=== PATIENT | female | born 1950 | race Caucasian/White ===

== ENCOUNTER 2020-06-15 15:34 | Emergency (ER) | payer MEDICARE, SELFPAY ==
[2020-06-15 16:22] VITALS: BP 166/75; PULSE 66; RESP 16; TEMP 36.6; O2SAT 100; BMI 33.6
--- NOTE | 2020-06-15 16:52 | PC.NURSE ---
IV INSERTED, UNABLE TO OBTAIN LABS OF IV SITE, URINE OBTAINED, WILL SEND TECH TO OBTAIN LABS, VSS, WILL CONTINUE TO MONITOR.
[2020-06-15 17:00] LABS: Glucose Urine UA NEG (NEG); Leukocyte Esterase Urine NEG (NEG); Nitrite Urine NEG (NEG); PH 6.5 (5.0-8.0); Urine Blood NEG (NEG); Urine Ketones NEG (NEG); Urine Protein NEG (NEG-TRACE)
[2020-06-15 17:02] LABS: Appearance Urine CLEAR; Color Urine YELLOW
[2020-06-15 17:07] LABS: MANUAL DIFF FLAG NO
[2020-06-15 17:11] LABS: Basophils Percent Auto 0.4 % (0-2); Eosinophils Absolute Auto 0.1 X10*3/uL (0.0-0.4); Eosinophils Percent Auto 1.2 % (0-4); Hematocrit 37.8 % (37-47); Hemoglobin 12.1 g/dl (12.0-16.0); Imm Gran Abs Auto 0.02 X10*3/uL (0.00-0.03); Imm Gran Pct Auto 0.2 % (0.0-0.4); Lymphocytes Absolute Auto 2.9 X10*3/uL (1.2-4.9); Lymphocytes Percent Auto 31.6 % (20-40); Mean Corpuscular Hemoglobin 29.1 pg (27.0-33.0); Mean Corpuscular Volume 90.9 fL (80-98); Mean Platelet Volume 10.4 fL (9.4-12.3); Monocytes Absolute Auto 0.8 X10*3/uL (0.1-1.2); Monocytes Percent Auto 8.7 % (2-11); Neutrophils Absolute Auto 5.3 X10*3/uL (2.0-8.3); Neutrophils Percent Auto 57.9 % (45-73); Platelet Count 346 X10*3/uL (160-400); Red Blood Count 4.16 X10*6/uL (4.20-5.50); Red Cell Distribution Width 14.6 % (11.0-16.0); White Blood Count 9.1 X10*3/uL (4.8-10.8)
--- NOTE | 2020-06-15 17:18 | ED_ITS ---
HPI - General Adult General Chief complaint: General Medical Stated complaint: flank pain Time Seen by Provider: 06/15/20 16:48 Source: patient Mode of arrival: ambulatory Limitations: no limitations History of Present Illness HPI narrative: patient comes to emergency room complaining of right-sided flank pain. Patient states approximately 5 days ago , She was seen by her primary care physician, she was prescribed a pill and a cream. Patient states since then she has been having burning with urination and right-sided flank pain. Patient complaining also of chills, no fever. Onset (ago): day(s) Related Data Previous Rx's Medication Instructions Recorded phenazopyridine 100 mg PO TID PRN #20 tab 06/15/20 Allergies Allergy/AdvReac Type Severity Reaction Status Date / Time morphine [MORPHINE] Allergy Severe HYPOTENSION Unverified 05/14/20 16:25 levofloxacin [LEVOFLOXACIN] Allergy Intermediate DIZZY Unverified 05/14/20 16:25 Penicillins Allergy Mild RASH Unverified 05/14/20 16:25 penicillin V Allergy Unknown Unverified 04/27/20 00:00 Review of Systems Review of Systems: Constitutional : No Weight loss, No Fever, No Chills, No Night Sweats, No Fatigue, No Malaise ENT/Mouth : No Hearing loss, No Ear Pain, No Nasal Congestion, No Sinus Pain, No Hoarseness, No sore throat, No Rhinorrhea, No Swallowing Difficulty Eyes: No Eye Pain, No Swelling, No Redness, No Foreign Body, No Discharge, No Vision Changes Cardiovascular : No Chest Pain, No SOB, No Dyspnea on Exertion, No Orthopnea, No Edema, No Palpitations Respiratory : No Cough, No Sputum, No Wheezing, No Smoke Exposure, No Dyspnea Gastrointestinal : No Nausea, No Vomiting, No Diarrhea, No Constipation, No abdominal Pain, No Hematochezia, No Melena Genitourinary : no irregular bleeding, Moderate Dysuria and Urinary F requency, No Hematuria, No Urinary Incontinence, No Urgency, No Flank Pain, No Urinary Flow Changes, No Hesitancy Musculoskeletal : No joint pain, No Myalgias, No Joint Swelling, CVA tenderness Skin : No Skin Lesions, No rash Neuro : No Weakness, No Numbness, No Paresthesias, No Loss of Consciousness, No Dizziness, No Headache Psych : No Anxiety/Panic, No Depression, No SI/HI/AH/VH, No Social Issues, Heme/Lymph: No Bruising, No Bleeding,No Lymphadenopathy Endocrine : No Polyuria, No Polydipsia, No Temperature Intolerance [facility] Past Medical History Medical History Asthma Hypertension Social History Social History Smoked in Last 30 Days: No Use of substances other than those prescribed or required for medical reasons: No Advance Directives: No Advance Directives Information Provided: No Physical Exam Vital Signs: Vital Signs: Vital Signs Temp Pulse Resp BP Pulse Ox 06/15/20 17:51 98.1 F 57 18 148/76 H 06/15/20 16:22 97.9 F 66 16 166/75 H 100 Body Mass Index 33.6 Appearance: Alert. Oriented X3. No acute distress. Eyes: Pupils equal, round and reactive to light. ENT: Pharynx normal. Neck: Normal inspection. Neck supple. No lymph nodes noted. No crepitus CVS: Normal heart rate and rhythm. Pulses normal. Normal S1 and S2 Respiratory: No respiratory distress. Breath sounds normal. No Wheezing. No rales Abdomen: Soft and nontender. No rigidity. No distention. good BS x4 Back: CVA tenderness in the right side Skin: Skin warm and dry. Normal skin color. Normal skin turgor. Extremities: No lower extremity edema. No lower extremity edema. No Lacerations. No Rash Neuro: Oriented X 3. No motor deficit. No sensory deficit. Moving all extermities. No slurred speech. Medical Decision Making MDM Narrative Medical decision making narrative: I discussed the labs with the patient, patient does not have a UTI, patient continues having pain with urination, patient likely having cystitis without UTI. Patient struck to follow-up with her primary care physician. Lab Data Result diagrams: 06/15/20 16:56 06/15/20 16:56 Labs: Lab Results 06/15/20 06/15/20 06/15/20 Range/Units 16:50 16:56 16:56 WBC 9.1 (4.8-10.8) X10*3/uL RBC 4.16 L (4.20-5.50) X10*6/uL Hgb 12.1 (12.0-16.0) g/dl Hct 37.8 (37-47) % MCV 90.9 (80-98) fL MCH 29.1 (27.0-33.0) pg MCHC 32.0 (31.0-35.0) g/dl RDW 14.6 (11.0-16.0) % Plt Count 346 (160-400) X10*3/uL MPV 10.4 (9.4-12.3) fL Immature Gran % (Auto) 0.2 (0.0-0.4) % Neut % (Auto) 57.9 (45-73) % Lymph % (Auto) 31.6 (20-40) % [place] % (Auto) 8.7 (2-11) % Eos % (Auto) 1.2 (0-4) % Baso % (Auto) 0.4 (0-2) % Lymph # (Auto) 2.9 (1.2-4.9) X10*3/uL [place] # (Auto) 0.8 (0.1-1.2) X10*3/uL Eos # (Auto) 0.1 (0.0-0.4) X10*3/uL Baso # (Auto) 0.0 (0.0-0.2) X10*3/uL Abs Immat Gran (auto) 0.02 (0.00-0.03) X10*3/uL Absolute Neuts (auto) 5.3 (2.0-8.3) X10*3/uL Absolute Nucleated RBC 0.000 (0.0-0.012) X10*3/uL Nucleated RBC % (auto) 0.0 (0.0-0.2) /100WBC Hold Blue Top SEE NOTE Sodium (135-145) mmol/L Potassium (3.3-5.1) mmol/l Chloride (96-108) mmol/L Carbon Dioxide (22-29) mmol/L Anion Gap (12-20) BUN (9-16) mg/dL Creatinine (0.5-1.4) mg/dL Estim Creat Clear Calc Estimated GFR Random Glucose (60-115) mg/dL Calcium (8.4-10.2) mg/dL Total Bilirubin (0.0-1.0) mg/dL AST (5-31) U/L ALT (0-31) U/L Alkaline Phosphatase (39-117) U/L Total Protein (6.5-8.0) g/dL Albumin (3.5-5.0) g/dL Urine Color YELLOW Urine Appearance CLEAR Urine pH 6.5 (5.0-8.0) Ur Specific [place] 1.010 (1.005-1.025) Urine Protein NEG (NEG-TRACE) MG/DL Urine Glucose (UA) NEG (NEG) MG/DL Urine Ketones NEG (NEG) MG/DL Urine Blood NEG (NEG) Urine Nitrite NEG (NEG) Ur Leukocyte Esterase NEG (NEG) 06/15/20 Range/Units 16:56 WBC (4.8-10.8) X10*3/uL RBC (4.20-5.50) X10*6/uL Hgb (12.0-16.0) g/dl Hct (37-47) % MCV (80-98) fL MCH (27.0-33.0) pg MCHC (31.0-35.0) g/dl RDW (11.0-16.0) % Plt Count (160-400) X10*3/uL MPV (9.4-12.3) fL Immature Gran % (Auto) (0.0-0.4) % Neut % (Auto) (45-73) % Lymph % (Auto) (20-40) % [place] % (Auto) (2-11) % Eos % (Auto) (0-4) % Baso % (Auto) (0-2) % Lymph # (Auto) (1.2-4.9) X10*3/uL [place] # (Auto) (0.1-1.2) X10*3/uL Eos # (Auto) (0.0-0.4) X10*3/uL Baso # (Auto) (0.0-0.2) X10*3/uL Abs Immat Gran (auto) (0.00-0.03) X10*3/uL Absolute Neuts (auto) (2.0-8.3) X10*3/uL Absolute Nucleated RBC (0.0-0.012) X10*3/uL Nucleated RBC % (auto) (0.0-0.2) /100WBC Hold Blue Top Sodium 139 (135-145) mmol/L Potassium 4.5 (3.3-5.1) mmol/l Chloride 104 (96-108) mmol/L Carbon Dioxide 26 (22-29) mmol/L Anion Gap 14 (12-20) BUN 17 H (9-16) mg/dL Creatinine 1.05 (0.5-1.4) mg/dL Estim Creat Clear Calc 39.6 Estimated GFR 52 Random Glucose 95 (60-115) mg/dL Calcium 9.6 (8.4-10.2) mg/dL Total Bilirubin 0.3 (0.0-1.0) mg/dL AST 15 (5-31) U/L ALT 11 (0-31) U/L Alkaline Phosphatase 68 (39-117) U/L Total Protein 7.2 (6.5-8.0) g/dL Albumin 4.1 (3.5-5.0) g/dL Urine Color Urine Appearance Urine pH (5.0-8.0) Ur Specific [place] (1.005-1.025) Urine Protein (NEG-TRACE) MG/DL Urine Glucose (UA) (NEG) MG/DL Urine Ketones (NEG) MG/DL Urine Blood (NEG) Urine Nitrite (NEG) Ur Leukocyte Esterase (NEG) Discharge Plan Discharge Clinical Impression: Cystitis Patient Disposition: Home, Self-Care Instructions: Interstitial Cystitis (ED) Additional Instructions: Please follow-up with your primary care physician tomorrow. If you have any worsening or new symptoms, please return to the emergency room or call 911 Prescriptions: New phenazopyridine 100 mg tablet 100 mg PO TID PRN (Reason: pain) Qty: 20 RF: 0
[2020-06-15 17:41] LABS: Alanine Aminotransferase 11 U/L (0-31); Albumin Level 4.1 g/dL (3.5-5.0); Alkaline Phosphatase 68 U/L (39-117); Anion Gap 14 (12-20); Aspartate Amino Transferase 15 U/L (5-31); Bilirubin Total 0.3 mg/dL (0.0-1.0); Blood Urea Nitrogen 17 mg/dL (9-16); Calcium 9.6 mg/dL (8.4-10.2); Carbon Dioxide 26 mmol/L (22-29); Chloride 104 mmol/L (96-108); Creatinine Clr Calc Pharmacy 39.6; Estimated Glomerular Filt Rate 52; Glucose Random 95 mg/dL (60-115); Potassium 4.5 mmol/l (3.3-5.1); Sodium 139 mmol/L (135-145); Total Protein 7.2 g/dL (6.5-8.0)
[2020-06-15 17:51] VITALS: BP 148/76; PULSE 57; RESP 18; TEMP 36.7
--- NOTE | 2020-06-15 17:54 | PC.NURSE ---
patient a&ox3, pt has c/o 6/10 pain to abd and back, pt calm/compliant, vss, will continue to monitor.
--- NOTE | 2020-06-15 18:53 | PC.NURSE ---
in the waiting room asking for an update on pt condition.
== END 2020-06-15 21:04 | disposition home or self-care (01) ==
PROVIDERS: Emergency Provider Emergency Medicine
DX: N30.10 Interstitial cystitis (chronic) without hematuria (principal); R10.9 Unspecified abdominal pain; Z79.899 Other long term (current) drug therapy
CPT/HCPCS: 36415; 80053; 81003; 85025; 99283; 99284

== ENCOUNTER 2020-07-23 16:53 | Emergency (ER) | payer MEDICARE, SELFPAY ==
[2020-07-23 17:08] VITALS: BP 142/82; PULSE 99; RESP 18; TEMP 37.6; O2SAT 99; BMI 23.8
--- NOTE | 2020-07-23 17:14 | XR_ITS ---
EXAMINATION: XR chest 1V CLINICAL INFORMATION: Cough channel COMPARISON: April 2020 TECHNIQUE: XR chest 1V Tubes and lines: None Lungs and Lydia: Mild infiltrate/atelectasis at left lung base medially. Pleura: Normal. Costophrenic angles are sharp. No pneumothorax. Heart and mediastinum: Evaluation of the mediastinum is limited, due to oblique positioning.. Bones: Skeletal structures included are normal for patient's age. XR/XR chest 1V IMPRESSION: Suboptimal rotated position. Mild infiltrate/atelectasis at left lung base medially.
--- NOTE | 2020-07-23 17:17 | ED_ITS ---
HPI - General Adult General Chief complaint: General Medical Stated complaint: back pain Time Seen by Provider: 07/23/20 17:06 Source: patient Mode of arrival: ambulatory Limitations: no limitations History of Present Illness HPI narrative: Patient states she presents to the ED for chills, body aches, backache, headache, and cough for the past 2 days. Patient states her son having similar symptoms and came to the ER today to get tested. Patient states she had a brief episode of shortness of breath yesterday which resolved and improved after taking her albuterol nebulizer at home. Patient states main complaint presently is body aches. Related Data Previous Rx's Medication Instructions Recorded phenazopyridine 100 mg PO TID PRN #20 tab 06/15/20 dicyclomine 20 mg tablet 20 mg PO QID 30 Days #120 tab 06/17/20 metoclopramide HCl 10 mg tablet 10 mg PO BID 30 Days #60 tab 06/17/20 azithromycin See Rx Instructions .ROUTE 07/23/20 .COMPLEX #6 tab doxycycline monohydrate 100 mg PO BID #14 cap 07/23/20 Allergies Allergy/AdvReac Type Severity Reaction Status Date / Time morphine [MORPHINE] Allergy Severe HYPOTENSION Unverified 05/14/20 16:25 levofloxacin [LEVOFLOXACIN] Allergy Intermediate DIZZY Unverified 05/14/20 16:25 Penicillins Allergy Mild RASH Unverified 05/14/20 16:25 penicillin V Allergy Unknown Unverified 04/27/20 00:00 Review of Systems Review of Systems: Yes all other systems are reviewed and are negative Constitutional: Constitutional: Reports as per HPI, Reports no additional constitutional complaints, Reports body ache(s), Reports chills and Reports headache(s) Eyes: Eyes: Reports as per HPI and Reports no additional eye complaints ENT: Reports system reviewed and no additional complaints, except as documented, Reports as per HPI and Reports headache(s) Cardiovascular: Cardiovascular: Reports as per HPI, Reports no additional cardiovascular complaints and Reports dyspnea (gone) Respiratory: Respiratory: Reports as per HPI, Reports no additional respirat ory complaints, Reports cough, Denies pain with cough and Reports dyspnea (gone) Gastrointestinal: Gastrointestinal: Reports as per HPI and Reports no additional gastrointestinal complaints Genitourinary: Genitourinary: Reports no additional female genitourinary complaints and Reports as per HPI Musculoskeletal: Musculoskeletal: Reports no additional musculoskeletal complaints and Reports as per HPI Neurologic: Reports system reviewed and no additional complaints, except as documented, Reports as per HPI and Reports headache(s) Psychiatric: Psychiatric: Reports no additional psychiatric complaints and Reports as per HPI [facility] Past Medical History Medical History Asthma Hypertension Social History Social History Alcohol intake: never Smoking Status: Never smoker Use of substances other than those prescribed or required for medical reasons: No Advance Directives: No Advance Directives Information Provided: No Physical Exam Vital Signs: Vital Signs: Last Vital Signs Temp 99.9 F 07/23/20 19:06 Pulse 81 07/23/20 19:06 Resp 18 07/23/20 19:06 BP 131/69 07/23/20 19:06 Pulse Ox 95 07/23/20 19:06 Body Mass Index 23.8 Const: General: cooperative, healthy appearing, comfortable, no acute distress, well developed, alert, awake and Physically active Or ientation/consciousness: patient oriented x3 HENMT: Head: Yes normal to inspection and Yes No palpable skull fracture present Eyes: General: appearance normal, both eyes and all related structures Neck: Neck: Yes normal visual inspection, Yes full ROM, Yes no lymphadenopathy, Yes no meningeal signs, Yes trachea midline, Yes supple and No tender Chest: Chest palpation & inspection: normal inspection of the chest, normal palpation of entire chest wall and no localized rib tenderness Resp: Effort & Inspection: normal respiratory effort, able to speak in complete sentences, no audible wheezes and no cough Auscultation: clear to auscultation bilaterally, no crackles, no rales, no rhonchi and no wheezes Cardio: Jugular venous distension: no JVD Heart sounds: S1 normal heart sound present and S2 normal heart sound present GI: Inspection: Yes normal to inspection and No abdominal wall ecchymosis Palpation (GI): Soft to palpation, not firm, nontender, no guarding and not rigid : General: No CVA tenderness and Yes no CVA tenderness Back/Spine/Pelvis: Back: no CVA tenderness, No CVA tenderness and No back tenderness Skin: General skin exam: no rashes or lesions noted Neuro: General: patient oriented x3, gait normal, no meningeal signs and CN's II-XI intact bilaterally Cranial nerves: Yes CN's II-XII intact bilaterally Extrem: General: Yes normal to inspection and Yes full ROM Psych: Appearance: grossly normal and well kempt Course Course Course Narrative: History from and physical exam indicate viral syndrome. Patient will be swabbed for COVID-19, given Toradol, and have chest x-ray done. Presently patient denies any shortness of breath. No need for any labs. Vital signs are stable. Reevaluation(s) Reevaluation #1: Chest xray shows questionable pneumonia. patient will be discharged with antibiotics. patient states bodyaches improved after receving toradol. Patient educated on self isolation Time: 18:47 Medical Decision Making MDM Narrative Medical decision making narrative: pneumonia Discharge Plan Discharge Clinical Impression: Pneumonia Patient Disposition: Home, Self-Care Instructions: Pneumonia (ED) Additional Instructions: return to the ED for any chest pain, shortness of breath, coughing up blood, weakness, fever, chills, or any other concerning symptoms. Please follow up with your PCP. Recommend 14 day self-isolation if covid test is positive Prescriptions: New azithromycin 250 mg tablet See Rx Instructions .ROUTE .COMPLEX Qty: 6 RF: 0 doxycycline monohydrate 100 mg capsule 100 mg PO BID Qty: 14 RF: 0 No Action dicyclomine 20 mg tablet 20 mg PO QID 30 Days Qty: 120 RF: 1 metoclopramide HCl [Reglan] 10 mg tablet 10 mg PO BID 30 Days Qty: 60 RF: 1 phenazopyridine 100 mg tablet 100 mg PO TID PRN (Reason: pain) Qty: 20 RF: 0 Interventions: ED Discharge Assessment Last Done: 07/23/20 19:14 Discharge Date/Time: 07/23/20 19:17 Print Language: Mongolian
[2020-07-23] MEDS: Ketorolac Tromethamine 30 MG/ML VIAL IM (17:27)
[2020-07-23 17:40] VITALS: RESP 18
[2020-07-23 19:06] VITALS: BP 131/69; PULSE 81; RESP 18; TEMP 37.7; O2SAT 95
== END 2020-07-23 19:17 | disposition home or self-care (01) ==
PROVIDERS: Physician Assistant; Emergency Provider Emergency Medicine
DX: J18.9 Pneumonia, unspecified organism (principal); M79.10 Myalgia, unspecified site; R05 Cough; R51.9 Headache, unspecified; Z20.828 Contact with and (suspected) exposure to other viral communicable diseases
CPT/HCPCS: 71045; 96372; 99284; J1885; U0003

== ENCOUNTER 2020-09-24 14:16 | Outpatient (REF) | payer MEDICARE, SELFPAY ==
--- NOTE | 2020-09-24 14:23 | XR_ITS ---
EXAMINATION: XR HAND, LEFT CLINICAL INFORMATION: Pain in the left fingers COMPARISON: None TECHNIQUE: PA, lateral, and oblique views of the left hand. FINDINGS: There is no fracture or dislocation. Alignment is anatomic. Joint spaces are maintained. Small osteophytes at the metacarpophalangeal joints. No osseous erosion. The soft tissues are unremarkable. XR/XR hand LT min 3V IMPRESSION: Mild degenerative changes at the metacarpophalangeal joints. Otherwise unremarkable appearance of the hand.
== END 2020-09-24 14:17 | disposition home or self-care (01) ==
LOC: HO.XRAY 14:16
PROVIDERS: PCP Family Medicine; Visit Provider Family Medicine
DX: M79.645 Pain in left finger(s) (principal)
CPT/HCPCS: 73130

== ENCOUNTER 2020-10-20 13:58 | Outpatient (REF) | payer MEDICARE, SELFPAY ==
--- NOTE | 2020-10-20 16:00 | MHC.AU.P13 ---
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 Patient wears a hearing aid in the left ear only. She notes that even with the hearing aid she feels that she isn't hearing well from either ear. She notes that her family often complains that she doesn't hear them. Patient has previously seen ENT Dr. Jena Castellanos. Previous Hearing Test Results: [facility] [place], 04/03/2017- Normal hearing sloping to a mild sensorineural hearing loss in the right ear. Moderate to severe mixed hearing loss in the left ear. 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: [employer] Model: Store Eyes B50-312 Serial Number: [id number] Battery Size: 312 Warranty: 07/06/2019 Loss and Damage Warranty: 07/06/2019 Dispensed By: [facility] Date of Fittin06/19/2017 Otoscopy: Right Ear: Unremarkable Left Ear: Canal is clear, perforation visualized Tympanometry: Tympanometry performed due to: History of middle ear dysfunction Right Ear: Normal Middle Ear System (Type A) Left Ear: Could Not Obtain Seal Hearing Evaluation: Transducer(s) Used: Insert Earphones, Bone Conduction Method: Conventional Audiometry Stimuli Used: Pure Tones Right Ear: Description of Hearing: Mild to moderately severe sensorineural hearing loss from 250-8000 Hz. Left Ear: Description of Hearing: Severe to profound mixed hearing loss from 250-8000 Hz. Speech Recognition Threshold (SRT): Method Used: Recorded Lists Stimuli Used: Spondee Words Right Ear: 50 dBHL Left Ear: 75 dBHL Word Discrimination: Method: Recorded Lists Word Lists Used: Lista Bisil?bica (Micronesian) Right Ear: 92% at 80 dBHL Left Ear: 84% at 90 dBHL Comparison: Compared to the most recent evaluation: Thresholds have decreased bilaterally. Compared to most recent evaluation: Thresholds in the right ear have decreased by 10-20 dBHL from 250-8000 Hz. Air-conduction thresholds in the left ear have decreased by 20-35 dBHL from 250-4000 Hz, while left bone conduction scores have remained stable. Recommendations: Audiological re-evaluation in one year. Trial with amplification is recommended. Medical clearance from a physician is required before fitting. Hearing Aid Fitting will be scheduled when all materials arrive. Referral to Ear, Nose, and Throat is recommended. Hearing aid maintenance performed today. Hearing aid(s) reprogrammed with updated test results. See Hearing Aid Evaluation report for more information. Hearing aid(s) will be ordered after approval is received. It is recommended that Ms. Krish Silva follow-up with her ENT Dr. Castellanos due to significant decrease in air-conduction thresholds in the left ear in the presence of a perforation. Given a decrease in hearing in the right ear compared to 2017, she is a good candidate for hearing aid use in the right ear as well as the left. Her current left hearing aid is unable to meet her current hearing needs, as it is not powerful enough to provide adequate amplification for the left ear at it's current hearing ability. Therefore, a new hearing aid with a higher power output is recommended for the left ear. Pending medical clearance for hearing aid use, a prior authorization for a first time hearing aid for the right ear and a replacement hearing aid for the left ear will be requested from the patient's insurance. Diagnosis: Primary Diagnosis: H90.A32 Mixed HL, Unilateral, Left Ear, W/Restricted Contralateral Secondary Diagnosis: H90.A21 SNHL, Unilateral Right Ear, W/Restricted Contralateral Hearing Services Performed: Comprehensive Audiological Evaluation (CPT 00572) Tympanometry (CPT 85951) Signature: Provider: Jimmy Maria, [facility]
--- NOTE | 2020-10-21 09:51 | MHC.AU.P13 ---
Hearing Aid Evaluation- Binaural Date of Visit: 10/20/20 Referral Rn Used: Macedonian- In Person Description of Hearing: Mild to moderately severe SNHL in the right ear. Severe to profound SNHL in the left ear. Current Hearing Instrument Information: Phonak Virto B50-312 (left only) Additional Information: Given a decrease in hearing in the right ear compared to 2017, she is a good candidate for hearing aid use in the right ear as well as the left. Her current left hearing aid is unable to meet her current hearing needs, as it is not powerful enough to provide adequate amplification for the left ear at it's current hearing ability. Therefore, a new hearing aid with a higher power output is recommended for the left ear. Hearing Instrument Selection: Right Ear: Neurological Surgery Teacher: Phonak Model: Virto M70-312 Battery Size: 312 Color: [employer] Lead: Moderate Left Ear: Neurological Surgery Teacher: Phonak Model: Virto M70-312 Battery Size: 312 Color: [employer] Lead: Ultra Power Plan: Action Taken/Action Needed: Earmold Impressions Taken. Prior authorization to be requested. Medical Clearance to be requested from PCP/ENT. Hearing Fitting to be scheduled when materials arrive. Comments: Pending medical clearance for hearing aid use, a prior authorization for a first time hearing aid for the right ear and a replacement hearing aid for the left ear will be requested from the patient's insurance. If approved, aids will be ordered. Ear molds impressions are in the hold drawer. Diagnosis Code(s): Primary Diagnosis: H90.A32 Mixed HL, Unilateral, Left Ear, W/Restricted Contralateral Secondary Diagnosis: H90.A21 SNHL, Unilateral Right Ear, W/Restricted Contralateral Hearing Signature: Student/Clinical Fellow: No I have reviewed/agreed with student/fellow documentation: N/A Provider: Cara Kelly, Jimmy, [facility]
--- NOTE | 2020-10-21 10:41 | MHC.AU.MED ---
Medical Clearance for Hearing Instrumentation Date: 10/21/20 Patient Name: Mary Kate Silva Date of : 1950 Referring Provider: Senait Frias MD We have seen your patient on 10/21/20 and have determined that they are a candidate for amplification (See accompanying report). Specifically, they would benefit from: Hearing aid use in both ears There is a statute that addresses Medical Evaluation Requirements prior to fitting a patient with a hearing aid. According to [place] statute 265 CMR:6.03(1), (a) General. Except as provided in 265 CMR 6.03(1)(b), a appraiser art shall not sell a hearing aid unless the prospective user has presented to the appraiser art a written statement signed by a licensed physician that states that the patient's hearing loss has been medically evaluated and the patient may be considered a candidate for a hearing aid. The medical evaluation must have taken place within the preceding six months. Please note: Due to the [place] Statute referenced above, we cannot accept a signature other than that of a licensed physician. MECHANICAL SYSTEM TECHNICIAN and PA signatures cannot be accepted. I am in agreement with the above recommendation. There is no medical contraindication for hearing instrumentation. Physician Signature Date Physician Name (Printed)
== END 2020-10-20 13:59 | disposition home or self-care (01) ==
LOC: HO.SH 13:58
PROVIDERS: Visit Provider Family Medicine
DX: Z46.1 Encounter for fitting and adjustment of hearing aid (principal); H90.A32 Mixed conductive and sensorineural hearing loss, unilateral, left ear with restricted hearing on the contralateral side; H90.A21 Sensorineural hearing loss, unilateral, right ear, with restricted hearing on the contralateral side
CPT/HCPCS: 92557; 92567; 92591; 92592; 99499; V5275

== ENCOUNTER 2020-11-19 15:03 | Outpatient (REF) | payer MEDICARE, SELFPAY | END 2020-11-19 15:04 | disposition home or self-care (01) | LOC: HO.HAP 15:03 | PROVIDERS: Visit Provider Family Medicine | DX: Z46.1 Encounter for fitting and adjustment of hearing aid (principal); H90.3 Sensorineural hearing loss, bilateral | CPT/HCPCS: V5011; V5020; V5160; V5260; V5266 ==

== ENCOUNTER 2020-12-07 12:29 | Outpatient (REF) | payer MEDICARE, SELFPAY | END 2020-12-07 12:30 | disposition home or self-care (01) | LOC: HO.HAP 12:29 | PROVIDERS: Visit Provider Family Medicine | DX: Z13.89 Encounter for screening for other disorder (principal) ==

== ENCOUNTER → 2020-12-17 09:00 | Outpatient (BNVA) | payer MEDICARE, SELFPAY | PROVIDERS: Visit Provider Physician Assistant | CPT/HCPCS: Q3014 ==

== ENCOUNTER 2020-12-21 21:54 | Emergency (ER) | payer MEDICARE, SELFPAY ==
--- NOTE | ~2020-12-21 | XR_ITS ---
EXAMINATION: XR CHEST CLINICAL INFORMATION: Nausea COMPARISON: Prior chest June 2020 TECHNIQUE: Frontal view of the chest was obtained. FINDINGS: No significant abnormality is noted involving the heart, lungs, mediastinum, bony thorax or soft tissues. XR/XR chest 1V IMPRESSION: Unremarkable examination.
--- NOTE | ~2020-12-21 | XR_ITS ---
EXAMINATION: XR WRIST, LEFT CLINICAL INFORMATION: Twisted left wrist COMPARISON: 09/24/2020 TECHNIQUE: Four views of the left wrist. FINDINGS: Osteopenia. There is no fracture or dislocation. There is mild widening of the scapholunate interval, similar to prior radiographs. The carpal rows are otherwise well aligned. Soft tissue swelling seen at the dorsal aspect of the wrist. XR/XR wrist LT min 3V IMPRESSION: Soft tissue swelling with no acute osseous abnormality.
[2020-12-21 21:57] VITALS: BP 138/74; PULSE 84; RESP 16; TEMP 36.7; O2SAT 99; BMI 37.1
--- NOTE | 2020-12-21 22:18 | ECG_ITS ---
Test Reason : Left arm pain, nausea Blood Pressure : / mmHG Vent. Rate : 079 BPM Atrial Rate : 079 BPM P-R Int : 174 ms QRS Dur : 072 ms QT Int : 404 ms P-R-T Axes : 052 -06 033 degrees QTc Int : 463 ms Normal sinus rhythm Normal ECG When compared to the previous EKG of No significant changes seen Referred By: Paige Ruiz Electronically Signed By:LOUIS WOOD MD
[2020-12-21 22:51] LABS: MANUAL DIFF FLAG NO
[2020-12-21 22:53] LABS: Basophils Percent Auto 0.4 % (0-2); Eosinophils Absolute Auto 0.2 X10*3/uL (0.0-0.4); Eosinophils Percent Auto 1.8 % (0-4); Hematocrit 38.5 % (37-47); Hemoglobin 12.2 g/dl (12.0-16.0); Imm Gran Abs Auto 0.02 X10*3/uL (0.00-0.03); Imm Gran Pct Auto 0.2 % (0.0-0.4); Lymphocytes Absolute Auto 2.8 X10*3/uL (1.2-4.9); Lymphocytes Percent Auto 30.2 % (20-40); Mean Corpuscular HGB Conc 31.7 g/dl (31.0-35.0); Mean Corpuscular Hemoglobin 29.1 pg (27.0-33.0); Mean Corpuscular Volume 91.9 fL (80-98); Mean Platelet Volume 10.3 fL (9.4-12.3); Monocytes Absolute Auto 0.8 X10*3/uL (0.1-1.2); Monocytes Percent Auto 8.7 % (2-11); Neutrophils Absolute Auto 5.5 X10*3/uL (2.0-8.3); Neutrophils Percent Auto 58.7 % (45-73); Platelet Count 334 X10*3/uL (160-400); Red Blood Count 4.19 X10*6/uL (4.20-5.50); Red Cell Distribution Width 13.7 % (11.0-16.0); White Blood Count 9.3 X10*3/uL (4.8-10.8)
[2020-12-21 22:58] LABS: Prothrombin Time 12.3 SEC (10.8-13.0)
[2020-12-21 23:08] LABS: Glucose Urine UA NEG (NEG); Leukocyte Esterase Urine NEG (NEG); Nitrite Urine NEG (NEG); PH 5.5 (5.0-8.0); Urine Blood NEG (NEG); Urine Ketones NEG (NEG); Urine Protein NEG (NEG-TRACE)
[2020-12-21 23:10] LABS: Appearance Urine CLEAR; Color Urine STRAW; UACC Culture Trigger NO
--- NOTE | 2020-12-21 23:17 | ED.EXTPRO ---
HPI - Extremity Problem General Chief complaint: Extremity Injury, Upper Stated complaint: Wrist pain Time Seen by Provider: 12/21/20 22:18 Source: patient and family Mode of arrival: ambulatory Limitations: language barrier History of Present Illness HPI Narrative: 70-year-old female with past medical history of asthma and hypertension presents with left wrist pain. States that she twisted her wrist earlier today and is having a hard time moving it. Patient also states to have pain radiating down the left arm and nausea, which is something that she had prior to the injury to the left wrist. She does not describe any dizziness, lightheadedness, chest pain or pressure, palpitations, abdominal pain, abdominal distention, dysuria, hematuria, melena, hematochezia, diarrhea, constipation, fevers, chills, or edema. Related Data Previous Rx's Medication Instructions Recorded phenazopyridine 100 mg PO TID PRN #20 tab 06/15/20 dicyclomine 20 mg tablet 20 mg PO QID 30 Days #120 tab 06/17/20 metoclopramide HCl 10 mg tablet 10 mg PO BID 30 Days #60 tab 06/17/20 doxycycline monohydrate 100 mg PO BID #14 cap 07/23/20 Allergies Allergy/AdvReac Type Severity Reaction Status Date / Time morphine [MORPHINE] Allergy Severe HYPOTENSION Verified 12/21/20 21:57 levofloxacin [LEVOFLOXACIN] Allergy Intermediate DIZZY Verified 12/21/20 21:57 Penicillins Allergy Mild RASH Verified 12/21/20 21:57 penicillin V Allergy Unknown Rash Verified 12/21/20 21:57 Review of Systems Review of Systems: Constitutional: No Fever, No Chills ENT/Mouth: No Ear Pain, No Hoarseness, No sore throat Eyes: No Eye Pain, No Swelling, No Redness, No Foreign Body Cardiovascular: No Chest Pain, No SOB Respiratory: No Cough, No Dyspnea Gastrointestinal: Positive Nausea, No Vomiting, No Diarrhea, No abdominal Pain Genitourinary: No Dysuria, No Hematuria Musculoskeletal: positive left wrist pain, positive left arm pain, No Myalgias, No Joint Swelling Skin: No Skin lacerations, No rash Neuro: No Weakness, No Numbness, No Paresthesias, No Loss of Consciousness, No Dizziness, No Headache Psych: No Anxiety/Panic, No Depression Heme/Lymph: no easy bruising, no Lymphadenopathy Endocrine: No Polyuria, No Polydipsia Yes all other systems are reviewed and are negative [facility] Past Medical History Attestation statement: The following information was validated with the patient. Source: old records reviewed Medical History Asthma Hypertension Social History Social History Household Members: Spouse and Children Alcohol intake: never Smoking Status: Never smoker Advance Directives: No Advance Directives Information Provided: Yes Current occupational status: disabled Physical Exam Vital Signs: Vital Signs: Last Vital Signs Temp 98.0 F 12/21/20 21:57 Pulse 84 12/21/20 21:57 Resp 16 12/21/20 21:57 BP 138/74 12/21/20 21:57 Pulse Ox 99 12/21/20 21:57 Body Mass Index 37.1 Appearance: Alert. Oriented X3. No acute distress. Eyes: Pupils equal, round and reactive to light. ENT: Pharynx normal. Neck: Normal inspection. Neck supple. CVS: Normal heart rate and rhythm. Pulses normal. Respiratory: No respiratory distress. Lung sounds clear to auscultation all lobes. Abdomen: Soft and nontender. Skin: Skin warm and dry. Normal skin color. Normal skin turgor. Extremities: Decreased range of motion with supination and pronation to the left wrist, brisk capillary refill, pulses equal to all extremities. Neuro: No motor deficit. No sensory deficit. Cranial nerves 2 12 intact. Course Course Course Narrative: 70-year-old female presents with left wrist pain after twisting it. During my assessment she did state that she had some nausea and pain radiating down left arm prior to the pain in the wrist. Will order EKG, troponin, and labs to rule out ACS. For x-ray EKG is normal sinus, labs are unremarkable, troponins are negative. Highly unlikely that this is ACS. X-rays negative for fractures or findings requiring acute intervention. She does have swelling and having difficulty pronating and supinating, will order wrist splint for comfort. factory engineer utilized for all correspondence, Google translate utilized for discharge instructions. Patient verbalized understanding of and agrees to plan care discharge to home. MDM - Extremity (Nontraumatic) MDM Narrative Medical decision making narrative: ACS, wrist drain, wrist sprain, wrist fracture Medical Records Attestation: I reviewed the patient's medical records. Lab Data Attestation: I reviewed the patient's lab results. Result diagrams: 12/21/20 22:45 12/21/20 22:45 Labs: Lab Results 12/21/20 12/21/20 12/21/20 Range/Units 22:44 22:44 22:45 WBC 9.3 (4.8-10.8) X10*3/uL RBC 4.19 L (4.20-5.50) X10*6/uL Hgb 12.2 (12.0-16.0) g/dl Hct 38.5 (37-47) % MCV 91.9 (80-98) fL MCH 29.1 (27.0-33.0) pg MCHC 31.7 (31.0-35.0) g/dl RDW 13.7 (11.0-16.0) % Plt Count 334 (160-400) X10*3/uL MPV 10.3 (9.4-12.3) fL Immature Gran % (Auto) 0.2 (0.0-0.4) % Neut % (Auto) 58.7 (45-73) % Lymph % (Auto) 30.2 (20-40) % [place] % (Auto) 8.7 (2-11) % Eos % (Auto) 1.8 (0-4) % Baso % (Auto) 0.4 (0-2) % Lymph # (Auto) 2.8 (1.2-4.9) X10*3/uL [place] # (Auto) 0.8 (0.1-1.2) X10*3/uL Eos # (Auto) 0.2 (0.0-0.4) X10*3/uL Baso # (Auto) 0.0 (0.0-0.2) X10*3/uL Abs Immat Gran (auto) 0.02 (0.00-0.03) X10*3/uL Absolute Neuts (auto) 5.5 (2.0-8.3) X10*3/uL Absolute Nucleated RBC 0.000 (0.0-0.012) X10*3/uL Nucleated RBC % (auto) 0.0 (0.0-0.2) /100WBC PT 12.3 (10.8-13.0) SEC INR 1.0 (0.9-1.1) APTT 33.0 (24.1-38.0) SEC Sodium (135-145) mmol/L Potassium (3.3-5.1) mmol/L Chloride (96-108) mmol/L Carbon Dioxide (22-29) mmol/L Anion Gap (12-20) BUN (9-16) mg/dL Creatinine (0.5-1.4) mg/dL Estim Creat Clear Calc Estimated GFR Random Glucose (60-115) mg/dL Calcium (8.4-10.2) mg/dL Total Bilirubin (0.0-1.0) mg/dL Direct Bilirubin (0.0-0.5) mg/dL AST (5-31) U/L ALT (0-31) U/L Alkaline Phosphatase (39-117) U/L Troponin I High Sens < 3.5 (<3.5-17.0) ng/L Total Protein (6.5-8.0) g/dL Albumin (3.5-5.0) g/dL Lipase (8-78) U/L Urine Color Urine Appearance Urine pH (5.0-8.0) Ur Specific [place] (1.005-1.025) Urine Protein (NEG-TRACE) MG/DL Urine Glucose (UA) (NEG) MG/DL Urine Ketones (NEG) MG/DL Urine Blood (NEG) Urine Nitrite (NEG) Ur Leukocyte Esterase (NEG) 12/21/20 12/21/20 Range/Units 22:45 23:00 WBC (4.8-10.8) X10*3/uL RBC (4.20-5.50) X10*6/uL Hgb (12.0-16.0) g/dl Hct (37-47) % MCV (80-98) fL MCH (27.0-33.0) pg MCHC (31.0-35.0) g/dl RDW (11.0-16.0) % Plt Count (160-400) X10*3/uL MPV (9.4-12.3) fL Immature Gran % (Auto) (0.0-0.4) % Neut % (Auto) (45-73) % Lymph % (Auto) (20-40) % [place] % (Auto) (2-11) % Eos % (Auto) (0-4) % Baso % (Auto) (0-2) % Lymph # (Auto) (1.2-4.9) X10*3/uL [place] # (Auto) (0.1-1.2) X10*3/uL Eos # (Auto) (0.0-0.4) X10*3/uL Baso # (Auto) (0.0-0.2) X10*3/uL Abs Immat Gran (auto) (0.00-0.03) X10*3/uL Absolute Neuts (auto) (2.0-8.3) X10*3/uL Absolute Nucleated RBC (0.0-0.012) X10*3/uL Nucleated RBC % (auto) (0.0-0.2) /100WBC PT (10.8-13.0) SEC INR (0.9-1.1) APTT (24.1-38.0) SEC Sodium 137 (135-145) mmol/L Potassium 4.4 (3.3-5.1) mmol/L Chloride 104 (96-108) mmol/L Carbon Dioxide 24 (22-29) mmol/L Anion Gap 13 (12-20) BUN 18 H (9-16) mg/dL Creatinine 1.10 (0.5-1.4) mg/dL Estim Creat Clear Calc 38.2 Estimated GFR 49 Random Glucose 150 H D (60-115) mg/dL Calcium 9.6 (8.4-10.2) mg/dL Total Bilirubin 0.3 (0.0-1.0) mg/dL Direct Bilirubin < 0.2 (0.0-0.5) mg/dL AST 19 (5-31) U/L ALT < 6 (0-31) U/L Alkaline Phosphatase 69 (39-117) U/L Troponin I High Sens (<3.5-17.0) ng/L Total Protein 7.7 (6.5-8.0) g/dL Albumin 4.1 (3.5-5.0) g/dL Lipase 33 (8-78) U/L Urine Color STRAW Urine Appearance CLEAR Urine pH 5.5 (5.0-8.0) Ur Specific [place] 1.010 (1.005-1.025) Urine Protein NEG (NEG-TRACE) MG/DL Urine Glucose (UA) NEG (NEG) MG/DL Urine Ketones NEG (NEG) MG/DL Urine Blood NEG (NEG) Urine Nitrite NEG (NEG) Ur Leukocyte Esterase NEG (NEG) Imaging Data Chest x-ray: Attestation: I personally reviewed and interpreted this imaging study as follows: Radiologist's impression: EXAMINATION: XR CHEST CLINICAL INFORMATION: Nausea COMPARISON: Prior chest June 2020 TECHNIQUE: Frontal view of the chest was obtained. FINDINGS: No significant abnormality is noted involving the heart, lungs, mediastinum, bony thorax or soft tissues. XR/XR chest 1V IMPRESSION: Unremarkable examination. Wrist x-ray: Attestation: I personally reviewed and interpreted this imaging study as follows: Radiologist's impression: EXAMINATION: XR WRIST, LEFT CLINICAL INFORMATION: Twisted left wrist COMPARISON: 09/24/2020 TECHNIQUE: Four views of the left wrist. FINDINGS: Osteopenia. There is no fracture or dislocation. There is mild widening of the scapholunate interval, similar to prior radiographs. The carpal rows are otherwise well aligned. Soft tissue swelling seen at the dorsal aspect of the wrist. XR/XR wrist LT min 3V IMPRESSION: Soft tissue swelling with no acute osseous abnormality. Discharge Plan Discharge Clinical Impression: Left wrist sprain, Nausea Patient Disposition: Home, Self-Care Instructions: Wrist Sprain (ED) Additional Instructions: Te evaluaron por dolor en la mu?eca izquierda. Las radiograf?as son negativas para los hallazgos agudos, hay cierta hinchaz?n del tejido blando que sugiere un esguince de mu?eca. Por favor, utilice f?karine cock-up seg?n sea necesario para la comodidad. Marquez moy visita al departamento de emergencias se quej? de dolor en el brazo hilary y n?useas. Trabajamos hasta descartar un evento card?aco. Moy electrocardiograma era el ritmo sinusal normal, las troponinas, que son enzimas card?acas son negativas. Los valores de moy laboratorio fueron negativos para los hallazgos agudos que requirieron yaakov intervenci?n emergente. Tu an?lisis de orina fue negativo. Es muy poco probable que usted tenga un evento card?aco en eduardo momento. Por favor, evelyn un seguimiento con el m?dico de atenci?n primaria para un mayor trabajo. Janice por elegir eduardo departamento de emergencias para moy evaluaci?n. Por favor, evelyn un seguimiento con el m?dico de atenci?n primaria seg?n sea necesario. Regrese al servicio de emergencias para cualquier s?ntoma nuevo, preocupante o que empeore. You were evaluated for left wrist pain. Your x-rays are negative for acute findings, there is some soft tissue swelling suggestive of a wrist sprain. Please use cock-up splint as needed for comfort. During her emergency department visit you did complain of left arm pain and nausea. We worked you up to rule out cardiac event. Your EKG was normal sinus rhythm, your troponins, which are cardiac enzymes are negative. Your lab values were negative for acute findings requiring emergent intervention. Your urinalysis was negative. It is highly unlikely that you having a cardiac event at this time. Please follow-up with primary care physician for further workup. Thank you for choosing this emergency department for evaluation. Please follow-up with primary care physician as needed. Return to the emergency department for any new, concerning, or worsening symptoms. Prescriptions: No Action dicyclomine 20 mg tablet 20 mg PO QID 30 Days Qty: 120 RF: 1 metoclopramide HCl [Reglan] 10 mg tablet 10 mg PO BID 30 Days Qty: 60 RF: 1 doxycycline monohydrate 100 mg capsule 100 mg PO BID Qty: 14 RF: 0 phenazopyridine 100 mg tablet 100 mg PO TID PRN (Reason: pain) Qty: 20 RF: 0 Interventions: ED Discharge Assessment Last Done: 12/21/20 23:38 Discharge Date/Time: 12/21/20 23:45
[2020-12-21 23:25] LABS: Troponin-I High Sensitivity < 3.5 ng/L (<3.5-17.0)
[2020-12-21 23:25] LABS: Alanine Aminotransferase < 6 U/L (0-31); Albumin Level 4.1 g/dL (3.5-5.0); Alkaline Phosphatase 69 U/L (39-117); Anion Gap 13 (12-20); Aspartate Amino Transferase 19 U/L (5-31); Bilirubin Direct < 0.2 mg/dL (0.0-0.5); Bilirubin Total 0.3 mg/dL (0.0-1.0); Blood Urea Nitrogen 18 mg/dL (9-16); Calcium 9.6 mg/dL (8.4-10.2); Carbon Dioxide 24 mmol/L (22-29); Chloride 104 mmol/L (96-108); Creatinine Clr Calc Pharmacy 38.2; Estimated Glomerular Filt Rate 49; Glucose Random 150 mg/dL (60-115); Lipase 33 U/L (8-78); Potassium 4.4 mmol/L (3.3-5.1); Sodium 137 mmol/L (135-145); Total Protein 7.7 g/dL (6.5-8.0)
--- NOTE | 2020-12-21 23:29 | PC.NURSE ---
MONITOR REMAINED NSR THROUGHOUT [facility] STAY.
== END 2020-12-21 23:45 | disposition home or self-care (01) ==
PROVIDERS: Nurse Practitioner Family; Emergency Provider Internal Medicine; PCP Family Medicine
DX: S63.502A Unspecified sprain of left wrist, initial encounter (principal); M25.532 Pain in left wrist; R11.0 Nausea; X50.0XXA Overexertion from strenuous movement or load, initial encounter; X50.3XXA Overexertion from repetitive movements, initial encounter; X50.9XXA Other and unspecified overexertion or strenuous movements or postures, initial encounter; Y93.9 Activity, unspecified; Y92.009 Unspecified place in unspecified non-institutional (private) residence as the place of occurrence of the external cause; Y99.9 Unspecified external cause status; Z79.899 Other long term (current) drug therapy
CPT/HCPCS: 29125; 36415; 71045; 73110; 80048; 80076; 81003; 83690; 84484; 85025; 85610; 85730; 93005; 99285

== ENCOUNTER 2021-01-14 19:58 | Emergency (ER) | payer MEDICARE, SELFPAY ==
--- NOTE | ~2021-01-14 | XR_ITS ---
EXAMINATION: XR ANKLE, RIGHT CLINICAL INFORMATION: Pain after dropping object on the foot COMPARISON: None TECHNIQUE: AP, lateral, and mortise views of the right ankle. FINDINGS: There is bimalleolar soft tissue swelling. No visible acute fracture, dislocation or subluxation seen. A small calcaneal heel and retrocalcaneal enthesophyte. The soft tissues are normal. XR/XR ankle RT min 3V IMPRESSION: Bimalleolar soft tissue swelling. No visible acute fracture or dislocation seen. There are small calcaneal heel and retrocalcaneal enthesophytes.
[2021-01-14 20:03] VITALS: BP 134/83; PULSE 100; RESP 16; TEMP 36.9; O2SAT 99; BMI 43.0
--- NOTE | 2021-01-14 21:52 | ED.LOWEXIN ---
HPI - Extremity Injury (Lower) General Chief Complaint: Extremity Injury, Lower Stated Complaint: Foot pain Time Seen by Provider: 01/14/21 21:52 Source: patient and family Mode of arrival: ambulatory History of Present Illness HPI Narrative: 71-year-old female with history of hypertension presents after having ?twisted her ankle? yesterday and is now having a pain on weight-bearing home as well as noted swelling to the right ankle. Otherwise, she denies any numbness/tingling into the foot or toes of that right ankle. Related Data Previous Rx's Medication Instructions Recorded phenazopyridine 100 mg PO TID PRN #20 tab 06/15/20 dicyclomine 20 mg tablet 20 mg PO QID 30 Days #120 tab 06/17/20 metoclopramide HCl 10 mg tablet 10 mg PO BID 30 Days #60 tab 06/17/20 doxycycline monohydrate 100 mg PO BID #14 cap 07/23/20 Allergies Allergy/AdvReac Type Severity Reaction Status Date / Time morphine [MORPHINE] Allergy Severe HYPOTENSION Verified 12/21/20 21:57 levofloxacin [LEVOFLOXACIN] Allergy Intermediate DIZZY Verified 12/21/20 21:57 Penicillins Allergy Mild RASH Verified 12/21/20 21:57 penicillin V Allergy Unknown Rash Verified 12/21/20 21:57 Review of Systems Review of Systems: Pertinent positives and negatives as stated in HPI 10 point review of systems is otherwise negative. PMFSH Past Medical History Source: nursing notes reviewed Medical History Asthma Hypertension Social History Social History Household Members: Spouse and Children Alcohol intake: never Smoking Status: Never smoker Advance Directives: No Advance Directives Information Provided: Yes Current occupational status: disabled Physical Exam Vital Signs: Vital Signs: Last Vital Signs Temp 98.4 F 01/14/21 20:03 Pulse 100 01/14/21 20:03 Resp 16 01/14/21 20:03 BP 134/83 01/14/21 20:03 Pulse Ox 99 01/14/21 20:03 Body Mass Index 43.0 VITAL SIGNS: Reviewed. GENERAL: Well developed, well nourished, in no acute distress. HEAD: Normocephalic/atraumatic EYES: PERRLA, EOMI EARS: Ext canals without abnormality OROPHARYNX: no oral lesions noted, posterior pharynx clear NECK: Supple, no adenopathy LUNGS: Normal breath sounds. No adventitious sounds or accessory muscle use. SpO2<99> CARDIOVASCULAR: Regular rate and rhythm without noted murmurs ABDOMEN: Soft, non-tender, non-distended with bowel sounds. RIGHT ANKLE: Mild swelling noted to the medial malleolus with tenderness on palpation and palpable DP/PT with capillary refill less than 3 seconds and good range of motion of the toes but limited range of motion at the ankle secondary to pain. NEUROLOGIC: Alert and oriented x 4. Strength and sensation to light touch were grossly intact x 4. Course Course Course Narrative: 71-year-old female with history and clinical presentation suggestive of right ankle fracture versus sprain. Combination analgesics was provided. On review of all investigations and re-evaluation there are no acute fractures/dislocations and patient has had good resolution of her pain with the combination analgesics. She was informed of all results at bedside and discharged home in stable condition. Discharge Plan Discharge Clinical Impression: Ankle sprain Patient Disposition: Home, Self-Care Instructions: Ankle Sprain (ED), R.I.C.E. Treatment (ED) Additional Instructions: 1. Tylenol 1000 mg, por v?a oral, cada 6 horas seg?n sea necesario para controlar el dolor. No exceda los 4000 mg en 24 horas. 2. Ibuprofeno 400 mg, por v?a oral con leche o alimentos, cada 6 horas seg?n sea necesario para controlar el dolor. 3. Mantenga el tobillo elevado cuando sea posible y aplique hielo ruslan 10 a 15 minutos sobre la piel no expuesta de 3 a 4 veces al d?a. 4. Kia un seguimiento con el proveedor de atenci?n primaria en los pr?ximos 2-3 d?as para yaakov reevaluaci?n. Regrese a la nuria de emergencias si presenta un empeoramiento preston de raj s?ntomas. Prescriptions: No Action dicyclomine 20 mg tablet 20 mg PO QID 30 Days Qty: 120 RF: 1 metoclopramide HCl [Reglan] 10 mg tablet 10 mg PO BID 30 Days Qty: 60 RF: 1 doxycycline monohydrate 100 mg capsule 100 mg PO BID Qty: 14 RF: 0 phenazopyridine 100 mg tablet 100 mg PO TID PRN (Reason: pain) Qty: 20 RF: 0 Referrals: Senait Frias MD [Primary Care Provider] - 2 days (Right ankle sprain, please re-evaluate) Print Language: Finnish
[2021-01-14] MEDS: Acetaminophen 325 MG TABLET 975 MG PO (22:13)
[2021-01-14] MEDS: Ketorolac Tromethamine 15 MG/ML VIAL IM (22:14)
== END 2021-01-14 22:39 | disposition home or self-care (01) ==
PROVIDERS: Emergency Provider Student in an Organized Health Care Education/Training Program; PCP Family Medicine
DX: S93.401A Sprain of unspecified ligament of right ankle, initial encounter (principal); X50.1XXA Overexertion from prolonged static or awkward postures, initial encounter; I10 Essential (primary) hypertension; Y93.9 Activity, unspecified; Y92.9 Unspecified place or not applicable; Y99.9 Unspecified external cause status
CPT/HCPCS: 73610; 96372; 99283; 99284; J1885

== ENCOUNTER 2021-05-24 09:33 | Outpatient (REF) | payer MEDICARE, SELFPAY ==
[2021-05-24 12:12] LABS: MANUAL DIFF FLAG NO
[2021-05-24 12:25] LABS: Basophils Percent Auto 0.5 % (0-2); Eosinophils Absolute Auto 0.1 X10*3/uL (0.0-0.4); Eosinophils Percent Auto 1.6 % (0-4); Hemoglobin 12.5 g/dl (12.0-16.0); Imm Gran Abs Auto 0.03 X10*3/uL (0.00-0.03); Imm Gran Pct Auto 0.4 % (0.0-0.4); Lymphocytes Absolute Auto 2.1 X10*3/uL (1.2-4.9); Lymphocytes Percent Auto 26.4 % (20-40); Mean Corpuscular HGB Conc 32.1 g/dl (31.0-35.0); Mean Corpuscular Volume 90.5 fL (80-98); Mean Platelet Volume 10.9 fL (9.4-12.3); Monocytes Absolute Auto 0.8 X10*3/uL (0.1-1.2); Monocytes Percent Auto 10.3 % (2-11); Neutrophils Absolute Auto 4.9 X10*3/uL (2.0-8.3); Neutrophils Percent Auto 60.8 % (45-73); Platelet Count 357 X10*3/uL (160-400); Red Blood Count 4.31 X10*6/uL (4.20-5.50); Red Cell Distribution Width 14.2 % (11.0-16.0); White Blood Count 8.1 X10*3/uL (4.8-10.8)
[2021-05-24 13:02] LABS: Appearance Urine CLEAR; Color Urine YELLOW; Glucose Urine UA NEG (NEG); Leukocyte Esterase Urine NEG (NEG); Nitrite Urine NEG (NEG); Urine Blood TRACE (NEG); Urine Ketones NEG (NEG); Urine Protein NEG (NEG-TRACE)
[2021-05-24 13:12] LABS: Squamous Epithelial Cell Urine 2+ /LPF; WBC Urine 0-2 /HPF (0-4)
== END 2021-05-24 09:34 | disposition home or self-care (01) ==
LOC: HO.LAB 09:33
PROVIDERS: PCP Registered Nurse Community Health; Referring Provider Registered Nurse Community Health; Visit Provider Physician Assistant
DX: K21.9 Gastro-esophageal reflux disease without esophagitis (principal); R30.0 Dysuria; K52.9 Noninfective gastroenteritis and colitis, unspecified; Z78.9 Other specified health status
CPT/HCPCS: 36415; 81001; 81003; 85025; 99212

== ENCOUNTER 2021-06-28 12:28 | Emergency (ER) | payer MEDICARE, SELFPAY ==
[2021-06-28 13:12] VITALS: BP 151/90; PULSE 90; RESP 20; TEMP 36.1; O2SAT 99; BMI 42.2
[2021-06-28 15:52] VITALS: BP 152/85; PULSE 88; RESP 20; TEMP 36.6; O2SAT 98
--- NOTE | 2021-06-28 15:58 | ED.SOB ---
HPI - SOB/Dyspnea General Chief Complaint: Dyspnea Stated Complaint: diff breathing, cough, headache Time Seen by Provider: 06/28/21 15:58 Source: patient and sales assistant displays Mode of arrival: ambulatory Limitations: no limitations History of Present Illness HPI Narrative: 71-year-old female with known history of asthma came in with an asthma exacerbation despite using her inhaler and nebulizer at home, patient declined any fever, chills, with dry coughing no sick contacts, no recent travel, no chest pain, patient been using her asthma medication with no improvement is specially nighttime having coughing. Related Data Home Medications Medication Instructions Recorded Confirmed albuterol sulfate 2 mg/5 mL oral 2 mg PO TID 05/24/21 syrup amlodipine 2.5 mg tablet 2.5 mg PO DAILY 05/24/21 calcium carbonate 300 mg (750 mg) 0 tab PO 05/24/21 chewable tablet (Calcium Antacid) cetirizine 10 mg tablet 10 mg PO QAM 05/24/21 cholecalciferol (vitamin D3) 50 50 mcg PO QAM 05/24/21 mcg (2,000 unit) tablet cholestyramine-aspartame 4 gram 1 ea PO BID 05/24/21 oral powder for susp in a packet (Cholestyramine Light) cyanocobalamin (vitamin B-12) 5,000 mcg PO DAILY 05/24/21 5,000 mcg disintegrating tablet fluticasone 500 mcg-salmeterol 50 1 ea INHALATION BID 05/24/21 mcg/dose blistr powdr for inhalation levothyroxine 125 mcg tablet 125 mcg PO QAM 05/24/21 losartan 100 mg tablet 100 mg PO DAILY 05/24/21 montelukast 10 mg tablet 10 mg PO DAILY 05/24/21 multivitamin-ferrous 0 tab PO 05/24/21 fumarate-folic acid 18 mg-400 mcg tablet (Certavite-Antioxidant) sertraline 100 mg tablet 100 mg PO BID 05/24/21 tolterodine 4 mg capsule,extended 4 mg PO DAILY 05/24/21 release 24 hr zolpidem 5 mg tablet 5 mg PO BEDTIME PRN 05/24/21 Previous Rx's Medication Instructions Recorded phenazopyridine 100 mg tablet 100 mg PO TID PRN #20 tab 06/15/20 dicyclomine 20 mg tablet 20 mg PO QID 30 Days #120 tab 06/17/20 doxycycline monohydrate 100 mg 100 mg PO BID #14 cap 07/23/20 capsule loperamide 2 mg capsule (Imodium 2 mg PO Q6H PRN #30 cap 05/24/21 A-D) omeprazole 20 mg capsule,delayed 20 mg PO DAILY #30 cap 05/24/21 release prednisone 20 mg tablet 20 mg PO BID #10 tab 06/28/21 Allergies Allergy/AdvReac Type Severity Reaction Status Date / Time morphine [MORPHINE] Allergy Severe HYPOTENSION Verified 05/24/21 09:39 levofloxacin [LEVOFLOXACIN] Allergy Intermediate DIZZY Verified 05/24/21 09:39 Penicillins Allergy Mild RASH Verified 05/24/21 09:39 penicillin V Allergy Unknown Rash Verified 05/24/21 09:39 Review of Systems Review of Systems: All other systems are reviewed and are negative Constitutional: Reports as per HPI and Reports no additional constitutional complaints Eyes: Reports as per HPI and Reports no additional eye complaints Reports system reviewed and no additional complaints, except as documented Cardiovascular: Reports as per HPI and Reports no additional cardiovascular complaints Respiratory: Reports as per HPI and Reports no additional respiratory complaints Gastrointestinal: Reports as per HPI and Reports no additional gastrointestinal complaints Genitourinary: Reports no additional female genitourinary complaints Musculoskeletal: Reports no additional musculoskeletal complaints Skin/Breast: Reports system reviewed and no additional complaints, except as docu Psychiatric: Reports no additional psychiatric complaints Endocrine: Reports no additional endocrine complaints Hematologic/Lymphatic: Reports no additional hematologic/lymphatic complaints Allergic/Immunologic: Reports no additional allergic/immunologic complaints Reports system reviewed and no additional complaints, except as documented and Reports Abnormal speech present [facility] Past Medical History Medical History Asthma Hypertension Surgical History History of esophagogastroduodenoscopy (EGD) Hx of colonoscopy Social History Social History Household Members: Spouse and Children Alcohol intake: never Advance Directives: No Current occupational status: disabled Physical Exam Vital Signs: Vital Signs: Last Vital Signs Temp 98 F 06/28/21 15:52 Pulse 88 06/28/21 15:52 Resp 20 06/28/21 15:52 BP 152/85 H 06/28/21 15:52 Pulse Ox 98 06/28/21 15:52 Body Mass Index 42.2 Appearance: Alert. Oriented X3. No acute distress. Head: Normal external exam. Normocephalic. Atraumatic. No Espinosa signs noted. No raccoon eyes noted Eyes: PERRLA. EOMI. Conjunctiva and sclera normal. Eyelids normal. ENT: TM's Normal. Pharynx normal. Uvula midline. Moist mucous membranes. No trismus noted. No drooling noted. No muffled voice noted. Neck: Normal inspection. Neck supple. FROM. No adenopathy. Thyroid Normal. No meningeal signs. No neck mass noted. CVS: Normal heart rate and rhythm. Heart sound normal. No murmurs noted. Pulses normal throughout. Respiratory: No respiratory distress. Painless inspiration. Breath sounds normal. if you do not have expiratory wheezing with prolonged expiration. No accessory muscle usage noted or decreased air movement noted. Abdomen: Soft and nontender. Bowel sounds normal in all 4 quadrants. No distention noted. No organomegaly noted. No visible injury noted. Back: No CVA tenderness. Full range of motion noted. Skin: Skin warm and dry. Normal skin color. Normal skin turgor. No rashes/lesions/lacerations noted. Extremities: No lower extremity edema. Extremities exhibit normal range of motion. Extremities nontender. Neuro: Oriented X 3. Cranial nerve exam: II-XII are grossly intact No motor deficit. No sensory deficit. Reflexes normal. Vital signs have been reviewed as appeared to be correct. Blood pressure normal. Heart rate normal. Respiration rate normal. Temperature normal. Oxygen saturation normal. Course Course Course Narrative: assessment and plan. 71-year-old female with history of asthma been using bronchodilator, will add prednisone to her bronchodilator and follow-up with PCP. Discharge Plan Discharge Clinical Impression: Asthma with exacerbation Patient Disposition: Home, Self-Care Instructions: Wheezing (ED) Prescriptions: New prednisone 20 mg tablet 20 mg PO BID Qty: 10 RF: 0 No Action dicyclomine 20 mg tablet 20 mg PO QID 30 Days Qty: 120 RF: 1 doxycycline monohydrate 100 mg capsule 100 mg PO BID Qty: 14 RF: 0 phenazopyridine 100 mg tablet 100 mg PO TID PRN (Reason: pain) Qty: 20 RF: 0 albuterol sulfate 2 mg/5 mL syrup 2 mg PO TID RF: 0 cyanocobalamin (vitamin B-12) 5,000 mcg tablet,disintegrating 5,000 mcg PO DAILY RF: 0 Certavite-Antioxidant 18-400 mg-mcg tablet 0 tab PO RF: 0 cholestyramine-aspartame [Cholestyramine Light] 4 gram powder in packet 1 ea PO BID RF: 0 losartan 100 mg tablet 100 mg PO DAILY RF: 0 fluticasone propion-salmeterol 500-50 mcg/dose blister with device 1 ea inhalation BID RF: 0 sertraline 100 mg tablet 100 mg PO BID RF: 0 tolterodine 4 mg capsule,extended release 24hr 4 mg PO DAILY RF: 0 zolpidem 5 mg tablet 5 mg PO BEDTIME PRNRF: 0 amlodipine 2.5 mg tablet 2.5 mg PO DAILY RF: 0 montelukast 10 mg tablet 10 mg PO DAILY RF: 0 levothyroxine 125 mcg tablet 125 mcg PO QAM RF: 0 calcium carbonate [Calcium Antacid] 300 mg (750 mg) tablet,chewable 0 tab PO RF: 0 cholecalciferol (vitamin D3) 50 mcg (2,000 unit) tablet 50 mcg PO QAM RF: 0 cetirizine 10 mg tablet 10 mg PO QAM RF: 0 omeprazole 20 mg capsule,delayed release(DR/EC) 20 mg PO DAILY Qty: 30 RF: 5 loperamide [Imodium A-D] 2 mg capsule 2 mg PO Q6H PRN (Reason: loose stool) Qty: 30 RF: 0 Referrals: Physician,Unknown J [Primary Care Provider] - 2 days
== END 2021-06-28 16:13 | disposition home or self-care (01) ==
PROVIDERS: Emergency Provider Emergency Medicine
DX: J45.901 Unspecified asthma with (acute) exacerbation (principal); I10 Essential (primary) hypertension; Z79.899 Other long term (current) drug therapy
CPT/HCPCS: 99283; 99284

== ENCOUNTER 2021-08-26 12:27 | Outpatient (REF) | payer MEDICARE, SELFPAY ==
--- NOTE | ~2021-08-26 | XR_ITS ---
EXAMINATION: CR WRIST, LEFT CLINICAL INFORMATION: Acute pain in left wrist. COMPARISON: Left breast films dated 12/21/2020. TECHNIQUE: PA, lateral, navicular and oblique views of the left wrist performed on 5 images. FINDINGS: Diffuse osteopenia. No acute displaced fracture or dislocation. Mild dorsal soft tissue swelling about the wrist. Slight widening of the scapholunate joint again noted, consistent with chronic scapholunate ligament tear. There may be also some widening of the lunate or triquetral interspace, suggesting a ligamentous tear. XR/XR wrist LT min 3V IMPRESSION: 1. Dorsal soft tissue swelling. No definite acute displaced fracture noted. Close clinical correlation requested and if symptoms persist, repeat radiograph may be warranted to exclude healing changes at a nondisplaced fracture site in this patient with diffuse osteopenia. 2. Widening of the scapholunate distance and the lunatotriquetral distance, suggesting ligamentous tears.
== END 2021-08-26 12:28 | disposition home or self-care (01) ==
LOC: HO.XRAY 12:27
PROVIDERS: PCP Registered Nurse Community Health; Visit Provider Nurse Practitioner
DX: M25.532 Pain in left wrist (principal)
CPT/HCPCS: 73110

== ENCOUNTER 2021-10-01 10:08 | Emergency (ER) | payer MEDICARE, SELFPAY ==
--- NOTE | ~2021-10-01 | XR_ITS ---
EXAMINATION: 1. RADIOGRAPHS RIGHT HAND/WRIST CLINICAL INFORMATION: Pain. Limited range of motion. COMPARISON: Radiographs of the right hand/wrist 02/13/2009 TECHNIQUE: 4 views of the right hand/wrist were obtained. FINDINGS: Visualized portion of the distal radius and ulna demonstrate no fracture. Similar carpal bone alignment with maintenance of the carpal rows. There is no carpal bone fracture. No metacarpal or phalangeal fracture. Mild degenerative changes of the first and third MCP joint and scattered IP joints. There is no focal soft tissue swelling of the right hand or wrist. No radiopaque foreign body. XR/XR hand wrist RT IMPRESSION: Mild diffuse degenerative changes of the right hand/wrist. No fracture.
[2021-10-01 10:14] VITALS: BP 134/59; PULSE 87; RESP 18; TEMP 35.8; O2SAT 94; BMI 42.2
--- NOTE | 2021-10-01 11:00 | ED_ITS ---
HPI - Extremity Problem General Chief complaint: Extremity Problem Stated complaint: ARM PAIN Time Seen by Provider: 10/01/21 10:59 History of Present Illness HPI Narrative: Patient complains of right wrist pain for about a month which is similar to pain she has been having in the left wrist which was diagnosed with carpal tunnel and is pending treatment from a orthopedist at [facility] She denies injury denies fever denies any weakness or numbness Related Data Home Medications Medication Instructions Recorded Confirmed albuterol sulfate 2 mg/5 mL oral 2 mg PO TID 05/24/21 syrup amlodipine 2.5 mg tablet 2.5 mg PO DAILY 05/24/21 calcium carbonate 300 mg (750 mg) 0 tab PO 05/24/21 chewable tablet (Calcium Antacid) cetirizine 10 mg tablet 10 mg PO QAM 05/24/21 cholecalciferol (vitamin D3) 50 50 mcg PO QAM 05/24/21 mcg (2,000 unit) tablet cholestyramine-aspartame 4 gram 1 ea PO BID 05/24/21 oral powder for susp in a packet (Cholestyramine Light) cyanocobalamin (vitamin B-12) 5,000 mcg PO DAILY 05/24/21 5,000 mcg disintegrating tablet fluticasone 500 mcg-salmeterol 50 1 ea INHALATION BID 05/24/21 mcg/dose blistr powdr for inhalation levothyroxine 125 mcg tablet 125 mcg PO QAM 05/24/21 losartan 100 mg tablet 100 mg PO DAILY 05/24/21 montelukast 10 mg tablet 10 mg PO DAILY 05/24/21 multivitamin-ferrous 0 tab PO 05/24/21 fumarate-folic acid 18 mg-400 mcg tablet (Certavite-Antioxidant) sertraline 100 mg tablet 100 mg PO BID 05/24/21 tolterodine 4 mg capsule,extended 4 mg PO DAILY 05/24/21 release 24 hr zolpidem 5 mg tablet 5 mg PO BEDTIME PRN 05/24/21 Previous Rx's Medication Instructions Recorded phenazopyridine 100 mg tablet 100 mg PO TID PRN #20 tab 06/15/20 dicyclomine 20 mg tablet 20 mg PO QID 30 Days #120 tab 06/17/20 doxycycline monohydrate 100 mg 100 mg PO BID #14 cap 07/23/20 capsule loperamide 2 mg capsule (Imodium 2 mg PO Q6H PRN #30 cap 05/24/21 A-D) omeprazole 20 mg capsule,delayed 20 mg PO DAILY #30 cap 05/24/21 release prednisone 20 mg tablet 20 mg PO BID #10 tab 06/28/21 Allergies Allergy/AdvReac Type Severity Reaction Status Date / Time morphine Allergy Severe HYPOTENSION Verified 05/24/21 09:39 [MORPHINE] levofloxacin Allergy Intermediate DIZZY Verified 05/24/21 09:39 [LEVOFLOXACIN] Penicillins Allergy Mild RASH Verified 05/24/21 09:39 penicillin V Allergy Unknown Rash Verified 05/24/21 09:39 Review of Systems Verdana 4l Review of Systems: Verdana 4d Verdana 4d Positive for right wrist pain Negatives no fever no chills no neck pain no radiating pain no chest pain no back pain no numbness weakness or tingling, denies any wound no redness Verdana 4d Yes all other systems are reviewed and are negativenegative PMFSH Past Medical History Source: nursing notes reviewed Medical History Asthma Hypertension Surgical History History of esophagogastroduodenoscopy (EGD) Hx of colonoscopy Social History Social History Household Members: Spouse and Children Alcohol intake: never Advance Directives: No Advance Directives Information Provided: No Current occupational status: disabled Physical Exam Verdana 4l Vital Signs: Verdana 4d Verdana 4d Vital Signs: Verdana 4d Verdana 4Bd Last Vital Signs Verdana 4d Hospitalist Program Director New 4d Hospitalist Program Director New 4d Temp 96.4 F L 10/01/21 10:14 Hospitalist Program Director New 4d Pulse 87 10/01/21 10:14 Hospitalist Program Director New 4d Resp 18 10/01/21 10:14 BP 134/59 L 10/01/21 10:14 Pulse Ox 94 10/01/21 10:14 BMI result Body Mass Index 42.2 General appearance is no acute distress Head is normocephalic atraumatic Neck is supple Respiratory no distress Extremities full range of motion x4, but with some discomfort in the wrists Wrist exam the left wrist has a Velcro splint, 1 splint is removed there is no redness no significant swelling and neurovascular intact Right wrist there is minor swelling, there is tenderness on the volar aspect of the wrist there is no redness no swelling no wound no warmth, neurovascular intact, skin is intact no wounds Neuro no focal motor or sensory deficits Course Course Course Narrative: X-ray of right wrist showed some arthritic changes, exam included the possibility of carpal tunnel and patient is referred either to her orthopedist hand doctor at [facility] or is also given the number of our hand doctor at [place] There is no evidence of septic joint or cellulitis Discharge Plan Discharge Clinical Impression: Arthritis of right wrist, Carpal tunnel syndrome of right wrist Patient Disposition: Home, Self-Care Additional Instructions: Follow with your orthopedist at [facility] or you can follow with our hand doctor here Symptoms may be from arthritis or carpal tunnel in your right wrist so you will need to see a specialist for further evaluation Return to the ER any time any worse condition or any concerns Use Tylenol as needed, or the pain medicine prescribed by your doctor Both Percocet and Tylenol contain Tylenol so use 1 or the other but do not take too much Tylenol Prescriptions: No Action dicyclomine 20 mg tablet 20 mg PO QID 30 Days Qty: 120 1RF doxycycline monohydrate 100 mg capsule 100 mg PO BID Qty: 14 0RF phenazopyridine 100 mg tablet 100 mg PO TID PRN (Reason: pain) Qty: 20 0RF prednisone 20 mg tablet 20 mg PO BID Qty: 10 0RF albuterol sulfate 2 mg/5 mL syrup 2 mg PO TID 0RF cyanocobalamin (vitamin B-12) 5,000 mcg tablet,disintegrating 5,000 mcg PO DAILY 0RF Certavite-Antioxidant 18-400 mg-mcg tablet 0 tab PO 0RF cholestyramine-aspartame [Cholestyramine Light] 4 gram powder in packet 1 ea PO BID 0RF losartan 100 mg tablet 100 mg PO DAILY 0RF fluticasone propion-salmeterol 500-50 mcg/dose blister with device 1 ea inhalation BID 0RF sertraline 100 mg tablet 100 mg PO BID 0RF tolterodine 4 mg capsule,extended release 24hr 4 mg PO DAILY 0RF zolpidem 5 mg tablet 5 mg PO BEDTIME PRN0RF amlodipine 2.5 mg tablet 2.5 mg PO DAILY 0RF montelukast 10 mg tablet 10 mg PO DAILY 0RF levothyroxine 125 mcg tablet 125 mcg PO QAM 0RF calcium carbonate [Calcium Antacid] 300 mg (750 mg) tablet,chewable 0 tab PO 0RF cholecalciferol (vitamin D3) 50 mcg (2,000 unit) tablet 50 mcg PO QAM 0RF cetirizine 10 mg tablet 10 mg PO QAM 0RF omeprazole 20 mg capsule,delayed release(DR/EC) 20 mg PO DAILY Qty: 30 5RF loperamide [Imodium A-D] 2 mg capsule 2 mg PO Q6H PRN (Reason: loose stool) Qty: 30 0RF Rx Instructions: Take 2 cap after 1st loose stool- One caplet after each subsequent loose stools No more than 4 caps in a 24 hour.
== END 2021-10-01 11:39 | disposition home or self-care (01) ==
PROVIDERS: Emergency Provider Emergency Medicine; PCP Internal Medicine Rheumatology
DX: M19.031 Primary osteoarthritis, right wrist (principal); G56.01 Carpal tunnel syndrome, right upper limb; M25.531 Pain in right wrist
CPT/HCPCS: 73110; 73130; 99283

== ENCOUNTER → 2022-02-04 12:45 | Outpatient (BNVA) | payer MEDICARE, SELFPAY | PROVIDERS: PCP Registered Nurse Community Health; Visit Provider Hospitalist | DX: J45.909 Unspecified asthma, uncomplicated (principal); K21.9 Gastro-esophageal reflux disease without esophagitis; G47.00 Insomnia, unspecified | CPT/HCPCS: 99202 ==

== ENCOUNTER → 2022-02-09 12:30 | Outpatient (BNVA) | payer MEDICARE, SELFPAY | PROVIDERS: PCP Registered Nurse Community Health; Visit Provider Physician Assistant | DX: K21.9 Gastro-esophageal reflux disease without esophagitis (principal); K52.9 Noninfective gastroenteritis and colitis, unspecified; Z79.899 Other long term (current) drug therapy | CPT/HCPCS: 99212 ==

== ENCOUNTER 2022-02-22 09:38 | Outpatient (REF) | payer MEDICARE, SELFPAY ==
--- NOTE | ~2022-02-22 | US_ITS ---
EXAMINATION: US THYROID CLINICAL INFORMATION: Dysphagia. COMPARISON: None TECHNIQUE: Linear transducer grayscale and color Doppler examination with attention to the region of the thyroid. FINDINGS: SIZE: Measurements of the thyroid lobes and nodules are given in sagittal, anteroposterior and transverse dimensions respectively. Right Thyroid Lobe: 2.6 x 1.1 x 0.8 cm, volume 1.20 mL. Parenchyma: The gland echotexture is heterogeneous. Thyroid vascularity is normal. Left Thyroid Lobe: 2.9 x 1.0 x 1.1 cm, volume 1.67 mL. Parenchyma: The gland echotexture is slightly heterogeneous. Thyroid vascularity is normal. Isthmus: 0.3 cm in maximum AP dimension. No focal thyroid nodule is seen. NODES: No lymphadenopathy is seen in the tissue surrounding the thyroid gland. US/US thyroid IMPRESSION: Small heterogeneous thyroid gland. This may represent old thyroiditis.
== END 2022-02-22 09:39 | disposition home or self-care (01) ==
LOC: HO.US 09:38
PROVIDERS: Visit Provider Emergency Medicine
DX: R13.10 Dysphagia, unspecified (principal); R79.89 Other specified abnormal findings of blood chemistry
CPT/HCPCS: 76536

== ENCOUNTER 2022-02-27 22:45 | Emergency (ER) | payer MEDICARE, SELFPAY ==
--- NOTE | ~2022-02-27 | XR_ITS ---
EXAMINATION: XR CHEST CLINICAL INFORMATION: Chest pain COMPARISON: 12/21/2020 TECHNIQUE: 2 views of the chest were obtained. FINDINGS: No significant abnormality is noted involving the heart, lungs, mediastinum, bony thorax or soft tissues. Surgical clips are present in the gallbladder fossa. XR/XR chest 2V IMPRESSION: No acute intrathoracic disease.
[2022-02-27 22:51] VITALS: BP 138/76; PULSE 82; RESP 19; TEMP 37.1; O2SAT 97; BMI 36.9
--- NOTE | 2022-02-28 01:20 | ED.URI ---
HPI - URI/Sore Throat General Chief Complaint: Upper Respiratory Symptoms Stated Complaint: chest pain Time Seen by Provider: 02/27/22 23:01 Source: patient Mode of arrival: ambulatory Limitations: language barrier History of Present Illness HPI Narrative: 72-year-old female presents with 1 day of upper respiratory symptoms, sore throat, cough, body aches and headache. States to have had multiple sick contacts. Patient does not report fevers, chills, chest pain or pressure, palpitations, shortness of breath, weakness or dizziness. MD elicited complaint: cough, sore throat and nasal congestion Pertinent past history: seasonal allergies Onset (ago): day(s) (1) Consistency: constant Severity: mild Description of mucous: clear and watery Able to tolerate fluids by mouth: Yes Exacerbating factors: nothing Relieving factors: nothing Context: sick contacts Associated symptoms: headache, rhinorrhea, nasal congestion, sore throat and cough Treatments prior to arrival: none Related Data Home Medications Medication Instructions Recorded Confirmed amlodipine 2.5 mg tablet 2.5 mg PO DAILY 05/24/21 cholecalciferol (vitamin D3) 50 50 mcg PO QAM 05/24/21 mcg (2,000 unit) tablet cholestyramine-aspartame 4 gram 1 ea PO BID 05/24/21 oral powder for susp in a packet (Cholestyramine Light) cyanocobalamin (vitamin B-12) 5,000 mcg PO DAILY 05/24/21 5,000 mcg disintegrating tablet fluticasone 500 mcg-salmeterol 50 1 ea inhalation BID 05/24/21 mcg/dose blistr powdr for inhalation levothyroxine 125 mcg tablet 125 mcg PO QAM 05/24/21 losartan 100 mg tablet 100 mg PO DAILY 05/24/21 montelukast 10 mg tablet 10 mg PO DAILY 05/24/21 sertraline 100 mg tablet 100 mg PO BID 05/24/21 tolterodine 4 mg capsule,extended 4 mg PO DAILY 05/24/21 release 24 hr albuterol sulfate mg inhalation 02/04/22 albuterol sulfate 90 mcg/actuation 0 mcg inhalation 02/04/22 aerosol inhaler (Ventolin HFA) dexlansoprazole 30 mg 30 mg PO DAILY 02/04/22 capsule,biphase delayed release (Dexilant) fluticasone 500 mcg-salmeterol 50 1 inh inhalation BID 02/04/22 mcg/dose blistr powdr for inhalation (Advair Diskus) lipase 3,000-protease PO 02/04/22 9,500-amylase 15,000 unit capsule, delayed rel (Creon) metoclopramide HCl 5 mg tablet 5 mg PO QIDACHS 02/04/22 minoxidil 5 % topical solution 1 ml topical BID 02/04/22 multivitamin-ferrous 1 tab PO DAILY 02/04/22 fumarate-folic acid 18 mg-400 mcg tablet (Centrum Complete) naloxone 4 mg/actuation nasal 4 mg intranasal Q3M PRN 02/04/22 spray (Narcan) ondansetron HCl 4 mg tablet 4 mg PO Q8H 02/04/22 oxycodone-acetaminophen 5 mg-325 1 tab PO BID PRN 02/04/22 mg tablet potassium bicarbonate-citric acid 25 meq PO BID 02/04/22 25 mEq effervescent tablet (Klor-Con/EF) simethicone 125 mg capsule (Gas 125 mg PO BID-QID PRN 02/04/22 Relief (simethicone)) sucralfate 1 gram tablet 1 g PO QIDACHS 02/04/22 acetaminophen 500 mg tablet 0 mg PO 02/09/22 fluticasone propionate 50 spray intranasal 02/09/22 mcg/actuation nasal spray,suspension Previous Rx's Medication Instructions Recorded omeprazole 20 mg capsule,delayed 20 mg PO DAILY #30 caps 01/20/22 release albuterol sulfate 2.5 mg (3 mL) inhalation Q6H PRN 02/04/22 shortness of breath or wheezing 30 days #180 mL cetirizine 10 mg tablet 10 mg PO QAM allergies 30 days #30 02/04/22 tabs fluticasone fur. 200 mcg-umeclid 1 inh inhalation DAILY 30 days #60 02/04/22 62.5 mcg-vilant 25 mcg ea inhalat.powder (Trelegy Ellipta) gabapentin 300 mg capsule 300 mg PO BEDTIME 30 days #30 caps 02/04/22 montelukast 10 mg tablet 10 mg PO BEDTIME 30 days #30 tabs 02/04/22 (Singulair) omeprazole 20 mg capsule,delayed 20 mg PO BID 30 days #60 caps 02/09/22 release Allergies Allergy/AdvReac Type Severity Reaction Status Date / Time morphine [MORPHINE] Allergy Severe HYPOTENSION Verified 02/09/22 12:39 levofloxacin [LEVOFLOXACIN] Allergy Intermediate DIZZY Verified 02/09/22 12:39 Penicillins Allergy Mild RASH Verified 02/09/22 12:39 penicillin V Allergy Unknown Rash Verified 02/09/22 12:39 Review of Systems Review of Systems: Constitutional: positive Fever, positive Chills, now fatigue, no Malaise ENT/Mouth: positive sore throat, positive runny nose Eyes: No Discharge Cardiovascular: No Chest Pain, No SOB Respiratory: Positive Cough, No Sputum, No Wheezing, No Smoke Exposure, No Dyspnea Gastrointestinal: No Nausea, No Vomiting, No Diarrhea Genitourinary: no irregular bleeding, No Dysuria, No Urinary Frequency, No Hematuria, No Urinary Incontinence, No Urgency, No Flank Pain, Musculoskeletal: positive Myalgia Skin: No rash Neuro: Positive Headache Yes all other systems are reviewed and are negative PMFSH Past Medical History Attestation statement: The following information was validated with the patient. Source: old records reviewed Medical History Asthma Chronic allergic rhinitis Hypertension Insomnia Surgical History History of esophagogastroduodenoscopy (EGD) Hx of colonoscopy Hx of hand surgery Social History Social History Household Members: Spouse and Children Alcohol intake: never Patient Tobacco Use Status: Never used Tobacco Use of substances other than those prescribed or required for medical reasons: No Advance Directives: No Advance Directives Information Provided: Yes Current occupational status: disabled Physical Exam Vital Signs: Vital Signs: Last Vital Signs Temp 98.8 F 02/27/22 22:51 Pulse 82 02/27/22 22:51 Resp 16 02/28/22 03:21 BP 138/76 02/27/22 22:51 Pulse Ox 97 02/27/22 22:51 O2 Del Method 02/27/22 22:51 BMI result Body Mass Index 36.9 Appearance: Alert. Oriented X3. No acute distress. Eyes: Pupils equal, round and reactive to light. EOMI. Sclera nonicteric. ENT: Pharynx normal. Tympanic membranes bilaterally intact. Neck: Normal inspection. Neck supple. CVS: Normal heart rate and rhythm. Pulses normal. Respiratory: No respiratory distress. Lung sounds clear to auscultation all lobes. Abdomen: Soft and nontender. Skin: Skin warm and dry. Normal skin color. Normal skin turgor. Extremities: No lower extremity edema. Gait well-balanced well coordinated. Neuro: No motor deficit. No sensory deficit. Cranial nerves 2-12 intact. Course Course Course Narrative: 72-year-old female presents with upper respiratory symptoms for approximately 1 day. Chest x-ray completed while patient was in the emergency department waiting room, chest x-ray is negative. At this time will order COVID influenza and strep testing. 02:[address] Junior. COVID influenza pending. Strep is negative. MDM - URI/Sore Throat Differential Diagnosis Differential diagnosis: Likely upper respiratory infection, otitis media, sinusitis, viral infection, bronchitis, influenza and pharyngitis Medical Records Attestation: I reviewed the patient's medical records. Lab Data Attestation: I reviewed the patient's lab results. Labs: Lab Results 02/28/22 02/28/22 02/28/22 Range/Units 02:27 02:27 03:07 COVID-19 ([facility]) Negative (Negative) COVID-19 Clin Com See Note Influenza Type A (RAJESH) Negative (Negative) Influenza Type B ([facility]JESH) Negative (Negative) Influenza A & B Note See Note S. pyogenes GrpA [facility]JESH Negative (Negative) Imaging Data Chest x-ray: Attestation: I personally reviewed and interpreted this imaging study as follows: Radiologist's impression: EXAMINATION: XR CHEST CLINICAL INFORMATION: Chest pain COMPARISON: 12/21/2020 TECHNIQUE: 2 views of the chest were obtained. FINDINGS: No significant abnormality is noted involving the heart, lungs, mediastinum, bony thorax or soft tissues. Surgical clips are present in the gallbladder fossa. XR/XR chest 2V IMPRESSION: No acute intrathoracic disease. Discharge Plan Discharge Clinical Impression: Upper respiratory infection Patient Disposition: Still a Patient Instructions: Upper Respiratory Infection (ED) Additional Instructions: Usted fue evaluado por s?ntomas de las v?as respiratorias superiores. La prueba es negativa. La radiograf?a de t?rax es normal. Por favor, seguimiento con el m?dico de atenci?n primaria. Janice por elegir eduardo departamento de emergencias para moy evaluaci?n. Por favor, evelyn un seguimiento con el m?dico de atenci?n primaria seg?n sea necesario. Regrese al departamento de emergencias por cualquier s?ntoma nuevo, preocupante o que empeore. You were evaluated for upper respiratory symptoms. Testing is negative. Chest x-ray is normal. Please follow-up with primary care physician. Thank you for choosing this emergency department for evaluation. Please follow-up with primary care physician as needed. Return to the emergency department for any new, concerning, or worsening symptoms. Prescriptions: No Action omeprazole 20 mg capsule,delayed release(DR/EC) 20 mg PO DAILY Qty: 30 1RF ondansetron HCl 4 mg tablet 4 mg PO Q8H metoclopramide HCl 5 mg tablet 5 mg PO QIDACHS dexlansoprazole [Dexilant] 30 mg capsule,biphase delayed releas 30 mg PO DAILY Creon 3,000-9,500- 15,000 unit capsule,delayed release(DR/EC) PO sucralfate 1 gram tablet 1 g PO QIDACHS simethicone [Gas Relief (simethicone)] 125 mg capsule 125 mg PO BID-QID PRN Klor-Con/EF 25 mEq tablet, effervescent 25 meq PO BID albuterol sulfate 2.5 mg /3 mL (0.083 %) solution for nebulization inhalation fluticasone propion-salmeterol [Advair Diskus] 500-50 mcg/dose blister with device 1 inh inhalation BID minoxidil 5 % solution 1 ml topical BID Centrum Complete 18-400 mg-mcg tablet 1 tab PO DAILY naloxone [Narcan] 4 mg/actuation spray,non-aerosol 4 mg intranasal Q3M PRN Rx Instructions: spray 1 dose into ONE nostril; alternate nostrils w each dose until help arrives albuterol sulfate [Ventolin HFA] 90 mcg/actuation HFA aerosol inhaler 0 mcg inhalation oxycodone-acetaminophen 5-325 mg tablet 1 tab PO BID PRN gabapentin 300 mg capsule 300 mg PO BEDTIME 30 Days Qty: 30 6RF Trelegy Ellipta 200-62.5-25 mcg blister with device 1 inh inhalation DAILY 30 Days Qty: 60 12RF cetirizine 10 mg tablet 10 mg PO QAM 30 Days Qty: 30 11RF albuterol sulfate 2.5 mg /3 mL (0.083 %) solution for nebulization 2.5 mg inhalation Q6H PRN (Reason: shortness of breath or wheezing) 30 Days Qty: 180 11RF montelukast [Singulair] 10 mg tablet 10 mg PO BEDTIME 30 Days Qty: 30 11RF cyanocobalamin (vitamin B-12) 5,000 mcg tablet,disintegrating 5,000 mcg PO DAILY cholestyramine-aspartame [Cholestyramine Light] 4 gram powder in packet 1 ea PO BID losartan 100 mg tablet 100 mg PO DAILY fluticasone propion-salmeterol 500-50 mcg/dose blister with device 1 ea inhalation BID sertraline 100 mg tablet 100 mg PO BID tolterodine 4 mg capsule,extended release 24hr 4 mg PO DAILY amlodipine 2.5 mg tablet 2.5 mg PO DAILY montelukast 10 mg tablet 10 mg PO DAILY levothyroxine 125 mcg tablet 125 mcg PO QAM cholecalciferol (vitamin D3) 50 mcg (2,000 unit) tablet 50 mcg PO QAM fluticasone propionate 50 mcg/actuation spray,suspension intranasal acetaminophen 500 mg tablet 0 mg PO omeprazole 20 mg capsule,delayed release(DR/EC) 20 mg PO BID 30 Days Qty: 60 4RF Discharge Date/Time: 02/28/22 03:26
[2022-02-28 02:44] LABS: Strep A Nucleic Acid Negative (Negative)
[2022-02-28 02:49] LABS: COVID-19 Test Negative (Negative)
[2022-02-28 03:21] VITALS: RESP 16
--- NOTE | 2022-02-28 03:23 | PC.NURSE ---
pt a&o, no sob or chest pain. Reviewed discharge instructions and verbalized understanding.
[2022-02-28 03:30] LABS: Influenza A Negative (Negative); Influenza B2 Negative (Negative)
== END 2022-02-28 03:26 | disposition still patient (30) ==
PROVIDERS: Nurse Practitioner Family; Emergency Provider Emergency Medicine
DX: J06.9 Acute upper respiratory infection, unspecified (principal); Z20.822 Contact with and (suspected) exposure to COVID-19; J02.9 Acute pharyngitis, unspecified
CPT/HCPCS: 36415; 71046; 87502; 87635; 87651; 99283; 99284

== ENCOUNTER → 2022-03-08 13:49 | Outpatient (BNVA) | payer MEDICARE, SELFPAY | PROVIDERS: PCP Emergency Medicine; Visit Provider Internal Medicine Cardiovascular Disease | DX: R07.2 Precordial pain (principal); R06.02 Shortness of breath | CPT/HCPCS: 99212 ==

== ENCOUNTER 2022-03-14 13:48 | Outpatient (REF) | payer MEDICARE, SELFPAY ==
--- NOTE | 2022-03-14 15:00 | PFT_ITS ---
INDICATION: Dyspnea. SPIROMETRY: FEV1 to FVC of 84% with an FEV1 of 1.66 L, which is 115% predicted. An FVC of 1.97 L, which is 100% predicted. No significant response to bronchodilators noted. Maximum voluntary ventilation 107% predicted. LUNG VOLUMES: Total lung capacity 87% predicted. DIFFUSION CAPACITY: DLCO of 96% predicted. Flow volume loop appears to be completely normal. COMPARISONS: None. INTERPRETATION: No obstructive nor restrictive ventilatory defects identified. No significant response to bronchodilators noted. Normal lung volumes except for decrease in the expiratory reserve volume secondary to an elevated BMI. In addition to that, normal diffusion capacity. If asthma is in the differential, methacholine challenge may be helpful in assessing for hyper-reactive airways, otherwise clinical correlation warranted. Noe Haskins MD MR/MODL / [id number]
== END 2022-03-14 13:49 | disposition home or self-care (01) ==
LOC: HO.RESP 13:48
PROVIDERS: PCP Emergency Medicine; Visit Provider Hospitalist
DX: J45.909 Unspecified asthma, uncomplicated (principal); R06.00 Dyspnea, unspecified
CPT/HCPCS: 94060; 94727; 94729

== ENCOUNTER → 2022-03-21 13:25 | Outpatient (BNVA) | payer MEDICARE, SELFPAY | PROVIDERS: PCP Emergency Medicine; Visit Provider Physician Assistant | DX: R19.7 Diarrhea, unspecified (principal); K21.9 Gastro-esophageal reflux disease without esophagitis; K52.9 Noninfective gastroenteritis and colitis, unspecified; R13.10 Dysphagia, unspecified | CPT/HCPCS: 99212 ==

== ENCOUNTER → 2022-04-21 07:29 | Outpatient (REF) | payer OTHER, SELFPAY ==
--- NOTE | ~2022-04-21 | NM_ITS ---
Myocardial perfusion study Indication: Precordial chest pain Technique: The patient was brought in for a Lexiscan perfusion study on 04/20/2022. Patient performed low-level exercise and was injected 0.4 mg of Lexiscan intravenously. Within a minute of injection, 25 mCi of sestamibi was given intravenously. Images were obtained using the SPECT gamma camera interlaced with the gating device. Images were obtained in supine position. Resting perfusion study was couldn't be performed as patient did not return for resting study despite multiple attempts. Images obtained with and without CT attenuation. Total DLP 46 mGy-cm. Images were processed with the software and compared side to side in short axis, horizontal long axis and vertical long axis views. Findings: The stress perfusion study images are slightly suboptimal due to intense subdiaphragmatic uptake interfering with inferior wall uptake more prominent in the attenuation corrected images. Overall there is no significant defect especially on non attenuated images suggestive of infarction. The gated study shows normal LV systolic function with calculated LVEF of 53%. LV cavity is normal in size. The gated study shows normal systolic wall thickening and contraction of segments. Resting study was not performed due to patient's performed The findings are consistent with no clear defects noted on stress perfusion study. Likely normal myocardial perfusion. NM/NM cardiolite stress test Impression: 1. Myocardial perfusion imaging study shows likely normal myocardial perfusion 2. Gated LVEF is 53% 3. Transient ischemic dilatation not present. EKG nondiagnostic for ischemia
--- NOTE | 2022-04-21 07:33 | CA_ITS ---
Transthoracic Echocardiogram Patient (Last, First, Middle): Mary Kate Maya S Gender: Female Date of : 1950 Age: 72 Procedure Date: 04/21/2022 Procedure Type: Transthoracic Echocardiogram Location: OP Height: 139.7 cm Weight: 72.58 kg BSA: 1.59 m2 Heart Rate: 68 bpm BP: 137 / 73 mmHg Pharmaceutical Laboratory Technician: SHIVANI Referring MD: Austin Harden MD Symptoms: R06.02 - Shortness of breath Study Quality: Adequate ECG Rhythm: Sinus Conclusions: - The left ventricular systolic function is normal. The calculated ejection fraction is 68% by biplane method. - No obvious valvular pathology seen on this study. Findings Left Ventricle Normal left ventricular cavity size. There is normal left ventricular wall thickness. The left ventricular systolic function is normal. The calculated ejection fraction is 68% by biplane method. There is no evidence of regional wall motion abnormalities. Diastolic function is normal for age. There is mild septal and mild basal asymmetric hypertrophy. Peak LV GLS -19.6%. Right Ventricle Normal right ventricular cavity size and systolic function. Atria Both atria are normal in size. Aortic Valve There is a normal trileaflet aortic valve. There is no aortic valve stenosis. There is no aortic valve regurgitation. Mitral Valve The mitral valve appears normal. There is no mitral valve regurgitation. There is no mitral valve stenosis. Pulmonic Valve The pulmonic valve is likely normal. Tricuspid Valve There is mild tricuspid valve regurgitation. The pulmonary artery systolic pressure is normal. Great Vessels The aortic annulus, sinuses of valsalva, and asc aorta are normal in size. Venous The inferior vena cava is normal in size and collapses greater than 50% with inspiration. Pericardium/Pleural There is a trivial pericardial effusion. Prior Study Comparison No significant change compared to prior study dated: 03/17/2018. Recommendations, Care & Conclusions No obvious valvular pathology seen on this study. Measurements 2D Linear Measurements IVSd: 0.85 0.6-0.9/0.6-1.0 cm LVIDd: 4.03 3.9-5.3/4.2-5.9 cm LVIDd Index: 2.53 2.4-3.2/2.2-3.1 cm/m2 LVIDs: 2.40 2.0-3.6 cm LVPWd: 0.69 0.7-1.1 cm LA Diam: 3.20 2.7-3.8/3.0-4.0 cm LAIDs Index: 2.01 1.5-2.3 cm/m2 LV Mass: 111.36 67-162/88-224 g LV Mass Index: 70.04 43-95/49-115 g/m2 LVOT Diam: 1.80 3.0+(-)1.3 cm 2D Systolic Function EF 4C: 61.20 >55% EF 2C: 72.90 >55% EF BiP: 67.90 >55% Mitral Valve MV Pk E: 0.69 MV PK A: 0.73 MV Decel Time: 266.00 E/A: 0.90 E'Lateral: 10.20 E'Medial: 6.09 E/E' Med: 11.30 E/E' Lat: 6.70 PHT: 78.00 MVA PHT: 2.82 Decel [place]: 2.58 Aortic Valve AoV Pk Neel: 1.36 AoV Mn Neel: 0.98 AoV VTI: 0.34 AoV Pk Grad: 7.00 Aov Mn Grad: 4.00 CAMMIE Cont.VTI: 1.63 LVOT LVOT Pk Neel: 0.97 LVOT Mn Neel: 0.66 LVOT VTI: 0.22 LVOT Pk Grad: 4.00 LVOT Mn Grad: 2.00 LVOT Diam: 1.80 LVOT Area: 2.54 Diastolic Function MV Pk E: 0.69 MV Pk A: 0.73 E/A: 0.90 E'Medial: 6.09 E/E' Med: 11.30 E' Laterial: 10.20 E/E' Lat: 6.70 Right Ventricle TAPSE (mm): 25.70 TVS' Neel: 11.10 Tricuspid Valve TR Pk Neel: 2.28 TR Pk Grad: 21.00 RA Press: 3.00 RVSP: 24.00 Great Vessels Aorta Sinus of Valsalva: 2.90 2.0-3.5 cm Ao Asc: 3.50 2.1-3.4 cm Pulmonary Valve PV Pk Neel: 0.87 Peak PV Grad: 3.00 Updated in Other Vendor System with Status of Final Mega Walter MD electronically signed on 04/22/2022 9:25:56 AM with status of Final
--- NOTE | 2022-04-21 07:33 | CA_ITS ---
Acquisition Time: 2022-04-21 09:23:08 Total Exercise Time: 00:02:00 Test Indications: PRECORDIAL CHEST PAIN Medications: LOSARTAN LEVOTHYROXINE Protocol: LEXISCAN Max HR: 122 BPM 81% of Pred: 150 BPM Max BP: 140/078 mmHG Max Work Load: 1.0 METS Pharmacological stress test with Lexiscan injection, while sitting and kicking her legs, without anginal symptoms, without arrythmia, with normotensive response to injection, with nondiagnostic EKG for ischemia. Nuclear images pending. Test reviewed with Dr Walter Referred By: Austin Harden Overread By: SHARRON HOOK
[2022-04-21 14:46] LABS: MANUAL DIFF FLAG NO
[2022-04-21 15:50] LABS: Basophils Absolute Auto 0.1 X10*3/uL (0.0-0.2); Basophils Percent Auto 0.6 % (0-2); Eosinophils Absolute Auto 0.1 X10*3/uL (0.0-0.4); Eosinophils Percent Auto 0.6 % (0-4); Hematocrit 39.3 % (37.0-47.0); Hemoglobin 12.8 g/dl (12.0-16.0); Imm Gran Abs Auto 0.04 X10*3/uL (0.00-0.03); Imm Gran Pct Auto 0.4 % (0.0-0.4); Lymphocytes Absolute Auto 2.9 X10*3/uL (1.2-4.9); Lymphocytes Percent Auto 30.4 % (20-40); Mean Corpuscular HGB Conc 32.6 g/dl (31.0-35.0); Mean Corpuscular Hemoglobin 28.9 pg (27.0-33.0); Mean Corpuscular Volume 88.7 fL (80.0-98.0); Mean Platelet Volume 10.7 fL (9.4-12.3); Monocytes Absolute Auto 0.8 X10*3/uL (0.1-1.2); Monocytes Percent Auto 8.5 % (2-11); Neutrophils Absolute Auto 5.6 x10*3/uL (2.0-8.3); Neutrophils Percent Auto 59.5 % (45-73); Platelet Count 436 X10*3/uL (160-400); Red Blood Count 4.43 X10*6/uL (4.20-5.50); Red Cell Distribution Width 14.5 % (11.0-16.0); White Blood Count 9.5 X10*3/uL (4.8-10.8)
[2022-04-21 15:52] LABS: Basophils Percent Auto 0.4 % (0-2); Eosinophils Absolute Auto 0.1 X10*3/uL (0.0-0.4); Eosinophils Percent Auto 0.6 % (0-4); Hematocrit 39.7 % (37.0-47.0); Hemoglobin 12.7 g/dl (12.0-16.0); Imm Gran Abs Auto 0.03 X10*3/uL (0.00-0.03); Imm Gran Pct Auto 0.3 % (0.0-0.4); Lymphocytes Absolute Auto 2.9 X10*3/uL (1.2-4.9); Lymphocytes Percent Auto 30.5 % (20-40); Mean Corpuscular Hemoglobin 28.4 pg (27.0-33.0); Mean Corpuscular Volume 88.8 fL (80.0-98.0); Mean Platelet Volume 10.8 fL (9.4-12.3); Monocytes Absolute Auto 0.8 X10*3/uL (0.1-1.2); Monocytes Percent Auto 8.3 % (2-11); Neutrophils Absolute Auto 5.6 x10*3/uL (2.0-8.3); Neutrophils Percent Auto 59.9 % (45-73); Platelet Count 444 X10*3/uL (160-400); Red Blood Count 4.47 X10*6/uL (4.20-5.50); Red Cell Distribution Width 14.5 % (11.0-16.0); White Blood Count 9.4 X10*3/uL (4.8-10.8)
[2022-04-21 16:16] LABS: Alanine Aminotransferase 14 U/L (0-31); Alkaline Phosphatase 71 U/L (39-117); Anion Gap 14 (12-20); Aspartate Amino Transferase 15 U/L (5-31); Bilirubin Total 0.5 mg/dL (0.0-1.0); Blood Urea Nitrogen 20 mg/dL (9-16); Calcium 9.2 mg/dL (8.4-10.2); Carbon Dioxide 26 mmol/L (22-29); Chloride 105 mmol/L (96-108); Estimated Glomerular Filt Rate 52; Glucose Random 99 mg/dL (60-115); Potassium 3.8 mmol/L (3.3-5.1); Sodium 141 mmol/L (135-145); Total Protein 7.2 g/dL (6.5-8.0)
[2022-04-21 16:24] LABS: Erythrocyte Sedimentation Rate 28 MM/HR (0-20)
[2022-04-21 16:43] LABS: Thyroid Stimulating Hormone 3.17 uIU/mL (0.32-4.0)
[2022-04-23 14:17] LABS: IgA 358 mg/dL (70-320); IgG 1435 mg/dL (600-1540); IgM 41 mg/dL (50-300)
[2022-04-25 17:37] LABS: Transglutaminase IgA <1.0 U/mL
[2022-04-28 15:56] LABS: Endomysial IgA Antibody Negative (Negative)
== END ==
LOC: HO.CARD 07:29
PROVIDERS: Absent Provider Hospitalist; PCP Registered Nurse Community Health; Referring Provider Physician Assistant; Visit Provider Internal Medicine Cardiovascular Disease
DX: R07.2 Precordial pain (principal); R06.02 Shortness of breath; J45.909 Unspecified asthma, uncomplicated; R13.10 Dysphagia, unspecified; K52.9 Noninfective gastroenteritis and colitis, unspecified; K21.9 Gastro-esophageal reflux disease without esophagitis
CPT/HCPCS: 36415; 78452; 80053; 82784; 82785; 84443; 85025; 85652; 86003; 86231; 86364; 93017; 93306; 93356; 99212; A9500; J0280; J2785

== ENCOUNTER → 2022-05-09 13:22 | Outpatient (BNVA) | payer MEDICARE, SELFPAY | PROVIDERS: PCP Emergency Medicine; Visit Provider Physician Assistant | DX: R77.2 Abnormality of alphafetoprotein (principal); R76.8 Other specified abnormal immunological findings in serum; R13.10 Dysphagia, unspecified; K52.9 Noninfective gastroenteritis and colitis, unspecified | CPT/HCPCS: 99212 ==

== ENCOUNTER → 2022-12-29 13:57 | Outpatient (BNVA) | payer MEDICARE, SELFPAY | PROVIDERS: PCP Registered Nurse; Referring Provider Registered Nurse; Visit Provider Physician Assistant | DX: K21.9 Gastro-esophageal reflux disease without esophagitis (principal); Z79.899 Other long term (current) drug therapy | CPT/HCPCS: 99212 ==

== ENCOUNTER 2022-12-30 14:46 | Outpatient (REF) | payer MEDICARE, SELFPAY ==
--- NOTE | ~2022-12-30 | MM_ITS ---
EXAMINATION: MM SCREENING DIGITAL BREAST TOMOSYNTHESIS, BILATERAL CLINICAL INFORMATION: Screening. Asymptomatic. The lifetime risk of breast cancer based on the Tyrer-Cuzick Model is 3%. COMPARISON: Mammography: 04/02/2019, 03/16/2018, 02/01/2017, 01/18/2016, 01/08/2016; left breast ultrasound 01/18/2016 TECHNIQUE: Digital breast tomosynthesis is performed in both the craniocaudal and mediolateral oblique views along with computer-aided detection (CAD). Synthesized 2D images are generated from the tomosynthesis. FINDINGS: There are scattered areas of fibroglandular density (ACR BI-RADS breast composition Category b). There is fine fibronodular parenchymal pattern similar to prior studies. Right breast shows no developing density or significant mass. Neither breast shows architectural abnormality or abnormal calcifications. The axilla and skin contours are unremarkable. Left breast has oval dominant nodule central mid 9:00 position under 1 cm with incompletely defined margins. Patient will be recalled for additional imaging. MM/MM tomosynthesis screening BI IMPRESSION: Left: -Dominant nodule mid central 9:00 position under 1 cm with incompletely defined margins. Right: -No significant changes from prior exams. ASSESSMENT: BI-RADS 0: Incomplete - Need Additional Imaging Evaluation RECOMMENDATION: 1. Additional views left breast spot CC, spot LM. 2. Targeted ultrasound if warranted after review of the additional views. 3. Radiology department staff will contact the patient for additional imaging. This patient's information was entered into a reminder system with a target due date for their next mammogram.
== END 2022-12-30 14:47 | disposition home or self-care (01) ==
LOC: HO.MAMMO 14:46
PROVIDERS: PCP Registered Nurse; Visit Provider Registered Nurse
DX: Z12.31 Encounter for screening mammogram for malignant neoplasm of breast (principal)
CPT/HCPCS: 77063; 77067

== ENCOUNTER 2023-01-24 22:13 | Emergency (ER) | payer MEDICARE, SELFPAY ==
--- NOTE | ~2023-01-24 | XR_ITS ---
EXAMINATION: XR LUMBOSACRAL SPINE CLINICAL INFORMATION: Low back pain COMPARISON: 03/30/2020 TECHNIQUE: Three views of the lumbosacral spine. FINDINGS: There is anatomic alignment of the vertebral bodies and posterior elements. Vertebral body heights are maintained. No acute fracture is seen. Mild multilevel endplate osteophytes are present. Mild intervertebral disc space narrowing is noted. Sacroiliac joints appear intact. XR/XR lumbar spine 2-3V IMPRESSION: No acute findings identified. Mild degenerative changes.
[2023-01-24 22:17] VITALS: BP 155/72; PULSE 69; RESP 18; TEMP 36.3; O2SAT 100; BMI 32.9
[2023-01-24 22:47] LABS: MANUAL DIFF FLAG NO
[2023-01-24 22:48] LABS: Basophils Percent Auto 0.3 % (0-2); Eosinophils Percent Auto 0.3 % (0-4); Hematocrit 38.8 % (37.0-47.0); Hemoglobin 12.4 g/dl (12.0-16.0); Imm Gran Abs Auto 0.05 X10*3/uL (0.00-0.03); Imm Gran Pct Auto 0.4 % (0.0-0.4); Lymphocytes Absolute Auto 2.1 X10*3/uL (1.2-4.9); Lymphocytes Percent Auto 17.7 % (20-40); Mean Corpuscular Hemoglobin 28.2 pg (27.0-33.0); Mean Corpuscular Volume 88.2 fL (80.0-98.0); Mean Platelet Volume 9.9 fL (9.4-12.3); Monocytes Absolute Auto 0.9 X10*3/uL (0.1-1.2); Monocytes Percent Auto 7.5 % (2-11); Neutrophils Absolute Auto 8.6 x10*3/uL (2.0-8.3); Neutrophils Percent Auto 73.8 % (45-73); Platelet Count 454 X10*3/uL (160-400); Red Cell Distribution Width 15.2 % (11.0-16.0); White Blood Count 11.7 X10*3/uL (4.8-10.8)
[2023-01-24 23:03] LABS: Alanine Aminotransferase 12 U/L (0-31); Alkaline Phosphatase 68 U/L (39-117); Anion Gap 12 (12-20); Aspartate Amino Transferase 12 U/L (5-31); Bilirubin Direct 0.1 mg/dL (0.0-0.5); Bilirubin Total 0.4 mg/dL (0.0-1.0); Blood Urea Nitrogen 14 mg/dL (9-16); Calcium 9.5 mg/dL (8.4-10.2); Carbon Dioxide 25 mmol/L (22-29); Chloride 104 mmol/L (96-108); Creatinine Clr Calc Pharmacy 44.4; Estimated Glomerular Filt Rate 47; Glucose Random 121 mg/dL (60-115); Lipase 26 U/L (8-78); Potassium 3.8 mmol/L (3.3-5.1); Sodium 137 mmol/L (135-145); Total Protein 7.3 g/dL (6.5-8.0)
[2023-01-25 02:46] VITALS: BP 136/65; PULSE 59; RESP 16; TEMP 36.8; O2SAT 100
--- NOTE | 2023-01-25 02:47 | PC.NURSE ---
Pt ca&ox3, no signs of distress. Pt is cook islander speaking only. Pt denies chest pain and sob. Pts at bedside. Pt reports 10/10 hip pain that radiates down into left leg. Hob lowered for comfort. pt request and given warm blanket, will continue to monitor.
--- NOTE | 2023-01-25 03:02 | PC.NURSE ---
Provider in to assess pt. Pt ca&ox3, no signs of distress. Will continue to monitor.
--- NOTE | 2023-01-25 03:03 | ED.EXTPRO ---
HPI - Extremity Problem General Chief complaint: Abdominal Pain Stated complaint: pain left side Time Seen by Provider: 01/25/23 02:33 Source: patient Mode of arrival: ambulatory Limitations: no limitations History of Present Illness HPI Narrative: Patient with history of sciatica complaining of pain in left sciatic area no recent fall or injury no vomiting no significant pain no urinary symptoms no significant abdominal pain no history of kidney stone Related Data Home Medications Medication Instructions Recorded Confirmed amlodipine 2.5 mg tablet 2.5 mg PO DAILY 05/24/21 12/29/22 cholecalciferol (vitamin D3) 50 50 mcg PO QAM 05/24/21 12/29/22 mcg (2,000 unit) tablet cyanocobalamin (vitamin B-12) 5,000 mcg PO DAILY 05/24/21 12/29/22 5,000 mcg disintegrating tablet levothyroxine 125 mcg tablet 125 mcg PO QAM 05/24/21 12/29/22 losartan 100 mg tablet 100 mg PO DAILY 05/24/21 12/29/22 sertraline 100 mg tablet 100 mg PO BID 05/24/21 12/29/22 tolterodine 4 mg capsule,extended 4 mg PO DAILY 05/24/21 12/29/22 release 24 hr albuterol sulfate 2.5 mg/3 mL mg inhalation 02/04/22 12/29/22 (0.083 %) solution for nebulization albuterol sulfate 90 mcg/actuation 0 mcg inhalation 02/04/22 12/29/22 aerosol inhaler (Ventolin HFA) fluticasone 500 mcg-salmeterol 50 1 inh inhalation BID 02/04/22 12/29/22 mcg/dose blistr powdr for inhalation (Advair Diskus) lipase 3,000-protease PO 02/04/22 12/29/22 9,500-amylase 15,000 unit capsule, delayed rel (Creon) metoclopramide HCl 5 mg tablet 5 mg PO QIDACHS 02/04/22 12/29/22 minoxidil 5 % topical solution 1 ml topical BID 02/04/22 12/29/22 multivitamin-ferrous 1 tab PO DAILY 02/04/22 12/29/22 fumarate-folic acid 18 mg-400 mcg tablet (Centrum Complete) naloxone 4 mg/actuation nasal 4 mg intranasal Q3M PRN 02/04/22 12/29/22 spray (Narcan) oxycodone-acetaminophen 5 mg-325 1 tab PO BID PRN 02/04/22 12/29/22 mg tablet potassium bicarbonate-citric acid 25 meq PO BID 02/04/22 12/29/22 25 mEq effervescent tablet (Klor-Con/EF) simethicone 125 mg capsule (Gas 125 mg PO BID-QID PRN 02/04/22 12/29/22 Relief (simethicone)) sucralfate 1 gram tablet 1 g PO QIDACHS 02/04/22 12/29/22 acetaminophen 500 mg tablet 0 mg PO 02/09/22 12/29/22 fluticasone propionate 50 spray intranasal 02/09/22 12/29/22 mcg/actuation nasal spray,suspension calcium carbonate 300 mg (750 mg) 1 tab PO 03/21/22 12/29/22 chewable tablet (Antacid Extra Strength (calcium carb)) meclizine 12.5 mg tablet 12.5 mg PO TID PRN dizziness 03/21/22 12/29/22 ipratropium bromide 21 mcg (0.03 intranasal 04/21/22 12/29/22 %) nasal spray zolpidem 5 mg tablet 5 mg PO BEDTIME PRN 04/21/22 12/29/22 Previous Rx's Medication Instructions Recorded cetirizine 10 mg tablet 10 mg PO QAM allergies 30 days #30 02/04/22 tabs fluticasone fur. 200 mcg-umeclid 1 inh inhalation DAILY 30 days #60 02/04/22 62.5 mcg-vilant 25 mcg ea inhalat.powder (Trelegy Ellipta) montelukast 10 mg tablet 10 mg PO BEDTIME 30 days #30 tabs 02/04/22 (Singulair) omeprazole 20 mg capsule,delayed 20 mg PO BID 30 days #60 caps 02/09/22 release pantoprazole 40 mg tablet,delayed 40 mg PO DAILY 30 days #30 tabs 03/21/22 release azelastine 137 mcg (0.1 %) nasal 2 spray intranasal BID 30 days #30 04/21/22 spray aerosol mL gabapentin 300 mg capsule 300 mg PO BEDTIME #30 caps 10/05/22 loperamide 2 mg capsule (Imodium 2 mg PO Q6H PRN loose stool #30 04/27/23 A-D) caps ondansetron HCl 4 mg tablet 4 mg PO DAILY PRN nausea and 12/29/22 vomiting #30 tabs cyclobenzaprine 10 mg tablet 10 mg PO Q8H #20 tabs 01/25/23 Allergies Allergy/AdvReac Type Severity Reaction Status Date / Time morphine [MORPHINE] Allergy Severe HYPOTENSION Verified 12/29/22 13:58 levofloxacin [LEVOFLOXACIN] Allergy Intermediate DIZZY Verified 12/29/22 13:58 Penicillins Allergy Mild RASH Verified 12/29/22 13:58 penicillin V Allergy Unknown Rash Verified 12/29/22 13:58 Review of Systems Review of Systems: Yes all other systems are reviewed and are negative [facility] Past Medical History Medical History Asthma Chronic allergic rhinitis Hypertension Insomnia Surgical History History of esophagogastroduodenoscopy (EGD) Hx of colonoscopy Hx of hand surgery Social History Social History Household Members: Spouse and Children Alcohol intake: never Patient Tobacco Use Status: Never used Tobacco Smoked in Last 30 Days: No Use of substances other than those prescribed or required for medical reasons: No Advance Directives: No Advance Directives Information Provided: No Current occupational status: disabled Physical Exam Vital Signs: Vital Signs: Last Vital Signs Temp 98.2 F 01/25/23 02:46 Pulse 57 01/25/23 04:11 Resp 14 01/25/23 04:11 BP 128/62 01/25/23 04:11 Pulse Ox 99 01/25/23 04:11 O2 Del Method Room Air 01/25/23 04:11 BMI result Body Mass Index 32.9 Appearance: Alert. Oriented X3. No acute distress. Neck: Normal inspection. Neck supple. CVS: Normal heart rate and rhythm. Pulses normal. Respiratory: No respiratory distress. Equal air entry bilateral, no wheezing/rales/rhonchi Abdomen: Soft and nontender. Bowel sounds are present, no mass palpable, no CVA tenderness Skin: Skin warm and dry. Normal skin color. Normal skin turgor. back: Tenderness left sciatic notch SLR positive at 60 degrees on the left side no focal bony tenderness in lumbar spine Extremities: No lower extremity edema. No calf tenderness Neuro: Oriented X 3. No motor deficit. No sensory deficit.No cerebellar signs , cranial nerves II-XII intact Medications Administered Discontinued Medications Generic Name Dose Route Start Last Admin Trade Name Koreyq PRN Reason Stop Dose Admin Cyclobenzaprine HCl 5 mg 01/25/23 03:03 01/25/23 03:34 Cyclobenzaprine Hcl 5 Mg Tablet PO 01/25/23 03:04 5 mg ONCE ONE Administration Dexamethasone 10 mg 01/25/23 03:03 01/25/23 03:35 Dexamethasone 2 Mg Tablet PO 01/25/23 03:04 10 mg ONCE ONE Administration Ketorolac Tromethamine 30 mg 01/25/23 03:03 01/25/23 03:33 Ketorolac Tromethamine 30 Mg/Ml Vial IM 01/25/23 03:04 30 mg ONCE ONE Administration Oxycodone HCl 5 mg 01/25/23 03:03 01/25/23 03:34 Oxycodone Hcl Immed Release 5 Mg Tablet PO 01/25/23 03:04 5 mg ONCE ONE Administration Medical Decision Making Medical Decision Making [facility] Narrative: Patient with left sciatica lumbar x-ray negative pain improved after Toradol and oxycodone discharge patient home on Flexeri patient does have oxycodone at home advised to follow with PCP Lab Data 01/24/23 22:36 01/24/23 22:36 Labs: Lab Results 01/24/23 01/24/23 01/25/23 Range/Units 22:36 22:36 03:45 WBC 11.7 H (4.8-10.8) X10*3/uL RBC 4.40 (4.20-5.50) X10*6/uL Hgb 12.4 (12.0-16.0) g/dl Hct 38.8 (37.0-47.0) % MCV 88.2 (80.0-98.0) fL MCH 28.2 (27.0-33.0) pg MCHC 32.0 (31.0-35.0) g/dl RDW 15.2 (11.0-16.0) % Plt Count 454 H (160-400) X10*3/uL MPV 9.9 (9.4-12.3) fL Immature Gran % (Auto) 0.4 (0.0-0.4) % Neut % (Auto) 73.8 H (45-73) % Lymph % (Auto) 17.7 L (20-40) % [place] % (Auto) 7.5 (2-11) % Eos % (Auto) 0.3 (0-4) % Baso % (Auto) 0.3 (0-2) % Lymph # (Auto) 2.1 (1.2-4.9) X10*3/uL [place] # (Auto) 0.9 (0.1-1.2) X10*3/uL Eos # (Auto) 0.0 (0.0-0.4) X10*3/uL Baso # (Auto) 0.0 (0.0-0.2) X10*3/uL Abs Immat Gran (auto) 0.05 H (0.00-0.03) X10*3/uL Absolute Neuts (auto) 8.6 H (2.0-8.3) x10*3/uL Absolute Nucleated RBC 0.000 (0.0-0.012) X10*3/uL Nucleated RBC % (auto) 0.0 (0.0-0.2) /100WBC Sodium 137 (135-145) mmol/L Potassium 3.8 (3.3-5.1) mmol/L Chloride 104 (96-108) mmol/L Carbon Dioxide 25 (22-29) mmol/L Anion Gap 12 (12-20) BUN 14 (9-16) mg/dL Creatinine 1.15 (0.5-1.4) mg/dL Estim Creat Clear Calc 44.4 Estimated GFR 47 Random Glucose 121 H (60-115) mg/dL Calcium 9.5 (8.4-10.2) mg/dL Total Bilirubin 0.4 (0.0-1.0) mg/dL Direct Bilirubin 0.1 (0.0-0.5) mg/dL AST 12 (5-31) U/L ALT 12 (0-31) U/L Alkaline Phosphatase 68 (39-117) U/L Total Protein 7.3 (6.5-8.0) g/dL Albumin 4.0 (3.5-5.0) g/dL Lipase 26 (8-78) U/L Urine Color Yellow Urine Appearance Clear Urine pH 6.5 (5.0-9.0) Ur Specific [place] 1.010 (1.005-1.025) Urine Protein Negative (Neg-Trace) mg/dL Urine Glucose (UA) Negative (Negative) mg/dL Urine Ketones Negative (Negative) mg/dL Urine Blood Negative (Negative) Urine Nitrite Negative (Negative) Ur Leukocyte Esterase Trace H (Negative) Urine RBC 0-2 (0-2) /HPF Urine WBC 0-5 (0-5) /HPF Ur Squamous Epith Cells 0-2 (0-2) /HPF Urine Bacteria None Seen (None Seen) Hyaline Casts 0-2 (0-2) /LPF Discharge Plan Discharge Clinical Impression: Left sided sciatica Patient Disposition: Home, Self-Care Instructions: Sciatica (ED) Additional Instructions: Continue pain medication Muscle relaxants as advised Prescriptions: New cyclobenzaprine 10 mg tablet 10 mg PO Q8H Qty: 20 0RF No Action gabapentin 300 mg capsule 300 mg PO BEDTIME Qty: 30 6RF loperamide [Imodium A-D] 2 mg capsule 2 mg PO Q6H PRN (Reason: loose stool) Qty: 30 0RF Rx Instructions: Take 2 cap after 1st loose stool- One caplet after each subsequent loose stools No more than 4 caps in a 24 hour. metoclopramide HCl 5 mg tablet 5 mg PO QIDACHS Creon 3,000-9,500- 15,000 unit capsule,delayed release(DR/EC) PO sucralfate 1 gram tablet 1 g PO QIDACHS simethicone [Gas Relief (simethicone)] 125 mg capsule 125 mg PO BID-QID PRN Klor-Con/EF 25 mEq tablet, effervescent 25 meq PO BID albuterol sulfate 2.5 mg /3 mL (0.083 %) solution for nebulization inhalation fluticasone propion-salmeterol [Advair Diskus] 500-50 mcg/dose blister with device 1 inh inhalation BID minoxidil 5 % solution 1 ml topical BID Centrum Complete 18-400 mg-mcg tablet 1 tab PO DAILY naloxone [Narcan] 4 mg/actuation spray,non-aerosol 4 mg intranasal Q3M PRN Rx Instructions: spray 1 dose into ONE nostril; alternate nostrils w each dose until help arrives albuterol sulfate [Ventolin HFA] 90 mcg/actuation HFA aerosol inhaler 0 mcg inhalation oxycodone-acetaminophen 5-325 mg tablet 1 tab PO BID PRN Trelegy Ellipta 200-62.5-25 mcg blister with device 1 inh inhalation DAILY 30 Days Qty: 60 12RF cetirizine 10 mg tablet 10 mg PO QAM 30 Days Qty: 30 11RF montelukast [Singulair] 10 mg tablet 10 mg PO BEDTIME 30 Days Qty: 30 11RF zolpidem 5 mg tablet 5 mg PO BEDTIME PRN ipratropium bromide 21 mcg (0.03 %) spray,non-aerosol intranasal azelastine 137 mcg (0.1 %) aerosol,spray 2 spray intranasal BID 30 Days Qty: 30 6RF Rx Instructions: administer into each nostril cyanocobalamin (vitamin B-12) 5,000 mcg tablet,disintegrating 5,000 mcg PO DAILY losartan 100 mg tablet 100 mg PO DAILY sertraline 100 mg tablet 100 mg PO BID tolterodine 4 mg capsule,extended release 24hr 4 mg PO DAILY amlodipine 2.5 mg tablet 2.5 mg PO DAILY levothyroxine 125 mcg tablet 125 mcg PO QAM cholecalciferol (vitamin D3) 50 mcg (2,000 unit) tablet 50 mcg PO QAM fluticasone propionate 50 mcg/actuation spray,suspension intranasal acetaminophen 500 mg tablet 0 mg PO omeprazole 20 mg capsule,delayed release(DR/EC) 20 mg PO BID 30 Days Qty: 60 4RF meclizine 12.5 mg tablet 12.5 mg PO TID PRN (Reason: dizziness) calcium carbonate [Antacid Ext Str (calcium carb)] 300 mg (750 mg) tablet,chewable 1 tab PO pantoprazole 40 mg tablet,delayed release (DR/EC) 40 mg PO DAILY 30 Days Qty: 30 11RF ondansetron HCl 4 mg tablet 4 mg PO DAILY PRN (Reason: nausea and vomiting) Qty: 30 0RF Interventions: ED Discharge Assessment Last Done: 01/25/23 04:33 Discharge Date/Time: 01/25/23 04:36
--- NOTE | 2023-01-25 03:15 | PC.NURSE ---
Pt taken for CT scan.
[2023-01-25] MEDS: Ketorolac Tromethamine 30 MG/ML VIAL IM (03:33)
[2023-01-25] MEDS: oxyCODONE HCl Immed Release 5 MG TABLET PO (03:34)
[2023-01-25] MEDS: Cyclobenzaprine HCl 5 MG TABLET PO (03:34)
[2023-01-25] MEDS: dexAMETHasone 2 MG TABLET 10 MG PO (03:35)
--- NOTE | 2023-01-25 03:39 | PC.NURSE ---
Pt ca&ox3, no signs of distress. Pt's remains at bedside.Pt medicated per mar. Urine collected. Will continue to monitor.
[2023-01-25 03:56] LABS: Appearance Urine Clear; Color Urine Yellow; Glucose Urine UA Negative (Negative); Leukocyte Esterase Urine Trace (Negative); Nitrite Urine Negative (Negative); PH 6.5 (5.0-9.0); UMIC TRIGGER UACC YES; Urine Blood Negative (Negative); Urine Ketones Negative (Negative); Urine Protein Negative (Neg-Trace)
[2023-01-25 04:01] LABS: Bacteria Urine None Seen (None Seen); Hyaline Casts Urine 0-2 /LPF (0-2); RBC Urine 0-2 /HPF (0-2); Squamous Epithelial Cell Urine 0-2 /HPF (0-2); WBC Urine 0-5 /HPF (0-5)
[2023-01-25 04:10] VITALS: BP 128/62; PULSE 57; RESP 14
[2023-01-25 04:11] VITALS: BP 128/62; PULSE 57; RESP 14; O2SAT 99
--- NOTE | 2023-01-25 04:12 | PC.NURSE ---
Pt ca&ox3, no signs of distress. Vitals stable. will continue to monitor.
== END 2023-01-25 04:36 | disposition home or self-care (01) ==
PROVIDERS: Emergency Provider Internal Medicine
DX: M54.32 Sciatica, left side (principal); I10 Essential (primary) hypertension; Z79.899 Other long term (current) drug therapy
CPT/HCPCS: 36415; 72100; 80048; 80076; 81001; 83690; 85025; 96372; 99284; J1885; J8540

== ENCOUNTER 2023-01-27 13:50 | Outpatient (REF) | payer MEDICARE, SELFPAY ==
--- NOTE | ~2023-01-27 | MM_ITS ---
EXAMINATION: MM DIAGNOSTIC DIGITAL BREAST TOMOSYNTHESIS, LEFT US DIAGNOSTIC ULTRASOUND BREAST, LEFT CLINICAL INFORMATION: Recall from screening for oval nodule central mid 9:00 left breast. COMPARISON: Prior mammography exams including most recent 12/30/2022. TECHNIQUE: Digital breast tomosynthesis is performed. 2D images are generated from the tomosynthesis. The following views are obtained: Spot CC, spot ML. Ultrasound left breast is targeted to the inner breast using grayscale imaging and color Doppler without and with harmonics. FINDINGS: There are scattered areas of fibroglandular density (ACR BI-RADS breast composition Category b). The additional views confirm a smooth circumscribed nodule mid 9:00 position measuring approximately 8 mm in greatest dimension. There is punctate dependent benign rim calcification. No architectural abnormality. Ultrasound demonstrates acorn cyst 8:30 position, 5 cm from nipple, and measuring approximately 0.8 x 0.4 cm. There is some peripheral mural geographic avascular echogenicity, likely apocrine metaplasia. There is increased through-transmission of sound. There is punctate mural specular echo corresponding to the rim calcification on mammography. No associated peripheral or internal color flow. Results are discussed with the patient at time of visit. MM/MM tomosynthesis added views L IMPRESSION: Circumscribed oval complicated acorn cyst mid medial left breast likely apocrine metaplasia, 0.8 cm. ASSESSMENT: BI-RADS 3: Probably Benign RECOMMENDATION: Diagnostic left mammography and left breast ultrasound in 6 months. This patient's information was entered into a reminder system with a target due date for their next mammogram.
== END 2023-01-27 13:51 | disposition home or self-care (01) ==
LOC: HO.MAMMO 13:50
PROVIDERS: PCP Registered Nurse; Visit Provider Registered Nurse
DX: N63.25 Unspecified lump in the left breast, overlapping quadrants (principal)
CPT/HCPCS: 76642; 77061; 77065

== ENCOUNTER 2023-05-03 13:52 | Outpatient (AMB) | payer MEDICARE, SELFPAY ==
--- NOTE | 2023-05-03 13:57 | MHC.OFFVIS ---
Intake Vital Signs 05/03/23 13:59 Height 5 ft 2 in Weight 145 lb BMI 26.5 BP 135/73 Blood Pressure Location Lt brachial Position Sitting Pulse 81 Intake Visit Reasons: 6 week follow PT cancelled last appt Intake Note: Patient follow up for acid reflex. Patient cc: acid reflex, gassy, abdominal pain/bloating, diarrhea after eating. Denies any other GI issues. Survey Technician Required: Yes Survey Technician Name: Olya [id number] Accompanied by: Self / Same As Patient Allergies morphine [MORPHINE] Allergy (Severe, Verified 05/03/23 13:56) HYPOTENSION levofloxacin [LEVOFLOXACIN] Allergy (Intermediate, Verified 05/03/23 13:56) DIZZY Penicillins Allergy (Mild, Verified 05/03/23 13:56) RASH penicillin V Allergy (Unknown, Verified 05/03/23 13:56) Rash Medication List - Last Reconciled 05/03/23 by Peace Hyman PA-C acetaminophen 0 mg PO albuterol sulfate 90 mcg/actuation (Ventolin HFA) 0 mcg inhalation albuterol sulfate 2.5 mg (3 mL) inhalation Q6H PRN amlodipine 2.5 mg PO DAILY azelastine 2 sprays intranasal BID 30 days calcium carbonate (Antacid Extra Strength (calcium carb)) 1 tab PO cetirizine 10 mg PO QAM cholecalciferol (vitamin D3) 50 mcg PO QAM cyanocobalamin (vitamin B-12) 5,000 mcg PO DAILY cyclobenzaprine 10 mg PO Q8H fluticasone propion-salmeterol 500-50 mcg/dose (Advair Diskus) 1 inh inhalation BID fluticasone propionate 50 mcg/actuation sprays intranasal owlwuvftrry-muzwejele-eayfdfct 200-62.5-25 mcg (Trelegy Ellipta) 1 ea inhalation DAILY gabapentin 300 mg PO BEDTIME ipratropium bromide intranasal levothyroxine 125 mcg PO QAM [id number] 3,000-9,500- 15,000 unit (Creon) PO loperamide (Imodium A-D) 2 mg PO Q6H PRN loperamide (Imodium A-D) 2 mg PO Q6H PRN losartan 100 mg PO DAILY meclizine 12.5 mg PO TID PRN metoclopramide HCl 5 mg PO QIDACHS minoxidil 5% 1 mL topical BID montelukast 10 mg PO QPM ujncntdkzwii-alic-wcyty acid 18-400 mg-mcg (Centrum Complete) 1 tab PO DAILY naloxone 4 mg/actuation (Narcan) 4 mg intranasal Q3M PRN omeprazole 20 mg PO BID 30 days ondansetron HCl 4 mg PO DAILY PRN oxycodone-acetaminophen 5-325 mg 1 tab PO BID PRN pantoprazole 40 mg PO QAM potassium bicarb-citric acid 25 mEq (Klor-Con/EF) 25 mEq PO BID sertraline 100 mg PO BID simethicone (Gas Relief (simethicone)) 125 mg PO BID-QID PRN sucralfate 1 g PO QIDACHS tolterodine ER 4 mg PO DAILY zolpidem 5 mg PO BEDTIME PRN HPI HPI Comments History of Present Illness Details A 73-year-old female with chronic diarrhea acid reflux and gas follows up. She says symptoms continue she has not identified anything specific that makes it better or worse-but seems to be more stable at this time After eating -diarrhea( describes soft stool)-imodium is helpful- I just take 1 pill and last for several days - normal BM the other days- No blood or abdominal pain-she prefers to manage at this time- hold off for now- wants knee surgery appetite is good- She is having LTK- awaiting scheduling-using cane- She had had a an EGD 2016 and 2017 as well as a normal colonoscopy in 2016. She has never had polyps. No nausea, vomiting, hematemesis, hematochezia fever or chills [facility] Medical History (Updated 01/26/23 @ 00:01 by Dc Garcia) Chronic allergic rhinitis Insomnia Hypertension Asthma Surgical History Hx of hand surgery History of esophagogastroduodenoscopy (EGD) Hx of colonoscopy Social History Household Members: Spouse and Children Alcohol intake: never Patient Tobacco Use Status: Never used Tobacco Current occupational status: disabled Review of Systems Card Denies chest pain and Denies dyspnea Resp Denies dyspnea GI Denies abdominal pain, Denies hematochezia, Denies GI cramping, Denies heartburn, Reports loose stools, Denies nausea and Denies vomiting Musc Reports abnormal gait and Reports arthralgias (L-knee) Neuro Reports abnormal gait Physical Exam Vital Signs: Last Vital Signs Pulse 81 05/03/23 13:59 BP 135/73 05/03/23 13:59 BMI result Body Mass Index 26.5 Const General: cooperative, healthy appearing and comfortable Orientation/consciousness: patient oriented x3 Limitations: language barrier Eyes Sclerae: sclerae normal Resp Effort & Inspection: normal respiratory effort and able to speak in complete sentences Auscultation: clear to auscultation bilaterally, no rales, no rhonchi and no wheezes Cardio Rate: regular rate Rhythm: regular rhythm Heart sounds: S1 normal heart sound present and S2 normal heart sound present GI Palpation (GI): Soft to palpation and nontender Percussion: Yes normal to percussion Auscultation: normal bowel sounds Skin General skin exam: no rashes or lesions noted Neuro General: patient oriented x3 Psych Appearance: well kempt Mental Status: mental status grossly normal Speech and movement: Clear speech present Affect: normal affect Attitude: cooperative Thought process: Normal thought process present Thought content: Normal thought content present Assessment & Plan Assessment & Plan (1) Chronic diarrhea: Comment: improved imodium QD x 1 only- good response Code(s): K52.9 - Noninfective gastroenteritis and colitis, unspecified Plan: Continue Imodium Plan Persistent loose stool, may have functional component however must rule out infectious or chronic disease Discussed colonoscopy she prefers to hold off at this time Medications: New loperamide (Imodium A-D) Take 2 cap after 1st loose stool- One caplet after each subsequent loose stools No more than 4 caps in a 24 hour. 2 mg PO Q6H PRN 30 caps 1RF loose stool Refilled loperamide (Imodium A-D) Take 2 cap after 1st loose stool- One caplet after each subsequent loose stools No more than 4 caps in a 24 hour. 2 mg PO Q6H PRN 30 caps 0RF loose stool Patient Instructions: Discussed colonoscopy however she is awaiting knee surgery- Continue Imodium-keep informed- Call with any questions or concerns Coding Level of Care Code Est Pt Level 3 (71105) Diagnoses Chronic diarrhea K52.9 Time Spent (min) 30 Comment [id number]
[2023-05-03 13:59] VITALS: BP 135/73; PULSE 81; BMI 26.5
== END 2023-05-03 14:31 | disposition home or self-care (01) ==
PROVIDERS: PCP Registered Nurse; Visit Provider Physician Assistant
DX: K52.9 Noninfective gastroenteritis and colitis, unspecified (principal)
CPT/HCPCS: 99213

== ENCOUNTER → 2023-05-03 13:52 | Outpatient (BNVA) | payer MEDICARE, SELFPAY | PROVIDERS: PCP Registered Nurse; Visit Provider Physician Assistant | DX: K52.9 Noninfective gastroenteritis and colitis, unspecified (principal) | CPT/HCPCS: 99212 ==

== ENCOUNTER 2023-06-14 11:42 | Outpatient (REF) | payer MEDICARE, SELFPAY ==
--- NOTE | ~2023-06-14 | XR_ITS ---
EXAMINATION: XR SHOULDER, RIGHT CLINICAL INFORMATION: Right shoulder pain, chronic COMPARISON: None available. TECHNIQUE: 6 views of the right shoulder. FINDINGS: Mild hypertrophic change at the acromioclavicular joint. Glenohumeral alignment preserved. No abnormal soft tissue calcification identified adjacent to the humeral head Mild hypertrophic change along the inferior aspect of the glenoid. XR/XR shoulder RT min 2V IMPRESSION: Mild degenerative changes right shoulder.
[2023-06-14 13:33] LABS: MANUAL DIFF FLAG NO
[2023-06-14 13:56] LABS: Basophils Absolute Auto 0.1 X10*3/uL (0.0-0.2); Basophils Percent Auto 0.6 % (0-2); Eosinophils Absolute Auto 0.1 X10*3/uL (0.0-0.4); Eosinophils Percent Auto 1.5 % (0-4); Hematocrit 37.6 % (37.0-47.0); Hemoglobin 12.2 g/dl (12.0-16.0); Imm Gran Abs Auto 0.04 X10*3/uL (0.00-0.03); Imm Gran Pct Auto 0.4 % (0.0-0.4); Lymphocytes Absolute Auto 1.8 X10*3/uL (1.2-4.9); Lymphocytes Percent Auto 20.3 % (20-40); Mean Corpuscular HGB Conc 32.4 g/dl (31.0-35.0); Mean Corpuscular Hemoglobin 28.6 pg (27.0-33.0); Mean Corpuscular Volume 88.1 fL (80.0-98.0); Mean Platelet Volume 10.5 fL (9.4-12.3); Monocytes Absolute Auto 0.7 X10*3/uL (0.1-1.2); Monocytes Percent Auto 8.2 % (2-11); Neutrophils Absolute Auto 6.3 x10*3/uL (2.0-8.3); Platelet Count 502 X10*3/uL (160-400); Red Blood Count 4.27 X10*6/uL (4.20-5.50); Red Cell Distribution Width 15.4 % (11.0-16.0); White Blood Count 9.1 X10*3/uL (4.8-10.8)
[2023-06-14 14:49] LABS: Thyroid Stimulating Hormone 0.48 uIU/mL (0.32-4.0)
[2023-06-14 14:52] LABS: Anion Gap 14 (12-20)
[2023-06-14 14:57] LABS: Alanine Aminotransferase 9 U/L (0-31); Albumin Level 3.9 g/dL (3.5-5.0); Alkaline Phosphatase 68 U/L (39-117); Aspartate Amino Transferase 14 U/L (5-31); Bilirubin Total 0.4 mg/dL (0.0-1.0); Blood Urea Nitrogen 15 mg/dL (9-16); Calcium 10.1 mg/dL (8.4-10.2); Carbon Dioxide 25 mmol/L (22-29); Chloride 104 mmol/L (96-108); Estimated Glomerular Filt Rate > 60; Glucose Random 90 mg/dL (60-115); Potassium 3.9 mmol/L (3.3-5.1); Sodium 139 mmol/L (135-145)
== END 2023-06-14 11:43 | disposition home or self-care (01) ==
LOC: HO.HHCL 11:42
PROVIDERS: Visit Provider Registered Nurse
DX: I10 Essential (primary) hypertension (principal); E03.9 Hypothyroidism, unspecified; L65.9 Nonscarring hair loss, unspecified; Z13.89 Encounter for screening for other disorder
CPT/HCPCS: 36415; 73030; 80053; 84443; 85025

== ENCOUNTER 2023-08-03 12:53 | Outpatient (REF) | payer MEDICARE, SELFPAY ==
--- NOTE | ~2023-08-03 | MM_ITS ---
EXAMINATION: MM DIAGNOSTIC DIGITAL BREAST TOMOSYNTHESIS, LEFT US BREAST LIMITED, LEFT MAMMOGRAPHY: CLINICAL INFORMATION: Follow-up left breast complicated cyst 8:30 o'clock axis, 3 cm from the nipple. COMPARISON: Mammography: Prior mammography including most recent 12/30/2022, and 01/27/2023. TECHNIQUE: Digital left breast tomosynthesis is performed in both the craniocaudal and mediolateral oblique views along with computer-aided detection (CAD). Synthesized 2D images are generated from the tomosynthesis. FINDINGS: There are scattered areas of fibroglandular density (ACR BI-RADS breast composition Category b). Stable rounded isodense mass in the approximate 8:00 axis of the left breast, middle one third. Otherwise, There are no suspicious masses, suspicious grouped calcifications, or areas of architectural distortion in either breast. The parenchymal pattern is stable from prior exams. ULTRASOUND: CLINICAL INFORMATION: Follow-up left breast complicated cyst 8:30 o'clock axis. COMPARISON: 01/27/2023 TECHNIQUE: Targeted sonographic evaluation was performed using a high frequency linear transducer. Selected archived documentation. FINDINGS: LEFT BREAST: There is redemonstration of an acorn cyst measuring 8 x 5 x 4 mm within the 8:30 o'clock axis of the left breast, 3 cm from the nipple. This is stable in appearance without significant changes. It remains probably benign. Six-month interval follow-up recommended. MM/MM tomosynthesis diagnostic LT IMPRESSION: Stable complicated cyst left breast 8:30 o'clock axis. Six-month interval targeted left breast ultrasound recommended to ensure stability. OVERALL ASSESSMENT: Mammography: BI-RADS 3 - Probably benign finding(s) - 6 month follow-up suggested Ultrasound: BI-RADS 3 - Probably benign finding(s) - 6 month follow-up suggested RECOMMENDATION: 6 Month F/U Results were provided to the patient at time of visit by the technologist. This patient's information was entered into a reminder system with a target due date for their next mammogram.
== END 2023-08-03 12:54 | disposition home or self-care (01) ==
LOC: HO.MAMMO 12:53
PROVIDERS: PCP Registered Nurse; Visit Provider Registered Nurse
DX: N60.02 Solitary cyst of left breast (principal)
CPT/HCPCS: 76642; 77061; 77065

== ENCOUNTER → 2023-08-03 14:00 | Outpatient (BNV) | payer MEDICARE, SELFPAY | PROVIDERS: PCP Registered Nurse; Visit Provider Radiology Diagnostic Radiology | DX: N63.24 Unspecified lump in the left breast, lower inner quadrant (principal) | CPT/HCPCS: 76642; 77061; 77065 ==

== ENCOUNTER 2023-09-20 18:53 | Outpatient (REF) | payer MEDICARE, SELFPAY | END 2023-09-20 18:54 | disposition home or self-care (01) | LOC: HO.HHCLNP 18:53 | PROVIDERS: Visit Provider Family Medicine | DX: L02.91 Cutaneous abscess, unspecified (principal) | CPT/HCPCS: 87070; 87205 ==

== ENCOUNTER 2023-10-17 11:22 | Outpatient (REF) | payer MEDICARE, SELFPAY ==
[2023-10-17 14:05] LABS: Alanine Aminotransferase 11 U/L (0-31); Albumin Level 3.7 g/dL (3.5-5.0); Alkaline Phosphatase 76 U/L (39-117); Anion Gap 13 (12-20); Aspartate Amino Transferase 16 U/L (5-31); Bilirubin Total 0.6 mg/dL (0.0-1.0); Blood Urea Nitrogen 12 mg/dL (9-16); Calcium 9.3 mg/dL (8.4-10.2); Carbon Dioxide 26 mmol/L (22-29); Chloride 104 mmol/L (96-108); Cholesterol 182 mg/dL (<200); Estimated Glomerular Filt Rate 59; Glucose Random 97 mg/dL (60-115); HDL Cholesterol 47 mg/dL (>40); LDL Cholesterol Calculated 122 mg/dL (<100); Potassium 3.7 mmol/L (3.3-5.1); Sodium 139 mmol/L (135-145); Total Protein 7.7 g/dL (6.5-8.0); Triglycerides 69 mg/dL (<150)
[2023-10-17 14:09] LABS: TSH reflex Free T4 2.53 uIU/mL (0.32-4.0)
== END 2023-10-17 11:23 | disposition home or self-care (01) ==
LOC: HO.HHCL 11:22
PROVIDERS: Visit Provider Registered Nurse
DX: I10 Essential (primary) hypertension (principal); E03.9 Hypothyroidism, unspecified
CPT/HCPCS: 36415; 80053; 80061; 84443

== ENCOUNTER → 2024-01-09 14:02 | Outpatient (REF) | payer MEDICARE, SELFPAY | LOC: HO.SL 14:02 | PROVIDERS: PCP Registered Nurse; Visit Provider Registered Nurse | DX: G47.33 Obstructive sleep apnea (adult) (pediatric) (principal) | CPT/HCPCS: 95806 ==

== ENCOUNTER → 2024-01-09 19:00 | Outpatient (BNV) | payer MEDICARE, SELFPAY | PROVIDERS: PCP Registered Nurse; Visit Provider Internal Medicine | DX: G47.33 Obstructive sleep apnea (adult) (pediatric) (principal) | CPT/HCPCS: 95806 ==

== ENCOUNTER 2024-01-12 18:49 | Emergency (ER) | payer MEDICARE, SELFPAY ==
[2024-01-12 18:55] VITALS: BP 154/81; PULSE 73; RESP 20; TEMP 36.6; O2SAT 99; BMI 32.5
--- NOTE | 2024-01-12 18:57 | ED.GENADULT ---
HPI - General Adult General Chief complaint: Urogenital-Female Stated complaint: painful urination Time Seen by Provider: 01/12/24 21:23 Source: patient and family Mode of arrival: ambulatory Limitations: no limitations History of Present Illness HPI narrative: Patient comes to the emergency room complaining of dysuria for 2 days. Patient states that whenever she urinates, she has an intense burning sensation. Patient denies flank pain, no back pain. Denies fever or chills. Denies hematuria Related Data Home Medications ?Medication ?Instructions ?Recorded ?Confirmed amlodipine 2.5 mg tablet 2.5 mg PO DAILY 05/24/21 05/03/23 cholecalciferol (vitamin D3) 50 50 mcg PO QAM 05/24/21 05/03/23 mcg (2,000 unit) tablet cyanocobalamin (vitamin B-12) 5,000 mcg PO DAILY 05/24/21 05/03/23 5,000 mcg disintegrating tablet levothyroxine 125 mcg tablet 125 mcg PO QAM 05/24/21 05/03/23 losartan 100 mg tablet 100 mg PO DAILY 05/24/21 05/03/23 sertraline 100 mg tablet 100 mg PO BID 05/24/21 05/03/23 tolterodine 4 mg capsule,extended 4 mg PO DAILY 05/24/21 05/03/23 release 24 hr albuterol sulfate 90 mcg/actuation 0 mcg inhalation 02/04/22 05/03/23 aerosol inhaler (Ventolin HFA) fluticasone 500 mcg-salmeterol 50 1 inh inhalation BID 02/04/22 05/03/23 mcg/dose blistr powdr for inhalation (Advair Diskus) [id number]-cfghycg PO 02/04/22 05/03/23 3,000-9,500-15,000 unit capsule, delayed rel (Creon) metoclopramide HCl 5 mg tablet 5 mg PO QIDACHS 02/04/22 05/03/23 minoxidil 5 % topical solution 1 ml topical BID 02/04/22 05/03/23 multivitamin-ferrous 1 tab PO DAILY 02/04/22 05/03/23 fumarate-folic acid 18 mg-400 mcg tablet (Centrum Complete) naloxone 4 mg/actuation nasal 4 mg intranasal Q3M PRN 02/04/22 05/03/23 spray (Narcan) oxycodone-acetaminophen 5 mg-325 1 tab PO BID PRN 02/04/22 05/03/23 mg tablet potassium bicarbonate-citric acid 25 meq PO BID 02/04/22 05/03/23 25 mEq effervescent tablet (Klor-Con/EF) simethicone 125 mg capsule (Gas 125 mg PO BID-QID PRN 02/04/22 05/03/23 Relief (simethicone)) sucralfate 1 gram tablet 1 g PO QIDACHS 02/04/22 05/03/23 acetaminophen 500 mg tablet 0 mg PO 02/09/22 05/03/23 fluticasone propionate 50 spray intranasal 02/09/22 05/03/23 mcg/actuation nasal spray,suspension calcium carbonate (Antacid Ext Str 1 tab PO 03/21/22 05/03/23 (calcium carb)) meclizine 12.5 mg tablet 12.5 mg PO TID PRN dizziness 03/21/22 05/03/23 ipratropium bromide 21 mcg (0.03 intranasal 04/21/22 05/03/23 %) nasal spray zolpidem 5 mg tablet 5 mg PO BEDTIME PRN 04/21/22 05/03/23 Previous Rx's ?Medication ?Instructions ?Recorded omeprazole 20 mg capsule,delayed 20 mg PO BID 30 days #60 caps 02/09/22 release azelastine 137 mcg (0.1 %) nasal 2 spray intranasal BID 30 days #30 04/21/22 spray aerosol mL gabapentin 300 mg capsule 300 mg PO BEDTIME #30 caps 10/05/22 ondansetron HCl 4 mg tablet 4 mg PO DAILY PRN nausea and 12/29/22 vomiting #30 tabs cyclobenzaprine 10 mg tablet 10 mg PO Q8H #20 tabs 01/25/23 cetirizine 10 mg tablet 10 mg PO QAM for allergies #30 tabs 02/01/23 albuterol sulfate 2.5 mg/3 mL 2.5 mg (3 mL) inhalation Q6H PRN 02/08/23 (0.083 %) solution for nebulization for wheezing #180 mL fluticasone fur. 200 mcg-umeclid 1 ea inhalation DAILY #60 ea 02/08/23 62.5 mcg-vilant 25 mcg inhalat.powder (Trelegy Ellipta) montelukast 10 mg tablet 10 mg PO QPM #30 tabs 02/08/23 pantoprazole 40 mg tablet,delayed 40 mg PO QAM #30 tabs 03/03/23 release loperamide 2 mg capsule (Imodium 2 mg PO Q6H PRN loose stool #30 05/03/23 A-D) caps loperamide 2 mg capsule (Imodium 2 mg PO Q6H PRN loose stool #30 06/01/23 A-D) caps cefuroxime axetil 250 mg tablet 250 mg PO BID #14 tabs 01/12/24 phenazopyridine 100 mg tablet 100 mg PO TID PRN pain 6 doses #6 01/12/24 tabs Allergies Allergy/AdvReac Type Severity Reaction Status Date / Time morphine [MORPHINE] Allergy Severe HYPOTENSION Verified 01/12/24 18:58 levofloxacin [LEVOFLOXACIN] Allergy Intermediate DIZZY Verified 01/12/24 18:58 Penicillins Allergy Mild RASH Verified 01/12/24 18:58 penicillin V Allergy Unknown Rash Verified 01/12/24 18:58 Review of Systems Review of Systems: Constitutional : No Weight loss, No Fever, No Chills, No Night Sweats, No Fatigue, No Malaise ENT/Mouth : No Hearing loss, No Ear Pain, No Nasal Congestion, No Sinus Pain, No Hoarseness, No sore throat, No Rhinorrhea, No Swallowing Difficulty Eyes: No Eye Pain, No Swelling, No Redness, No Foreign Body, No Discharge, No Vision Changes Cardiovascular : No Chest Pain, No SOB, No Dyspnea on Exertion, No Orthopnea, No Edema, No Palpitations Respiratory : No Cough, No Sputum, No Wheezing, No Smoke Exposure, No Dyspnea Gastrointestinal : No Nausea, No Vomiting, No Diarrhea, No Constipation, No abdominal Pain, No Hematochezia, No Melena Genitourinary : no irregular bleeding, No Dysuria, No Urinary Frequency, No Hematuria, No Urinary Incontinence, complaining of urinary urgency and dysuria,, No Flank Pain, No Urinary Flow Changes, No Hesitancy Musculoskeletal : No joint pain, No Myalgias, No Joint Swelling Skin : No Skin Lesions, No rash Neuro : No Weakness, No Numbness, No Paresthesias, No Loss of Consciousness, No Dizziness, No Headache Psych : No Anxiety/Panic, No Depression, No SI/HI/AH/VH, No Social Issues, Heme/Lymph: No Bruising, No Bleeding,No Lymphadenopathy Endocrine : No Polyuria, No Polydipsia, No Temperature Intolerance [facility] Past Medical History Medical History Chronic allergic rhinitis Insomnia Hypertension Asthma Surgical History History of esophagogastroduodenoscopy (EGD) Hx of colonoscopy Hx of hand surgery Social History Social History Household Members: Spouse and Children Alcohol intake: never Patient Tobacco Use Status: Never used Tobacco Advance Directives: No Advance Directives Information Provided: No Do you have a plan to hurt others: No Plan Current occupational status: disabled Physical Exam ED Vital Signs: Vital Signs - 24 hr 01/12/24 18:55 Temperature 97.8 F Pulse Rate 73 Respiratory Rate 20 Blood Pressure 154/81 H Pulse Oximetry 99 Oxygen Delivery Method Room Air BMI result Body Mass Index 32.5 Const Other: Appearance: Alert. Oriented X3. No acute distress. Well-appearing Eyes: Pupils equal, round and reactive to light. ENT: Pharynx normal. Neck: Normal inspection. Neck supple. No lymph nodes noted. No crepitus CVS: Normal heart rate and rhythm. Pulses normal. Normal S1 and S2 Respiratory: No respiratory distress. Breath sounds normal. No Wheezing. No rales Abdomen: Soft and nontender. No rigidity. No distention. Back: No flank pain Skin: Skin warm and dry. Normal skin color. Normal skin turgor. Extremities: No lower extremity edema. No Lacerations. No Rash Neuro: Oriented X 3. No motor deficit. No sensory deficit. Moving all extremities. No slurred speech. CN 2 through 12 grossly intact Psych: calm, cooperative, normal affect Course Course Course Narrative: This is an RME done by [facility] Car: Additional HPI, ROS, PE not included below will be deferred to primary provider. 74 year old female presents w/ lower back pain, burning with urination and chills X 2 days. Recent knee replacement to left knee. Appearance: Alert.? Oriented X3.? No acute cardiopulmonary distress distress.? Head: Normocephalic, atraumatic, no step-offs or deformities Neck: Normal inspection.? Neck supple.? CVS: Pulses normal.? Respiratory: No respiratory distress.? Skin: ? Normal skin color. Extremities: 5/5 strength to bilateral upper and lower extremities Back: No midline tenderness, no C-spine tenderness, full range of motion, Neuro: Oriented X 3.? No motor deficit.? No sensory deficit. Medical Decision Making Medical Decision Making [facility] Narrative: My interpretation of labs: Normal hematology and chemistry, urinalysis positive for UTI. No previous microbiology results for sensitivity. -patient was given a dose of cefuroxime and phenazopyridine in the ED. -patient has normal blood pressure, no hypotension, no tachycardia or fever. Sepsis or pyelonephritis not suspected Differential Diagnosis Differential Diagnoses: The differential diagnosis associated with the presentation includes (As above) Lab Data 01/12/24 19:45 01/12/24 19:45 Labs: Lab Results 01/12/24 Range/Units 19:45 WBC 8.2 (4.8-10.8) X10*3/uL RBC 4.04 L (4.20-5.50) X10*6/uL Hgb 11.3 L (12.0-16.0) g/dl Hct 34.8 L (37.0-47.0) % MCV 86.1 (80.0-98.0) fL MCH 28.0 (27.0-33.0) pg MCHC 32.5 (31.0-35.0) g/dl RDW 14.6 (11.0-16.0) % Plt Count 587 H (160-400) X10*3/uL MPV 9.2 L (9.4-12.3) fL Immature Gran % (Auto) 0.4 (0.0-0.4) % Neut % (Auto) 55.4 (45-73) % Lymph % (Auto) 30.1 (20-40) % Cottle % (Auto) 8.1 (2-11) % Eos % (Auto) 5.0 H (0-4) % Baso % (Auto) 1.0 (0-2) % Lymph # (Auto) 2.5 (1.2-4.9) X10*3/uL Cottle # (Auto) 0.7 (0.1-1.2) X10*3/uL Eos # (Auto) 0.4 (0.0-0.4) X10*3/uL Baso # (Auto) 0.1 (0.0-0.2) X10*3/uL Abs Immat Gran (auto) 0.03 (0.00-0.03) X10*3/uL Absolute Neuts (auto) 4.5 (2.0-8.3) x10*3/uL Absolute Nucleated RBC 0.000 (0.0-0.012) X10*3/uL Nucleated RBC % (auto) 0.0 (0.0-0.2) /100WBC Sodium 139 (135-145) mmol/L Potassium 3.3 (3.3-5.1) mmol/L Chloride 104 (96-108) mmol/L Carbon Dioxide 24 (22-29) mmol/L Anion Gap 14 (12-20) BUN 10 (9-16) mg/dL Creatinine 0.84 (0.5-1.4) mg/dL Estim Creat Clear Calc 43.7 Estimated GFR > 60 Random Glucose 95 (60-115) mg/dL Calcium 9.9 D (8.4-10.2) mg/dL Total Bilirubin 0.4 (0.0-1.0) mg/dL AST 14 (5-31) U/L ALT 7 (0-31) U/L Alkaline Phosphatase 72 (39-117) U/L Total Protein 8.1 H (6.5-8.0) g/dL Albumin 3.8 (3.5-5.0) g/dL Urine Color Yellow Urine Appearance Clear Urine pH 7.5 (5.0-9.0) Ur Specific [place] <= 1.005 (1.005-1.025) Urine Protein Negative (Neg-Trace) mg/dL Urine Glucose (UA) Negative (Negative) mg/dL Urine Ketones Negative (Negative) mg/dL Urine Blood Trace H (Negative) Urine Nitrite Negative (Negative) Ur Leukocyte Esterase Large (3+) H (Negative) Urine RBC 0-2 (0-2) /HPF Urine WBC >50 H (0-5) /HPF Ur Squamous Epith Cells 3-5 (0-2) /HPF Urine Bacteria None Seen (None Seen) Hyaline Casts 0-2 (0-2) /LPF Discharge Plan Discharge Clinical Impression: UTI (urinary tract infection) Patient Disposition: Home, Self-Care Instructions: Urinary Tract Infection in Older Adults (ED) Additional Instructions: Please follow-up with your primary care physician tomorrow. If you have any worsening or new symptoms, please return to the emergency room or call 911 Prescriptions: New cefuroxime axetil 250 mg tablet 250 mg PO BID Qty: 14 0RF phenazopyridine 100 mg tablet 100 mg PO TID PRN (Reason: pain) Qty: 6 0RF No Action gabapentin 300 mg capsule 300 mg PO BEDTIME Qty: 30 6RF cetirizine 10 mg tablet 10 mg PO QAM Qty: 30 11RF albuterol sulfate 2.5 mg /3 mL (0.083 %) solution for nebulization 2.5 mg inhalation Q6H PRN (Reason: for wheezing) Qty: 180 12RF Trelegy Ellipta 200-62.5-25 mcg blister with device 1 ea inhalation DAILY Qty: 60 12RF montelukast 10 mg tablet 10 mg PO QPM Qty: 30 11RF pantoprazole 40 mg tablet,delayed release (DR/EC) 40 mg PO QAM Qty: 30 11RF loperamide [Imodium A-D] 2 mg capsule 2 mg PO Q6H PRN (Reason: loose stool) Qty: 30 1RF Rx Instructions: Take 2 cap after 1st loose stool- One caplet after each subsequent loose stools No more than 4 caps in a 24 hour. cyclobenzaprine 10 mg tablet 10 mg PO Q8H Qty: 20 0RF metoclopramide HCl 5 mg tablet 5 mg PO QIDACHS Creon 3,000-9,500- 15,000 unit capsule,delayed release(DR/EC) PO sucralfate 1 gram tablet 1 g PO QIDACHS simethicone [Gas Relief (simethicone)] 125 mg capsule 125 mg PO BID-QID PRN Klor-Con/EF 25 mEq tablet, effervescent 25 meq PO BID fluticasone propion-salmeterol [Advair Diskus] 500-50 mcg/dose blister with device 1 inh inhalation BID minoxidil 5 % solution 1 ml topical BID Centrum Complete 18-400 mg-mcg tablet 1 tab PO DAILY naloxone [Narcan] 4 mg/actuation spray,non-aerosol 4 mg intranasal Q3M PRN Rx Instructions: spray 1 dose into ONE nostril; alternate nostrils w each dose until help arrives albuterol sulfate [Ventolin HFA] 90 mcg/actuation HFA aerosol inhaler 0 mcg inhalation oxycodone-acetaminophen 5-325 mg tablet 1 tab PO BID PRN zolpidem 5 mg tablet 5 mg PO BEDTIME PRN ipratropium bromide 21 mcg (0.03 %) spray,non-aerosol intranasal azelastine 137 mcg (0.1 %) aerosol,spray 2 spray intranasal BID 30 Days Qty: 30 6RF Rx Instructions: administer into each nostril cyanocobalamin (vitamin B-12) 5,000 mcg tablet,disintegrating 5,000 mcg PO DAILY losartan 100 mg tablet 100 mg PO DAILY sertraline 100 mg tablet 100 mg PO BID tolterodine 4 mg capsule,extended release 24hr 4 mg PO DAILY amlodipine 2.5 mg tablet 2.5 mg PO DAILY levothyroxine 125 mcg tablet 125 mcg PO QAM cholecalciferol (vitamin D3) 50 mcg (2,000 unit) tablet 50 mcg PO QAM fluticasone propionate 50 mcg/actuation spray,suspension intranasal acetaminophen 500 mg tablet 0 mg PO omeprazole 20 mg capsule,delayed release(DR/EC) 20 mg PO BID 30 Days Qty: 60 4RF meclizine 12.5 mg tablet 12.5 mg PO TID PRN (Reason: dizziness) calcium carbonate [Antacid Ext Str (calcium carb)] 300 mg (750 mg) tablet,chewable 1 tab PO ondansetron HCl 4 mg tablet 4 mg PO DAILY PRN (Reason: nausea and vomiting) Qty: 30 0RF loperamide [Imodium A-D] 2 mg capsule 2 mg PO Q6H PRN (Reason: loose stool) Qty: 30 0RF Rx Instructions: Take 2 cap after 1st loose stool- One caplet after each subsequent loose stools No more than 4 caps in a 24 hour. Print Language: Maori
[2024-01-12 19:53] LABS: Basophils Absolute Auto 0.1 X10*3/uL (0.0-0.2); Eosinophils Absolute Auto 0.4 X10*3/uL (0.0-0.4); Hematocrit 34.8 % (37.0-47.0); Hemoglobin 11.3 g/dl (12.0-16.0); Imm Gran Abs Auto 0.03 X10*3/uL (0.00-0.03); Imm Gran Pct Auto 0.4 % (0.0-0.4); Lymphocytes Absolute Auto 2.5 X10*3/uL (1.2-4.9); Lymphocytes Percent Auto 30.1 % (20-40); MANUAL DIFF FLAG NO; Mean Corpuscular HGB Conc 32.5 g/dl (31.0-35.0); Mean Corpuscular Volume 86.1 fL (80.0-98.0); Mean Platelet Volume 9.2 fL (9.4-12.3); Monocytes Absolute Auto 0.7 X10*3/uL (0.1-1.2); Monocytes Percent Auto 8.1 % (2-11); Neutrophils Absolute Auto 4.5 x10*3/uL (2.0-8.3); Neutrophils Percent Auto 55.4 % (45-73); Platelet Count 587 X10*3/uL (160-400); Red Blood Count 4.04 X10*6/uL (4.20-5.50); Red Cell Distribution Width 14.6 % (11.0-16.0); White Blood Count 8.2 X10*3/uL (4.8-10.8)
[2024-01-12 19:57] LABS: Appearance Urine Clear; Color Urine Yellow; Glucose Urine UA Negative (Negative); Leukocyte Esterase Urine Large (3+) (Negative); Nitrite Urine Negative (Negative); PH 7.5 (5.0-9.0); Specific Gravity - Urine <= 1.005 (1.005-1.025); UMIC TRIGGER UACC YES; Urine Blood Trace (Negative); Urine Ketones Negative (Negative); Urine Protein Negative (Neg-Trace)
[2024-01-12 20:01] LABS: Bacteria Urine None Seen (None Seen); Hyaline Casts Urine 0-2 /LPF (0-2); RBC Urine 0-2 /HPF (0-2); UACC Culture Trigger YES; WBC Urine >50 /HPF (0-5)
[2024-01-12 20:08] LABS: Alanine Aminotransferase 7 U/L (0-31); Albumin Level 3.8 g/dL (3.5-5.0); Alkaline Phosphatase 72 U/L (39-117); Anion Gap 14 (12-20); Aspartate Amino Transferase 14 U/L (5-31); Bilirubin Total 0.4 mg/dL (0.0-1.0); Blood Urea Nitrogen 10 mg/dL (9-16); Calcium 9.9 mg/dL (8.4-10.2); Carbon Dioxide 24 mmol/L (22-29); Chloride 104 mmol/L (96-108); Creatinine Clr Calc Pharmacy 43.7; Estimated Glomerular Filt Rate > 60; Glucose Random 95 mg/dL (60-115); Potassium 3.3 mmol/L (3.3-5.1); Sodium 139 mmol/L (135-145); Total Protein 8.1 g/dL (6.5-8.0)
--- OUTSIDE RECORDS SUMMARY | 2024-01-12 21:11 | XMS_ITS | Continuity of Care Document ---
Author Organization [facility] Address [address] [place] [address]- Care Team Providers Care Single Pointed Operator Name Role Phone Piercy TRANSITIONAL CARE LIAISON, Eugenia Primary Care Physician Encounter [facility] Date(s): 10/25/23 - 12/02/23 [facility] [address] [place] [id number]- Encounter Diagnosis Osteoporosis(Discharge Diagnosis) - 11/01/23 Attending Physician: Kinza Mercedes MD Admitting Physician: Kinza Mercedes MD Allergies, Adverse Reactions, Alerts Substance Reaction Severity Status penicillin Active morphine 1 Active Homatropine Methylbromide-Hydrocodone throat closed Active 1 lowers bllood pressure Medications Advair Diskus 500 mcg-50 mcg inhalation powder 1, puffs, Inhalation, 2 times a day, # 180 each, Refills 0, Maintenance, 11/10/21 10:12:00 EDT, Powder Start Date: 11/10/21 Status: Ordered albuterol 0.083% inhalation solution 3 mL = 2.5 mg, Inhalation, Every 6 hours, # 120 each, 0 Refills, Maintenance, 11/10/21 10:12:00 EDT, Solution, Partial fill upon patient request if the prescription is for a schedule II opioid drug. Start Date: 11/10/21 Status: Ordered Ambien 5 mg oral tablet 1 tablet = 5 mg, By Mouth, Daily at bedtime, PRN for sleep, 0 Refills, Maintenance, 11/10/21 10:18:00 EDT, Tablet, Partial fill upon patient request if the prescription is for a schedule II opioid drug. Start Date: 11/10/21 Status: Ordered amLODIPine 2.5 mg oral tablet 2.5 mg, 1, tablet, By Mouth, Daily, # 30 tablet, Refills 0, Maintenance, 11/10/21 10:15:00 EDT, Partial fill upon patient request if the prescription is for a schedule II opioid drug. Start Date: 11/10/21 Status: Ordered Centrum Adults By Mouth, Daily, 0 Refills, Maintenance, 11/10/21 10:13:00 EDT, Partial fill upon patient request if the prescription is for a schedule II opioid drug. Start Date: 11/10/21 Status: Ordered cholestyramine 4 g/5.5 g oral powder for reconstitution = 4 Gm, By Mouth, 2 times a day, # 60 each, 0 Refills, Maintenance, 11/10/21 10:14:00 EDT, REC Powder, Partial fill upon patient request if the prescription is for a schedule II opioid drug. Start Date: 11/10/21 Status: Ordered Creon 3000 units oral delayed release capsule 1 capsule, By Mouth, 4 times a day, # 120 capsule, 0 Refills, Maintenance, 11/10/21 10:08:00 EDT, CR Capsule, Partial fill upon patient request if the prescription is for a schedule II opioid drug. Start Date: 11/10/21 Status: Ordered D3 1000 0 Refills, Maintenance, 11/10/21 10:11:00 EDT, Partial fill upon patient request if the prescription is for a schedule II opioid drug. Start Date: 11/10/21 Status: Ordered Dexilant 30 mg oral delayed release capsule 1 capsule = 30 mg, By Mouth, Daily, 0 Refills, Maintenance, 11/10/21 10:07:00 EDT, Partial fill upon patient request if the prescription is for a schedule II opioid drug. Start Date: 11/10/21 Status: Ordered Eligen B12 By Mouth, Daily, 0 Refills, Maintenance, 11/10/21 10:15:00 EDT, Partial fill upon patient request if the prescription is for a schedule II opioid drug. Start Date: 11/10/21 Status: Ordered EpiPen 2-Jose = 0.3 mg, Intramuscular, Once, 0 Refills, Maintenance, 11/10/21 10:08:00 EDT, Partial fill upon patient request if the prescription is for a schedule II opioid drug. Start Date: 11/10/21 Status: Ordered ergocalciferol 77120 iu oral capsule 1, capsule, By Mouth, Every week, ON JULIETA MORNING., # 13 capsule, Refills 0, Maintenance, 07/17/23 9:30:00 EST, Route to Pharmacy Electronically, [facility], 143.8, cm, 01/11/2311:19:00 EDT, Height, 69.3, kg, 12/01/21 8:00:00 ED... Start Date: 07/17/23 Status: Ordered fluticasone propionate Inhalation, 0 Refills, Maintenance, 11/10/21 10:11:00 EDT, Partial fill upon patient request if theprescription is for a schedule II opioid drug. Start Date: 11/10/21 Status: Ordered Klor-Con By Mouth, 2 times a day, 0 Refills, Maintenance, 11/10/21 10:10:00 EDT, Partial fill upon patient request if the prescription is for a schedule II opioid drug. Start Date: 11/10/21 Status: Ordered levothyroxine 125 mcg (0.125 mg) oral capsule 1 capsule = 125 mcg, By Mouth, Daily, # 30 capsule, 0 Refills, Maintenance, 11/10/21 10:17:00 EDT, Capsule, Partial fill upon patient request if the prescription is for a schedule II opioid drug. Start Date: 11/10/21 Status: Ordered loperamide 2 mg oral capsule 2 mg, 1, capsule, By Mouth, Every 4 hours, Refills 0, Maintenance, 11/10/21 10:08:00 EDT, Partial fill upon patient request if the prescription is for a schedule II opioid drug. Start Date: 11/10/21 Status: Ordered losartan 100 mg oral tablet 1 tablet = 100 mg, By Mouth, Daily, # 90 tablet, 0 Refills, Maintenance, 11/10/21 10:18:00 EDT, Tablet, Partial fill upon patient request if the prescription is for a schedule II opioid drug. Start Date: 11/10/21 Status: Ordered meclizine 12.5 mg oral tablet 1 tablet = 12.5 mg, By Mouth, 3 times a day, 0 Refills, Maintenance, 11/10/21 10:11:00 EDT, Partialfill upon patient request if the prescription is for a schedule II opioid drug. Start Date: 11/10/21 Status: Ordered metoclopramide 5 mg oral tablet 1 tablet = 5 mg, By Mouth, 3 times a day before meals and bedtime, 0 Refills, Maintenance, 11/10/2209:06:00 EDT, Partial fill upon patient request if the prescription is for a schedule II opioid drug. Start Date: 11/10/21 Status: Ordered Narcan 4 mg/0.1 mL nasal spray = 4 mg, Once, 0 Refills, Maintenance, 11/10/21 10:14:00 EDT, Partial fill upon patient request if the prescription is for a schedule II opioid drug. Start Date: 11/10/21 Status: Ordered ondansetron 4 mg oral tablet 1 tablet = 4 mg, By Mouth, Every 8 hours, 0 Refills, Maintenance, 11/10/21 10:07:00 EDT, Partial fill upon patient request if the prescription is for a schedule II opioid drug. Start Date: 11/10/21 Status: Ordered Percocet 2.5 mg-325 mg oral tablet 1 tablet, By Mouth, Every 4 hours, PRN as needed for pain, 0 Refills, Maintenance, 11/10/21 10:18:00 EDT, Tablet, Partial fill upon patient request if the prescription is for a schedule II opioid drug. Start Date: 11/10/21 Status: Ordered Probiotic Formula By Mouth, Daily, 0 Refills, Maintenance, 11/10/21 10:10:00 EDT, Partial fill upon patient request if the prescription is for a schedule II opioid drug. Start Date: 11/10/21 Status: Ordered simethicone 125 mg oral capsule 1 capsule = 125 mg, By Mouth, 3 times a day after meals and bedtime, 0 Refills, Maintenance, 11/10/21 10:07:00 EDT, Partial fill upon patient request if the prescription is for a schedule II opioid drug. Start Date: 11/10/21 Status: Ordered Singulair 10 mg oral tablet 10 mg, 1, tablet, By Mouth, Daily, Refills 0, Maintenance, 11/10/21 10:14:00 EDT, Partial fill uponpatient request if the prescription is for a schedule II opioid drug. Start Date: 11/10/21 Status: Ordered sucralfate 1 gm oral tablet 1 Gm, 1, tablet, By Mouth, 3 times a day before meals and bedtime, Refills 0, Maintenance, 11/10/2209:08:00 EDT, Partial fill upon patient request if the prescription is for a schedule II opioid drug. Start Date: 11/10/21 Status: Ordered tolterodine 4 mg oral capsule, extended release 1 capsule = 4 mg, By Mouth, Daily, # 30 capsule, 0 Refills, Maintenance, 11/10/21 10:16:00 EDT, CR Capsule, Partial fill upon patient request if the prescription is for a schedule II opioid drug. Start Date: 11/10/21 Status: Ordered Tums E-X = 750 mg, Daily, 0 Refills, Maintenance, 11/10/21 10:18:00 EDT, Partial fill upon patient request if the prescription is for a schedule II opioid drug. Start Date: 11/10/21 Status: Ordered Ventolin 90 mcg Inhaler 1, puffs, Inhalation, Every 4 hours, Refills 0, Maintenance, 11/10/21 10:10:00 EDT, Inhaler Start Date: 11/10/21 Status: Ordered Vitamin B12 By Mouth, 5000 mcg qod, 0 Refills, Maintenance, 11/10/21 10:10:00 EDT, Partial fill upon patient request if the prescription is for a schedule II opioid drug. Start Date: 11/10/21 Status: Ordered Zoloft 100 mg oral tablet 1 tablet = 100 mg, By Mouth, Daily, 0 Refills, Maintenance, 11/10/21 10:17:00 EDT, Partial fill upon patient request if the prescription is for a schedule II opioid drug. Start Date: 11/10/21 Status: Ordered ZyrTEC 10 mg oral tablet 1 tablet = 10 mg, By Mouth, Daily, PRN for allergy symptoms, # 10 tablet, 0 Refills, Maintenance, 11/10/21 10:13:00 EDT, Tablet, Partial fill upon patient request if the prescription is for a schedule II opioid drug. Start Date: 11/10/21 Status: Ordered Problem List Condition Confirmation Course Effective Dates Status Health St atus Informant Obese class I Confirmed Active Osteoporosis Confirmed Active Diagnosis Diagnosis Type Effective Dates Health Status Cl inical Service Informant Osteoporosis Discharge Diagnosis 11/01/23 Social History Social History Type Response Smoking Status Never smoker; Tobacc o user in household: No entered on: 11/14/13 Sex Patient Care team information Care Team Personnel Name: Piercy TRANSITIONAL CARE LIAISON, Eugenia Position: Reference Physician Member Role: PCP Address: Address: [address] [place] [address]- Care Team Related Persons Name: UMER MITCHELL Address: home [address] [place] [address]
--- OUTSIDE RECORDS SUMMARY | 2024-01-12 21:11 | XMS_ITS | Continuity of Care Document ---
Author Organization [facility] Address [address] [place] [address]- Care Team Providers Care Runway Model Name Role Phone Not on Staff, PCP Primary Care Physician Unavail able [place] [facility] [place](s[place] 12/22/21 - 01/21/22 [facility] [address] [place] [address]- Allergies, Adverse Reactions, Alerts Substance Reaction Severity [...] drug. Start Date: 11/10/21 Status: Ordered D3 By Mouth, Daily, 0 Refills, Maintenance, 11/10/21 [...] opioid drug. Start Date: 11/10/21 Status: Ordered fluticasone propionate Inhalation, 0 Refills, [...] opioid drug. Start Date: 11/10/21 Status: Ordered Vitamin D2 By Mouth, 0 Refills, Maintenance, 11/10/21 10:13:00 EDT, Partial [...] Date: 11/10/21 Status: Ordered Problem List Condition Effective Dates Status Health Status Inform ant Osteoporosis(Confirmed) Active Social History Social History Type Response Smoking Status Never smoker; Tobacc o user in household: No entered on: 11/14/13 Sex
--- OUTSIDE RECORDS SUMMARY | 2024-01-12 21:11 | XMS_ITS | Continuity of Care Document ---
Author Organization [facility] Address [address] [place] [address]- Care Team Providers Care Occupational Health And Safety Manager Name Role Phone [place] BROILER MANAGER, Eugenia Primary Care Physician [phone] Encounter 12/26/23 - 01/04/24 [facility] [address] [place] [address]- Discharge Disposition: GOALS MET Allergies, Adverse Reactions, Alerts Substance Reaction Severity Status penicillin Rash and itching Active morphine 1 Active Homatropine Methylbromide-Hydrocodone throat closed Active 1 lowers bllood pressure Medications acetaminophen 325 mg oral tablet 650 mg, By Mouth, Every 6 hours, May take OTC not to exceed 3000 mg/day, Refills 0, Maintenance, 12/23/23 9:09:00 EDT, Partial fill upon patient request if the prescription is for a schedule II opioid drug. Start Date: 12/23/23 Status: Ordered albuterol 0.083% inhalation solution 3 [...] opioid drug. Start Date: 11/10/21 Status: Ordered amitriptyline 10 mg oral tablet 10 mg, By Mouth, Daily at bedtime, Refills 0, Maintenance, 12/23/23 9:09:00 EDT, Partial fill upon patient request if the prescription is for a schedule II opioid drug. Start Date: 12/23/23 Status: Ordered amLODIPine 5 mg oral tablet 5 mg, By Mouth, Daily, Refills 0, Maintenance, 12/23/23 9:09:00 EDT, Partial fill upon patient request if the prescription is for a schedule II opioid drug. Start Date: 12/23/23 Status: Ordered cholestyramine 4 g/5.5 g oral [...] opioid drug. Start Date: 11/10/21 Status: Ordered Ecotrin 325 mg oral delayed release tablet 1 tablet = 325 mg, By Mouth, 2 times a day, # 60 tablet, 0 Refills, Maintenance, 12/23/23 9:08:00 EDT, EC Tablet, [facility] 3, Partial fill upon patient request if the prescription is for a schedule II opioid drug., 139.7, cm, 12/23/23 7:... Start Date: 12/23/23 Stop Date: 01/22/24 Status: Ordered EpiPen 2-Jose = 0.3 mg, Intramuscular, Once, 0 Refills, Maintenance, 11/10/21 10:08:00 EDT, Partial fill upon patient request if the prescription is for a schedule II opioid drug. Start Date: 11/10/21 Status: Ordered fluticasone propionate Inhalation, 0 Refills, Maintenance, 11/10/21 10:11:00 EDT, Partial fill upon patient request if theprescription is for a schedule II opioid drug. Start Date: 11/10/21 Status: Ordered gabapentin 300 mg oral capsule 300 mg, 1, capsule, By Mouth, 3 times a day, # 90 capsule, Refills 5, Maintenance, 12/11/23 11:37:00 EDT, Partial fill upon patient request if the prescription is for a schedule II opioid drug. Start Date: 12/11/23 Status: Ordered levothyroxine 125 mcg (0.125 mg) [...] 1 tablet = 5 mg, By Mouth, 2 times a day, 0 Refills, Maintenance, 11/10/21 10:06:00 EDT, Partial fill upon patient request if [...] opioid drug. Start Date: 11/10/21 Status: Ordered pantoprazole 40 mg oral delayed release tablet 1 tablet = 40 mg, By Mouth, Daily, # 30 tablet, 0 Refills, Maintenance, 12/18/23 12:08:00 EDT, EC Tablet Start Date: 12/18/23 Status: Ordered Probiotic Formula By Mouth, Daily, [...] opioid drug. Start Date: 11/10/21 Status: Ordered Trelegy Ellipta 200 mcg-62.5 mcg-25 mcg/inh inhalation powder 1 puffs, INHALE 1 PUFF EVERY DAY AT THE SAME TIME Start Date: 12/11/23 Status: Ordered Ventolin 90 mcg Inhaler 1, [...] class I Confirmed Active Osteoporosis Confirmed Active Social History Social History Type Response Smoking Status Never (less than 100 in lifetime) entered on: 12/11/23 Sex Patient Care team information Care Team Personnel Name: Sofia Harris RN Position: [facility] RN Member Role: Primary Care Nurse Name: Cm Gunter RN Position: S RN Member Role: Primary Care Nurse Name: Missy Aquino RN Position: S RN Member Role: Primary Care Nurse Name: Eugenia Sandoval NP Position: Reference Physician Member Role: PCP Address: Address: [address] [place] [address]- Care Team Related Persons Name: UMER MITCHELL Address: home [address] [place] [address]
--- OUTSIDE RECORDS SUMMARY | 2024-01-12 21:11 | XMS_ITS | Continuity of Care Document ---
Author Organization [facility] Address [address] [place] [address]- Care Team Providers Care Candy Cutter Machine Name Role Phone Shawnee Donaldson NP Primary Care Physician [phone] Encounter [facility] ACCT R [id number] Date(s): 09/23/21 - 10/30/21 [facility] [address] [place] [address]- Attending Physician: Carlos Menendez MD Admitting Physician: Carlos Menendez MD Referring Physician: Shawnee Donaldson NP Allergies, Adverse Reactions, Alerts Substance Reaction Severity Status penicillin Active Homatropine Methylbromide-Hydrocodone throat closed Active Medications Advair Diskus 500 mcg-50 mcg inhalation powder 1 puffs, Inhalation, 2 times a day, 0 Refills, Maintenance Start Date: 05/11/12 Status: Ordered albuterol 0.083% inhalation solution 3 mL = 0.002 Gm, Inhalation, Every 6 hours, 0 Refills, Maintenance Start Date: 12/01/09 Status: Ordered Ambien 10 mg oral tablet 1 tablet = 10 mg, By Mouth, Daily at bedtime, 0 Refills, Maintenance Start Date: 05/11/12 Status: Ordered Antivert Tablet By Mouth, 3 times a day, 0 Refills, Maintenance, 11/14/13 10:13:52 Start Date: 11/14/13 Status: Ordered calcium (as carbonate)-vitamin D 500 mg-600 intl units oral tablet 1 tablet, By Mouth, 2 times a day, # 60 tablet, 11 Refills, Maintenance, 09/10/15 12:53:33, Tablet,1 tablet By Mouth 2 times a day Start Date: 09/10/15 Status: Ordered Centrum By Mouth, Daily, 0 Refills, Maintenance Start Date: 05/11/12 Status: Ordered Cholestyramine = 378 Gm, By Mouth, 2 times a day, 0 Refills, Maintenance Start Date: 12/01/09 Status: Ordered Diovan HCT 25 mg-160 mg oral tablet 1 tablet, By Mouth, Daily, 0 Refills, Maintenance Start Date: 12/01/09 Status: Ordered Fluticasone 50 mcg, Inhalation, 2 times a day, Maintenance, 12/01/09 8:15:55 Start Date: 12/01/09 Status: Ordered ibuprofen 400 mg oral tablet 1 tablet = 400 mg, By Mouth, Every 4 hours, 0 Refills, Maintenance, 11/14/13 10:13:23 Start Date: 11/14/13 Status: Ordered Klonopin 0.5 mg oral tablet 1 tablet = 0.5 mg, By Mouth, 3 times a day, 0 Refills, Maintenance, 11/14/13 10:13:18 Start Date: 11/14/13 Status: Ordered Levothyroxine = 137 mcg, Daily, 0 Refills, Maintenance, 12/01/09 8:11:32 Start Date: 12/01/09 Status: Ordered loperamide 2 mg oral tablet 1 tablet = 2 mg, By Mouth, Every 4 hours, 0 Refills, Maintenance, 11/14/13 10:14:05 Start Date: 11/14/13 Status: Ordered loratadine 10 mg oral tablet 1 tablet = 10 mg, By Mouth, Daily, 0 Refills, Maintenance Start Date: 12/01/09 Status: Ordered ondansetron 4 mg oral tablet 1 tablet = 4 mg, By Mouth, Every 8 hours, PRN Nausea & Vomiting, # 10 tablet, 0 Refills, Maintenance, 10/21/18 22:11:36 EST, Tablet Start Date: 10/21/18 Status: Ordered pantoprazole 40 mg oral enteric coated tablet 1 tablet = 40 mg, By Mouth, Daily, 0 Refills, Maintenance Start Date: 12/01/09 Status: Ordered Percocet-5/325 325 mg-5 mg oral tablet 1 tablet, By Mouth, 2 times a day, 0 Refills, Maintenance Start Date: 05/11/12 Status: Ordered potassium chloride 25 mEq oral powder for reconstitution 1 each = 25 mEq, By Mouth, 2 times a day, 0 Refills, Maintenance, 11/14/13 10:13:45 Start Date: 11/14/13 Status: Ordered ProAir HFA 90 mcg/inh inhalation aerosol with adapter 2 puffs, Inhalation, 4 times a day, 0 Refills, Maintenance Start Date: 12/01/09 Status: Ordered Saline Nasal Mist 0 Refills, Maintenance Start Date: 05/11/12 Status: Ordered sertraline 100 mg oral tablet 2 tablet = 200 mg, By Mouth, Daily, 0 Refills, Maintenance, 11/14/13 10:13:07 Start Date: 11/14/13 Status: Ordered Simethicone By Mouth, 0 Refills, Maintenance, 11/14/13 10:13:58 Start Date: 11/14/13 Status: Ordered Singulair 10 mg oral tablet 1 tablet = 10 mg, By Mouth, Daily, 0 Refills, Maintenance Start Date: 05/11/12 Status: Ordered sucralfate 1 gm/10 ml oral suspension 10 mL = 1 Gm, By Mouth, 3 times a day before meals and bedtime, 0 Refills, Maintenance, 02/26/15 15:57:09 Start Date: 02/26/15 Status: Ordered Vistaril pamoate 50 mg oral capsule 1 capsule = 50 mg, By Mouth, Daily at bedtime, PRN Sleep, 0 Refills, Maintenance Start Date: 05/11/12 Status: Ordered Vitamin B12 1000 mcg/mL injectable solution Intramuscular, Every 28 days, 0 Refills, Maintenance, 11/14/13 10:13:32 Start Date: 11/14/13 Status: Ordered Vitamin D 59155 iu oral capsule 50,000 International_Units, 1, capsule, By Mouth, Every week, # 13 capsule, Refills 1, Tot. Refills1, Maintenance, 09/07/19 5:27:00 EST, Route to Pharmacy Electronically, [facility] - , 145.8, cm, 09/02/19 14:34:00 EST, Height,... Start Date: 09/07/19 Stop Date: 03/05/20 Status: Ordered Vitamin D3 5000 intl units oral capsule 1 capsule = 5,000 International_Units, By Mouth, Daily, # 30 capsule, 6 Refills, Maintenance, 11/05/18 12:49:11 EDT Start Date: 11/05/18 Status: Ordered Problem List Condition Effective Dates Status Health Status Inform ant Osteoporosis(Confirmed) Active Social History Social History Type Response Smoking Status Never smoker; Tobacc o user in household: No entered on: 11/14/13 Sex
--- OUTSIDE RECORDS SUMMARY | 2024-01-12 21:11 | XMS_ITS | Continuity of Care Document ---
Author Organization [facility] Address [address] [place] [address]- Care Team Providers Care Power Line Installer And Repairer Name Role Phone Rufino Garcia NP Primary Care Physician Encounter [facility] ACCT R [id number] Date(s): 09/02/19 - 09/12/19 [facility] [address] [place] [address]- [facility] Attending Physician: Yomaira Barnes Admitting Physician: AdmtrYomaira Referring Physician: Admtr, Ar8 Allergies, Adverse Reactions, Alerts Substance Reaction Severity [...] Start Date: 11/14/13 Status: Ordered Vitamin D 06378 iu oral capsule 50,000 International_Units, 1, capsule, By Mouth, Every week, # 13 capsule, Refills 1, Tot. Refills1, Maintenance, 09/07/19 5:27:00 EST, Route to Pharmacy Electronically, [facility] - , 145.8, cm, 09/02/19 [...]
--- OUTSIDE RECORDS SUMMARY | 2024-01-12 21:11 | XMS_ITS | Continuity of Care Document ---
Author Organization [facility] Address [address] [place] [address]- Care Team Providers Care Instructional Systems Specialist Name Role Phone [place] INTENSIVE CARE SPECIALIST, Eugenia Primary Care Physician [phone] [place] [facility] Date(s): 11/02/23 - 12/02/23 [facility] [address] [place] [address]- Attending Physician: Yomaira Barnes Admitting Physician: AdmtrYomaira Referring Physician: AdmtrYomaira Allergies, Adverse Reactions, Alerts Substance Reaction Severity [...] drug. Start Date: 11/10/21 Status: Ordered ergocalciferol 40481 iu oral capsule 1, capsule, By Mouth, Every week, ON Monday., # 13 capsule, Refills 0, Maintenance, 11/20/23 9:30:00 EST, Route to Pharmacy Electronically, [facility], 143.8, cm, 01/11/2311:19:00 EDT, Height, [...] in household: No entered on: 11/14/13 Sex Laboratory * Event Display: Non BH Lab Results Authored Date: * Event Display: Non BH Lab Results Authored Date: Radiology * Event Display: Bone Density, Non-BH Authored Date: * Event Display: Bone Density Authored Date: Patient Care team information Care Team Personnel Name: [place] Eugenia REYES Position: Reference Physician Member Role: PCP Address: Address: [address] [place] [address]- Care Team Related Persons Name: UMER MITCHELL Address: home [address] [place] [address]
--- OUTSIDE RECORDS SUMMARY | 2024-01-12 21:11 | XMS_ITS | Continuity of Care Document ---
Author Organization [facility] Address [address] [place] [address]- Care Team Providers Care Surveyor Mine Name Role Phone [place] NET UI DEVELOPER, Eugenia Primary Care Physician Encounter [place] Date(s): 12/15/22 - 01/14/23 [facility] [address] [place] [address]- Allergies, Adverse Reactions, Alerts Substance Reaction Severity [...] drug. Start Date: 11/10/21 Status: Ordered ergocalciferol 45310 iu oral capsule 50,000 International_Units, 1, capsule, By Mouth, Every week, # 13 capsule, Refills 0, Tot. Refills0, Maintenance, 01/11/23 11:44:00 EDT, Route to Pharmacy Electronically, [facility], Partial fill upon patient request if the presc... Start Date: 01/11/23 Status: Ordered fluticasone propionate Inhalation, 0 Refills, [...] Care team information Care Team Personnel Name: Chucky Hobson Position: S TA Member Role: Lifetime Consulting Physician Name: [place] NET UI DEVELOPER, Eugenia Position: Reference Physician Member Role: PCP Address: Address: [address] [place] [address]- Care Team Related Persons Name: UMER MITCHELL Address: home [address] [place] [address]
--- OUTSIDE RECORDS SUMMARY | 2024-01-12 21:11 | XMS_ITS | Continuity of Care Document ---
Author Organization [facility] Address [address] [place] [address]- Care Team Providers Care Stud Driver Name Role Phone [place] FURS SALESPERSON, Eugenia Primary Care Physician Encounter [facility] Date(s): 01/19/23 - 05/19/23 [facility] [address] [place] [address]- Attending Physician: Kinza Bazan MD Admitting Physician: Kinza Bazan MD Referring Physician: Eugenia Sandoval NP Allergies, Adverse Reactions, Alerts Substance Reaction [...] drug. Start Date: 11/10/21 Status: Ordered ergocalciferol 19278 iu oral capsule 1, capsule, By Mouth, Every week, # 13 capsule, Refills 0, Maintenance, 04/05/23 10:00:00 EDT, Route to Pharmacy Electronically, [facility], 143.8, cm, 01/11/23 11:19:00 EDT, Height, 69.3, kg, 12/01/21 8:00:00 EDT, Dry Weight Start Date: 04/05/23 Status: Ordered fluticasone propionate Inhalation, 0 Refills, [...] TA Member Role: Lifetime Consulting Physician Name: [place] Eugenia REYES Position: Reference Physician Member Role: PCP Address: Address: [address] [place] [address]- Care Team Related Persons Name: STEPHEN UMER Address: home [address] [place] [address]
--- OUTSIDE RECORDS SUMMARY | 2024-01-12 21:11 | XMS_ITS | Continuity of Care Document ---
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 Start Date: 11/10/21 Status: Ordered oxyCODONE 5 mg oral tablet See Instructions, PRN, Take 1-2 tablets By Mouth Every 4 hours, # 84 tablet, Refills 0, Tot. Refills 0, Acute 01/01/24 12:04:00 EDT, Pain , Severe, 12/25/23 12:03:00 EDT, Instructions Replace Required Details, Print Requisition, Partial fill upon irwin... Start Date: 12/25/23 Stop Date: 01/01/24 Status: Ordered OxyCODONE IR Tablet 5 mg, Tablet, By Mouth, Every 4 hours, PRN for Pain , Moderate, Routine, 12/22/23 15:17:00 EDT Start Date: 12/22/23 Stop Date: 12/29/23 Status: Ordered pantoprazole 40 mg oral delayed [...] opioid drug. Start Date: 11/10/21 Status: Ordered traMADol 50 mg oral tablet See Instructions, PRN Pain , Mild, Take 1-2 tablets By Mouth Every 6 hours not to exceed 400 mg/day, # 56 tablet, 0 Refills, Acute 01/01/24 12:05:00 EDT, 12/25/23 12:04:00 EDT, Tablet, Partial fill upon patient request if the prescription is for a sc... Start Date: 12/25/23 Stop Date: 01/01/24 Status: Ordered Trelegy Ellipta 200 mcg-62.5 mcg-25 [...] class I Confirmed Active Osteoporosis Confirmed Active Results Radiology Reports * Exam Date Time Procedure Performing Provider Status 12/22/23 3:35 PM Knee 1 or 2 Views Left Ganesh Crawley; Agnieszka (Verified) Notes: (Knee 1 or 2 Views Left) Reason For Exam: Postop RESULT: Knee 1 or 2 Views Left Knee 1 or 2 Views Left, 2 views Reason: Postop; Clinical Question(s): Other:; Implant Position; Special Instructions: To be done inPACU, No flexed knee in the lateral position. Keep leg straight; 2 Views COMPARISON: None. FINDINGS: Patient has a total left knee arthroplasty in place. The components are well seated and parallel one another. There is no fracture present. IMPRESSION: The well-seated total left knee arthroplasty. WSN: [id number] Ordering Physician: Shawnee Foster Dictated By: Lucas Crawford MD Dictated Date/Time: 12/22/23 4:25 pm Reviewed By: Lucas Crawford MD Signed By: Lucas Crawford MD Signed Date/Time: 12/22/23 4:25 pm Transcribed By: TOYA Transcribed Date/Time: 12/22/23 4:24 pm Vital Signs Most recent to oldest [Reference Range]: 1 2 3 Height 139.7 cm (12/25/23 11:27 AM) 139.7 cm (12/25/23 6:23 AM) 139.7 cm (12/25/23 3:08 AM) Weight 63.6 kg (12/22/23 8:29 AM) Oxygen Saturation [94-100 %] 98 % (12/25/23 11:27 AM) 97 % (12/25/23 6:23 AM) 96 % (12/25/23 3:08 AM) Pulse Rate [55-90 bpm] 80 bpm (12/25/23 11:27 AM) 74 bpm (12/25/23 6:23 AM) 71 bpm (12/25/23 3:08 AM) Body Mass Index [18.5-24.99 kg/m2] 32.59 kg/m2 *>HHI* (12/22/23 8:29 AM) Blood Pressure [90-138/55-84 mm Hg] 110/64mm Hg (12/25/23 11:27 AM) 128/70mm Hg (12/25/23 6:23 AM) 119/56mm Hg (12/25/23 3:08 AM) Respiratory Rate [16-30 br/min] 18 br/min (12/25/23 12:47 PM) 18 br/min (12/25/23 11:27 AM) 18 br/min (12/25/23 8:17 AM) Temperature [96.8-100.4 DegF] 98.4 DegF (12/25/23 11:27 AM) 98 DegF (12/25/23 6:23 AM) 98.3 DegF (12/25/23 3:08 AM) Liters per Minute 2 L/min (12/22/23 5:30 PM) 2 L/min (12/22/23 5:00 PM) 2 L/min (12/22/23 4:45 PM) Mode of Delivery (Oxygen) Room air (12/25/23 11:27 AM) Room air (12/25/23 6:23 AM) Room air (12/25/23 3:08 AM) Blood pressure sites Arm, right (12/25/23 11:27 AM) Arm, right (12/25/23 6:23 AM) Arm, right (12/25/23 3:08 AM) Temperature Route Oral (12/25/23 11:27 AM) Oral (12/25/23 6:23 AM) Axillary (12/25/23 3:08 AM) Dry Weight 63.6 kg (12/22/23 8:29 AM) Weight Obtained Via Standing scale (12/22/23 8:29 AM) Dry Weight Obtained Via Standing scale (12/22/23 8:29 AM) Social History Social History Type Response Smoking Status Never (less than 100 in lifetime) entered on: 12/11/23 Sex History and physical note * Event Display: History and Physical Hospital Authored Date: [id number] * Event Display: History and Physical Hospital Authored Date: [id number] SURGICAL HISTORY AND PHYSICAL DATE: 12/22/2023 PRIMARY DIAGNOSIS: Osteoarthritis of bilateral knees, left greater than right. REASON FOR ADMISSION: The patient is being admitted for left total knee arthroplasty by Dr. Lozoya on 12/22/2023. HISTORY OF PRESENT ILLNESS: Ms. Rutherford is a very pleasant 73-year-old Russian speaking only female with complaints of bilateral knee pain, left greater than right. She reports the pain is severe and worsen with activity has gotten to the point it is affecting her ability to perform activities of daily living as well as daily social tasks. She has tried and failed Tylenol, home exercise and anti-inflammatory and she is now ready to pursue a left total knee arthroplasty for definite relief of painfrom her osteoarthritis and is scheduled for 12/22/2023. PAST MEDICAL HISTORY: 1. Hypertension. 2. Irritable bowel with diarrhea. 3. Moderate persistent asthma. 4. Osteoporosis. 5. Acquired hypothyroidism. 6. Chronic kidney disease stage III with a GFR baseline between 30 and 59. 7. GERD with esophagitis. 8. Hyperlipidemia. 9. Mild anxiety with depressive disorder. 10. Healthcare maintenance. 11. Primary osteoarthritis involving multiple joints. 12. Chronic lower back pain with sciatica. 13. Gait instability. PAST SURGICAL HISTORY: 1. Left ankle pain. 2. Bilateral hand surgery. MEDICATIONS: Current list of medications includes, 1. Azelastine nasal spray 1 spray to bilateral nares 2 times a day. 2. Reglan 5 mg 2 times a day as needed for nausea. 3. Zofran 4 mg 3 times a day as needed. 4. Dexilant 30 mg in the morning. 5. Creon, she uses 3000 units one capsule by mouth 4 times a day. 6. Trelegy Ellipta 200 mcg/62.5 mcg 1 puff daily. 7. Gabapentin 300 mg 3 times a day. 8. 2 tablets every day, 1 g. 9. Simethicone 125 mg at bedtime. 10. Albuterol as needed for shortness of breath. 11. Klor-Con 25 mEq one tab 2 times a day. 12. Minoxidil topically to the scalp in the hair loss area. 13. Centrum complete which she has discontinued in preparation for surgery. 14. Zyrtec 10 mg daily. 15. Narcan as needed. 16. Tums as needed. 17. Losartan 100 mg every day. 18. Vitamin B12. 19. Vitamin D3. 20. Zoloft 100 mg, she takes 2 tabs of 200 mg every day. 21. Tolterodine tartrate 4 mg every day. 22. Levothyroxine 125 mcg daily. 23. Meclizine 12.5 mg as needed for dizziness. 24. Amlodipine 2.5 mg daily in the a.m. 25. Percocet 05/325 3 times a day. 26. Ambien as needed for sleep at bedtime. ALLERGIES: 1. HOMATROPINE. 2. METHYLBROMIDE. 3. HYDROCODONE. 4. MORPHINE. 5. PENICILLIN. SOCIAL HISTORY: The patient denies any alcohol, tobacco or illicit drug use. She is . Her is here with her today. PHYSICIANS: The patient's primary care physician is Dr. Sandoval, ERIC. REVIEW OF SYSTEMS: The patient reports chronic diarrhea. Occasionally, has shortness of breath fromher asthma, which is well controlled. She has numbness and tingling to her left two first toes. PHYSICAL EXAMINATION: VITAL SIGNS: Height is 4 feet 8 inches tall, weighs 145 pounds, temperature is 97.7, blood nohwerrc639/65 and pulse is 65. GENERAL: Alert and oriented. Normal insight, affect, and grooming. SKIN: Intact without rash or lesions. Nails without clubbing or cyanosis. HEENT: Normocephalic. Conjunctivae pink. Sclerae are anicteric. NECK: Supple. Trachea midline. No lymphadenopathy. CHEST: Lungs are clear to auscultation bilaterally and breathing is unlabored. CARDIOVASCULAR: Heart has a regular rate and rhythm with normal S1, S2. ABDOMEN: Soft, nontender with normal bowel sounds. EXTREMITIES: Lower extremities, the patient has a negative straight leg raise test bilaterally. Left knee, skin is intact, although fragile. Range of motion is 0-110. Calves are supple and nontender.Ankle motion is satisfactory. Pedal pulses palpable bilaterally and skin about the feet is intact. PREOPERATIVE DIAGNOSTIC DATA: Orthopedic x-rays demonstrate end-stage osteoarthritis of the left knee. There is [id number] articulation, subchondral sclerosis and osteophyte formation. PREOPERATIVE DIAGNOSTIC DATA: EKG reads normal sinus rhythm at 67 beats per minute. LABORATORY DATA: CBC demonstrates a platelet of 533. Chem panel within normal limits. Coags within normal limits. Hemoglobin A1c is 6.1. ASSESSMENT AND PLAN: The patient has advanced osteoarthritis of the left knee and is now scheduled for left total knee arthroplasty by Dr. Lozoya on 12/22/2023. She was seen by the med consult program for preoperative clearance, who stated that the patient's risk for cardiovascular complications is elevated with an inadequate or unknown functional capacity. She does not have any symptoms to suggest active coronary syndromes and consideration was given to stress testing preoperatively however, given the lack of atypical or typical anginal symptoms and the utility of stress testing, the situation is unclear and there is no strong data that preoperative revascularization will reduce the pat ient's risk. Her cardiac exam was unremarkable and her vital signs were stable. The only way her cardiovascular risk could be improved would be by choosing a nonoperative or less invasive strategy. The patient wishes to continue to move forward with an elevated risk. She should be on postop continuous cardiac monitoring. There should be a low threshold for ordering cardiac biomarkers for any change in her EKG with no new symptoms suggestive of any cardiac complications. The patient is considered a moderate pulmonary risk. She should be prescribed an incentive spirometer 3-5 days postoperatively. She is at an elevated delirium risk and standard precautions should be placed. The patient will receive IV TXA and be placed on aspirin postoperatively for DVT prophylaxis. She will not receive Celebrex due to her chronic kidney disease. We will monitor on telemetry as recommended. We will monitor her point of cares q.i.d. with a corresponding SSI. Discharge plans will be to home with services. The patient is not a candidate for same day discharge. She has been counseled regarding the risks and benefits of the proposed procedure. Her questions have been answered and she acknowledges understanding. The patient wishes to proceed with surgery. CONTACTS: Her , Umer, with a phone number of [phone]. Prescriptions given the time of visit include none. She will require prescriptions for aspirin and pain medicine upon discharge from the hospital as she already has Dexilant, cannot take Celebrex, and has baseline diarrhea. Dictated by: Lesley Kelley N.P. Signing Clinician: Jace Lozoya M.D. Dictated: 12/14/2023 02:10:03 Transcribed: 09:46:05 AM Transcribed by: ARI DocID: [id number] PRELIMINARY REPORT UNLESS MANUALLY/ELECTRONICALLY SIGNED Cardiology * Event Display: Cardiac Rhythm Strips Authored Date: Hospital Progress note * Sofia Harris RN: PERFORM, SIGN, VERIFY, MODIFY, SIGN Event Display: Progress Note Hospital Authored Date: [id number] Patient: KAMILAH SWEET Age: 73 years Sex: Female : 1950 Associated Diagnoses: None Author: Steven KESSLER, Sofia Findings Problem Related to Alteration in Musculoskeletal : Alteration in Musculoskeletal Func/new 12/25/2023 8:00 EDT Alteration in Musculoskeletal Related to Mobility, Orthopedic Procedure, Total joint replacement, Other: L TKR 12/21 Goals & Outcomes, Musculoskeletal Affected extremity will maintain color/motion/sensation, Pt demonstrates precautions/exercise/ transfers per protocol, Pt will be free from complications of immobility, Pt will demonstrate ability to participate in ADL's, Pt will report acceptable level of comfort/pain relief, Resolved problem, Goals/Outcomes met Interventions, Musculoskeletal Monitor patients ambulation status, monitor Color/Motion/Sensation, Assist with repositioning BH Goals/Interventions, Musculoskeletal Yes Musculoskeletal, Problem Start 12/23/2023 22:12 Reviewed Plan with, Musculoskeletal Patient Patient Progression, Musculoskeletal Pt progressing according to plan . Narrative/Incidental Pt POD # 3 L TKR. Pt a&o x 3, primarily tajik speaking. Lungs clear, no SOB noted. Pt using IS with good technique. Vitals stable, denies chest pain. Pt c/o some dizziness, states has it at home from time to time as well and takes meclizine. Meclizine given now, pt states some relief. +BS x 4, abd soft, non- tender, non-distended, reports LBM 12/22 +flatus, states normally has frequent diarrhea at home, took colace this AM but didn't want any other bowel meds, states doesn't want diarrhea issues again. Pt tolerating diet, no N/V at this time. Pt voiding c/y/u in BR. Pt OOB with mod assistand walker, slow gait. +pp,+cms, +dorsi/plantar flexion, denies calf pain, c-boots on. Pt denies num bness/tingling. Pt on ASA for dvt prophylaxis.L knee aquacel dsg c/d/i. Ice pack in place. K 3.2, 40 meq potassium given as ordered, plan for re-check at 12:00. Plan of care continues. P: Alteration in musculoskeletal I: Interventions in care plan E: Pt states pain 5/10 this AM, 5 mg oxycodone given, pt refused tylenol, states it normally upsetsher stomach. Plan for home vs rehab pending PT/OT clearance.. * Krzysztof Dumont NP: PERFORM, SIGN, VERIFY Event Display: Progress Note Hospital Authored Date: [id number] Patient: KAMILAH SWEET Age: 73 years Sex: Female : 1950 Associated Diagnoses: None Author: Krzysztof Dumont NP Ortho POD 3 s/p left total knee arthroplasty. S: Patient c/o dizziness and pain over the weekend. Did not pass PT yesterday. Plan is for home vs rehab depending on evaluation today. no c/o CP,SOB, N/V. she has been voiding. Denies bowel movement. She reports this am that she continues with dizziness but it has been improving. O: Vitals Temperature 98 (06:24) Systolic Blood Pressure 128 (06:24) Diastolic Blood Pressure 70 (06:24) Pulse 74 (06:24) SpO2 97 (06:24) Respiratory Rate 18 (08:18) Last 24 Hours Basic Metabolic Panel: Hematology: Sodium: 138 mmol/L (12/25/23) Hgb: 10.2 Gm/dL (12/25/23) Potassium (POC): 3.2 mmol/L (12/25/23) Hemoglobin A1C (Monitoring): ------ Phosphorus: ------ WBC: 10.2 k/mm3 (12/25/23) Magnesium: ------ Platelets: 388 k/mm3 (12/25/23) BUN (POC) POC Cartridge: 9 mg/dL (12/25/23) INR Level: ------ Creatinine-Blood: 0.8 mg/dL (12/25/23) Creatinine Clearance: ------ Additional - Last 24 Hours Abs. NRBC: 0.0 k/mm3 (12/25/23) Anion Gap: 13 (12/25/23) Bicarbonate Level: 24 mmol/L (12/25/23) BUN: BUN (12/25/23) Chloride: 101 mmol/L (12/25/23) Creatinine, Blood: Creatinine, Blood (12/25/23) Estimated GFR Creatinine: 75 ML/MIN/1.73 M2 (12/25/23) Glucose, POC: 87 mg/dL (12/25/23) Hct: 32.2 % (12/25/23) MCH: 27.9 pg (12/25/23) MCHC: 31.7 g/dL (12/25/23) MCV: 88.0 femtoliters (12/25/23) MPV: 10.2 femtoliters (12/25/23) Nucleated RBC (Automated): 0.0 #/100 WBC'S (12/25/23) RBC: 3.66 m/mm3 (12/25/23) RDW-SD: 45.5 femtoliters (12/25/23) General: alert,lucid, in NAD Heart: RRR, normal S1S2 Lungs: CTAb Abdomen: soft NT BS active Neurovascular: calves soft NT, +DF/+PF Dressing: aquacel in place, C/D/I A/P: 73 year old female with a history of HTN, hypothyroidism, and CKD who is now s/p Left TKA POD [address] Lozoya. Pain: Pain is currently controlled. Acetaminophen 650 mg every 6 hours, oxycodone 5-10mg q4hrs and Tramadol 50 mg every 4 hours as needed. Yesterday, it was recommended she try 5mg Oxycodone for paindue to dizziness. Dizziness: Patient reports symptoms improving from yesterday. She does have meclizine ordered whichshe has been receiving. Orthostatics done yesterday and were negative. HTN: Stable, continue losartan, amlodipine with instructions to hold for SBP less than 130 Nausea: PRN Zofran, reglan Hypokalemia: Potassium level 3.2 this AM. Potassium Chloride 40mEq given this AM. Plan is for timedstudy today for recheck. Hypothyroidism: continue levothyroxine CKD: Currently stable. Will continue to monitor Cr. Continue ISS DVT prophylaxis: ASA EC 325 mg po bid x 30 days WBAT/ PT/OT Discharge home vs rehab pending PT/OT clearance * Jorge KESSLER, Anya: PERFORM, MODIFY, MODIFY, SIGN, VERIFY Event Display: Progress Note Hospital Authored Date: [id number] Patient: KAMILAH SWEET [facility]: [id number] Age: 73 years Sex: Female : 1950 Associated Diagnoses: None Author: Jorge KESSLER, Anya Findings Problem Related to Alteration in Musculoskeletal : Alteration in Musculoskeletal Func/new 12/25/2023 1:00 EDT Alteration in Musculoskeletal Related to Mobility, Orthopedic Procedure, Total joint replacement, Other: L TKR 12/21 Goals & Outcomes, Musculoskeletal Affected extremity will maintain color/motion/sensation, Pt able to perform ADL's to best of ability, Pt demonstrates precautions/exercise/ transfers per protocol, Pt will ambulate safely with assistive device, Pt will be free from complications of immobility, Pt will demonstrate ability to participate in ADL's, Pt will report acceptable level of comfort/painrelief, Resolved problem, Goals/Outcomes met Interventions, Musculoskeletal Monitor patients ambulation status, monitor Color/Motion/Sensation, Assist with repositioning, Encourage deep breathing & coughing exercises, Notify MD immediately if tissue perfusion deteriorates, Obtain assistive devices as needed, Teach & Encourage use of Incentive spirometer, Teach Pt/caregiver on ADL's & adaptive equipment, Teach Pt/caregiver on exercises, Teach pt/caregiver on use of pain scale, Teach Pt/caregiver complications of immobility, Teach Pt/caregiver techniques to increase mobility, Teach Pt/caregiver on safety precautions BH Goals/Interventions, Musculoskeletal Yes Musculoskeletal, Problem Start 12/23/2023 22:12 Reviewed Plan with, Musculoskeletal Patient Patient Progression, Musculoskeletal Pt progressing according to plan . Nursing Data Vital Signs : VITAL SIGNS SECTION 12/25/2023 0:38 EDT Temperature 98.5 DegF Temperature Route Oral Pulse Rate 78 bpm Respiratory Rate 16 br/min Systolic Blood Pressure 118 mm Hg Diastolic Blood Pressure 55 mm Hg Blood pressure sites Arm, right Mean Arterial Pressure 76 mm Hg Pulse Pressure 63 mm Hg Oxygen Saturation 97 % Mode of Delivery (Oxygen) Room air . Narrative/Incidental 73yr F s/p L TKR by Dr. Lozoya 12/21. VSS, A+O x3. Primarily Russian speaking. Lung sounds clear, denies SOB. Encouraged use of incentive spirometer, x10 per hour. NSR HR 70s. +BSx4, abdomen soft,nontender, denies N/V. Last BM 12/21. Refusing all bowel medications. Tolerating regular diet. Voiding CYU w primafit. +CMS, +PP, strong dorsi plantar flexion. Able to wiggle toes. L knee aquacel dressing CDI. OOB w 1-2 assist w walker. Pain 5/10 w relief from Oxycodone 5mg. Refused scheduled Ketorolac. Continue DVT prophylaxis w c-boots, ASA. Monitoring POC. Frequent safety checks, bed in lowest position, call ortega within reach. 02:20 Potassium 3.2, paged covering Neos. . Evaluation P- Alteration in Musculoskeletal I- See above interventions E-s/p L TKR by Dr. Lozoya 12/21. +CMS, +PP, strong dorsi plantar flexion. Able to wiggle toes. Lknee aquacel dressing CDI. OOB w 1-2 assist w walker. . Discharge Information Case Management Discharge Plan : Case Management Discharge Plan Data 12/22/2023 15:39 EDT Discharge Level of Care at Discharge Homehealth/VNA Discharge VNA/Hospice/Home Care [facility] [phone] Service Categories #1 Physical Therapy Service Comments #1 [facility] will contact you to set up a visit time after discharge. Please call [phone] if you don't hear from them. Rehabilitation Discharge : Rehab Discharge Index 12/23/2023 13:45 EDT Walker: distance < 10 12/23/2023 8:57 EDT Comments on treatment indicated 73 F (L) TKA 12/[address] Lozoya. WBAT withKI. Lives with spouse in a 1L home with CRIS. Pt orthostatic on eval and Ax1 with RW. See for strength, balance, endurance, safety, mobility. Anticipate home with services. Walker: distance < 10 Distance pt will ambulate 40ft or greater Full chart review completed Yes Plan of care PT Gait training, Transfer training, Therapeutic exercise, Functional Activities, Balance training 12/23/2023 8:01 EDT Comments on treatment indicated ADLs, bed mob, func xfers/mob, safety, pt edu Full chart review completed Yes Hospital course see comment Note * Steven RN, Sofia: PERFORM Event Display: Discharge/Transfer Note Hospital Authored Date: [id number] Nursing Discharge Note Entered On: 12/25/2023 14:55 EDT Performed On: 12/25/2023 14:55 EDT by Sofia Harris RN Nursing Discharge Note 2 Discharge Level of Care at Discharge : Homehealth/VNA Discharge VNA/Hospice/Home Care(v001) : [facility] [phone] Patient Left Unit Via : Wheelchair Patient Accompanied Off Unit with : Responsible adult DC Instructions Provided & Signed by Pt : Yes Patient Understands D/C Instructions : Yes Patient Instructions Discharge Signed : Yes Did Pt have Specialty Bed or Wound Vac : No Sofia Harris RN - 12/25/2023 14:55 EDT * Sofia Harris RN: PERFORM Event Display: Patient Education/Instruction Authored Date: [id number] Inpatient Adult Discharge Instructions. [address] [address] Name: KAMILAH IRELAND : 1950?? Visit: 12/25/2023 08:27?? Current Date: 12/25/2023 14:56 ?? Account: [id number]?? Inpatient Adult Discharge Instructions We would like to thank you for allowing us to assist you with your healthcare needs. The following includes patient education materials and information regarding your injury/illness. Our entire staffstrives to provide an excellent experience for our patients and their families. PLEASE ENSURE YOU FOLLOW-UP PER THE INSTRUCTIONS BELOW! ?? YOUR OPINION IS IMPORTANT TO US! Please complete the survey you may receive by mail or email. Your feedback will be used to make improvements to the healthcare experiences of our patients and their families. Surveys are administered by [employer] ?? If further treatment with your primary care physician or another doctor is recommended, it is important for you to keep the appointment. Call your primary care physician or return to the Emergency Department immediately if your condition worsens, fails to improve, or new symptoms develop. If you need to find a doctor, you can call [facility] [employer] for a referral at [phone] or toll free at [phone]) or log in to [email or web address].. ?? [facility] [employer], in keeping with [facility] guidance, no longer requires face masks for staff, patientsor visitors in most situations. Similiar to time spent indoors at other locations, there is the chance that you were exposed to repiratory viruses during your time with us (such as flu or COVID-19). If you develop symptoms concerning for a viral respiratory infection, please seek testing (and treatment if indicated) from your medical provider or home test kit. ?? You can view and manage your care through the patient portal or by using a health care marlin of your choosing. [employer] is a website that allows you to securely view your medical information including your hospital discharge summary, office visit summaries, medications and follow-up visits. You can also request appointments, renew medications, and request access to your medical information using a health care marlin of your choosing, or just ask a question. You can enroll at [email or web address] or register during your next office visit. You have been discharged from [facility], Patient Care Unit: [id number]??. If you have any questions regarding these instructions, including results of studies pending, afteryou leave, please call us and we will be happy to assist you 20/03. [facility] Your Care Team Attending Physician Jace Lozoya?? Consulting Providers Jace Lozoya?? Discharging Providers Julia REYES, Krzysztof Carroll Your Diagnosis Osteoarthritis of left knee Tests Performed Below is a partial list of the tests performed during your hospitalization. You may have had other tests and procedures not included in this list. Please discuss all test results with your provider. BUN CBC Creatinine Electrolytes GLUCOSE POC Potassium Level XR Knee 1 or 2 Views Left BUN?? CBC?? Creatinine?? Electrolytes?? Primary Care Provider Murphys ERIC, Eugenia? Advance Directive Health Care Proxy on File No Discharge Vitals Temperature: 98.4 DegF Height: 139.7 cm Pulse Rate: 80 bpm Weight: 63.6 kg Respiratory Rate: 18 br/min Body Mass Index:??32.59 kg/m2??Critical Systolic Blood Pressure: 110 mm Hg Body surface area: 1.57 Diastolic Blood Pressure: 64 mm Hg ?? Oxygen Saturation: 98 % ?? Studies Pending All studies ordered during this hospital stay have been completed unless listed below. Please discuss all pending results with your provider listed above in these instructions. ?? BUN?? CBC?? Creatinine?? Electrolytes?? What to do next Instructions From Your Doctor ?? Orders?? Unit Discharge Criteria Met, ??12/25/23 13:11:00 EDT?? Prescriptions??, ??12/25/23 13:11:00 EDT , ??12/23/23 9:13:00 EDT?? You Need to Schedule the Following Appointments Follow Up with??Darell BARRY, Jace Jordan Where: [address] [facility] [address] [facility] [address] [facility] [place] [address]- Follow Up with??[facility] When:??Within Within two weeks Discharge Medications GERALDINE KAMILAH IRELAND :1950 Visit Date:12/25/2023 Medications: Please continue your medications until treatment is completed or stopped by your provider. Medications not listed below should be discontinued. Discuss any questions related to medications with your provider. What How Much When Instructions Next Dose Changed Oxycodone (oxyCODONE 5 mg oral tablet) See instructions Take 1-2 tablets By Mouth Every 4 hours, As needed for Pain , Severe ?? Printed Prescription Changed Tramadol (traMADol 50 mg oral tablet) See instructions Take 1-2 tablets By Mouth Every 6 hours not to exceed 400 mg/ day, As needed for Pain , Mild ?? Printed Prescription Unchanged Acetaminophen (acetaminophen 325 mg oral tablet) 650 Milligram Oral Every 6 hours May take OTC not to exceed 3000 mg/ day ?? Unchanged Albuterol (albuterol 0.083% inhalation solution) 3 Milliliter Inhalation Every 6 hours Unchanged Albuterol (Ventolin 90 mcg Inhaler) 1 puff(s) Inhalation Every 4 hours Unchanged amiTRIPTYLINE (amitriptyline 10 mg oral tablet) 10 Milligram Oral Daily at Bedtime Unchanged Amlodipine (amLODIPine 5 mg oral tablet) 5 Milligram Oral Daily Unchanged Aspirin (Ecotrin 325 mg oral delayed release tablet) 1 tab(s) Oral Twice a day Duration: 30 Days Pickup at [facility] 3 Unchanged bifidobacterium-lactobacillus (Probiotic Formula) Oral Daily Unchanged Cetirizine (ZyrTEC 10 mg oral tablet) 1 tab(s) Oral Daily as needed for for allergy symptoms Unchanged Cholestyramine (cholestyramine 4 g/ 5.5 g oral powder for reconstitution) 4 gram Oral Twice a day Unchanged Cyanocobalamin (Vitamin B12) Oral 5000 mcg qod ?? Unchanged dexlansoprazole (Dexilant 30 mg oral delayed release capsule) 1 capsule Oral Daily Unchanged EPINEPHrine (EpiPen 2-Jose) 0.3 Milligram Intramuscular Once Unchanged Fluticasone (fluticasone propionate) Inhalation Unchanged fluticasone/ umeclidinium/ vilanterol (Trelegy Ellipta 200 mcg-62.5 mcg-25 mcg/ inh inhalation powder) 1 puff(s) INHALE 1 PUFF EVERY DAY AT THE SAME TIME ?? Unchanged Gabapentin (gabapentin 300 mg oral capsule) 1 capsule Oral 3 times a day Unchanged Levothyroxine (levothyroxine 125 mcg (0.125 mg) oral capsule) 1 capsule Oral Daily Unchanged Loperamide (loperamide 2 mg oral capsule) 1 capsule Oral Every 4 hours Unchanged Losartan (losartan 100 mg oral tablet) 1 tab(s) Oral Daily Unchanged Meclizine (meclizine 12.5 mg oral tablet) 1 tab(s) Oral 3 times a day Unchanged Metoclopramide (metoclopramide 5 mg oral tablet) 1 tab(s) Oral Twice a day Unchanged Montelukast (Singulair 10 mg oral tablet) 1 tab(s) Oral Daily Unchanged nalOXONE (Narcan 4 mg/ 0.1 mL nasal spray) 4 Milligram Once Unchanged Ondansetron (ondansetron 4 mg oral tablet) 1 tab(s) Oral Every 8 hours Unchanged Pantoprazole (pantoprazole 40 mg oral delayed release tablet) 1 tab(s) Oral Daily Unchanged Sertraline (Zoloft 100 mg oral tablet) 1 tab(s) Oral Daily Unchanged Simethicone (simethicone 125 mg oral capsule) 1 capsule Oral 3 times a day after meals and bedtime Unchanged Sucralfate (sucralfate 1 gm oral tablet) 1 tab(s) Oral 3 times a day before meals and bedtime Unchanged Tolterodine (tolterodine 4 mg oral capsule, extended release) 1 capsule Oral Daily Unchanged Zolpidem (Ambien 5 mg oral tablet) 1 tab(s) Oral Daily at Bedtime as needed for for sleep Pharmacy Information [facility]: [address], [place] [id number] [phone] Prescription Given During Visit Aspirin (Ecotrin 325 mg oral delayed release tablet) - 1 tablet = 325 mg, By Mouth, 2 times a day, # 60 tablet, 0 Refills, [facility], [address] [place] [phone]?? Oxycodone (oxyCODONE 5 mg oral tablet) - , # 84 tablet, 0 Refills, Take 1-2 tablets By Mouth Every 4 hours?? Tramadol (traMADol 50 mg oral tablet) - , # 56 tablet, 0 Refills, Take 1-2 tablets By Mouth Every 6hoursnot to exceed 400 mg/day?? Laboratory Results Below is a partial list of the most recent Laboratory test results done prior to this discharge. You may have had other tests and procedures not included in this list. Please discuss all test resultswith your provider. Est Creatinine Clearance - 34.62 mL/min (12/23/2023) BUN (12/25/2023) ???BUN - 9 mg/dL CBC (12/25/2023) ???WBC - 10.2 k/mm3???RBC - 3.66 m/mm3???Hgb - 10.2 Gm/dL???Hct - 32.2 %???MCV - 88.0 femtoliters???MCH - 27.9 pg???MCHC - 31.7 g/dL???Platelet Count - 388 k/mm3???RDW-SD - 45.5 femtoliters???MPV - 10.2 femtoliters???Nucleated RBC (Automated) - 0.0 #/100 WBC'S???Abs. NRBC - 0.0 k/mm3 Creatinine (12/25/2023) ???Creatinine-Blood - 0.8 mg/dL???Estimated GFR Creatinine - 75 ML/MIN/1.73 M2 Electrolytes (12/25/2023) ???Sodium - 138 mmol/L???Potassium - 3.2 mmol/L???Chloride - 101 mmol/L???Bicarbonate Level - 24 mmol/L???Anion Gap - 13 GLUCOSE POC (12/25/2023) ???Glucose, POC - 129 mg/dL Potassium Level (12/25/2023) ???Potassium - 4.0 mmol/L Allergies (NKA means No Known Allergies) Homatropine Methylbromide-Hydrocodone??(throat closed) morphine penicillin??(Rash and itching) Problems Active Problems??(2) Obese class I?? Osteoporosis?? Education Materials Below is the list of Educational Leaflet Providered with your Discharge Instructions. Web[employer] Ignite Patient Education - Total Knee Replacement Discharge Instructions?? Valuables and Belongings I fully understand and agree that [facility] accepts no responsibility for all my personal property including clothing, toilet articles, radios, jewelry, dentures, hearing aids, rings, money, or any other property that is in my possession or is brought to me after admission. I understand certain valuables may be placed in a hospital safe for a short period of time. I understand that the hospital is not liable for loss or damage due to accident, fire, or other natural occurrence while said property is in the safe. I accept full responsibility for any personal property that I keep with me, and will not hold the hospital responsible in case of loss or disappearance. I acknowledge that i have been encouraged to send valuables and belongings home. ?? Review of Valuable and Belonging List: With patient Disposition of Belongings: Other: recovery room closet Date for Pt to Sign Valuables/Belongings: 12/22/23 18:01:00 ?? Other Discharge Information ? Case Management Discharge Plan?? Discharge Plan?? Discharge Agency Information?? Discharge Level of Care at Discharge: Homehealth/VNA Service Categories #1: Physical Therapy Discharge VNA/Hospice/Home Care: [facility] [phone] Service Comments #1: [facility] will contact you to set up a visit time after discharge. Please call [phone] if you don't hear from them. ?? Pulmonary Rehab Status?? Pulmonary Rehab Discharge Status?? Respiratory Rate: 18 br/min ? Common Emergency Awareness Tips IS IT A STROKE? Act FAST and Check for these signs: FACE Does the face look uneven? ARM Does one arm drift down? SPEECH Does their speech sound strange? TIME Call at any sign of stroke ?? Heart Attack Signs Chest discomfort: Most heart attacks involve discomfort in the center of the chest and lasts more than a few minutes, or goes away and comes back. It can feel like uncomfortable pressure, squeezing, fullness or pain. Discomfort in upper body: Symptoms can include pain or discomfort in one or both arms, back, neck, jaw or stomach. Shortness of breath: With or without discomfort. Other signs: Breaking out in a cold sweat, nausea, or lightheaded. Remember, MINUTES DO MATTER. If you experience any of these heart attack warning signs, call to get immediate medical attention! ?? Smoking can increase your chances of developing chronic health problems and can cause harmful effects to other family members in your house. If you smoke, you are strongly encouraged to quit. Please call [facility] [employer] Link at [phone] or [phone]) or log in to [email or web address] for referrals to smoking cessation programs. ?? 974 Suicide & Crisis Lifeline is available 20/03 if you or someone you know needs to find a reason to keep living. By calling 144 you'll be connected to a skilled, trained counselor at a crisis center in your area. INPATIENT DISCHARGE INSTRUCTIONS SIGNATURE PAGE KAMILAH SWEET Location:[facility] Registration Date and Time:12/25/2023 08:27 EDT Primary Care Physician: Eugenia Sandoval NP, Attending Physician: Darell BARRY, Jace Jordan, I KAMILAH SWEET, have received the above patient education materials/instructions and have verbalized understanding. If ambulance or transport services are being used I further acknowledge being given a choice of service. ?? If you need to contact me, please call me at this number: . Patient/Color Buffer Name: Patient/Color Buffer Signature: Relationship to Patient: Witness Name/Signature: Date: * Sofia Harris RN: PERFORM Event Display: Patient Education Leaflets Authored Date: [id number] Total Knee Replacement Discharge Instructions ?? 667 Total Knee Replacement Discharge Instructions ??? Please read and review your Total Knee Replacement Book for detailed information ??? Your appetite may be decreased but try to maintain a good balanced diet ?? Ice and elevation ?Ice is important to help keep swelling down. ?Keep elevated as much as possible. ?Ice the knee 4 times a day for 20 minutes each time. Be sure not to put the ice/ice pack directly on your skin. Use a dish towel or something similar between the ice and your skin. ??? Moving ? Get up and walk frequently. ??? Do 20 ankle pumps every hour. ??? Complete your exercises 4times a day, bending and straightening your knee ??? Begin exercises the evening you go home ??? Moving is especially important. This helps to prevent blood clots. Take short frequent walks. ? Wear your knee brace when walking until your surgeon or physical therapist tells you to stop. ??? You may sleep with or without the brace and sleep anyway you are comfortable. ??? Place a pillow underthe ankle/lower leg when lying down to help with extension of your knee. ??? Do not put a pillow under your knee ??? Continue to move your foot up and down, this exercise helps to prevent blood clotsand to help reduce swelling in your knee ??? No driving until approved by your surgeon ?? Incision ?Your incision is closed with absorbable stitches and surgical glue. ?The dressing iswaterproof. You may shower the next day. ??? You may develop some discoloration around your incision (yellowish or bruising) ??? Your dressing will stay on for 1-2 weeks ?You cannot go in a bath, pool, ocean, pond, higgins or jacuzzi for 6 weeks. This is to reduce your risk of infection ? You may have some numbness around the incision. This is normal and will improve with time. Some patients have numbness that does not completely go away. ?? When to call the Surgeon?CALL [phone] ?If you have shortness of breath or chest pain, call 911 or go to the nearest emergency department. ??? If you have drainage and/or redness around your wound. ?If you have a fever greater than 101.5 (38.5 degrees Celsius). ?If you have persistent calf pain or swelling (This couldbe a blood clot). ??? If your pain is worsening. ? If you have any difficulty with urination or burning with urination ? * Tee Reeder NP: PERFORM Tee Reeder NP: PERFORM, SIGN Tee Reeder NP: SIGN, VERIFY Tee Reeder NP: VERIFY, SIGN, MODIFY, SIGN Event Display: Discharge/Transfer Note Hospital Authored Date: [id number] Patient: KAMILAH SWEET Age: 73 years Sex: Female : 1950 Associated Diagnoses: None Author: Tee Reeder NP Discharge Summary Admission Date: 12/22/2023 Discharge Date: 12/25/2023 Admitting Diagnosis: Left knee osteoarthritis Discharge Diagnosis: Left knee osteoarthritis Final Diagnosis: Left knee osteoarthritis Procedure: Left total knee arthroplasty Surgeon: Dr. Jace Lozoya Past Medical History: 1. Hypertension. 2. Irritable bowel with diarrhea. 3. Moderate persistent asthma. 4. Osteoporosis. 5. Acquired hypothyroidism. 6. Chronic kidney disease stage III with a GFR baseline between 30 and 59. 7. GERD with esophagitis. 8. Hyperlipidemia. 9. Mild anxiety with depressive disorder. 10. Healthcare maintenance. 11. Primary osteoarthritis involving multiple joints. 12. Chronic lower back pain with sciatica. 13. Gait instability. 14. Left knee osteoarthritis. Orthopedics: The patient is status post left total knee arthroplasty. It is anticipated that she will be discharged likely to home today pending PT, OT clearance. The patient is doing well from a surgical standpoint. Her incision is healing well. Neurovascular status is intact. Calves are supple and nontender. The patient is weight bearing as tolerated. Making progress with Physical Therapy and Occupational therapy. Pain is well controlled on her current regimen, Acetaminophen 650 mg every 6 hours, tramadol and oxycodone 5-10 mg every 4 hours as needed. Patient is tolerating this well. She will be sent home with a prescription for this medication. Prescription: Tramadol 50 mg tablets, take 1 to 2 tablets every 6 hours as needed for mild pain, 7 days, #56 Oxycodone 5 mg tablet, 1-2 tablets every 4 hours as needed for severe pain, 7 days # 84 Hospital course: Relatively uneventful medically. Patient is voiding spontaneously. + bowel sounds. all morning bowel medications will be given in anticipation of a BM prior to discharge. Did have some issues with dizziness. Orthostatics negative. Patient decreased dose of Oxycodone to 5mg q4 hours. She reported dizziness improving since yesterday. She is receiving meclizine PRN. She does have a history of dizziness and was taking meclizine prior to surgery per history and physical. Potassium level was 3.2 today. Potassium replaced and recheck was 4.0. No other issues. No calf tenderness. Current Medication List: Acetaminophen (acetaminophen 325 mg oral tablet) 650 Milligram By Mouth Every 6 hours May take OTC not to exceed 3000 mg/day Albuterol (Ventolin 90 mcg Inhaler) 1 puff(s) Inhalation Every 4 hours Albuterol (albuterol 0.083% inhalation solution) 3 Milliliter 2.5 Milligram Inhalation Every 6 hours amiTRIPTYLINE (amitriptyline 10 mg oral tablet) 10 Milligram By Mouth Daily at bedtime Amlodipine (amLODIPine 5 mg oral tablet) 5 Milligram By Mouth Daily Aspirin (Ecotrin 325 mg oral delayed release tablet) 1 tab(s) 325 Milligram By Mouth 2 times a day for 30 Days bifidobacterium-lactobacillus (Probiotic Formula) By Mouth Daily Cetirizine (ZyrTEC 10 mg oral tablet) 1 tab(s) 10 Milligram By Mouth Daily as needed for allergy symptoms Cholestyramine (cholestyramine 4 g/5.5 g oral powder for reconstitution) 4 gram By Mouth 2 times a day Cyanocobalamin (Vitamin B12) By Mouth 5000 mcg qod dexlansoprazole (Dexilant 30 mg oral delayed release capsule) 1 capsule 30 Milligram By Mouth Daily EPINEPHrine (EpiPen 2-Jose) 0.3 Milligram Intramuscular Once Fluticasone (fluticasone propionate) Inhalation fluticasone/umeclidinium/vilanterol (Trelegy Ellipta 200 mcg-62.5 mcg-25 mcg/inh inhalation powder)1 puff(s) INHALE 1 PUFF EVERY DAY AT THE SAME TIME Gabapentin (gabapentin 300 mg oral capsule) 300 Milligram 1 capsule By Mouth 3 times a day Levothyroxine (levothyroxine 125 mcg (0.125 mg) oral capsule) 1 capsule 125 Microgram By Mouth Daily Loperamide (loperamide 2 mg oral capsule) 2 Milligram 1 capsule By Mouth Every 4 hours Losartan (losartan 100 mg oral tablet) 1 tab(s) 100 Milligram By Mouth Daily Meclizine (meclizine 12.5 mg oral tablet) 1 tab(s) 12.5 Milligram By Mouth 3 times a day Metoclopramide (metoclopramide 5 mg oral tablet) 1 tab(s) 5 Milligram By Mouth 2 times a day Montelukast (Singulair 10 mg oral tablet) 10 Milligram 1 tablet By Mouth Daily nalOXONE (Narcan 4 mg/0.1 mL nasal spray) 4 Milligram Once Ondansetron (ondansetron 4 mg oral tablet) 1 tab(s) 4 Milligram By Mouth Every 8 hours Oxycodone (oxyCODONE 5 mg oral tablet) See Instructions as needed 1-2 tablets By Mouth Every 4 hours Pain , Severe Pantoprazole (pantoprazole 40 mg oral delayed release tablet) 1 tab(s) 40 Milligram By Mouth Daily Sertraline (Zoloft 100 mg oral tablet) 1 tab(s) 100 Milligram By Mouth Daily Simethicone (simethicone 125 mg oral capsule) 1 capsule 125 Milligram By Mouth 3 times a day after meals and bedtime Sucralfate (sucralfate 1 gm oral tablet) 1 gram 1 tablet By Mouth 3 times a day before meals and bedtime Tolterodine (tolterodine 4 mg oral capsule, extended release) 1 capsule 4 Milligram By Mouth Daily Tramadol (traMADol 50 mg oral tablet) See Instructions as needed Pain , Mild 1-2 tablets By Mouth Every 6 hours not to exceed 400 mg/day Zolpidem (Ambien 5 mg oral tablet) 1 tab(s) 5 Milligram By Mouth Daily at bedtime as needed for sleep Allergies (Active and Proposed Allergies Only) penicillin (Severity: Unknown severity, Onset: Unknown) Reactions: Rash and itching morphine (Severity: Unknown severity, Onset: Unknown) Comments: lowers blood pressure Homatropine Methylbromide-Hydrocodone (Severity: Unknown severity, Onset: Unknown) Reactions: throat closed Current Labs: Last 24 Hours Basic Metabolic Panel: Hematology: Sodium: 138 mmol/L (12/25/23) Hgb: 10.2 Gm/dL (12/25/23) Potassium (POC): 3.2 mmol/L (12/25/23) Hemoglobin A1C (Monitoring): ------ Phosphorus: ------ WBC: 10.2 k/mm3 (12/25/23) Magnesium: ------ Platelets: 388 k/mm3 (12/25/23) BUN (POC) POC Cartridge: 9 mg/dL (12/25/23) INR Level: ------ Creatinine-Blood: 0.8 mg/dL (12/25/23) Creatinine Clearance: ------ Additional - Last 24 Hours Abs. NRBC: 0.0 k/mm3 (12/25/23) Anion Gap: 13 (12/25/23) Bicarbonate Level: 24 mmol/L (12/25/23) BUN: BUN (12/25/23) Chloride: 101 mmol/L (12/25/23) Creatinine, Blood: Creatinine, Blood (12/25/23) Estimated GFR Creatinine: 75 ML/MIN/1.73 M2 (12/25/23) Glucose, POC: 87 mg/dL (12/25/23) Hct: 32.2 % (12/25/23) MCH: 27.9 pg (12/25/23) MCHC: 31.7 g/dL (12/25/23) MCV: 88.0 femtoliters (12/25/23) MPV: 10.2 femtoliters (12/25/23) Nucleated RBC (Automated): 0.0 #/100 WBC'S (12/25/23) RBC: 3.66 m/mm3 (12/25/23) RDW-SD: 45.5 femtoliters (12/25/23) DVT prophylaxis ASA EC 325 mg po bid x 30 days Disposition: Anticipates being discharged today to home. Follow up at [facility] in 2 weeks, patient is aware of this. The patient has an Aquacel dressing in place. She may shower with it and the dressing can be discontinued on POD 14. Discharge Plan Discharge Disposition Discharge: home with VNA. Home Health Face to Face I certify that this patient is under my care and that I or an allowed non- physician practitioner working with me, had a [id number] encounter with the patient on this date: 12/25/2023. The encounter with the patient was in whole, or in part, for the following medical condition, whichis the primary reason for home health care: Osteoarthritis of left knee. Physical Therapy: Functional mobility training, Home exercise program to strengthen, increase ROM, Falls prevention training. Homebound due to: Inability to leave home without assistance/supervision, Inability to ambulate without assistance, Pain, decreased strength, and endurance, Unsteady gait, Impaired transfers, Inability to negotiate stairs. Physician Signature: Jace Lozoya MD Patient Care team information Care Team Personnel Name: Sofia Harris RN Position: [facility] RN Member Role: Primary Care Nurse Name: Cm Gunter RN Position: [facility] RN Member Role: Primary Care Nurse Name: Missy Aquino RN Position: [facility] RN Member Role: Primary Care Nurse Name: Lori SUBGRADE ROLLER OPERATOREugenia Position: Reference Physician Member Role: PCP Address: Address: [address] [place] [id number]- Care Team Related Persons Name: UMER MITCHELL Address: home [address] [place] [id number]
--- OUTSIDE RECORDS SUMMARY | 2024-01-12 21:11 | XMS_ITS | Continuity of Care Document ---
Author Organization [facility] Address [address] [place] [address]- Care Team Providers Care Cook [employer] Name Role Phone Mendoza REYES, Shawnee Primary Care Physician [place] [facility] [place] [place] [id number] Date(s): 09/30/21 - 10/30/21 [facility] [address] [place] [id number] Attending Physician: Yomaira Barnes Admitting Physician: AdmYomaira farley Referring Physician: Admtr Ar8 Allergies, Adverse Reactions, Alerts Substance Reaction [...] Start Date: 11/14/13 Status: Ordered Vitamin D 49506 iu oral capsule 50,000 International_[employer]its, 1, capsule, By Mouth, Every week, # 13 capsule, Refills 1, Tot. Refills1, Maintenance, 09/07/19 5:27:00 EST, Route to Pharmacy Electronically, [facility], 145.8, cm, 09/02/19 14:34:00 EST, Height,... Start [...]
--- OUTSIDE RECORDS SUMMARY | 2024-01-12 21:11 | XMS_ITS | Continuity of Care Document ---
Author Organization [facility] Address [address] [place] [address]- Care Team Providers Care Traveling Crane Operator Name Role Phone [place] ELA TEACHER, Eugenia Primary Care Physician [id number](s[facility] 12/11/23 - 12/18/23 [facility] [address] [place], [place] [address] Attending Physician: Haile BARRY, Johann Emmanuel Referring Physician: Darell BARRY, Jace Jordan Allergies, Adverse Reactions, Alerts Substance Reaction Severity Status penicillin Rash and itching Active morphine 1 Active Homatropine Methylbromide-Hydrocodone throat closed Active 1 lowers bllood pressure Medications albuterol 0.083% inhalation solution 3 mL = [...] drug. Start Date: 11/10/21 Status: Ordered ergocalciferol 06060 iu oral capsule 1, capsule, By Mouth, Every week, ON Monday., # 13 capsule, Refills 0, Maintenance, 07/17/23 9:30:00 EST, Route to Pharmacy Electronically, [facility], 143.8, cm, 01/11/2311:19:00 EDT, Height, [...] opioid drug. Start Date: 12/11/23 Status: Ordered Klor-Con By Mouth, 2 times a day, 0 Refills, Maintenance, 11/10/21 10:10:00 EDT, Partial fill upon patient request if the prescription is for a schedule II opioid drug. Start Date: 11/10/21 Status: Ordered Klor-Con/25 See Instructions, 0 Refills, Maintenance, 12/11/23 11:40:00 EDT, Partial fill upon patient request if [...] EC Tablet Start Date: 12/18/23 Status: Ordered Percocet 2.5 mg-325 mg oral [...] SAME TIME Start Date: 12/11/23 Status: Ordered Tums E-X = 750 mg, [...] class I Confirmed Active Osteoporosis Confirmed Active Procedures Procedure Date Related Diagnosis Body Site Status left ankle surgery Comple wagner Vital Signs Most recent to oldest [Reference Range]: 1 Height 143.8 cm (12/11/23 11:13 AM) Weight 65.4 kg (12/11/23 11:13 AM) Oxygen Saturation [94-100 %] 98 % (12/11/23 11:13 AM) Pulse Rate [55-90 bpm] 76 bpm (12/11/23 11:13 AM) Body Mass Index [18.5-24.99 kg/m2] 31.63 kg/m2 *>HHI* (12/11/23 11:13 AM) Blood Pressure [90-138/55-84 mm Hg] 145/ 80mm Hg *H* (12/11/23 11:13 AM) Respiratory Rate [16-30 br/min] 16 br/mi n (12/11/23 11:13 AM) Mode of Delivery (Oxygen) Room air (12/11/23 11:13 AM) Blood pressure sites Arm, left (12/11/23 11:13 AM) Dry Weight 65.4 kg (12/11/23 11:13 AM) Weight Obtained Via Standing scale (12/11/23 11:13 AM) Dry Weight Obtained Via Standing scale (12/11/23 11:13 AM) Social History Social History Type Response Smoking Status Never (less than 100 in lifetime) entered on: 12/11/23 Sex EKG study * Event Display: ECG 12-Lead Authored Date: Please click on pdf link to open report * Event Display: ECG 12-Lead Authored Date: Ventricular Rate: 67 BPM Atrial Rate: 67 BPM P-R Interval: 166 ms QRS Duration: 72 ms Q-T Interval: 410 ms QTC Calculation(Bazett): 433 ms P Peterman: 53 degrees R Peterman: 0 degrees T Peterman: 34 degrees Normal sinus rhythm Normal ECG When compared with ECG of 21-OCT-2018 20:54, QT has shortened Confirmed by ARLIN ALONZO MD ([id number]) on 12/11/2023 1:00:18 PM [employer]: ARLIN ALONZO MD Patient Care team information Care Team Personnel Name: [facility], Eugenia Position: Reference Physician Member Role: PCP Address: Address: [address] [place] [address]- Care Team Related Persons Name: UMER MITCHELL Address: home [address] [address]
--- OUTSIDE RECORDS SUMMARY | 2024-01-12 21:12 | XMS_ITS | Continuity of Care Document ---
Author Organization [facility] ter Address [address] [place] [address]- Care Team Providers Care Dairy Technician Name Role Phone Rufino Garcia NP Primary Care Physician [place] [facility] [place]/12/19 - 09/19/[address] [address]- [facility] Attending Physician: Janeen Ontiveros MD Allergies, Adverse Reactions, Alerts Substance Reaction [...] Start Date: 11/14/13 Status: Ordered Vitamin D 24193 iu oral capsule 50,000 International_Units, 1, capsule, By Mouth, Every week, # 13 capsule, Refills 1, Tot. Refills1, Maintenance, 09/07/19 5:27:00 EST, Route to Pharmacy Electronically, [facility], 145.8, cm, 09/02/19 14:34:00 EST, Height,... Start [...]
--- OUTSIDE RECORDS SUMMARY | 2024-01-12 21:12 | XMS_ITS | Continuity of Care Document ---
Author Organization [facility] Address [address] [place] [address]- Care Team Providers Care Blog Writer Name Role Phone [place] UPHOLSTERY REPAIRER, Eugenia Primary Care Physician Encounter [facility] Date(s): 04/19/23 - 05/19/23 [facility] [address] [place] [id number] Attending Physician: Yomaira Barnes Admitting Physician: AdmtrYomaira [...] drug. Start Date: 11/10/21 Status: Ordered ergocalciferol 63157 iu oral capsule 1, capsule, By Mouth, Every week, # 13 capsule, Refills 0, Maintenance, 08/09/23 10:00:00 EDT, Route to Pharmacy Electronically, [facility], 143.8, cm, 01/11/23 11:19:00 EDT, Height, [...] Care Team Personnel Name: Chucky Hobson Position: [facility] TA Member Role: Lifetime Consulting Physician Name: Eugenia Sandoval NP Position: Reference Physician Member Role: PCP Address: Address: [address] [place] [address]- Care Team Related Persons Name: UMER MITCHELL Address: home [address] [place] [address]
--- OUTSIDE RECORDS SUMMARY | 2024-01-12 21:12 | XMS_ITS | Continuity of Care Document ---
Author Organization [facility] Address [address] [place] [address]- Care Team Providers Care Burn Table Operator Name Role Phone [place] LAUNDERETTE ATTENDANT, Eugenia Primary Care Physician Encounter [facility] [place] Date(s): 12/11/23 - 01/10/24 [facility] [address] [place] [address]- Attending Physician: Yomaira Barnes Admitting Physician: Yomaira Barnes Referring Physician: AdmtrYomaira Allergies, Adverse Reactions, Alerts [...] Refills, Maintenance, 12/23/23 9:08:00 EDT, EC Tablet, [facility] 3, Partial fill upon patient request [...] Team Personnel Name: Sofia Harris RN Position: S RN Member Role: Primary Care Nurse Name: Cm Gunter RN Position: S RN Member Role: Primary Care Nurse Name: Missy Aquino RN Position: S RN Member Role: Primary Care Nurse Name: Eugenia Sandoval NP Position: Reference Physician Member Role: PCP Address: Address: [address] [place] [address]- Care Team Related Persons Name: UMER MITCHELL Address: home [address] [place] [address]
--- OUTSIDE RECORDS SUMMARY | 2024-01-12 21:12 | XMS_ITS | Continuity of Care Document ---
Author Organization [facility] ter Address [address] [place] [address]- Care Team Providers Care Corporate Receptionist Name Role Phone Shawnee Donaldson NP Primary Care Physician [phone] [place] [facility] [place] 02/08/22 - 04/20/[address] [address] Attending Physician: Shawnee Donaldson NP Admitting Physician: Shawnee Donaldson NP Referring Physician: Shawnee Donaldson NP Allergies, Adverse [...]
--- OUTSIDE RECORDS SUMMARY | 2024-01-12 21:12 | XMS_ITS | Continuity of Care Document ---
Author Organization [facility] Address [address] [place] [address]- Care Team Providers Care Chocolate Packer Name Role Phone Eugenia Sandoval NP Primary Care Physician [phone] Encounter [facility] Date(s): 10/05/22 - 12/29/22 [facility] [address] [place] [address]- Encounter Diagnosis Osteoporosis(Discharge Diagnosis) - 11/28/22 Attending Physician: Lucio Roche MD Admitting Physician: Lucio Roche MD Referring Physician: Eugenia Sandoval NP Allergies, [...] Cl inical Service Informant Osteoporosis Discharge Diagnosis 11/28/22 Social History Social History Type Response Smoking Status Never smoker; Tobacc o user in household: No entered on: 11/14/13 Sex Patient Care team information Care Team Personnel Name: Chucky Hobson Position: [facility] TA Member Role: Lifetime Consulting Physician Name: [place] [facility] SUPPORT SERVICE TECH, Eugenia Position: Reference Physician Member Role: PCP Address: Address: [address] [place] [address]- Care Team Related Persons Name: UMER MITCHELL Address: [address] [address]
[2024-01-12] MEDS: cefuroxime axetiL 250 MG TABLET PO (22:08)
[2024-01-12] MEDS: Phenazopyridine HCL 100 MG TABLET PO (22:08)
[2024-01-12 22:12] VITALS: TEMP 36.7
[2024-01-12 22:31] VITALS: BP 135/70; PULSE 78; RESP 16; TEMP 36.7
== END 2024-01-12 22:32 | disposition home or self-care (01) ==
PROVIDERS: Physician Assistant; Emergency Provider Emergency Medicine
DX: N39.0 Urinary tract infection, site not specified (principal); R30.0 Dysuria; I10 Essential (primary) hypertension
CPT/HCPCS: 36415; 80053; 81001; 85025; 87086; 99283

== ENCOUNTER 2024-02-07 12:50 | Outpatient (REF) | payer MEDICARE, SELFPAY ==
--- NOTE | ~2024-02-07 | US_ITS ---
EXAMINATION: US DIAGNOSTIC ULTRASOUND BREAST, LEFT CLINICAL INFORMATION: 6 month Follow-up complicated (acorn) cyst left breast 8:30 o'clock axis.. COMPARISON: Left breast ultrasound 08/03/2023, 01/27/2023 (BI-RADS 3) TECHNIQUE: Ultrasound of the left breast is performed with real-time driver scale imaging and color Doppler. Attention was given to the lower inner quadrant in the region of previously seen acorn cyst. FINDINGS: There is redemonstration of a complicated circumscribed oval cyst in the 8:00 axis, 3 cm from the nipple, measuring 8 x 6 x 4 mm. There is good through transmission. It is wider than tall with no internal color Doppler signal, and no surrounding parenchymal distortion. There is good through transmission. Previously this measured approximately 8 x 5 x 4 mm and is unchanged allowing for differences in technique. It remains probably benign. Continued six-month interval follow-up recommended to ensure stability. No additional abnormalities detected in the lower inner quadrant. US/US breast LT limited mamm only IMPRESSION: Stable, probably benign complicated cyst 8:00 axis left breast measuring up to 8 mm. Six-month interval follow-up targeted left breast ultrasound recommended to ensure stability. ASSESSMENT: BI-RADS 3 - Probably benign finding(s) - 6 month follow-up suggested RECOMMENDATION: 6 Month F/U
== END 2024-02-07 12:51 | disposition home or self-care (01) ==
LOC: HO.MAMMO 12:50
PROVIDERS: PCP Registered Nurse; Visit Provider Registered Nurse
DX: N60.02 Solitary cyst of left breast (principal)
CPT/HCPCS: 76642

== ENCOUNTER → 2024-02-07 13:30 | Outpatient (BNV) | payer MEDICARE, SELFPAY | PROVIDERS: PCP Registered Nurse; Visit Provider Radiology Diagnostic Radiology | DX: N63.24 Unspecified lump in the left breast, lower inner quadrant (principal) | CPT/HCPCS: 76642 ==

== ENCOUNTER 2024-02-21 13:47 | Outpatient (REF) | payer MEDICARE, SELFPAY ==
--- NOTE | ~2024-02-21 | MM_ITS ---
EXAMINATION: MM DIAGNOSTIC DIGITAL BREAST TOMOSYNTHESIS, BILATERAL CLINICAL INFORMATION: Patient due for bilateral. Complicated cysts left breast 8:30 o'clock axis. COMPARISON: Mammography: Prior mammography including most recent 08/03/2023, 12/30/2022, and 01/27/2023. ULTRASOUND: Left: 02/07/2024, 08/03/2023, 01/27/2023. TECHNIQUE: Digital breast tomosynthesis is performed in both the craniocaudal and mediolateral oblique views along with computer-aided detection (CAD). Synthesized 2D images are generated from the tomosynthesis. In addition, full-field 3-D left ML view was acquired. FINDINGS: There are scattered areas of fibroglandular density (ACR BI-RADS breast composition Category b). Right breast shows no developing density or significant mass. Stable rounded isodense mass in the approximate 8:00 axis of the left breast, middle one third. There are benign, stable bilateral loosely arrayed punctate calcifications Otherwise, There are no suspicious masses, suspicious grouped calcifications, or areas of architectural distortion in either breast. The parenchymal pattern is stable from prior exams. No axillary or skin abnormality. MM/MM tomosynthesis diagnostic BI IMPRESSION: No mammographic evidence of malignancy. Stable benign findings. Stable rounded isodense mass in the approximate 8:00 axis of the left breast, middle one third, to be followed in 6 months by targeted left ultrasound as detailed in the 02/07/2024 ultrasound report of left breast. Otherwise, routine screening mammography bilaterally in one year. ASSESSMENT: BI-RADS BI-RADS 3 - Probably benign finding(s) - 6 month follow-up suggested RECOMMENDATION: 6 Month F/U Results were provided to the patient at time of visit by the technologist. This patient's information was entered into a reminder system with a target due date for their next mammogram.
== END 2024-02-21 13:48 | disposition home or self-care (01) ==
LOC: HO.MAMMO 13:47
PROVIDERS: PCP Registered Nurse; Visit Provider Registered Nurse
DX: N60.02 Solitary cyst of left breast (principal)
CPT/HCPCS: 77062; 77066

== ENCOUNTER → 2024-02-21 14:00 | Outpatient (BNV) | payer MEDICARE, SELFPAY | PROVIDERS: PCP Registered Nurse; Visit Provider Radiology Diagnostic Radiology | DX: N63.24 Unspecified lump in the left breast, lower inner quadrant (principal) | CPT/HCPCS: 77066; G0279 ==

== ENCOUNTER 2024-03-01 13:05 | Outpatient (REF) | payer MEDICARE, SELFPAY ==
--- NOTE | ~2024-03-01 | XR_ITS ---
EXAMINATION: XR RIGHT CLAVICLE XR RIGHT SHOULDER CLINICAL INFORMATION: Acute pain and displacement of right clavicle after lifting arm. Orders stated pain of right clavicle acute pain and displacement of right clavicle after lifting arm. 74-year-old with osteoporosis and acute shoulder/clavicle pain after lifting arm COMPARISON: Right shoulder 06/14/2023. TECHNIQUE: 2 views of the right clavicle. 4 views of the right shoulder. FINDINGS: RIGHT CLAVICLE: Mild degenerative changes in the acromioclavicular joint with mild hypertrophic change. Bones are diffusely demineralized. RIGHT SHOULDER: Glenohumeral alignment is preserved. No abnormal soft tissue calcifications appreciated adjacent to the humeral head. Degenerative changes in the imaged upper thoracic spine. XR/XR clavicle RT IMPRESSION: 1. Mild degenerative changes in the right acromioclavicular joint. 2. Glenohumeral alignment preserved. 3. Additional imaging with CT scan or MRI should be considered for further evaluation if there is clinical concern for fracture or other underlying pathology.
--- NOTE | ~2024-03-01 | XR_ITS ---
EXAMINATION: XR RIGHT CLAVICLE XR RIGHT SHOULDER CLINICAL INFORMATION: Acute pain and displacement of right clavicle after lifting arm. Orders stated pain of right clavicle acute pain and displacement of right clavicle after lifting arm. 74-year-old with osteoporosis and acute shoulder/clavicle pain after lifting arm COMPARISON: Right shoulder 06/14/2023. TECHNIQUE: 2 views of the right clavicle. 4 views of the right shoulder. FINDINGS: RIGHT CLAVICLE: Mild degenerative changes in the acromioclavicular joint with mild hypertrophic change. Bones are diffusely demineralized. RIGHT SHOULDER: Glenohumeral alignment is preserved. No abnormal soft tissue calcifications appreciated adjacent to the humeral head. Degenerative changes in the imaged upper thoracic spine. XR/XR shoulder RT min 2V IMPRESSION: 1. Mild degenerative changes in the right acromioclavicular joint. 2. Glenohumeral alignment preserved. 3. Additional imaging with CT scan or MRI should be considered for further evaluation if there is clinical concern for fracture or other underlying pathology.
== END 2024-03-01 13:06 | disposition home or self-care (01) ==
LOC: HO.HHCX 13:05
PROVIDERS: Visit Provider Registered Nurse
DX: M89.8X1 Other specified disorders of bone, shoulder (principal); M25.511 Pain in right shoulder; M81.0 Age-related osteoporosis without current pathological fracture
CPT/HCPCS: 73000; 73030

== ENCOUNTER 2024-06-17 15:18 | Outpatient (REF) | payer MEDICARE, SELFPAY ==
--- NOTE | ~2024-06-17 | XR_ITS ---
EXAMINATION: XR CHEST 2 VIEWS CLINICAL INFORMATION: Persistent cough COMPARISON: February 27, 2022 TECHNIQUE: XR CHEST 2 VIEWS, 2 Views Lungs and Lydia: Both lungs are clear. Pleura: Normal. Costophrenic angles are sharp. No pneumothorax. Heart: The heart is normal in size. Mediastinum: The mediastinum is within normal limits.. Bones: Skeletal structures included are normal for patient's age. XR/XR chest 2V IMPRESSION: No radiographic evidence of acute cardiopulmonary disease. Electronically signed by: Dat Pendleton MD 06/18/2024 09:56 AM EDT
== END 2024-06-17 15:19 | disposition home or self-care (01) ==
LOC: HO.HHCX 15:18
PROVIDERS: Visit Provider Registered Nurse
DX: J45.41 Moderate persistent asthma with (acute) exacerbation (principal)
CPT/HCPCS: 71046

== ENCOUNTER 2024-07-01 13:46 | Outpatient (AMB) | payer OTHER, SELFPAY ==
--- NOTE | 2024-07-01 13:54 | MHC.OFFVIS ---
Vital Signs 07/01/24 13:55 Height 4 ft 7 in Weight 143 lb 4.807 oz BMI 33.3 BP 126/78 Blood Pressure Location Lt brachial Position Sitting Pulse 70 Pulse Source Pulse Oximeter Pulse Oximetry (%) 100 Oxygen Delivery Method Room Air Intake Visit Reasons: asthma Construction Ironworker Required: Yes Construction Ironworker Language: Strategic Marketing Leader Name: Mitali Primo OA Allergies morphine [MORPHINE] Allergy (Severe, Verified 07/01/24 14:01) HYPOTENSION levofloxacin [LEVOFLOXACIN] Allergy (Intermediate, Verified 07/01/24 14:01) DIZZY Penicillins Allergy (Mild, Verified 07/01/24 14:01) RASH penicillin V Allergy (Unknown, Verified 07/01/24 14:01) Rash HPI HPI asthma: Details: Mary Kate is a pleasant 74 year old female, never smoker, with underlying asthma, chronic allergic rhintis and HTN. She was previously under the care of Dr. Haskins however was lost to follow up and presents today to reestablish care. She was previously on Trelegy, Singulair and albuterol MDI/neb with good effect however over the last two weeks reports worsening control. She was seen by PCP and prescribed prednisone with resolution of symptoms. Once discontinued symptoms recurred. She reports dyspnea on exertion, wheezing, dry cough with chest congestion and difficulty expectorating. No documented fevers however subjective chills. She denies any sick contacts however notes son with similiar symptoms after exposure to her. [facility] Medical History Chronic allergic rhinitis Insomnia Hypertension Asthma Surgical History History of esophagogastroduodenoscopy (EGD) Hx of colonoscopy Hx of hand surgery Social History (Updated 07/01/24 @ 14:01 by Mitali Henry CMA) Household Members: Spouse and Children Alcohol intake: never Patient Tobacco Use Status: Never used Tobacco Second Hand Smoke Exposure: Yes Current occupational status: disabled Review of Systems Const Denies excessive sweating, Denies fever(s), Denies headache(s) and Denies night sweats Eyes Denies dry eyes, Denies irritation and Denies itchy eyes ENT Reports Normal hearing present and Denies headache(s) Card Denies chest pain, Denies chest pain at rest, Denies chest pain with activity, Denies claudication, Denies leg edema, Denies orthopnea and Denies paroxysmal nocturnal dyspnea Resp Denies excessive phlegm production, Denies pain on inspiration, Denies pain with cough and Denies stridor Musc Denies myalgias Neuro Reports Normal hearing present and Denies headache(s) Endo Denies excessive sweating Santiago/Lymph Denies lymphadenopathy Aller/Immun Denies itchy eyes and Denies seasonal rhinorrhea Physical Exam Vital Signs: Last Vital Signs Pulse 70 07/01/24 13:55 BP 126/78 07/01/24 13:55 Pulse Ox 100 07/01/24 13:55 Oxygen Delivery Method Room Air 07/01/24 13:55 BMI result Body Mass Index 33.3 Const General: cooperative, healthy appearing, comfortable, no acute distress, well developed and alert Nutritional Appearance: obese Orientation/consciousness: patient oriented x3 Limitations: no limitations HEENT Head: Yes normal to inspection, Yes normocephalic and Yes atraumatic Ears: hearing grossly normal bilaterally and external ears normal Eyes General: appearance normal, both eyes and all related structures Eyelids: Yes eyelids normal Sclerae: sclerae normal EOM: EOMs intact bilaterally Neck Neck: Yes normal visual inspection and Yes no lymphadenopathy Lymphatic: no lymphadenopathy noted Chest Chest palpation & inspection: normal inspection of the chest Resp Effort & Inspection: normal respiratory effort, able to speak in complete sentences, no audible wheezes, no cough, no stridor, not tachypneic, no tripod positioning and no use of accessory muscles Auscultation: clear to auscultation bilaterally Cardio Jugular venous distension: no JVD Rate: regular rate Rhythm: regular rhythm Skin Other: warm, dry General skin exam: no rashes or lesions noted Neuro General: patient oriented x3 Cranial nerves: Yes Normal hearing present Cognition (Neuro): normal cognition Gait exam (Neuro): Normal gait present Extrem General: Yes normal to inspection, Yes capillary refill normal, Yes no clubbing, cyanosis or edema and Yes no pedal edema Psych Appearance: grossly normal and well kempt Speech and movement: Normal speech and movement present and Clear speech present Affect: normal affect Attitude: cooperative Thought process: Normal thought process present Thought content: Normal thought content present Insight: Good insight present (Psych) Judgement: Good judgement present (Psych) Assessment & Plan Assessment & Plan (1) Asthma: Code(s): J45.909 - Unspecified asthma, uncomplicated Category: Medical Plan Will treat with a zpak and hold off on prednisone at this time, as respiratory exam unremarkable. She is aware to call the office if symptoms do not improve. All questions were answered and patient is in agreement of plan. Will follow up with Dr. Haskins for regularly scheduled appointment or sooner if needed. Medications: New azithromycin For 250 mg dose pack: take 500 mg today (day 1), then 250 mg for 4 days (days 2-5) PO 6 tabs 0RF Coding Level of Care Code Est Pt Level 3 (72876) Diagnoses Asthma J45.909
[2024-07-01 13:55] VITALS: BP 126/78; PULSE 70; O2SAT 100; BMI 33.3
== END 2024-07-01 14:19 | disposition home or self-care (01) ==
LOC: HO.HPS 13:53
PROVIDERS: PCP Registered Nurse; Visit Provider Nurse Practitioner Family
DX: J45.909 Unspecified asthma, uncomplicated (principal)
CPT/HCPCS: 99213

== ENCOUNTER → 2024-07-01 13:46 | Outpatient (BNVA) | payer OTHER, SELFPAY | PROVIDERS: PCP Registered Nurse; Visit Provider Nurse Practitioner Family | DX: J45.909 Unspecified asthma, uncomplicated (principal) | CPT/HCPCS: 99212 ==

== ENCOUNTER 2024-10-23 10:49 | Outpatient (REF) | payer OTHER, SELFPAY ==
--- NOTE | ~2024-10-23 | US_ITS ---
EXAMINATION: US DIAGNOSTIC ULTRASOUND BREAST, LEFT CLINICAL INFORMATION: 6 month follow-up for left breast mass at 8:00.. COMPARISON: Comparison is made with relevant prior imaging. TECHNIQUE: Ultrasound of the breast is performed with real-time driver scale imaging and color Doppler. FINDINGS: Targeted color Doppler ultrasound scanning at 8:00 in the area the previously seen mass demonstrates normal fibroglandular breast tissue. Results are discussed with the patient at time of visit. US/US breast LT limited mamm only IMPRESSION: Normal fibronodular breast tissue. ASSESSMENT: BI-RADS 1: Negative RECOMMENDATION: Routine annual mammography screening. This patient's information was entered into a reminder system with a target due date for their next mammogram. Electronically signed by: Zaira Loco DO 10/23/2024 12:09 PM RUDDY
--- OUTSIDE RECORDS SUMMARY | 2024-10-23 13:29 | XMS_ITS | Encounter Summary ---
Author Organization [employer] Address [address] [facility] [address] [place] [address] Care Team Providers Care Physicist Light And Optics Name Role Phone [facility] Primary Care Provider [phone] Reason for Visit * Reason Comments Med Refill Encounter Details Date Type Department Care Team ([facility] st Contact Info) Description 11/07/[address] [facility] [address], [place] [id number] [facility] [address] [place], [place] [id number] Other chronic pain; Insomnia, unspecified type Social History Tobacco Use Types Packs/Day Years Used Date Smoking Tobacco: Never Passive Smoke Exposure: Never Smokeless Tobacco: Never Alcohol Use Standard Drinks/Week Comments Never 0 (1 standard drink = 0.6 oz pur e alcohol) Depression Answer Date Recorded Patient Health Questionnaire-9 Score 9 03/30/2023 Housing Stability Answer Date Recorded What is your housing situation today? I have nallely kyle 06/13/[address] you li ve. Do you have problems with any of the following? None of the above 06/13/2023 Food Insecurity Answer Date Recorded Within the past 12 months, y ou worried that your food would run out before you got money to buy more: Never True 06/13/2023 Within the past 12 months,th e food you bought just didn't last and you didn't have enough money to get more: Never True Transportation Answer Date Recorded In the past 12 months, has l ack of transportation kept you from medical appts, meetings, work or from getting things needed for daily living? No 06/13/2023 Utilities Answer Date Recorded In the past 12 months, has t he electric, gas, oil or water company threatened to shut off services in your home? No 06/13/2023 Depression Answer Date Recorded Patient Health Questionnaire-2 Score 0 03/30/2023 Comments Unknown Sex and Gender Information Value Date Recorded Sex Assigned at Female 06/27/2022 10:14 AM EDT Legal Sex Female 10:14 AM EDT Gender Identity Female 06/27/2022 10:14 AM EDT Sexual Orientation Choose not to disclose 2021 10:14 AM EDT documented as of this encounter Plan of Treatment Upcoming Encounters Date Type Department Care Team (Late st Contact Info) Description 11/05/2024 11:00 AM EDT Office Visit [facility] [address] [place] [address] documented as of this encounter Visit Diagnoses Diagnosis Other chronic pain Insomnia, unspecified type documented in this encounter Additional Health Concerns Assessment Noted Time PHQ-9 Depression Total Score: 9 03/30/20 23 2:25 PM EDT documented as of this encounter Care Teams Physicist Light And Optics Relationship Specialty Start Date End Date Eugenia Sandoval FNP [address] [place] [address] PCP - General Family Medicine 04/27/22 documented as of this encounter
--- OUTSIDE RECORDS SUMMARY | 2024-10-23 13:29 | XMS_ITS | Encounter Summary ---
Author Organization [employer] Address [address] 7[address] [place] [address] Care Team Providers Care Antenna Rigger Name Role Phone [facility] Primary Care Provider [phone] Reason for Visit * Reason Comments Med Refill Encounter Details Date Type Department Care Team ([facility] st Contact Info) Description 10/16/2024 Refill [facility] [address] [place], [place] [phone] Malia Bee DO [address] [place], [place] [phone] Primary osteoarthritis of both knees Social History Tobacco Use Types Packs/Day Years Used Date Smoking Tobacco: Never Passive Smoke Exposure: Never Smokeless Tobacco: Never Alcohol Use Standard Drinks/Week Comments Never 0 (1 standard drink = 0.6 oz pur e alcohol) Alcohol Answer Date Recorded Frequency of Alcohol Consumption Not on file 02/28/2024 Average Number of Drinks Not on file 024 Frequency of Binge Drinking Not on file 10/2023 Score 0 02/28/2024 Depression Answer Date Recorded Patient Health Questionnaire-9 Score 0 06/17/2024 Patient Health Questionnaire-9 Score 0 06/17/2024 Last PHQ-9: Questionnaire Data Not on file 1 Housing Stability Answer Date Recorded What is [...] Date Recorded Patient Health Questionnaire-2 Score 0 06/17/2024 Internet Access Answer Date Recorded Internet Access Q1 Yes 09/30/2024 Internet Access Q2 Not on file 09/30/2024 Comments Unknown Sex and Gender Information Value [...] Description 11/05/2024 11:00 AM EDT Office Visit [facility] [address] [place] [address] documented as of this encounter Visit Diagnoses Diagnosis Primary osteoarthritis of both knees documented in this encounter Additional Health Concerns Assessment Noted Time PHQ-9 Depression Total Score: 0 06/17/20 24 2:07 PM EDT documented as of this encounter Care Teams Antenna Rigger Relationship Specialty Start Date End Date Eugenia Sandoval FNP [address] [place] [address] PCP - General Family Medicine 04/27/22 documented as of this encounter
--- OUTSIDE RECORDS SUMMARY | 2024-10-23 13:29 | XMS_ITS | Encounter Summary ---
Author Organization [employer] Address [address] 7[address] [place] [address] Care Team Providers Care Mailroom Assistant Name Role Phone [facility] Primary Care Provider [phone] Reason for Visit * Reason Comments Med Refill Encounter Details Date Type Department Care Team ([facility] Contact Info) Description 09/24/2024 Refill [facility] [address] [place], [place] [phone] [facility] [address] [place], [place] [phone] Hypoglycemia Social History Tobacco Use Types Packs/Day Years [...] Recorded Patient Health Questionnaire-2 Score 0 06/17/2024 Comments Unknown Sex and Gender Information Value [...] Description 11/05/2024 11:00 AM EDT Office Visit [facility] [address] [place] [address] documented as of this encounter Visit Diagnoses Diagnosis Hypoglycemia Hypoglycemia, unspecified documented in this encounter Additional Health Concerns Assessment Noted Time PHQ-9 Depression Total Score: 0 06/17/20 24 2:07 PM EDT documented as of this encounter Care Teams Mailroom Assistant Relationship Specialty Start Date End Date Eugenia Sandoval FNP [address] [place] [address] PCP - General Family Medicine 04/27/22 documented as of this encounter
--- OUTSIDE RECORDS SUMMARY | 2024-10-23 13:29 | XMS_ITS | Clinical Summary ---
Author Organization [facility] Address [address] [place] [address] Care Team Providers Care Weekend Anchor Name Role Phone Rufino Garcia [facility] Primary Care Provider Family History Medical History Relation Comments Diabetes Father Hypertension Father Cancer Mother Diabetes Mother Heart disease Mother Hypertension Mother Stroke Mother Diabetes Sibling 1 brother Hypertension Sibling 2 brother Relation Status Comments Father Mother Sibling 1 Sibling 2 Social History Tobacco Use Types Packs/Day Years Used Date Smoking Tobacco: Never Alcohol Use Standard Drinks/Week Comments No 0 (1 standard drink = 0.6 oz pur e alcohol) Comments Unknown Sex and Gender Information Value Date Recorded Sex Assigned at Not on file Legal Sex Female 5:14 PM EST Gender Identity Not on file Sexual Orientation Not on file Plan of Treatment Health Maintenance Due Date Last Done Comments Breast Cancer Screening 1950 Pneumococcal Vaccine: 65+ Ye ars (1 of 2 - PCV) 01/09/1958 Colorectal Cancer Screening: Annual FOBT 01/09/2001 Colorectal Cancer Screening: Colonoscopy 01/09/2001 Colorectal Cancer Screening: Sigmoidoscopy 01/09/2001 Influenza Vaccine (#1) 2024 Hepatitis B Vaccine Aged Out No longe r eligible based on patient's age to complete this topic Insurance [facility] ([id number]) [facility] ([id number]) Care Teams Weekend Anchor Relationship Specialty Start Date End Date Rufino Garcia FNP [address] [place] [address], 3rd [place] [address] PCP - General 09/07/20
--- OUTSIDE RECORDS SUMMARY | 2024-10-23 13:29 | XMS_ITS | Encounter Summary ---
Author Organization [employer] Address [address] 7[address] [place] [address] Care Team Providers Care Help Desk Assistant Name Role Phone [facility] Primary Care Provider [phone] Reason for Visit * Reason Comments Med Refill Encounter Details Date Type Department Care Team ([facility] st Contact Info) Description 10/10/[address] [facility] MEDICINE [address] [place], [place] [phone] [facility] [address] [place], [place] [phone] Moderate persistent asthma with acute exacerbation Social History Tobacco Use Types Packs/Day Years [...] AM EDT Office Visit [facility] [address] [place] [address] documented as of this encounter Visit Diagnoses Diagnosis Moderate persistent asthma with acute exacerbation documented in this encounter Additional Health Concerns Assessment Noted Time PHQ-9 Depression Total Score: 0 06/17/20 24 2:07 PM EDT documented as of this encounter Care Teams Help Desk Assistant Relationship Specialty Start Date End Date Eugenia Sandoval FNP 230 [place] [address] PCP - General Family Medicine 04/27/22 documented as of this encounter
--- OUTSIDE RECORDS SUMMARY | 2024-10-23 13:30 | XMS_ITS | Encounter Summary ---
Author Organization [employer] Address [address] [facility] 7t [place] [address] Care Team Providers Care Returned Case Inspector Name Role Phone [facility] Primary Care Provider [phone] Reason for Visit * Reason Onset Date Comments Pre-op Notes 10/03/2024 Encounter Details Date Type Department Care Team ([facility] st Contact Info) Description 10/03/2024 Telephone [facility] MEDICINE 230 [place], [place] [phone] [facility] 230 [place], [place] [phone] Pre-op Notes Social History Tobacco Use Types Packs/Day Years [...] AM EDT documented as of this encounter Miscellaneous Notes * Telephone Encounter - Jolanta Beckwith [place] - 10/03/2024 10:04 AM EST Preop notes faxed to: Surgeon's name: Dr. Carla Mallory Facility name: [facility] Surgeon's office number: [phone] Surgeon's office fax number: [phone] Confirmation received. documented in this encounter Plan of Treatment Upcoming Encounters Date Type Department Care Team (Late st Contact Info) Description 11/05/2024 11:00 AM EDT Office Visit [facility] [address] [place] [address] documented as of this encounter Visit Diagnoses Not on filedocumented in this encounter Additional Health Concerns Assessment Noted Time PHQ-9 Depression Total Score: 0 06/17/20 24 2:07 PM EDT documented as of this encounter Care Teams Returned Case Inspector Relationship Specialty Start Date End Date Eugenia Sandoval FNP [address] [place] [address] PCP - General Family Medicine 04/27/22 documented as of this encounter
--- OUTSIDE RECORDS SUMMARY | 2024-10-23 13:30 | XMS_ITS | Encounter Summary ---
Author Organization [employer] Address [address] [facility] 7t [place] [address] Care Team Providers Care Turbine Engine Assembler Name Role Phone [facility] Primary Care Provider [phone] Reason for Visit * Reason Onset Date Comments Appointment Request 09/10/2024 Encounter Details Date Type Department Care Team ([facility] Contact Info) Description 09/10/2024 Telephone [facility] MEDICINE 230 [place], [place] [phone] [facility] 230 [place], [place] [phone] Appointment Request Social History Tobacco Use Types Packs/Day Years [...] encounter Miscellaneous Notes * Telephone Encounter - Flavio Haskins - 09/10/2024 12:53 PM EST Tc from pt requesting to reschedule today's pain management appt. Please contact pt at [phone]. (Canadian Speaker) documented in this encounter Plan of Treatment Upcoming Encounters Date Type Department Care Team (Late st Contact Info) Description 11/05/2024 11:00 AM EDT Office Visit [facility] MEDICINE [address] [place] [address] documented as of this encounter Visit Diagnoses Not on filedocumented in this encounter Additional Health Concerns Assessment Noted Time PHQ-9 Depression Total Score: 0 06/17/20 24 2:07 PM EDT documented as of this encounter Care Teams Turbine Engine Assembler Relationship Specialty Start Date End Date Eugenia Sandoval FNP [address] [place] [address] PCP - General Family Medicine 04/27/22 documented as of this encounter
--- OUTSIDE RECORDS SUMMARY | 2024-10-23 13:30 | XMS_ITS | Encounter Summary ---
Author Organization [employer] Address [address] [facility] 7t [place] [address] Care Team Providers Care Carton Forming Machine Tender Name Role Phone [employer] [facility] Primary Care Provider [phone] Reason for Visit * Reason Comments Med Refill Encounter Details Date Type Department Care Team (Late Contact Info) Description 05/27/2023 Refill [facility] MEDICINE [address] [place] [phone] Jenna Bar FNP [address] [place] [address] [place] [address] Social History Tobacco Use Types Packs/Day Years Used Date Smoking Tobacco: Never Smokeless Tobacco: Never Alcohol Use Standard Drinks/Week Comments Never 0 (1 standard drink = 0.6 oz pur e alcohol) Depression Answer Date Recorded Patient Health Questionnaire-9 Score 9 03/30/2023 Depression Answer Date Recorded Patient Health Questionnaire-2 [...] Encounters Date Type Department Care Team (Late Contact Info) Description 11/05/2024 11:00 AM EDT Office Visit [facility] [address] [place] [phone] documented as of this encounter Visit Diagnoses Not on filedocumented in this encounter Additional Health Concerns Assessment Noted Time PHQ-9 Depression Total Score: 9 03/30/20 23 2:25 PM EDT documented as of this encounter Care Teams Carton Forming Machine Tender Relationship Specialty Start Date End Date Eugenia Sandoval FNP [address] [place] [address] PCP - General Family Medicine 04/27/22 documented as of this encounter
--- OUTSIDE RECORDS SUMMARY | 2024-10-23 13:30 | XMS_ITS | Encounter Summary ---
Author Organization [employer] Address [address] [facility] 7t [place] [address] Care Team Providers Care Mainframe Consultant Name Role Phone Eugenia Sandoval Primary Care Provider [phone] Reason for Referral * Consultation (Routine) - Closed Specialty Diagnoses / Procedures Referred By Nimisha tirado Referred To Contact Physical Therapy Diagnoses Dizziness Balance problem Eugenia Sandoval [facility] [address] [place] [address] Phone: tel: fax: [facility] Physical Therapy [address] [place] [address] Phone: tel: fax: Referral ID Status Reason Start Date Expiration Date V isits Requested Visits Authorized [id number] Closed Specialty Services Required 10/02/2024 10/02/2025 1 1 * Consultation (Routine) - Canceled Specialty Diagnoses / Procedures Referred By Nimisha tirado Referred To Contact Physical Therapy Diagnoses Primary osteoarthritis of both knees Eugenia Sandoval [facility] [address] [place] [address] Phone: tel: fax: Referral ID Status Reason Start Date Expiration Date Visits Requested Visits Authorized [id number] Canceled Specialty Services Required 10/02/2024 10/02/2025 1 1 * Imaging (Routine) - Authorized Specialty Diagnoses / Procedures Referred By Nimisha tirado Referred To Contact Radiology Diagnoses Dizziness Procedures MR Brain w/o Contrast Eugenia Sandoval FNP [address] [place] [address] Phone: tel: fax: [facility] [address] [facility], [address] [place] [address] Phone: tel: fax: Referral ID Status Reason Start Date Expiration Date V isits Requested Visits Authorized [id number] Authorized 10/02/2024 10/02/2025 1 1 Reason for Visit * Reason Comments Pre-op Exam Encounter Details Date Type Department Care Team (Latest Contact Info) Description 09/30/2024 1:15 PM EST Office Visit [facility] 230 [place] [address] Eugenia Sandoval FNP [address] [place] [address] Cataract of right eye, unspecified cataract type (Primary Dx); Preoperative examination; Dizziness; Balance problem; Primary osteoarthritis of both knees; Other fatigue Social History Tobacco Use Types Packs/Day Years [...] AM EDT documented as of this encounter Last Filed Vital Signs Vital Sign Reading Time Taken Comments Blood Pressure 128/73 09/30/2024 2:43 PM EST Pulse 68 09/30/2024 2:43 PM EST Temperature 36.5 ??C (97.7 ??F) 09/30/2024 1:01 PM ES T Respiratory Rate 20 09/30/2024 1:01 PM EST Oxygen Saturation 98% 09/30/2024 1:01 PM EST Inhaled Oxygen Concentration - - Weight 67.8 kg (149 lb 6.4 oz) 09/30/2024 1:01 P M EST Height 144.8 cm (4' 9 ) 09/30/2024 1:01 PM EST Body Mass Index 32.33 09/30/2024 1:01 PM EST documented in this encounter Progress Notes * [facility], VICE PRESIDENT RESEARCH - 09/30/2024 1:15 PM EST Mary Kate Silva is a 74 y.o. year old female patient who presents for preop evaluation prior to the following procedure Date of Surgery: 10/18/2024 Surgical procedure being done: Cateract (Right Eye) Type of anesthesia: MAC Lab needed: No EKG: No Surgeon's name: Dr. Carla Mallory Facility name: [facility] Surgeon's office number: [phone] Surgeon's office fax number: [phone] Acute Concerns - Chronic dizziness-->episodes occur 2x/week worse with rising from sitting to standing. Taking meclizine PRN with sx improvement. Denies associated CP/SOB/near syncope. - Impaired mobility-poor balance, worse since knee replacement. Used to have an electric scooter which was helpful for ambulating outside apartment. Cardiac Risk History of ischemic heart disease: NO History of heart failure: NO History of cerebrovascular disease: NO Diabetes mellitus requiring treatment with insulin: NO Preoperative serum creatinine >2.0 mg/dL : NO Activity tolerance >4 METS: NO Bleeding Risk: Chronic anticoagulation: NO Daily aspirin: NO Blood clotting disorder: NO Pulmonary History: Negative BMI > 40: NO Smoking History: Denies current/former tobacco use ETOH: None Substance Use: None Personal or family history of anesthesia reaction: NO Chronic Medical Conditions: Asthma HTN Hypothyroid CKD Osteoporosis Review of Systems Constitutional: Negative for fatigue, fever and unexpected weight change. Eyes: Negative for visual disturbance. Respiratory: Negative for apnea, chest tightness and shortness of breath. Cardiovascular: Negative for chest pain, palpitations and leg swelling. Musculoskeletal: Positive for gait problem. Neurological: Positive for dizziness. Negative for light-headedness and headaches. OBJECTIVE Vitals: 09/30/24 1301 09/30/24 1441 09/30/24 1442 09/30/24 1443 BP: (!) 149/76 133/70 131/74 128/73 BP Location: Left arm Left arm Left arm Left arm Patient Position: Sitting Lying Standing Sitting BP Cuff Size: Large adult Large adult Large adult Large adult Pulse: 85 73 70 68 Resp: 20 Temp: 97.7 ??F (36.5 ??C) TempSrc: Temporal SpO2: 98% Weight: 149 lb 6.4 oz (67.8 kg) Height: 4' 9 (1.448 m) Physical Exam Constitutional: General: She is not in acute distress. Appearance: Normal appearance. HENT: Head: Normocephalic and atraumatic. Right Ear: External ear normal. Left Ear: External ear normal. Nose: Nose normal. Eyes: Conjunctiva/sclera: Conjunctivae normal. Cardiovascular: Rate and Rhythm: Normal rate and regular rhythm. Heart sounds: Normal heart sounds. Pulmonary: Effort: Pulmonary effort is normal. Breath sounds: Normal breath sounds. Musculoskeletal: Comments: Antalgic gait. Ambulates slowly with use of walker. Unable to stand without support. Skin: General: Skin is warm and dry. Neurological: General: No focal deficit present. Mental Status: She is alert and oriented to person, place, and time. Psychiatric: Mood and Affect: Mood normal. Behavior: Behavior normal. PREOPERATIVE ASSESSMENT AND PLAN: - Provider considers procedure to be low risk -Reviewed cardiac risk factors based on RCRI. Patient has 0 risk factors corresponding to 0.4%risk of a major cardiac event during surgery. - Patient may proceed with surgery and anesthesia without further risk stratification at this time - Pt will contact health center with questions or concerns 1. Cataract of right eye, unspecified cataract type (Primary) 2. Preoperative examination 3. Dizziness - POC glucose WNL - Orthostatic vital signs negative in office - Suspect multifactorial--?vertigo, poor vision, polypharmacy, instability however given age and increase in frequency, no prior neuro imaging will order MRI for further evaluation - Pt accepts referral to vestibular rehab - OK to continue meclizine PRN - POCT Glucose - MR Brain w/o Contrast; Future - MR Brain w/o Contrast - Referral to Physical Therapy; Future - Referral to Physical Therapy 4. Balance problem - Referral to Physical Therapy; Future - Referral to Physical Therapy 5. Osteoarthritis involving multiple joints on both sides of the body -Will submit DME order for power wheelchair given patient's significant decline in mobility and gait instability This patient has a mobility limitation that significantly impairs their ability to participate in one or more mobility-related activities of daily living (toileting, feeding, dressing, grooming &bathing in customary locations in the home). This mobility limitation cannot be sufficiently resolved by the use of an appropriately fitted cane or walker.Patient has decreased upper extremity strength and/or consultant nurse strength and/or contracture of hands and pain significant pain, hence is not able to meet his/her needs with a manual wheelchair. Diagnosis: osteoarthritis involving multiple joints on both sides of the body Patient is willing and motivated to use a power mobility device at home. Power mobility device is necessary in the home to get to (MRADLs). Patients cannot use a POV due to lack of postural stability. Patient cannot operate the POV tiller. Patient will be referred to PT/OT clinic for [id number] examination, and after evaluation by PT/OT will order a power mobility device. [ ] Needs PT referral documented in this encounter Plan of Treatment Upcoming Encounters Date Type Department Care Team (Late st Contact Info) Description 11/05/2024 11:00 AM EDT Office Visit [facility] [address] [place] [address] Scheduled Orders Name Type Priority Associated Diagnoses Orde r Schedule CBC auto differential Lab Routine Other fatigue Expected: 09/30/2024 (Approximate), Expires: 09/30/2025 MR Brain w/o Contrast Imaging Routine Dizziness Expected: 10/02/2024, Expires: 10/02/2025 Scheduled Referrals Name Type Priority Associated Diagnoses Orde r Schedule Referral to Physical Therapy Outpatient Referral Routine Primary osteoarthritis of both knees Expected: 10/02/2024 (Approximate), Expires: 10/02/2025 Referral to Physical Therapy Outpatient Referral Routine Dizziness Balance problem Expected: 10/02/2024 (Approximate), Expires: 10/02/2025 documented as of this encounter Procedures Procedure Name Priority Date/Time Associated Diagnosis Comments POCT GLUCOSE Routine 09/30/2024 2:44 PM EST Dizziness documented in this encounter Results * POCT Glucose (09/30/2024 2:44 PM EST) Glucose Blood, POC 101 60 - 200 mg/dL QC Media Lot # [id number] Lot# Expiration Date Blood Capillary blood specimen / Unknown 09/30/2024 2:44 PM EST [facility] ADE POINT OF CARE TEST ENTER/EDIT ORDERABLES Final Result documented in this encounter Visit Diagnoses Diagnosis Cataract of right eye, unspecified cataract type- Primary Preoperative examination Unspecified pre-operative examination Dizziness Dizziness and giddiness Balance problem Abnormality of gait Primary osteoarthritis of both knees Other fatigue documented in this encounter Additional Health Concerns Assessment Noted Time PHQ-9 Depression Total Score: 0 06/17/20 24 2:07 PM EDT documented as of this encounter Care Teams Mainframe Consultant Relationship Specialty Start Date End Date Eugenia Sandoval FNP [address] [place] [address] PCP - General Family Medicine 04/27/22 documented as of this encounter
--- OUTSIDE RECORDS SUMMARY | 2024-10-23 13:30 | XMS_ITS | Encounter Summary ---
Author Organization [employer] [facility] Address [address] [facility] 7t [place] [address] Care Team Providers Care Front Desk Officer Name Role Phone Eugenia Sandoval [facility] Primary Care Provider [phone] Reason for Visit * Reason Comments Med Refill Encounter Details Date Type Department [facility] Description 01/09/2023 Refill [facility] MEDICINE [address] [place] [address] Eugenia Sandoval [facility] [address] [place] [address] Social History Tobacco Use Types Packs/Day Years Used Date Smoking Tobacco: Never Smokeless Tobacco: Never Comments Unknown Sex and Gender Information Value [...] Description 11/05/2024 11:00 AM EDT Office Visit [facility] MEDICINE [address] [place] [address] documented as of this encounter Visit Diagnoses Not on filedocumented in this encounter Care Teams Front Desk Officer Relationship Specialty Start Date End Date Eugenia Sandoval FNP [address] [place] [address] PCP - General Family Medicine 04/27/22 documented as of this encounter
--- OUTSIDE RECORDS SUMMARY | 2024-10-23 13:30 | XMS_ITS | Encounter Summary ---
Author Organization [employer] Address [address] [place] [address] Care Team Providers Care Squirt Machine Operator Name Role Phone Clinton [facility] Primary Care Provider [phone] Encounter Details Date Type Department Care Team (Latest Contact Info) Description 09/24/2024 9:45 AM EST Office Visit [facility] MEDICINE [address] [place] [address] Cara Rossi FNP [address] [place], [place] [phone] Chronic bilateral low back pain without sciatica (Primary Dx); Primary osteoarthritis involving multiple joints; Long-term current use of opiate analgesic Social History Tobacco Use Types Packs/Day Years [...] the past 12 months, has t he [employer], gas, oil or water [employer] threatened to shut off services in your [...] AM EDT documented as of this encounter Progress Notes * Cara Rossi, LOCK EXPERT - 09/24/2024 11:00 AM EST Subjective: Mary Kate Silva is a 74 y.o. female w/ PMH hypertension, mod persistent asthma, GERD, CKD,hypothyroid, HLD, OA, anxiety/depression, and chronic low back pain, who presents to the office for- Chronic Pain Clinic Group visits. Initial Group visit: 11/21/23 Group visit number: 5 Last PCP visit: 06/17/24, Clinton. Next on 09/30/24 Confidentiality last signed: 11/21/23 Group Topic: Functional Pain Goals -She continues to experience pain in bilateral knees. Reports upcoming surgery for right knee as well as cataracts. Preop appointment scheduled for 09/30/2024 with PCP. Her goal this year is to be ableto walk with reduced pain, and perhaps without use of ambulatory aid for short distances. She is currently using rolling walker and has wheelchair available at home. Also reports having used electricscooter in the past with good outcomes. Chronic Pain History: Associated Diagnosis: primary osteoarthritis involving multiple joints Primary location of pain: bilateral knees Left TKA performed by SHAUNA 12/22/23, planning to have R knee replacement in 2024 Current pharm tx: Medication: Percocet 5-325mg Q8H PRN. States taking medication as prescribed. Hx of steroid injections Non-pharm tx: movement Related Specialists: SHAUNA Social history: - Lives with ( since 1970s), and son Review of Systems Constitutional: Negative for chills and fever. HENT: Negative for congestion. Respiratory: Negative for cough and wheezing. Cardiovascular: Negative for chest pain and palpitations. Musculoskeletal: Positive for arthralgias. Physical Exam Constitutional: Appearance: Normal appearance. HENT: Head: Atraumatic. Right Ear: External ear normal. Left Ear: External ear normal. Pulmonary: Effort: Pulmonary effort is normal. Neurological: Mental Status: She is alert and oriented to person, place, and time. Psychiatric: Mood and Affect: Mood normal. Behavior: Behavior normal. Problem List Items Addressed This Visit Musculoskeletal Primary osteoarthritis involving multiple joints Overview Chronic pain in bilateral knees, back, shoulders Followed by [facility] - left TKA 12/22/23; plan for R knee in 2024 Current Assessment & Plan -Good engagement and participation with Group Medical Visit model -Utox and pill count as expected -Encouraged multifactorial approach to pain control including pharm and non- pharm modalities Other Chronic bilateral low back pain without sciatica - Primary Overview On percocet for chronic pain Compliant with [employer]ELOPER contract Relevant Orders POCT ROBERTA-14 Urine Drug Screen (Completed) Long-term current use of opiate analgesic Overview Dx: OA of knees, chronic bilateral low back pain w/o sciatica Rx: Percocet 5/325 q8 hours prn Last BUSINESS SYSTEMS [employer]ELOPER agreement: 04/09/24 Tier II (visit every 3 months) Follow up: 1-3 months for Group [facility]. Follow up as scheduled with PCP, sooner as needed. * Lesley Mcmahan RN - 09/24/2024 9:45 AM EST BUSINESS SYSTEMS DEVELOPER hall supervisor: PDMP reviewed today. Last fill date: 09/18/24 Percocet 5mg count was 65, anticipated 65 to be remaining. UTOX completed. Positive for OXY, Negative for AMP, BAR, BUP, BZO, TERRI, FTY, MDMA, MET, MOP, MTD, PCP, TCA, THC. UTOX as expected. BPI updated today. Pain severity score of 7.5, activity interference score of 9. Previous BPI completed 04/09/24 with pain severity score of 5.8, activity interference score of 6.4. Will update PCP with BPI scoring. documented in this encounter Miscellaneous Notes * Assessment & Plan Note - ADE Cevallos - 09/24/2024 1:42 PM ESTAssociated Problem(s): Osteoarthritis involving multiple joints on both sides of body -Good engagement and participation with Group Medical Visit model -Utox and pill count as expected -Encouraged multifactorial approach to pain control including pharm and non- pharm modalities documented in this encounter Plan of Treatment Upcoming Encounters Date Type Department Care Team (Late st Contact Info) Description 11/05/2024 11:00 AM EDT Office Visit [facility] MEDICINE [address] [place] [phone] documented as of this encounter Procedures Procedure Name Priority Date/Time Associated Diagnosis Comments POCT ROBERTA-14 URINE DRUG SCREEN Routine 09/24/2024 1:27 PM EST Chronic bilateral low back pain without sciatica documented in this encounter Results * POCT ROBERTA-14 Urine Drug Screen (09/24/2024 1:27 PM EST) Oxycodone Screen, Urine Positive Urine Urine specimen obtained by clean catch procedure / Unknown 09/24/2024 1:27 PM EST Lesley Witt RN - 09/24/2024 1:27 PM EST UTOX cup Lot#[id number] Exp. 05/22/26 Internal Pass Control us Cara BOOKER POINT OF CARE TEST ENTER/EDIT ORDERABLES Final Result documented in this encounter Visit Diagnoses Diagnosis Chronic bilateral low back pain without sciatica- Primary Primary osteoarthritis involving multiple joints Long-term current use of opiate analgesic Encounter for long-term (current) use of other medications documented in this encounter Additional Health Concerns Assessment Noted Time PHQ-9 Depression Total Score: 0 06/17/20 24 2:07 PM EDT documented as of this encounter Care Teams Squirt Machine Operator Relationship Specialty Start Date End Date Eugenia Sandoval FNP [address] [place] [phone] PCP - General Family Medicine 04/27/22 documented as of this encounter
--- OUTSIDE RECORDS SUMMARY | 2024-10-23 13:30 | XMS_ITS | Encounter Summary ---
Author Organization [employer] [facility] Address [address] [place] [address] Care Team Providers Care Waiter/Waitress Informal Name Role Phone Eugenia Sandoval [facility] Primary Care Provider [phone] Reason for Visit * Reason Comments Med Refill Encounter Details Date Type Department Care Team ([facility] Contact Info) Description 02/16/2023 Refill [facility] MEDICINE [address] [place], [place] [phone] Eugenia Sandoval FNP [address] [place], [place] [phone] Other chronic pain Social History Tobacco Use Types Packs/Day Years Used Date Smoking Tobacco: Never Smokeless Tobacco: Never Comments Unknown Sex and Gender Information Value Date Recorded Sex Assigned at Female 06/27/2022 10:14 AM EDT Legal Sex Female 10:14 AM EDT Gender Identity Female 06/27/2022 10:14 AM EDT Sexual Orientation Choose not to disclose 2021 10:14 AM EDT COVID-19 Exposure Response Date Recorded In the last 10 days, have yo u been in contact with someone who was confirmed or suspected to have Coronavirus/COVID-19? No / Unsure 02/07/2023 10:51 AM EDT documented as of this encounter Plan of Treatment Upcoming Encounters Date Type Department Care Team (Late Contact Info) Description 11/05/2024 11:00 AM EDT Office Visit [facility] MEDICINE [address] [place] [phone] documented as of this encounter Visit Diagnoses Diagnosis Other chronic pain documented in this encounter Care Teams Waiter/Waitress Informal Relationship Specialty Start Date End Date Eugenia Sandoval FNP [address] [place] [address] PCP - General Family Medicine 04/27/22 documented as of this encounter
--- OUTSIDE RECORDS SUMMARY | 2024-10-23 13:30 | XMS_ITS | Encounter Summary ---
Author Organization [employer] [facility] Address [address] [facility] [address] [place] [address] Care Team Providers Care Associate Name Role Phone Eugenia Sandoval [facility] Primary Care Provider [phone] Reason for Visit * Reason Comments Med Refill Encounter Details Date Type Department Care Team ([facility] Contact Info) Description 08/23/2022 Refill [facility] MEDICINE [address] [place] [address] Eugenia Sandoval [facility] [address] [place] [address] Other chronic pain Social History Tobacco Use Types Packs/Day Years Used Date Smoking Tobacco: Never Assessed Comments Unknown Sex and Gender Information Value [...] Description 11/05/2024 11:00 AM EDT Office Visit [facility] MEDICINE [address] [place] [address] documented as of this encounter Visit Diagnoses Diagnosis Other chronic pain documented in this encounter Care Teams Associate Relationship Specialty Start Date End Date Eugenia Sandoval FNP [address] [place] [phone] PCP - General Family Medicine 04/27/22 documented as of this encounter
--- OUTSIDE RECORDS SUMMARY | 2024-10-23 13:30 | XMS_ITS | Encounter Summary ---
Author Organization [employer] [facility] Address [address] [facility] [address] [facility] [address] [place] [address] Care Team Providers Care Substation Operator Chief Name Role Phone Eugenia Sandoval [employer] Primary Care Provider [phone] Reason for Visit * Reason Comments Med Refill Encounter Details Date Type Department Care Team ([facility] Contact Info) Description 02/18/2023 Refill [facility] MEDICINE [address] [place], [place] [phone] Eugenia Sandoval FNP [address] [place], [place] [phone] Social History Tobacco Use Types Packs/Day Years [...] Description 11/05/2024 11:00 AM EDT Office Visit [facility] MEDICINE [address] [place], [place] [phone] documented as of this encounter Visit Diagnoses Not on filedocumented in this encounter Care Teams Substation Operator Chief Relationship Specialty Start Date End Date Eugenia Sandoval FNP [address] [place] [address] PCP - General Family Medicine 04/27/22 documented as of this encounter
--- OUTSIDE RECORDS SUMMARY | 2024-10-23 13:30 | XMS_ITS | Clinical Summary ---
Author Organization [employer] Address [address] [facility] [address] [place] [address] Care Team Providers Care Train System Operator Name Role Phone [facility] Primary Care Provider [phone] Allergies Active Allergy Reactions Criticality Noted Date Comments Latex 02/27/2024 Levofloxacin 09/17/2010 Other reaction(s): unspecified Morphine 02/27/2024 lowers bllood pressure Nitrofurantoin 10/08/2014 Other reaction(s): GI Problems, GI Problems Penicillins 09/17/2010 Other reaction(s): Rash, unspecified Medications azelastine (Astelin) 0.1 % nasal spray spray 2 spray by intranasal route 2 times every day in each nostril Active EPINEPHrine (Epipen) 0.3 MG/0.3ML injection syringe Inject 0.3 mL into the shoulder, thigh, or buttocks. Active Fluticasone-Umecl idin-Vilant (Trelegy Ellipta) 200-62.5-25 MCG/ACT aerosol powder Inhale 1 puff at bed time. Active meclizine (Antivert) 12.5 MG tablet Take 1 tablet by mouth every 8 (eight) hours. Active metoclopramide (Reglan) 5 MG tablet take 1 tablet by oral route 2 times every day Active montelukast (Singulair) 10 MG tablet Take 1 tablet by mouth in the morning. Active Multiple Vitamins-Minerals (Centrum Adults) tablet Take 1 tablet by mouth in the morning. Active ondansetron ODT (Zofran-ODT) 4 MG disintegrating tablet take 1 tablet by oral route three times daily as needed Active pancrelipase, Aoo-Gaqf-Lygb, (Creon) 9529-2141 units capsule Take 1 capsule by mouth every 6 (six) hours. Active potassium bicarbonate (K-Lyte) 25 MEQ effervescent tablet Take 1 tablet by mouth every 12 (twelve) hours. 019 Active simethicone (Mylicon,Gas-X) 125 MG capsule take 1 capsule by oral route four times daily and at bedtime as needed Active sucralfate (Carafate) 1 g tablet Take 2 tablets by mouth at bed time. Active zoster vaccine-recombina nt adjuvanted (Shingrix) 50 MCG/0.5ML vaccine Inject 0.5 mL into the shoulder, thigh, or buttocks. 021 Active naloxone (Narcan) 4 mg/0.1 mL nasal spray Administer 1 spray (4 mg) into affected nostril(s) if needed for opioid reversal. 2 each 023 Active lidocaine (Lidoderm) 5 % patchIndications: Chronic bilateral low back pain without sciatica Apply topically to affected areas. Leave on for up to 12 hours 30 patch 1 023 Active Methylcobalamin (B-12) 5000 MCG tablet dispersible TAKE 1 TABLET BY MOUTH ONCE DAILY 90 tablet 1 023 Active zolpidem (Ambien) 5 MG tabletIndications :Insomnia, unspecified type TAKE 1 TABLET BY MOUTH AT BEDTIME NEEDED FOR SLEEP 30 tablet 024 Active minoxidil (Loniten) 2.5 MG tabletIndications :Androgenic alopecia Take 1 tablet (2.5 mg) by mouth Once per day. 30 tablet 11 024 2024 Active Calcium Antacid Extra Strength 750 MG chewable tablet TAKE 1 TABLET BY MOUTH TWICE DAILY IN THE MORNING AND IN THE EVENING (CHEW) 60 tablet 11 Active levothyroxine (Synthroid, Levoxyl) 112 MCG tabletIndications :Acquired hypothyroidism TAKE 1 TABLET BY MOUTH EVERY MORNING BEFORE BREAKFAST 90 tablet 3 024 Active sertraline (Zoloft) 100 MG tablet TAKE 2 TABLETS BY MOUTH ONCE DAILY IN THE MORNING 60 tablet 5 024 Active Ventolin HFA 108 (90 Base) MCG/ACT inhaler INHALE 2 PUFFS BY MOUTH EVERY 4 HOURS NEEDED 18 g 3 024 Active albuterol (2.5 MG/3ML) 0.083% nebulizer solution Take 3 mL (2.5 mg) by nebulization every 6 (six) hours if needed for wheezing. 75 mL 11 024 2024 Active ramelteon (Rozerem) 8 MG tabletIndications :Insomnia, unspecified type Take 1 tablet (8 mg) by mouth at bedtime. 30 tablet 11 024 2024 Active meloxicam (Mobic) 15 MG tablet TAKE 1 TABLET BY MOUTH EVERY DAY WITH MEALS Active losartan (Cozaar) 100 MG tabletIndications :Elevated blood pressure reading TAKE 1 TABLET BY MOUTH EVERY MORNING 90 tablet 3 024 Active fluticasone (Flonase) 50 MCG/ACT nasal sprayIndications: Allergy, sequela USE 1 SPRAY IN EACH NOSTRIL EVERY TWELVE HOURS 16 g 11 024 Active amLODIPine (Norvasc) 5 MG tabletIndications :Essential hypertension TAKE 1 TABLET BY MOUTH EVERY MORNING 90 tablet 3 025 Active tolterodine LA (Detrol LA) 4 MG 24 hr capsule TAKE 1 CAPSULE BY MOUTH EVERY MORNING 90 capsule 025 Active OneTouch Verio test stripIndications: Hypoglycemia TEST BLOOD SUGAR TWICE DAILY AND NEEDED 100 strip 3 025 Active Lancets (OneTouch Delica Plus [id number]) miscIndications:H ypoglycemia TEST BLOOD SUGAR TWICE DAILY AND NEEDED 100 each 3 025 Active fexofenadine (Julita) 180 MG tabletIndications :Moderate persistent asthma with acute exacerbation TAKE 1 TABLET BY MOUTH EVERY DAY 30 tablet 2 025 Active oxyCODONE-acetami nophen (Percocet) 5-325 MG tabletIndications :Primary osteoarthritis of both knees TAKE 1 TABLET BY MOUTH EVERY 8 HOURS NEEDED FOR SEVERE PAIN 84 tablet 025 Active atorvastatin (Lipitor) 10 MG tablet Take 1 tablet by mouth at bed time. 022 2024 Discontinued cholestyramine light (Prevalite) 4 GM/DOSE powder Take 1 packet by mouth every 12 (twelve) hours. 022 2024 Discontinued dexlansoprazole (Dexilant) [address] capsule take 1 capsule by oral route every day 2024 Discontinued cholecalciferol (Vitamin D-3) 50 MCG (1999) tabletIndications :Osteoporosis, unspecified osteoporosis type, unspecified pathological fracture presence take 1 tablet my mouth daily 90 tablet 1 023 2024 Discontinued cholestyramine light (Prevalite) 4 g packet DISSOLVE 1 PACKET IN 2 TO 6 OUNCES OF WATER OR NONCARBONATED BEVERAGES BEFORE MEAL 60 packet 11 024 2024 Discontinued Minoxidil for Men 2 % external solutionIndicatio ns:Nonscarring hair loss APPLY 1 ML TOPICALLY TO AFFECTED AREA(S) EVERY TWELVE HOURS 120 mL 1 024 2024 Discontinued Lancets (Virtual BridgesTouch Delica Plus [id number]) miscIndications:H ypoglycemia TEST BLOOD SUGAR TWICE DAILY AND NEEDED 100 each 3 024 2024 Discontinued OneTouch Verio test stripIndications: Hypoglycemia TEST BLOOD SUGAR TWICE DAILY AND NEEDED 100 strip 3 024 2024 Discontinued ketoconazole (NIZOral) 2 % shampooIndication s:Androgenic alopecia APPLY TO SCALP AND LEAVE ON FOR 5 MINUTES THEN RINSE OFF TWICE A WEEK 120 mL 2 024 2024 Discontinued fexofenadine (Julita) 180 MG tabletIndications :Moderate persistent asthma with acute exacerbation Take 1 tablet (180 mg) by mouth Once per day. 30 tablet 2 024 2024 Discontinued acetaminophen (Tylenol 8 Hour) 650 MG ER tablet TAKE 2 TABLETS BY MOUTH EVERY 8 HOURS DIRECTED 024 2024 Discontinued amiodarone (Pacerone) 200 MG tablet 024 2024 Discontinued aspirin 325 MG EC tablet Take 325 mg by mouth 2 times daily. 024 2024 Discontinued Aspirin Low Dose 81 MG EC tablet 024 2024 Discontinued cefuroxime (Ceftin) 250 MG tablet Take 250 mg by mouth 2 times daily. 024 2024 Discontinued clopidogrel (Plavix) 75 MG tablet 024 2024 Discontinued metoprolol tartrate (Lopressor) 25 MG tablet 024 2024 Discontinued phenazopyridine (Pyridium) 100 MG tablet TAKE 1 TABLET BY MOUTH 3 TIMES A DAY FOR 2 DAYS NEEDED FOR PAIN 024 2024 Discontinued Cyanocobalamin (Vitamin B-12) 5000 MCG tablet dispersible DISSOLVE 1 TABLET UNDER THE TONGUE EVERY DAY 90 tablet 1 024 2024 Discontinued oxyCODONE-acetami nophen (Percocet) 5-325 MG tabletIndications :Primary osteoarthritis of both knees Take 1 tablet by mouth every 8 (eight) hours if needed for severe pain for up to 28 days. 84 tablet 025 2024 Discontinued Active Problems Problem Noted Date Diagnosed Date Urinary incontinence 07/09/2024 Long-term current use of opiate analgesic 2023 Overview (09/24/2024): Dx: OA of knees, chronic bilateral low back pain w/o sciatica Rx: Percocet 5/325 q8 hours prn Last RES COUNSELOR agreement: 04/09/24 Tier II (visit every 3 months) Depression, recurrent 02/28/2024 Chronic bilateral low back pain without sciatica 04/09/2023 Overview (04/09/2023): ?? On percocet for chronic pain ?? Compliant with RES COUNSELOR contract Assessment & Plan (07/09/2024 12:48 PM EST): Pt attended and participated in group today to the fullest of her abilities - urine toxicology and pill count as expected - continue to consider and use non-pharmacological modalities of pain management Assessment & Plan (04/09/2023 1:49 PM EDT): ?? Patient with widespread chronic pian and notable gait instability. Patient agrees to PT referral for gait instability ?? Ambulates with cane Gait instability 04/09/2023 Osteoarthritis involving mul tiple joints on both sides of body 11/09/2022 Overview (09/24/2024): Chronic pain in bilateral knees, back, shoulders Followed by [facility] - left TKA 12/22/23; plan for R knee in 2024 Assessment & Plan (09/24/2024 1:43 PM EST): -Good engagement and participation with Group Medical Visit model -Utox and pill count as expected -Encouraged multifactorial approach to pain control including pharm and non- pharm modalities Assessment & Plan (04/09/2024 2:45 PM EDT): -Pill count as expected (UTOX deferred) -Good engagement and participation with Group Medical Visit model -Encouraged multifactorial approach to pain control including pharm and non- pharm modalities Assessment & Plan (12/19/2023 1:17 PM EDT): -Pill count as expected (UTOX deferred) -Good engagement and participation with Group Medical Visit model -Encouraged multifactorial approach to pain control including pharm and non- pharm modalities Assessment & Plan (11/21/2023 12:51 PM EDT): -UTOX and Pill count as expected -Good engagement and participation with Group Medical Visit model - today was first visit -Encouraged multifactorial approach to pain control including pharm and non- pharm modalities Assessment & Plan (10/12/2023 2:22 PM EST): Accepts referral to chronic pain clinic Cobalamin deficiency 07/01/2015 Essential hypertension 07/01/2015 Overview (04/09/2023): ?? Losartan 100mg daily ?? Amlodipine 5mg ?? Followed by [facility] cardiology for hx of CP. Completed stress test and echocardiogram 04/2022. Negative ?? Previous cardiac studies (echocardiogram in 2018 unremarkable, unremarkable Holter in 2017, EKG from 2019 NSR) ?? Home sleep study ordered-10/2022 - Aerobic exercise to reduce BP. Initial goal of 30 min walk 3-5x/week. Increase as tolerated. - low-sodium diet (goal: <2g/day) and heart healthy diet such as DASH to reduce BP and prevent ASCVD. - Home BP monitoring 1-2 x day with goal of <140/90. - Seek immediate medical attention for chest pain, palpitations, SOB, syncope, or sudden changes in mental status. - Do not change or discontinue current prescriptions without first consulting health care provider Assessment & Plan (10/12/2023 2:17 PM EST): Well controlled Continue current regimen Update routine labs Assessment & Plan (06/19/2023 10:00 AM EDT): ?? BP elevated in office. Reports home readings well controlled. Did not take medication yet today ?? Pt will take medication at home and continue to monitor Assessment & Plan (04/09/2023 1:39 PM EDT): ?? Well controlled ?? Continue current regimen Assessment & Plan (11/09/2022 5:19 AM EDT): ?? BP elevated in office ?? INCREASE amlodipine to 5mg daily ?? Pt also reports loud snoring and daytime sleepiness. Will order home sleep study Irritable bowel syndrome with diarrhea 5 Moderate persistent asthma 07/01/2015 Overview (11/09/2022): - Currently managed with singuliar, Trelegy Ellipta, albuterol - Followed by [facility] pulmonology, last seen 03/2022 Osteoporosis 07/01/2015 Overview (06/21/2024): Followed by [facility] endo 11/2023- Saw endocrinology for osteoporosis follow up and repeat DEXA. Worsening osteoporosis -3.4 at [facility]. Per visit note plan to start reclast therapy in 3 months once vitamin D repleted. 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 Follow up as scheduled with endocrinology ?? Continue vitamin D and calcium supplementation ?? 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 Will updated TSH today CKD (chronic kidney disease) stage 3, GFR 30-59 ml/min 07/01/2015 Overview (11/09/2022): - Stage IIIa - Previously seen by [facility], last note from 2018. - eGFR 03/2022 52; Creatinine 1.04 Assessment & Plan (10/12/2023 2:21 PM EST): Stable Continue to avoid NSAID's Maintain hydration Gastro-esophageal reflux disease with esophagiti s 07/01/2015 Overview (11/09/2022): - Extensive hx of dyspepsia, dysphagia, chronic diarrhea, and abdominal bloating - Followed by [facility] GI. Last seen 04/2022 with plan for upcoming barium swallow for further evaluation - Negative celiac, negative h.pylori - Taking pantoprazole, and loperamide for sx mngmt Hyperlipidemia 07/01/2015 Overview (04/09/2023): ?? Atorvastatin 10mg ?? ASCVD-14.6% Assessment & Plan (04/09/2023 1:42 PM EDT): ?? Continue atorvastatin 10mg ?? 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 Q. 6 months. Birads -3. [facility] Tracking Pap: 2016 NIL HPV negative; 12/2022 NIL HPV neg. Pap's discontinued C-scope:2015; negative repeat due 2025.Saw GI for follow up re chronic diarrhea/abdominal pain. Per visit note patient declines repeat colonoscopy at this time. Negative 2016 colonoscopy. Normal EGD 2015; 2017 BMD: Osteoporosis-followed by [facility]. Plan for reclast therapy 05/2023 Eye Exam: 09/2022 [facility], cataracts Assessment & Plan (11/09/2022 5:18 AM EDT): ?? Mammogram ordered today ?? Will schedule for PAP. If negative will plan to discontinue screenings. No hx of abnormal pap Encounters Date Type Department Care Team Description 10/23/2024 Orders Only [facility] [address] [place] [address] K[place] FNP 10/22/2024 Telephone [facility] [address] [place] [address] [place] FNP 10/16/2024 Refill [facility] [address] [place] [address] Malia Bee, DO Primary osteoarthritis of both knees 10/10/2024 Refill [facility] [address] [place] [address] Eugenia Sandoval FNP Moderate persistent asthma with acute exacerbation 10/03/2024 Telephone [facility] [address] [place] [address] Eugenia Sandoval FNP Pre-op Notes 09/30/2024 1:15 PM EST Office Visit [facility] [address] [facility] [place] [address] Eugenia Sandoval FNP Cataract of right eye, unspecified cataract type (Primary Dx); Preoperative examination; Dizziness; Balance problem; Primary osteoarthritis of both knees; Other fatigue 09/30/2024 Travel 09/27/2024 Telephone [facility] [address] [place] [address] Eugenia Sandoval FNP chart prep 09/24/2024 9:45 AM EST Office Visit [facility] [address] [place] [address] Cara Rossi, DOOR FRAME ASSEMBLER MACHINE Chronic bilateral low back pain without sciatica (Primary Dx); Primary osteoarthritis involving multiple joints; Long-term current use of opiate analgesic 09/24/[address] [phone] Lesley Mcmahan RN BPI Scoring 09/24/2024 Travel 09/24/2024 Refill [facility] [address] [place] [id number] Eugenia Sandoval FNP Hypoglycemia 09/17/2024 Refill [facility] [address] [place] [address] Eugenia Sandoval FNP Primary osteoarthritis of both knees 09/17/2024 Refill [facility] [address] [place] [phone] Eugenia Sandoval FNP 09/10/[address] [address] Eugenia Sandoval FNP Appointment Request 09/04/2024 Telephone [facility] [address] [place] [phone] Eugenia Sandoval FNP Pre-op Visit 09/04/2024 Refill [facility] [address] [place] [phone] Eugenia Sandoval FNP Essential hypertension 08/26/2024 11:20 AM EST Office Visit [facility] [address] [place] [address] Jeremy, MD Maycol Cough, unspecified type (Primary Dx); Nasal congestion 08/15/2024 Refill [facility] [address] [place] [address] [place] FNP Primary osteoarthritis of both knees 08/09/2024 Refill [facility] [address] [facility] [place] [address] Eugenia Sandoval FNP Primary osteoarthritis of both knees 08/02/2024 Refill [facility] [address] [place], [place] [id number] [place] FNP Allergy, sequela from Last 3 Months Immunizations Name Administration Dates Next Due Hep A, Adult 04/12/2019 Hep B, adult 04/12/2019,03/15/2019 Influenza High-dose Quadriva lent Preservative Free 06/14/2023,05/25/2022,06/03/2021,06/05 Influenza injectable quadriv alent IIV4 with preservative 07/01/2015 Influenza injectable quadriv alent preservative free 06/15/2017,08/18/2016 Influenza, High Dose Seasona l, Preservative Free 06/17/2024,07/01/2019,07/09/2018 Influenza, IIV3, injectable 06/30/2014, 3,06/13/2011 Influenza, Split (incl. messi fied surface antigen) 05/29/2012 Pfizer Covid-19 Vaccine 12+ 06/17/2024, 3 Pneumococcal Conjugate PCV 13 12/18/2017 Pneumococcal Conjugate PCV 20 07/05/2022 Pneumococcal Polysaccharide PPSV23 08/17/2009, RSV Bivalent 03/14/2024 TD (adult), 2 Lf tetanus tox oid, preservative free, adsorbed 06/03/2021,07/01/1993 Tdap 08/17/2009 Zoster, Recombinant 04/05/2022,06/04/2021 Zoster, live 12/18/2014 Family History Medical History Relation Name Comments Coronary artery disease Brother Relation Name Status Comments Brother Social History Tobacco Use Types Packs/Day Years [...] your housing situation today? I have nallely saroj 06/13/[address] you li [...] not to disclose 2021 10:14 AM EDT Last Filed Vital Signs Vital Sign Reading [...] Mass Index 32.33 09/30/2024 1:01 PM EST Plan of Treatment Upcoming Encounters Date Type Department Care Team (Late st Contact Info) Description 11/05/2024 11:00 AM EDT Office Visit [facility] [address] [place] [phone] Health Maintenance Due Date Last Done Comments CT Colonography 1950 FIT DNA/Cologuard 1950 FIT 1950 FOBT 1950 Sigmoidoscopy 1950 Hepatitis B Vaccines (3 of 3 - 19+ 3-dose series) 09/15/2019 04/12/2019, 03/15/2019 Diagnostic Breast Imaging 08/22/20242024, 02/21/2024, 02/07/2024, Additional history exists Alcohol/Substance Use Screening 02/27/2025 02/28/2024 Depression Screening 06/17/2025 06/17/2024, 06/17/20 24 SDOH Screening 09/30/2025 09/30/2024 Tobacco Screening 10/02/2025 10/02/2024 Colonoscopy 10/28/2025 10/29/2015 Colorectal Cancer Screening 10/28/2025 Lipid Panel 10/17/2028 10/17/2023, 04/2023, 06/21/2022, Additional history exists DTaP/Tdap/Td Vaccines (3 - Td or Tdap) 06/03/2031 06/03/2021, 08/17/2009, 07/01/1993 Hepatitis A Vaccines Aged Out 04/12/2019 No long er eligible based on patient's age to complete this topic Zoster Vaccines Completed 04/05/2022, 03/2021, 12/18/2014 Hepatitis C Screening Completed 06/21/2022 Pneumococcal Vaccine: 50+ Years Completed 07/05/2022, 12/18/2017, 08/17/2009, Additional history exists Cervical Cancer Screening Discontinued HPV/Cotest Discontinued 01/13/2023, 01/13/2023 Pap Smear Discontinued 01/13/2023, 01/13/2023 RSV Patients and Patients Aged 60 years or older Completed 03/14/2024 COVID-19 Vaccine Completed 06/17/2024, , 07/25/2022, Additional history exists Influenza Vaccine Completed 06/17/2024, , 05/25/2022, Additional history exists HIB Vaccines Aged Out No longer eligi ble based on patient's age to complete this topic HPV Vaccines Aged Out No longer eligi ble based on patient's age to complete this topic IPV Vaccines Aged Out No longer eligi ble based on patient's age to complete this topic Meningococcal Vaccine Aged Out No wendy mariam eligible based on patient's age to complete this topic RSV under 20 months Aged Out No longe r eligible based on patient's age to complete this topic Rotavirus Vaccines Aged Out No longer eligible based on patient's age to complete this topic Procedures Procedure Name Priority Date/Time Associated Diagnosis Comments BI US BREAST LIMITED LEFT Routine 10/23/2024 11:00 AM EST POCT GLUCOSE Routine 09/30/2024 2:44 PM EST Dizziness POCT ROBERTA-14 URINE DRUG SCREEN Routine 09/24/2024 1:27 PM EST Chronic bilateral low back pain without sciatica POCT INFLUENZA A (ID NOW RAPID MOLECULAR) Routine 08/26/2024 11:24 AM EST Cough, unspecified type POCT INFLUENZA B (ID NOW RAPID MOLECULAR) Routine 08/26/2024 11:24 AM EST Cough, unspecified type POCT RAPID COVID ANTIGEN Routine 08/26/2024 11:24 AM EST Cough, unspecified type LIPID PANEL, STANDARD Routine 10/17/2023 11:25 AM EST Essential hypertension THINPREP IMAGING PAP AND HPV MRNA E6/E7 WITH REFLEX TO HPV 16,18/45 Routine 01/13/2023 2:29 PM EDT Encounter for Papanicolaou smear for cervical cancer screening HM PAP/HPV Routine 01/13/2023 IselaZZ HISTORICAL HEPATITIS C AB W/REFL TO HCV RNA, QN, PCR Routine 06/21/2022 10:33 AM EDT HM COLONOSCOPY Routine 10/29/2015 9:11 AM EST from Last 3 Months or Most Recently Relevant to Health Maintenance Results * BI US Breast Limited Left (10/23/2024 11:00 AM EST) Anatomical Region Laterality Modality Breast Left Ultrasound 10/23/2024 11:0 0 AM EST Narrative 10/23/2024 12:11 PM EST ? [facility] [place] ? [address] ?[place] [address] ? Ultrasound Report ? Signed ? Patient: Colon Ricardo,Mary Kate S ?MR#: [id number] ?? [id number] ? : 1950 ?Acct:[id number] ? Age/Sex: 74 / F ?ADM Date: 10/23/24 ? Loc: HO.MAMMO ? Attending Dr: Eugenia Sandoval DOOR FRAME ASSEMBLER MACHINE ? Ordering Physician: Eugenia Sandoval ?? Date of Service: 10/23/24 ?? Procedure(s): US breast LT limited mamm only ?? Accession Number(s): [id number] ? cc: Eugenia Sandoval DOOR FRAME ASSEMBLER MACHINE ? EXAMINATION: ?? US DIAGNOSTIC ULTRASOUND BREAST, LEFT ? CLINICAL INFORMATION: ? 6 month follow-up for left breast mass at 8:00.. ? COMPARISON: ?? Comparison is made with relevant prior imaging. ? TECHNIQUE: ?? Ultrasound of the breast is performed with real-time driver scale imaging ?? and color Doppler. ? FINDINGS: ?? Targeted color Doppler ultrasound scanning at 8:00 in the area the ?? previously seen mass demonstrates normal fibroglandular breast tissue. ? Results are discussed with the patient at time of visit. ? US/US breast LT limited mamm only ?? IMPRESSION: ?? Normal fibronodular breast tissue. ? ASSESSMENT: ? BI-RADS 1: Negative ? RECOMMENDATION: ?? Routine annual mammography screening. ? This patient's information was entered into a reminder system with a ?? target due date for their next mammogram. ? Electronically signed by: ??Zaira Loco DO ??10/23/2024 12:09 PM EST ?? RP ? Dictated By: ?Zaira Loco DO ? Signed By: ?<Electronically signed by Zaira Loco, DO in OV> ? 10/23/24 1209 ? DD/ 1100 ? TD/TT: 10/23/24 1129 ? Rn Complex Care: ? Procedure Note Donbeltraninterpreter, Image - 10/23/2024 [facility] [address] [place] [address] Ultrasound Report Signed Patient: Mary Kate Maya [facility]#: [id number] : 2Acct:[id number] Age/Sex: 74 / FADM Date: 10/23/24 Loc: HO.MAMMO Attending Dr: Eugenia Sandoval DOOR FRAME ASSEMBLER MACHINE Ordering Physician: Eugenia Sandoval Date of Service: 10/23/24 Procedure(s): US breast LT limited mamm only Accession Number(s): [id number] cc: Eugenia Sandoval EXAMINATION: US DIAGNOSTIC ULTRASOUND BREAST, LEFT CLINICAL INFORMATION: 6 month follow-up for left breast mass at 8:00.. COMPARISON: Comparison is made with relevant prior imaging. TECHNIQUE: Ultrasound of the breast is performed with real-time driver scale imaging and color Doppler. FINDINGS: Targeted color Doppler ultrasound scanning at 8:00 in the area the previously seen mass demonstrates normal fibroglandular breast tissue. Results are discussed with the patient at time of visit. US/US breast LT limited mamm only IMPRESSION: Normal fibronodular breast tissue. ASSESSMENT: BI-RADS 1: Negative RECOMMENDATION: Routine annual mammography screening. This patient's information was entered into a reminder system with a target due date for their next mammogram. Electronically signed by: Zaira Loco DO 10/23/2024 12:09 PM [facility] Dictated By: Zaira Loco DO Signed By: <Electronically signed by Zaira Loco DO in OV> 10/23/24 1209 DD/ 1100 TD/TT: 10/23/24 1129 Rn Complex Care: [facility] DOOR FRAME ASSEMBLER MACHINE IMG US PROCEDURES Final Resul t * POCT Glucose (09/30/2024 2:44 PM EST) Pathologist [facility] Glucose Blood, POC 101 60 - 200 mg/dL QC Media Lot # [id number] Lot# Expiration Date Blood Capillary blood specimen / Unknown 09/30/2024 2:44 PM EST [facility] DOOR FRAME ASSEMBLER MACHINE POINT OF CARE TEST ENTER/EDIT ORDERABLES Final Result * POCT ROBERTA-14 Urine Drug Screen (09/24/2024 1:27 PM EST) Pathologist [facility] Oxycodone Screen, Urine Positive Urine Urine specimen obtained by clean catch procedure / Unknown 09/24/2024 1:27 PM EST Narrative Lesley Mcmahan RN - 09/24/2024 1:27 PM EST UTOX cup Lot#[id number] Exp. 05/22/26 Internal Pass Control Result [facility] Cara Rossi [facility] POINT OF CARE TEST ENTER/EDIT ORDERABLES Final Result * POCT Rapid Influenza B REYES ID NOW (08/26/2024 11:24 AM EST) [facility] Influenza B Negative Negative, Indeterminate [facility] Swab 08/26/2024 11:2 4 AM EST Maycol Luna MD POINT OF CARE TEST ENTER/EDIT OR DERABLES Final Result [facility] [address] [place] [phone] * POCT Rapid Influenza A REYES ID NOW (08/26/2024 11:24 AM EST) [facility] Influenza A Negative Negative, Indeterminate [facility] Swab 08/26/2024 11:2 4 AM EST us Severino Name POINT OF CARE TEST ENTER/EDIT OR DERABLES Final Result Performing Organization Address City/[facility]/ZIP Co de Phone Number [facility] [address] [place] [address] [phone] * POCT Rapid Covid-19 BinaxNOW (08/26/2024 11:24 AM EST) Rapid COVID Ag Negative [facility] Swab 08/26/2024 11:2 4 AM EST us Severino Name POINT OF CARE TEST ENTER/EDIT OR DERABLES Final Result Performing Organization Address [facility] Co de Phone Number [facility] [address] [place] [address] [phone] * (ABNORMAL) Lipid Panel, Standard (10/17/2023 11:25 AM EST) Triglycerides 69 <150 mg/dL [facility] Comment:Desirable Triglyceri de: less than 150 mg/dLBorderline High Triglyceride 150-199 mg/dLHigh Triglyceride: 200-499 mg/dLVery High Triglyceride: greater than or equal to 5OO mg/dL Cholesterol 182 <200 mg/dL [facility] Comment:Desirable Cholestero l: less than 200 mg/dLBorderline High Cholesterol: 200-239 mg/dLHigh Cholesterol: greater than 239 mg/dL LDL Cholesterol Calculated 122(H) <100 mg/dL [facility] Comment:Desirable LDL: less than 100 mg/dLNear Optimal/Above Optimal LDL: 110- 129 mg/dLBorderline High LDL: 130-159 mg/dLHigh LDL: 160-189 mg/dLVery High LDL: greater than or equal to 190 mg/dL HDL Cholesterol 47 >40 mg/dL [facility] Comment:Desirable HDL: great er than 40 mg/dL Note: This HDL assay may give artificially low results in patients with liver disease. Blood Venous blood specimen / Unknown 10/17/2023 11:25 AM EST 10/17/2023 1:09 PM EST [facility] BLOOD ORDERABLES Final Re sult [facility] [address] [place] [phone] [phone] * Thinprep TIS PAP And HPV mRNA E6/E7 With Reflex To HPV 16,18/45 (01/13/2023 2:29 PM EDT) Clinical Information: Postmenopausal [facility] LMP: NONE GIVEN Filecubedt Prev. PAP: NONE GIVEN Filecubedt Prev. BX: NO VNG SOURCE: Cervix VNG Statement Of Adequacy: VNG Comment: Satisfactory for evaluation. Endocervical/transformation zone component absent. Interpretation/ Result: Negative for intraepithelial lesion or malignancy. VNG COMMENT: This Pap test has been evaluated with computer assisted technology. VNG Cytotechnologis t: VNG Comment: BAL, CT(ASCP) CT screening location: [address] ??[phone] Review Cytotechnologis t: VNG Comment: JNA, CT(ASCP) CT screening location: [address] ??[phone] (Always Message) VNG Comment: EXPLANATORY NOTE: The Pap is a screening test for cervical cancer. It is not a diagnostic test and is subject to false negative and false positive results. It is most reliable when a satisfactory sample, regularly obtained, is submitted with relevant clinical findings and history, and when the Pap result is evaluated along with historic and current clinical information. HPV nRNA E6/E7 Not Detected Not Detected VNG Comment: Methodology: Hoof Trimmer-Mediated Amplification This assay detects E6/E7 viral messenger RNA (mRNA) from 14 high-risk HPV types (16,18,31,33,35,39,45,51,52,56,58,59,66,68). Cervical sources are required for HPV testing. If a vaginal source from a patient who has had a total hysterectomy with removal of cervix was submitted, please contact the testing laboratory for alternative testing options. For additional information, please refer to http://Wecash/faq/AQP296v3 (This link if provided for information/ educational purposes only.) Genital 01/13/2023 2:29 PM EDT 01/16/2023 7:42 AM EDT [facility] PATHOLOGY ORDERABLES Sandie salinas Result [facility] [address] [place] [address], [place] [address] [facility] [address] [place] [phone] * Hm Pap Smear (01/13/2023) Pap Negative for intraephithelial lesion or malignancy Negative for intraephithelial lesion or malignancy, Other HPV Undetected 01/13/2023 [facility] HEALTH MAINTENANCE Final Resu lt * HEPATITIS C AB W/REFL TO HCV RNA, QN, PCR (06/21/2022 10:33 AM EDT) HEPATITIS C ANTIBODY NON-REACTI VE NON-REACT DENYS CONVERTED LEGACY LABS INDEX 0.20 <1.00 CONVERT[facility]GACY LABS Comment: ?? HCV antibody was non-reactive. There is no laboratory ?? evidence of HCV infection. ?? In most cases, no further action is required. However, if recent HCV exposure is suspected, a test for HCV RNA (test code 69998) is suggested. ?? For additional information please refer to http://Wecash/faq/ZPA89g1 (This link is being provided for informational/ educational purposes only.) ?? 06/21/2022 10:3 3 AM EDT [facility] HISTORICAL/NON ORDERABLE LABS Final Result CONVERTED LEGACY LABS * Hm Colonoscopy (10/29/2015 9:11 AM EST) Historical Provider MD HEALTH MAINTENANCE Final Result from Last 3 Months or Most Recently Relevant to Health Maintenance [place] [address] [place] [address] - [employer] Care Teams Train System Operator Relationship Specialty Start Date End Date Eugenia Sandoval, [facility] [address] [place] [address] PCP - General Family Medicine 04/27/22
--- OUTSIDE RECORDS SUMMARY | 2024-10-23 13:30 | XMS_ITS | Encounter Summary ---
Author Organization [employer] Address [address] [place] [address] Care Team Providers Care Highballer Name Role Phone [facility] Primary Care Provider Encounter Details Date Type Department Care Team ([facility] st Contact Info) Description 10/22/2024 Telephone [facility] MEDICINE [address] [place], [place] [phone] [facility] [address] [place], [place] [phone] Social History Tobacco Use Types Packs/Day Years [...] encounter Miscellaneous Notes * Telephone Encounter - Tika Haskins - 10/22/2024 12:04 PM EST DME RX for Evaluation for Power Chair generated and placed on providers desk for signature. * Telephone Encounter - Tika Haskins - 10/22/2024 12:04 PM EST ----- Message from [facility] sent at 10/02/2024 2:16 PM EST ----- This is the patient that needs eval for a powerchair. Thank you! documented in this encounter Plan of Treatment Upcoming Encounters Date Type Department Care Team (Late st Contact Info) Description 11/05/2024 11:00 AM EDT Office Visit [facility] MED[facility] [address] [place] [address] documented as of this encounter Visit Diagnoses Not on filedocumented in this encounter Additional Health Concerns Assessment Noted Time PHQ-9 Depression Total Score: 0 06/17/20 24 2:07 PM EDT documented as of this encounter Care Teams Highballer Relationship Specialty Start Date End Date LoriEugeniaADE [address] [place] [address] PCP - General Family Medicine 04/27/22 documented as of this encounter
--- OUTSIDE RECORDS SUMMARY | 2024-10-23 13:30 | XMS_ITS | Encounter Summary ---
Author Organization [employer] Address [address] [facility] 7t [place] [address] Care Team Providers Care Aerial Photogrammetrist Name Role Phone Eugenia Sandoval Primary Care Provider [phone] Reason for Referral * Hospital - Outpatient (Routine) - Closed Specialty Diagnoses / Procedures Referred By Nimisha tirado Referred To Contact Diagnoses Essential hypertension Excessive daytime sleepiness Procedures Polysomnography Eugenia Sandoval FNP [address] [place] [address] Phone: tel: fax: [address] Phone: tel: fax: Referral ID Status Reason Start Date Expiration Date Visits Re quested Visits Authorized [id number] Closed 07/02/2024 07/02/2025 1 1 Encounter Details Date Type Department Care Team (Late st Contact Info) Description 07/02/2024 Orders Only [facility] MEDICINE [address] [place], [place] [phone] Eugenia Sandoval FNP [address] [place] [phone] Essential hypertension (Primary Dx); Excessive daytime sleepiness Social History Tobacco Use Types Packs/Day Years [...] Description 11/05/2024 11:00 AM EDT Office Visit [facility] MEDICINE [address] [place] [phone] Scheduled Orders Name Type Priority Associated Diagnoses Orde r Schedule Polysomnography [facility] Routine Essential hypertension Excessive daytime sleepiness Expected: 07/02/2024 (Approximate), Expires: 07/02/2025 documented as of this encounter Visit Diagnoses Diagnosis Essential hypertension- Primary Unspecified essential hypertension Excessive daytime sleepiness documented in this encounter Additional Health Concerns Assessment Noted Time PHQ-9 Depression Total Score: 0 06/17/20 24 2:07 PM EDT documented as of this encounter Care Teams Aerial Photogrammetrist Relationship Specialty Start Date End Date Eugenia Sandoval FNP [address] [place] [phone] PCP - General Family Medicine 04/27/22 documented as of this encounter
--- OUTSIDE RECORDS SUMMARY | 2024-10-23 13:30 | XMS_ITS | Encounter Summary ---
Author Organization [employer] Address [address] [facility] [address] [place] [address] Care Team Providers Care Cadd Technician Name Role Phone [employer] Primary Care Provider [phone] Encounter Details Date Type Department Care Team (Latest Contact Info) Description 09/30/2024 Travel Social History Tobacco Use Types Packs/Day Years [...] Description 11/05/2024 11:00 AM EDT Office Visit [facility] MEDICINE [address] [place] [address] documented as of this encounter Visit Diagnoses Not on filedocumented in this encounter Additional Health Concerns Assessment Noted Time PHQ-9 Depression Total Score: 0 06/17/20 24 2:07 PM EDT documented as of this encounter Care Teams Cadd Technician Relationship Specialty Start Date End Date Eugenia Sandoval FNP [address] [place] [address] PCP - General Family Medicine 04/27/22 documented as of this encounter
--- OUTSIDE RECORDS SUMMARY | 2024-10-23 13:30 | XMS_ITS | Encounter Summary ---
Author Organization [employer] Address [address] [place] [address] Care Team Providers Care Commercial Glazier Name Role Phone [facility] Primary Care Provider [phone] Reason for Visit * Reason Comments Med Refill Encounter Details Date Type Department Care Team ([facility] st Contact Info) Description 12/18/2022 Refill [facility] MEDICINE [address] [place], [place] [phone] [facility] [address] [place], [place] [phone] Other chronic pain Social History Tobacco Use [...] suspected to have Coronavirus/COVID-19? No / Unsure 11/30/2022 1:40 PM EDT documented as of this encounter Miscellaneous Notes * Telephone Encounter - Lesley Mcmahan RN - 12/19/2022 11:32 AM EDT Percocet refill too soon. Will forward to PCP on 12/26/22 as refill not due until 12/28/22. documented in this encounter Plan of Treatment Upcoming Encounters Date Type Department Care Team (Late st Contact Info) Description 11/05/2024 11:00 AM EDT Office Visit [facility] MEDICINE [address] [place] [address] documented as of this encounter Visit Diagnoses Diagnosis Other chronic pain documented in this encounter Care Teams Commercial Glazier Relationship Specialty Start Date End Date Eugenia Sandoval FNP [address] [place] [address] PCP - General Family Medicine 04/27/22 documented as of this encounter
--- OUTSIDE RECORDS SUMMARY | 2024-10-23 13:30 | XMS_ITS | Encounter Summary ---
Author Organization [employer] Address [address] [place] [address] Care Team Providers Care Spray Stainer Name Role Phone [facility] Primary Care Provider [phone] Encounter Details Date Type Department Care Team (Latest Contact Info) Description 09/24/2024 Travel Social History Tobacco Use Types Packs/Day [...] 11/05/2024 11:00 AM EDT Office Visit [facility] [address] [place] [address] documented as of this encounter Visit Diagnoses Not on filedocumented in this encounter Additional Health Concerns Assessment Noted Time PHQ-9 Depression Total Score: 0 06/17/20 24 2:07 PM EDT documented as of this encounter Care Teams Spray Stainer Relationship Specialty Start Date End Date Eugenia Sandoval FNP [address] [place] [address] PCP - General Family Medicine 04/27/22 documented as of this encounter
--- OUTSIDE RECORDS SUMMARY | 2024-10-23 13:30 | XMS_ITS | Encounter Summary ---
Author Organization [employer] Address [address] [place] [address] Care Team Providers Care Aircraft Inspector Name Role Phone [facility] Primary Care Provider [phone] Encounter Details Date Type Department Care Team ([facility] st Contact Info) Description 10/23/2024 Orders Only [facility] MEDICINE [address] [place], [place] [phone] [facility] 230 [place], [place] [phone] Social History Tobacco Use Types Packs/Day Years [...] Description 11/05/2024 11:00 AM EDT Office Visit [facility] MEDICINE [address] [place] [address] documented as of this encounter Procedures Procedure Name Priority Date/Time Associated Diagnosis Comments BI US BREAST LIMITED LEFT Routine 10/23/2024 11:00 AM EST documented in this encounter Results * BI US Breast Limited Left (10/23/2024 11:00 AM EST) Anatomical Region Laterality Modality Breast Left Ultrasound 10/23/2024 11:0 0 AM EST Narrative 10/23/2024 12:11 PM EST ? [facility] [place] ? [address] ?[place] [address] ? Ultrasound Report ? Signed ? Patient: Colon Silva,Mary Kate S ?MR#: [id number] ?? [id number] ? : 1950 ?Acct:[id number] ? Age/Sex: 74 / F ?ADM Date: 02/26/25 ? Loc: HO.MAMMO ? Attending Dr: Eugenia BOOKER ? Ordering Physician: Eugenia Sandoval ?? Date of Service: 10/23/24 ?? Procedure(s): US breast LT limited mamm only ?? Accession Number(s): [id number] ? cc: Eugenia Sandoval CASINO PORTER ? EXAMINATION: ?? US DIAGNOSTIC ULTRASOUND BREAST, [...] ??Zaira Loco DO ??10/23/2024 12:09 PM EST ? Dictated By: ?Zaira Loco DO ? Signed By: ?<Electronically signed by Zaira Loco, DO in OV> ? 10/23/24 1209 ? DD/ 1100 ? TD/TT: 10/23/24 1129 ? Paper Machine Operator: ? Procedure Note Jaja, Yuliya - 10/23/2024 [facility] [address] [place] [address] Ultrasound Report Signed Patient: Mary Kate Maya [facility]#: [id number] : 2Acct:[id number] Age/Sex: 74 / FADM Date: 10/23/24 Loc: [facility] Attending DrBailee Sandoval CASINO PORTER Ordering Physician: Eugenia Sandoval Date of Service: 10/23/24 Procedure(s): US breast LT limited mamm only Accession Number(s): [id number] cc: Eugenia Sandoval EXAMINATION: US DIAGNOSTIC ULTRASOUND [...] by: Zaira Loco DO 10/23/2024 12:09 PM [facility] Dictated By: Zaira Loco DO Signed By: <Electronically signed by Zaira Loco DO in OV> 10/23/24 1209 DD/ 1100 TD/TT: 10/23/24 1129 Paper Machine Operator: [facility] IMG US PROCEDURES Final Resul t documented in this encounter Visit Diagnoses Not on filedocumented in this encounter Additional Health Concerns Assessment Noted Time PHQ-9 Depression Total Score: 0 06/17/20 24 2:07 PM EDT documented as of this encounter Care Teams Aircraft Inspector Relationship Specialty Start Date End Date NubieberEugenia torres FNP [address] [place] [address] PCP - General Family Medicine 04/27/22 documented as of this encounter
--- OUTSIDE RECORDS SUMMARY | 2024-10-23 13:30 | XMS_ITS | Encounter Summary ---
Author Organization [employer] Address [address] [facility] 7t [place] [address] Care Team Providers Care Manager Relocation Name Role Phone [facility] Primary Care Provider [phone] Reason for Visit * Reason Onset Date Comments chart prep 09/27/2024 Encounter Details Date Type Department Care Team ([facility] st Contact Info) Description 09/27/2024 Telephone [facility] MEDICINE [address] [place], [place] [phone] [facility] 230 [place], [place] [phone] chart prep Social History Tobacco Use Types Packs/Day Years [...] Telephone Encounter - Jolanta Beckwith [place] - 09/27/2024 10:59 AM EST Chart Prep Labs: done Images: done Vaccines due: no updates Referrals: complete Screenings: mammogram Overdue care gaps: Sbirt, SDOH, PHQ-9, Oral Health documented in this encounter Plan of Treatment Upcoming Encounters Date Type Department Care Team (Late st Contact Info) Description 11/05/2024 11:00 AM EDT Office Visit [facility] MEDICINE [address] [place] [address] documented as of this encounter Visit Diagnoses Not on filedocumented in this encounter Additional Health Concerns Assessment Noted Time PHQ-9 Depression Total Score: 0 06/17/20 24 2:07 PM EDT documented as of this encounter Care Teams Manager Relocation Relationship Specialty Start Date End Date Eugenia Sandoval FNP [address] [place] [address] PCP - General Family Medicine 04/27/22 documented as of this encounter
--- OUTSIDE RECORDS SUMMARY | 2024-10-23 13:30 | XMS_ITS | Encounter Summary ---
Author Organization [employer] Address [address] [facility] [address] [address] 7t [place] [address] Care Team Providers Care Industrial Production Manager Name Role Phone [facility] Primary Care Provider [phone] Reason for Visit * Reason Onset Date Comments BPI Scoring 09/24/2024 Encounter Details Date Type Department Care Team ([facility] st Contact Info) Description 09/24/2024 Telephone [facility] MEDICINE [address] [place], [place] [phone] Lesley Mcmahan RN BPI Scoring Social History Tobacco Use Types Packs/Day Years [...] Telephone Encounter - Lesley Mcmahan RN - 09/24/2024 1:28 PM EST Pt came to chronic pain group today BPI updated Pain severity score of 7.5, activity interference score of 9. Previous BPI completed 04/09/24 with pain severity score of 5.8, activity interference score of 6.4. documented in this encounter Plan of Treatment Upcoming Encounters Date Type Department Care Team (Late st Contact Info) Description 11/05/2024 11:00 AM EDT Office Visit [facility] MEDICINE [address] [place] [address] documented as of this encounter Visit Diagnoses Not on filedocumented in this encounter Additional Health Concerns Assessment Noted Time PHQ-9 Depression Total Score: 0 06/17/20 24 2:07 PM EDT documented as of this encounter Care Teams Industrial Production Manager Relationship Specialty Start Date End Date Eugenia Sandoval FNP [address] [place] [address] PCP - General Family Medicine 04/27/22 documented as of this encounter
--- OUTSIDE RECORDS SUMMARY | 2024-10-23 13:30 | XMS_ITS | Encounter Summary ---
Author Organization [employer] Address [address] [place] [address] Care Team Providers Care Rivet Tester Name Role Phone [facility] Primary Care Provider [phone] Reason for Visit * Reason Comments Med Refill Encounter Details Date Type Department Care Team ([facility] Contact Info) Description 08/09/2024 Refill [facility] MEDICINE [address] [place], [place] [phone] [facility] [address] [place], [place] [phone] Primary osteoarthritis of both knees Social History [...] Description 11/05/2024 11:00 AM EDT Office Visit [facility] MED[facility]INE 230 [place] [address] documented as of this encounter Visit Diagnoses Diagnosis Primary osteoarthritis of both knees documented in this encounter Additional Health Concerns Assessment Noted Time PHQ-9 Depression Total Score: 0 06/17/20 24 2:07 PM EDT documented as of this encounter Care Teams Rivet Tester Relationship Specialty Start Date End Date Eugenia Sandoval FNP [address] [place] [address] PCP - General Family Medicine 04/27/22 documented as of this encounter
--- OUTSIDE RECORDS SUMMARY | 2024-10-23 13:31 | XMS_ITS | Encounter Summary ---
Author Organization [employer] [facility] Address [address] [facility] 7t [place] [address] Care Team Providers Care Packing And Wrapping Supervisor Name Role Phone Eugenia Sandoval [facility] Primary Care Provider [phone] Reason for Visit * Reason Comments Med Refill Encounter Details Date Type Department Care Team (Late Contact Info) Description 11/30/2022 Refill [facility] MEDICINE [address] [place] [address] Eugenia Sandoval FNP [address] [place], [place] [phone] Other chronic pain Social History Tobacco Use [...] PM EDT documented as of this encounter Plan of Treatment Upcoming Encounters Date Type Department Care Team (Late Contact Info) Description 11/05/2024 11:00 AM EDT Office Visit [facility] MEDICINE [address] [place] [address] [phone] documented as of this encounter Visit Diagnoses Diagnosis Other chronic pain documented in this encounter Care Teams Packing And Wrapping Supervisor Relationship Specialty Start Date End Date Eugenia Sandoval FNP [address] [place] [address] PCP - General Family Medicine 04/27/22 documented as of this encounter
--- OUTSIDE RECORDS SUMMARY | 2024-10-23 13:31 | XMS_ITS | Encounter Summary ---
Author Organization [employer] Address [address] 7t [place] [address] Care Team Providers Care Credit Control Manager Name Role Phone Lori Eugenia FX ARTIST Primary Care Provider [phone] Reason for Visit * Reason Comments Med Refill Encounter Details Date Type Department Care Team ([facility] Contact Info) Description 11/30/2022 Refill [facility] MED & PEDS [address] [place], [place] [phone] Senait Frias MD [address] [place] [address] Pain in right knee Social History Tobacco Use Types Packs/Day Years [...] Upcoming Encounters Date Type Department Care Team ([facility] Contact Info) Description 11/05/2024 11:00 AM EDT Office Visit [facility] MEDICINE [address] [place], [place] [phone] documented as of this encounter Visit Diagnoses Diagnosis Pain in right knee documented in this encounter Care Teams Credit Control Manager Relationship Specialty Start Date End Date Eugenia Sandoval FX ARTIST [address] [place] [address] PCP - General Family Medicine 04/27/22 documented as of this encounter
--- OUTSIDE RECORDS SUMMARY | 2024-10-23 13:31 | XMS_ITS | Encounter Summary ---
Author Organization [employer] Address [address] 7t [place] [address] Care Team Providers Care Value Stream Leader Name Role Phone [facility] Primary Care Provider [phone] Reason for Visit * Reason Onset Date Comments Med Refill [employer] 03/21/2024 I informe d the patient, that the Certification of Serious Illness from [employer], is ready to be picked up at the [facility] Dept. She verbalized understanding. Encounter Details Date Type Department Care Team (Late st Contact Info) Description 03/21/2024 Refill [facility] MEDICINE [address] [place], [place] [phone] [facility] [address] [place], [place] [phone] Primary osteoarthritis of both knees Social History [...] Answer Date Recorded Patient Health Questionnaire-9 Score 6 02/28/2024 Patient Health Questionnaire-9 Score 6 02/28/2024 Last PHQ-9: Questionnaire Data Not on file 0 02/28/2024 Housing Stability Answer Date Recorded What is [...] Date Recorded Patient Health Questionnaire-2 Score 0 02/28/2024 Comments Unknown Sex and Gender Information Value Date Recorded Sex Assigned at Female 06/27/2022 10:14 AM EDT Legal Sex Female 10:14 AM EDT Gender Identity Female 06/27/2022 10:14 AM EDT Sexual Orientation Choose not to disclose 2021 10:14 AM EDT documented as of this encounter Miscellaneous Notes * Telephone Encounter - Kalyani Lucas MA - 04/04/2024 11:35 AM EDT I informed the patient, that the Certification of Serious Illness from [employer], is ready to be picked up at the [facility] Dept. She verbalized understanding. documented in this encounter Plan of Treatment Upcoming Encounters Date Type Department Care Team (Late st Contact Info) Description 11/05/2024 11:00 AM EDT Office Visit [facility] MEDICINE [address] [place] [address] documented as of this encounter Visit Diagnoses Diagnosis Primary osteoarthritis of both knees documented in this encounter Additional Health Concerns Assessment Noted Time PHQ-9 Depression Total Score: 6 02/28/20 24 2:13 PM EDT documented as of this encounter Care Teams Value Stream Leader Relationship Specialty Start Date End Date Eugenai Sandoval FNP [address] [place] [address] PCP - General Family Medicine 04/27/22 documented as of this encounter
--- OUTSIDE RECORDS SUMMARY | 2024-10-23 13:31 | XMS_ITS | Encounter Summary ---
Author Organization [employer] Address [address] [facility] [facility] [address] 7[address] [place] [address] Care Team Providers Care Excavator Operator Name Role Phone [facility] SUPERVISOR RESPIRATORY Primary Care Provider [phone] Encounter Details Date Type Department Care Team (Late st Contact Info) Description 12/06/2023 Orders Only [facility] MEDICINE [address] [place], [place] [phone] ProviderAga MD Social History Tobacco Use Types Packs/Day Years [...] Description 11/05/2024 11:00 AM EDT Office Visit [facility] MED[facility]INE [address] [place] [address] documented as of this encounter Procedures Procedure Name Priority Date/Time Associated Diagnosis Comments HM COLONOSCOPY Routine 10/29/2015 9:11 AM EST documented in this encounter Results * Hm Colonoscopy (10/29/2015 9:11 AM EST) us Historical Provider HEALTH MAINTENANCE Final Result documented in this encounter Visit Diagnoses Not on filedocumented in this encounter Additional Health Concerns Assessment Noted Time PHQ-9 Depression Total Score: 9 03/30/20 23 2:25 PM EDT documented as of this encounter Care Teams Excavator Operator Relationship Specialty Start Date End Date Eugenia Sandoval FNP [address] [place] [address] PCP - General Family Medicine 04/27/22 documented as of this encounter
--- OUTSIDE RECORDS SUMMARY | 2024-10-23 13:31 | XMS_ITS | Encounter Summary ---
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 Please contact pt at [phone] documented in this encounter Plan of Treatment Upcoming Encounters Date Type Department Care Team (Late Contact Info) Description 11/05/2024 11:00 AM EDT Office Visit [facility] MEDICINE [address] [place] [address] documented as of this encounter Visit Diagnoses Not on filedocumented in this encounter Care Teams Cloth Boil Off Machine Operator Relationship Specialty Start Date End Date Eugenia Sandoval FNP [address] [place] [address] PCP - General Family Medicine 04/27/22 documented as of this encounter
== END 2024-10-23 10:50 | disposition home or self-care (01) ==
LOC: HO.MAMMO 10:49
PROVIDERS: PCP Registered Nurse; Visit Provider Registered Nurse
DX: N60.02 Solitary cyst of left breast (principal)
CPT/HCPCS: 76642

== ENCOUNTER → 2024-10-23 11:00 | Outpatient (BNV) | payer OTHER, SELFPAY | PROVIDERS: PCP Registered Nurse; Visit Provider Internal Medicine | DX: Z12.31 Encounter for screening mammogram for malignant neoplasm of breast (principal) | CPT/HCPCS: 76642 ==

== ENCOUNTER 2024-12-06 09:58 | Outpatient (AMB) | payer OTHER, SELFPAY ==
--- NOTE | 2024-12-06 10:02 | A.OFFVIS_ITS ---
Vital Signs 12/06/24 10:03 Height 4 ft 7 in Weight 147 lb BMI 34.2 BP 101/55 L Blood Pressure Location Lt brachial Position Sitting Pulse 74 Pulse Oximetry (%) 99 Oxygen Delivery Method Room Air Intake Visit Reasons: jm patient diarrhea Intake Note: Patient complex follow up for diarrhea, [facility] 05/03/2023. Patient cc: abdominal discomfort, N/V on and off with poor appetite, acid reflux with swallowing difficulty and diarrhea. Patient needed refill for Ondasetron 4 mg, Loperamide 2 mg, Simethicone 125 mg and sulcrafate 1 g. Bench Worker Hollow Handle Required: Yes Bench Worker [employer] Handle Name: Marco Antonio [id number] Accompanied by: Self / Same As Patient Allergies morphine [MORPHINE] Allergy (Severe, Verified 12/06/24 10:01) HYPOTENSION levofloxacin [LEVOFLOXACIN] Allergy (Intermediate, Verified 12/06/24 10:01) DIZZY Penicillins Allergy (Mild, Verified 12/06/24 10:01) RASH penicillin V Allergy (Unknown, Verified 12/06/24 10:01) Rash Medication List - Last Reconciled 12/06/24 by India Lawton CNP acetaminophen 0 mg PO albuterol sulfate 90 mcg/actuation (Ventolin HFA) 0 mcg inhalation albuterol sulfate 2.5 mg (3 mL) inhalation Q6H PRN amlodipine 2.5 mg PO DAILY azelastine 2 sprays intranasal BID 30 days azithromycin For 250 mg dose pack: take 500 mg today (day 1), then 250 mg for 4 days (days 2-5) PO calcium carbonate (Antacid Ext Str (calcium carb)) 1 tab PO cetirizine 10 mg PO QAM cholecalciferol (vitamin D3) 50 mcg PO QAM cyanocobalamin (vitamin B-12) 5,000 mcg PO DAILY cyclobenzaprine 10 mg PO Q8H fluticasone propion-salmeterol 500-50 mcg/dose (Advair Diskus) 1 inh inhalation BID fluticasone propionate 50 mcg/actuation sprays intranasal wytptccusgc-albdgimqy-ysehryuo 200-62.5-25 mcg (Trelegy Ellipta) 1 ea inhalation DAILY gabapentin 300 mg PO BEDTIME ipratropium bromide intranasal levothyroxine 125 mcg PO QAM jxtofj-ntlxdhec-odbshak 3,000-9,500- 15,000 unit (Creon) PO loperamide (Imodium A-D) 2 mg PO Q6H PRN losartan 100 mg PO DAILY meclizine 12.5 mg PO TID PRN metoclopramide HCl 5 mg PO QIDACHS minoxidil 5% 1 mL topical BID montelukast 10 mg PO QPM eqvginmmrbiz-budo-mylst acid 18-400 mg-mcg (Centrum Complete) 1 tab PO DAILY naloxone 4 mg/actuation (Narcan) 4 mg intranasal Q3M PRN ondansetron HCl 4 mg PO DAILY PRN oxycodone-acetaminophen 5-325 mg 1 tab PO BID PRN pantoprazole 40 mg PO QAM phenazopyridine 100 mg PO TID PRN 6 doses potassium bicarb-citric acid 25 mEq (Klor-Con/EF) 25 mEq PO BID sertraline 100 mg PO BID simethicone (Gas Relief (simethicone)) 125 mg PO BID-QID PRN sucralfate 1 g PO QIDACHS tolterodine ER 4 mg PO DAILY zolpidem 5 mg PO BEDTIME PRN HPI HPI jm patient diarrhea: Details: Patient is a 74-year-old female with PMH of insomnia, hypertension, asthma. Last visit with KWASI Sanchez 05/03/2023 for chronic diarrhea, acid reflux and gas follow-up. 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 Pt is here today for follow up on diarrhea and GERD. She reports diarrhea and GERD symptoms have continued. Reports diarrhea occurs after eating breakfast, type 5 or 7 on [place] stool chart. Shares symptoms have been consisit this past year. States symptoms will resolve for about 3-4 days after taking a pill . Reports she last took this pill two days ago. Shares breakfast consist of black coffee and toasted cookie. Associated symptoms: nausea, decreased appetite X one month, gas Aggravating factors:as above typical day of eating: breakfast: as above lunch: skips dinner: rice and beans, juice snacks: dessert cookie -does not eat meat, consumes very few vegetables. She reports GERD symptoms occur approx 2x/week. She has been without the pantroprazole for two days. She would like a refill. Associated symptoms: regurgitation, decreased appetite X one month Aggravating factors: foods with oil Alleviating attempts:as above She is not clear on the medication she's taking. However, reports she recenlty recieved refills for Ondasetron 4 mg and Loperamide 2 mg. Patient denies: systemic symptoms, vomiting, ab pain, unintentional wt loss, dysphasia, new cardiopulmonary symptoms, bladder changes or melena/hematochezia. Share asthma symptoms are controlled with current inhaler/NEB regimen. she is scheduled to have right knee replacement February 2025. [facility] Medical History (Updated 12/06/24 @ 13:57 by India Lawton CNP) Chronic allergic rhinitis Insomnia Hypertension Asthma Surgical History (Updated 12/06/24 @ 10:10 by Estefania Chambers) Hx of left knee surgery Hx of hand surgery History of esophagogastroduodenoscopy (EGD) Hx of colonoscopy Social History Household Members: Spouse and Children Alcohol intake: never Patient Tobacco Use Status: Never used Tobacco Second Hand Smoke Exposure: Yes Current occupational status: disabled Review of Systems Const All systems reviewed & are unremarkable except as noted in HPI and below Reports as per HPI, Denies weight gain and Denies weight loss ENT Reports as per HPI, Denies dysphagia and Denies odynophagia Card Reports as per HPI Resp Reports as per HPI GI Denies belching, Denies melena, Denies bloating, Denies dysphagia, Denies excessive flatus, Denies dyspepsia, Denies odynophagia and Denies vomiting Reports as per HPI Musc Reports as per HPI Neuro Reports no additional complaints Psych Reports no additional complaints Endo Reports no additional complaints Physical Exam Vital Signs: Last Vital Signs Pulse 74 12/06/24 10:03 BP 101/55 L 12/06/24 10:03 Pulse Ox 99 12/06/24 10:03 Oxygen Delivery Method Room Air 12/06/24 10:03 BMI result Body Mass Index 34.2 Const General: healthy appearing, no acute distress and well developed Nutritional Appearance: well nourished Orientation/consciousness: patient oriented x3 HEENT Head: Yes normal to inspection, Yes normocephalic and Yes atraumatic Face and sinus: Yes normal facial exam Eyes General: appearance normal, both eyes and all related structures Neck Neck: Yes normal visual inspection Resp Effort & Inspection: normal respiratory effort, able to speak in complete sentences, no tracheal deviation and symmetric chest movement Auscultation: clear to auscultation bilaterally Cardio Jugular venous distension: no JVD Rate: regular rate Rhythm: regular rhythm Heart sounds: S1 normal heart sound present, S2 normal heart sound present, no gallops and no murmurs GI Inspection: Yes normal to inspection, No distended and Yes obesity Palpation (GI): Soft to palpation, not firm, nontender and No hepatosplenomegaly present Auscultation: normal bowel sounds Neuro General: patient oriented x3 Gait exam (Neuro): Normal gait present and Assistive device used (cane) Psych Appearance: grossly normal Mental Status: mental status grossly normal Speech and movement: Normal speech and movement present Affect: normal affect Attitude: cooperative Thought process: Normal thought process present Thought content: Normal thought content present Insight: Good insight present (Psych) Judgement: Good judgement present (Psych) Results Reviewed Results Reviewed: Laboratory Tests 04/21/22 01/12/24 14:44 19:45 WBC 8.2 RBC 4.04 L Hgb 11.3 L Hct 34.8 L MCV 86.1 MCH 28.0 MCHC 32.5 RDW 14.6 Plt Count 587 H MPV 9.2 L Immature Gran % (Auto) 0.4 Neut % (Auto) 55.4 Lymph % (Auto) 30.1 Pettis % (Auto) 8.1 Eos % (Auto) 5.0 H Baso % (Auto) 1.0 Lymph # (Auto) 2.5 Pettis # (Auto) 0.7 Eos # (Auto) 0.4 Baso # (Auto) 0.1 Abs Immat Gran (auto) 0.03 Absolute Neuts (auto) 4.5 Absolute Nucleated RBC 0.000 Nucleated RBC % (auto) 0.0 Tiss Transglutamin IgA <1.0 data from historical visits: 10/29/2015 ( colonoscopy 6 years prior ) EGD with biopsy, colonoscopy EGD general impressions: Distal esophagitis, grade 1, superficial gastritis ( question component of bile reflux present ) Colonoscopy general impressions: Mild diverticulosis repeat screening 10 years 10/29/2015 EGD pathology (random gastric biopsies ) gastric antral - type in fundic type mucosa with no diagnostic abnormality. H pylori negative EGD with biopsy 03/30/2018 impression and post-procedure diagnosis: Larynx: endoscopic changes of LPR RD esophagus: GERD with possible Barretts stomach: Suspected gastritis and few small gastric polyps duodenum: Normal Pathology 03/30/2018 small bowel, biopsies: Fragments of unremarkable small intestinal mucosa. There is no evidence of sprue or celiac disease gastric, biopsies: Fragments of antral and fundic type gastric mucosa with mild chronic gastritis. H pylori negative gastric, polyp, biopsy: Fragments of fundic gland polyp esophageal, distal, biopsies: Fragments of esophagogastric junctional mucosa with mild chronic inflammation. there is no evidence of Valdes's seen there is no evidence of Barretts seen. --- 05/06/2020 impacted CBD stones, status post basket fragmentation and spyglass ductal clearance --- April 17 2020 EGD CBD stone impacted CBD stones, s/p extended sphincteroplasty and stent placement, partial or possible full stone breakdown/removal, spyglass and balloon sweeps. --- 03/20/2020 EGD obtained due to concern for CBD stones. impacted CBD stones, s/p sphincteroplasty and stent placement, partial stone breakdown in retrieval with basket and balloon. Assessment & Plan Assessment & Plan (1) Diarrhea: Code(s): R19.7 - Diarrhea, unspecified Category: Medical Qualifiers: Diarrhea type: unspecified type Qualified Code(s): R19.7 - Diarrhea, unspecified Plan: Chronic. After further review and discussion with colleague will consider BAM as primary differential. As 02/12/2020 ultrasound notes gallbladder has been surgically removed. Symptoms are likely not an infectious given length of symptoms and benign exam/presentation. Also less likely IBD given positive response to antidiarrheal, age and minimal symptoms. However, will obtain basic and screening labs to evaluate for any worsening anemia or electrolyte changes or vitamin deficiencies or evidence of inflammation. Can continue loperamide. Simethicone 125 mg refilled. Will hold on sulcrafate. Encouraged higher fiber diet and adequate hydration. Colonoscopy to be repeated next year. (2) Acid reflux: Code(s): K21.9 - Gastro-esophageal reflux disease without esophagitis Category: Medical Qualifiers: Esophagitis bleeding: without hemorrhage Esophagitis presence: with esophagitis Qualified Code(s): K21.00 - Gastro-esophageal reflux disease with esophagitis, without bleeding Plan: intermittent symptoms. Last EGD 2018 confirming gastritis and ruled out Barretts. May need consider barium swallow study.. pt to continue pantoprazole as prescribed. We will review medication at next visit to ensure proper compliance/administration. Education on GERD prevention-Advised against heavy meals. Encouraged small frequent meals VS large meals, remaining upright after meals x 2-3 hours, avoid spicy foods/caffeine/alcohol/known triggers and tight fitting clothes. Plan Did instruct her to bring all medications to next visit for complete reconcilia tion follow up three months or sooner as needed Time: I spent a total of 45 minutes on the date of encounter which includes: Preparing to see the patient (reviewed previous documentation, test results and medical history) Performing a medically appropriate exam and/or evaluation Ordering medications, tests, and procedures Documenting clinical information in the health record Orders: Orders Calprotectin, Fecal Today R19.7 - Diarrhea, unspecified Vitamin D 1,25 dihydroxy Today R19.7 - Diarrhea, unspecified Vitamin E Today R19.7 - Diarrhea, unspecified Basic Metabolic Panel Today R19.7 - Diarrhea, unspecified C Reactive Protein Today R19.7 - Diarrhea, unspecified Complete Blood Count Auto Diff Today R19.7 - Diarrhea, unspecified IRON PROFILE Today R19.7 - Diarrhea, unspecified Vitamin B12 and Folate Today R19.7 - Diarrhea, unspecified Vitamin K1 Today R19.7 - Diarrhea, unspecified Vitamin A Today R19.7 - Diarrhea, unspecified Albumin Level Today R19.7 - Diarrhea, unspecified Medications: New simethicone (Gas Relief (simethicone)) 125 mg PO BID-QID PRN 90 caps 1RF gas Discontinued cefuroxime axetil Discontinued Reason: No Longer Medically Relevant 250 mg PO BID 14 tabs 0RF Coding Level of Care Code Established Pt Est Pt Level 4 (13624) Patient Type Established Diagnoses Diarrhea, unspecified type R19.7 Diarrhea type: unspecified type Gastroesophageal reflux disease with esophagitis without hemorrhage K21.00 Esophagitis bleeding: without hemorrhage Esophagitis presence: with esophagitis
[2024-12-06 10:03] VITALS: BP 101/55; PULSE 74; O2SAT 99; BMI 34.2
--- OUTSIDE RECORDS SUMMARY | 2024-12-06 10:35 | XMS_ITS | Encounter Summary ---
Author Organization [employer] Address [address] [place] [address] 7t [place] [address] Care Team Providers Care Firearms Model Maker Name Role Phone Lori [facility] Primary Care Provider [phone] Reason for Visit * Reason Comments Med Refill Encounter Details Date Type Department Care Team (Late Contact Info) Description 05/27/2023 Refill [facility] MEDICINE [address] [place] [phone] Jenna Bar FNP [address] [place] [address] Dept [place] [address] Social History Tobacco Use Types Packs/Day Years [...] Department Care Team (Late Contact Info) Description 12/09/2024 1:45 PM EDT Office Visit [facility] MEDICINE [address] [place] [address] HulenEugenia [facility] [address] [place] [address] 02/04/2025 9:45 AM EDT Office Visit [facility] MEDICINE [address] [place] [address] documented as of this encounter Visit Diagnoses Not on filedocumented in this encounter Additional Health Concerns Assessment Noted Time PHQ-9 Depression Total Score: 9 03/30/20 23 2:25 PM EDT documented as of this encounter Care Teams Firearms Model Maker Relationship Specialty Start Date End Date Eugenia Sandoval FNP [address] [place] [address] PCP - General Family Medicine 04/27/22 documented as of this encounter
--- OUTSIDE RECORDS SUMMARY | 2024-12-06 10:35 | XMS_ITS | Encounter Summary ---
Author Organization [employer] Address [address] [facility] [facility] [address] 7[address] [place] [address] Care Team Providers Care Remediation Project Engineer Name Role Phone [facility] Primary Care Provider [phone] Reason for Visit * Reason Onset Date Comments Med Refill [employer] 03/21/2024 I informe d the patient, that the Certification of Serious Illness from [employer], is ready to be picked up at the [facility] Dept. She verbalized understanding. Encounter Details Date Type Department Care Team (Late st Contact Info) Description 03/21/2024 Refill [facility] MEDICINE [address] [place], [place] [phone] [facility] [address] [place], [place] [phone] Primary osteoarthritis of both knees Social History [...] that the Certification of Serious Illness from [employer], is ready to be picked up at the [facility] Dept. She verbalized understanding. documented in this encounter Plan of Treatment Upcoming Encounters Date Type Department Care Team (Late st Contact Info) Description 12/09/2024 1:45 PM EDT Office Visit [facility] MEDICINE [address] [place] [phone] MorrisEugenia, FAMILY DEVELOPMENT EXTENSION SPECIALIST [address] [place] [address] 02/04/2025 9:45 AM EDT Office Visit [facility] MEDICINE [address] [place] [phone] documented as of this encounter Visit Diagnoses Diagnosis Primary osteoarthritis of both knees documented in this encounter Additional Health Concerns Assessment Noted Time PHQ-9 Depression Total Score: 6 02/28/20 24 2:13 PM EDT documented as of this encounter Care Teams Remediation Project Engineer Relationship Specialty Start Date End Date Eugenia Sandoval FNP [address] [place] [address] PCP - General Family Medicine 04/27/22 documented as of this encounter
--- OUTSIDE RECORDS SUMMARY | 2024-12-06 10:35 | XMS_ITS | Encounter Summary ---
Author Organization [employer] [facility] Address [address] [facility] 7t [place] [address] Care Team Providers Care Tool Marker Name Role Phone [facility] Primary Care Provider [phone] Reason for Visit * Reason Comments Med Refill Encounter Details Date Type Department Care Team ([facility] Contact Info) Description 08/23/2022 Refill [facility] MEDICINE [address] [place] [address] [address] [facility] 230 [place] [address] Other chronic pain Social History Tobacco Use [...] Upcoming Encounters Date Type Department Care Team ([facility] Contact Info) Description 12/09/2024 1:45 PM EDT Office Visit [facility] MEDICINE [address] [place] [address] [address] [facility] 230 [place] [address] 02/04/2025 9:45 AM EDT Office Visit [facility] MEDICINE [address] [place] [address] documented as of this encounter Visit Diagnoses Diagnosis Other chronic pain documented in this encounter Care Teams Tool Marker Relationship Specialty Start Date End Date [facility] ADE Bello 230 [place] [address] PCP - General Family Medicine 04/27/22 documented as of this encounter
--- OUTSIDE RECORDS SUMMARY | 2024-12-06 10:35 | XMS_ITS | Encounter Summary ---
Author Organization [employer] Address [address] 7t [place] [address] Care Team Providers Care Dump Motorman Name Role Phone [facility] FARM LABOR CONTRACTOR Primary Care Provider [phone] Encounter Details Date Type Department Care Team (Late st Contact Info) Description 12/06/2023 Orders Only [facility] MEDICINE 230 [place], [place] [phone] ProviderAga MD Social History Tobacco Use Types [...] Description 12/09/2024 1:45 PM EDT Office Visit [facility] MED[facility] [address] [place] [address] Eugenia Sandoval FNP [address] [place] [address] 02/04/2025 9:45 AM EDT Office Visit [address] [address] documented as of this encounter Procedures Procedure [...] documented as of this encounter Care Teams Dump Motorman Relationship Specialty Start Date End Date Eugenia Sandoval FNP [address] [place] [address] PCP - General Family Medicine 04/27/22 documented as of this encounter
--- OUTSIDE RECORDS SUMMARY | 2024-12-06 10:35 | XMS_ITS | Encounter Summary ---
Author Organization [employer] Address [address] [facility] 7t [place] [address] Care Team Providers Care Spot Facer Name Role Phone [facility] Primary Care Provider [phone] Encounter Details Date Type Department Care Team (Latest Contact Info) Description 12/03/2024 9:45 AM EDT Office Visit [facility] MEDICINE [address] [place] [address] Cara Rossi FNP [address] [place], [place] [phone] Osteoarthritis involving multiple joints on both sides of body (Primary Dx); Long-term current use of opiate analgesic Social [...] this encounter Progress Notes * Cara Rossi, PHOTOGRAPHY COLORIST - 12/03/2024 9:45 AM EDT Subjective: Mary Kate Silva is a 74 y.o. female w/ PMH hypertension, mod persistent asthma, GERD, CKD,hypothyroid, HLD, OA, anxiety/depression, and chronic low back pain, who presents to the office for- Chronic Pain Clinic Group visits. Initial Group visit: 11/21/23 Group Topic: Art Therapy -Reports that she has upcoming surgery date for right TKA in December 2024. Chronic Pain History: Associated Diagnosis: primary osteoarthritis involving multiple joints Primary location of pain: bilateral knees Left TKA performed by [facility] 12/22/23, planning to have R knee replacement [...] Problem List Items Addressed This Visit Musculoskeletal Osteoarthritis involving multiple joints on both sides of body - Primary Overview Chronic pain in bilateral knees, back, shoulders Followed by [facility] - left TKA 12/22/23; plan for R knee in 2024 Current Assessment & Plan -Good engagement and participation with Group Medical Visit model -Utox and pill count as expected -Encouraged multifactorial approach to pain control including pharm and non- pharm modalities Relevant Orders POCT ROBERTA-14 Urine Drug Screen (Completed) Other Long-term current use of opiate analgesic Overview Dx: OA of knees, chronic bilateral low back pain w/o sciatica Rx: Percocet 5/325 q8 hours prn Last FINANCE LECTURER agreement: 04/09/24 Tier II (visit every 3 months) Current Assessment & Plan Timeline: - 12/03/24: Group - utox/pill count as expected Relevant Orders POCT ROBERTA-14 Urine Drug Screen (Completed) Follow up: 1-3 months for Group Chronic Pain Clinic. Follow up as scheduled with PCP, sooner as needed. * Sherice Kimball RN - 12/03/2024 9:45 AM EDT .FINANCE LECTURER piano regulator: PDMP reviewed today. Last fill date: 11/22/24 (Percocet 5-325mg tid) count was (0), anticipated (0) to be remaining. .UTOX completed. Positive for (OXY), Negative for AMP, BAR, BUP, BZO, TERRI, FTY, MDMA, MET, MOP, MTD, PCP, TCA, THC. UTOX as expected. documented in this encounter Miscellaneous Notes * Assessment & Plan Note - ADE Cevallos - 12/03/2024 1:22 PM EDTAssociated Problem(s): Long-term current use of opiate analgesic Timeline: - 12/03/24: Group - utox/pill count as expected * Assessment & Plan Note - ADE Cevallos - 12/03/2024 1:21 PM EDTAssociated Problem(s): Osteoarthritis involving multiple joints on both sides of body -Good engagement and participation with Group Medical Visit model -Utox and pill count as expected -Encouraged multifactorial approach to pain control including pharm and non- pharm modalities documented in this encounter Plan of Treatment Upcoming Encounters Date Type Department Care Team (Late st Contact Info) Description 12/09/2024 1:45 PM EDT Office Visit [address] [address] Eugenia Sandoval FNP 230 [place] [address] 02/04/2025 9:45 AM EDT Office Visit [address] [address] documented as of this encounter Procedures Procedure Name Priority Date/Time Associated Diagnosis Comments POCT ROBERTA-14 URINE DRUG SCREEN Routine 12/03/2024 10:29 AM EDT Osteoarthritis involving multiple joints on both sides of body Long-term current use of opiate analgesic documented in this encounter Results * POCT ROBERTA-14 Urine Drug Screen (12/03/2024 10:29 AM EDT) Oxycodone Screen, Urine Positive Urine Urine specimen obtained by clean catch procedure / Unknown 12/03/2024 10:29 AM EDT Narrative Sherice Kimball RN - 12/03/2024 10:29 AM EDT .UTOX cup Lot#[id number] Exp. 04/16/26 Internal Pass Control Cara Rossi PHOTOGRAPHY COLORIST POINT OF CARE TEST ENTER/EDIT ORDERABLES Final Result documented in this encounter Visit Diagnoses Diagnosis Osteoarthritis involving multiple joints on both sides of body- Primary Long-term current use of opiate analgesic Encounter for long-term (current) use of other medications documented in this encounter Additional Health Concerns Assessment Noted Time PHQ-9 Depression Total Score: 0 06/17/20 24 2:07 PM EDT documented as of this encounter Care Teams Spot Facer Relationship Specialty Start Date End Date Eugenia Sandoval FNP [address] [place] [address] PCP - General Family Medicine 04/27/22 documented as of this encounter
--- OUTSIDE RECORDS SUMMARY | 2024-12-06 10:35 | XMS_ITS | Encounter Summary ---
Author Organization [employer] Address [address] [facility] [facility] [address] 7t [place] [address] Care Team Providers Care Mender Hand Name Role Phone [facility] Primary Care Provider [phone] Encounter Details Date Type Department Care Team (Latest Contact Info) Description 12/03/2024 Travel Social History Tobacco Use Types Packs/Day [...] Description 12/09/2024 1:45 PM EDT Office Visit [facility] MEDICINE [address] [place] [address] Eugenia Sandoval FNP 230 [place] [address] 02/04/2025 9:45 AM EDT Office Visit [address] [address] documented as of this encounter Visit Diagnoses Not on filedocumented in this encounter Additional Health Concerns Assessment Noted Time PHQ-9 Depression Total Score: 0 06/17/20 24 2:07 PM EDT documented as of this encounter Care Teams Mender Hand Relationship Specialty Start Date End Date Eugenia Sandoval FNP [address] [place] [address] PCP - General Family Medicine 04/27/22 documented as of this encounter
--- OUTSIDE RECORDS SUMMARY | 2024-12-06 10:35 | XMS_ITS | Encounter Summary ---
Author Organization [employer] Address [address] [facility] 7t [place] [address] Care Team Providers Care Real Estate Listing Consultant Name Role Phone [facility] Primary Care Provider [phone] Reason for Visit * Reason Comments Med Refill Encounter Details Date Type Department Care Team ([facility] st Contact Info) Description 11/07/2023 Refill [facility] MEDICINE 230 [place], [place] [phone] [facility] 230 [place], [place] [phone] Other chronic pain; Insomnia, unspecified type Social [...] Description 12/09/2024 1:45 PM EDT Office Visit [facility] MEDICINE [address] [place] [address] Eugenia Sandoval [address] [address] 02/04/2025 9:45 AM EDT Office Visit [address] [address] documented as of this encounter Visit Diagnoses Diagnosis Other chronic pain Insomnia, unspecified type documented in this encounter Additional Health Concerns Assessment Noted Time PHQ-9 Depression Total Score: 9 03/30/20 23 2:25 PM EDT documented as of this encounter Care Teams Real Estate Listing Consultant Relationship Specialty Start Date End Date Eugenia Sandoval FNP [address] [place] [address] PCP - General Family Medicine 04/27/22 documented as of this encounter
--- OUTSIDE RECORDS SUMMARY | 2024-12-06 10:35 | XMS_ITS | Clinical Summary ---
Author Organization [facility] Address [address] [place] [address] Care Team Providers Care Marble Installer Name Role Phone Rufino Garcia [facility] Primary Care Provider Family History Medical History [...] Comments Breast Cancer Screening 1950 Pneumococcal Vaccine: 50+ Ye ars (1 of 2 - PCV) 01/09/1958 Colorectal Cancer Screening: Annual FOBT 01/09/2001 Colorectal Cancer Screening: Colonoscopy 01/09/2001 Colorectal Cancer Screening: Sigmoidoscopy 01/09/2001 Influenza Vaccine (Season Ended) 2025 Hepatitis B Vaccine Aged Out No longe r eligible based on patient's age to complete this topic Insurance [facility] ([id number]) [facility] ([id number]) Care Teams Marble Installer Relationship Specialty Start Date End Date Rufino Garcia FNP [address] [place] [address], 3rd [place] [address] PCP - General 09/07/20
--- OUTSIDE RECORDS SUMMARY | 2024-12-06 10:35 | XMS_ITS | Encounter Summary ---
Author Organization [employer] Address [address] [facility] [address] 7t [place] [address] Care Team Providers Care Coffee Shop Attendant Name Role Phone [facility] Primary Care Provider [phone] Reason for Visit * Reason Comments Med Refill Encounter Details Date Type Department Care Team ([facility] Contact Info) Description 12/02/2024 Refill [facility] MEDICINE 230 [place], [place] [phone] [facility] 230 [place], [place] [phone] Primary osteoarthritis of both knees Social History [...] Description 12/09/2024 1:45 PM EDT Office Visit [facility] MEDICINE [address] [place] [address] Eugenia Sandoval FNP 230 [place] [address] 02/04/2025 9:45 AM EDT Office Visit [address] [address] documented as of this encounter Visit Diagnoses Diagnosis Primary osteoarthritis of both knees documented in this encounter Additional Health Concerns Assessment Noted Time PHQ-9 Depression Total Score: 0 06/17/20 24 2:07 PM EDT documented as of this encounter Care Teams Coffee Shop Attendant Relationship Specialty Start Date End Date Eugenia Sandoval FNP [address] [place] [address] PCP - General Family Medicine 04/27/22 documented as of this encounter
--- OUTSIDE RECORDS SUMMARY | 2024-12-06 10:35 | XMS_ITS | Encounter Summary ---
Author Organization [employer] Address [address] [facility] 7t [place] [address] Care Team Providers Care Food Trades Assistants Name Role Phone [facility] Primary Care Provider [phone] Reason for Visit * Reason Onset Date Comments [facility] for PERSONAL CARE AID RV today 09/21/2022 [facility] Encounter Details Date Type Department Care Team (Late Contact Info) Description 09/21/2022 Telephone [facility] MEDICINE 230 [place] [address] [facility] 230 [place] [address] NCNS for PERSONAL CARE AID RV today (NCNS) Social History Tobacco Use [...] from pt calling to r/s appt for PERSONAL CARE AID RV on 09/21/2022 at 10 am. Please contact pt at [phone] documented in this encounter Plan of Treatment Upcoming Encounters Date Type Department Care Team (Late Contact Info) Description 12/09/2024 1:45 PM EDT Office Visit [facility] MEDICINE 230 [place] [address] Eugenia Sandoval FNP 230 [place] [address] 02/04/2025 9:45 AM EDT Office Visit [facility] 230 [place] [address] documented as of this encounter Visit Diagnoses Not on filedocumented in this encounter Care Teams Food Trades Assistants Relationship Specialty Start Date End Date Eugenia Sand[place] [address] PCP - General Family Medicine 04/27/22 documented as of this encounter
--- OUTSIDE RECORDS SUMMARY | 2024-12-06 10:35 | XMS_ITS | Encounter Summary ---
Author Organization [employer] [facility] Address [address] [facility] 7t [place] [address] Care Team Providers Care Senior Windows Systems Administrator Name Role Phone [facility] Primary Care Provider Reason for Visit * Reason Comments Med Refill Encounter Details Date Type Department Care Team (Late st Contact Info) Description 02/16/2023 Refill [facility] MEDICINE 230 [place] [address] [facility] 230 [place] [address] Other chronic pain Social History Tobacco Use [...] Description 12/09/2024 1:45 PM EDT Office Visit [facility] MEDICINE [address] [place] [address] [place] 230 [place] [address] 02/04/2025 9:45 AM EDT Office Visit [facility] MEDICINE 230 [place] [address] documented as of this encounter Visit Diagnoses Diagnosis Other chronic pain documented in this encounter Care Teams Senior Windows Systems Administrator Relationship Specialty Start Date End Date Eugenia Sandoval FNP 230 [place] [address] PCP - General Family Medicine 04/27/22 documented as of this encounter
--- OUTSIDE RECORDS SUMMARY | 2024-12-06 10:35 | XMS_ITS | Encounter Summary ---
Author Organization [employer] Address [address] [facility] [address] 7t [place] [address] Care Team Providers Care Health Evaluator Name Role Phone [facility] Primary Care Provider [phone] Reason for Visit * Reason Comments Med Refill Encounter Details Date Type Department Care Team ([facility] st Contact Info) Description 12/18/2022 Refill [facility] MEDICINE 230 [place], [place] [phone] [facility] 230 [place], [place] [phone] Other chronic pain Social History Tobacco Use [...] Description 12/09/2024 1:45 PM EDT Office Visit [address] [address] Eugenia Sandoval FNP 230 [place] [address] 02/04/2025 9:45 AM EDT Office Visit [address] [address] documented as of this encounter Visit Diagnoses Diagnosis Other chronic pain documented in this encounter Care Teams Health Evaluator Relationship Specialty Start Date End Date Eugenia Sandoval FNP [address] [place] [address] PCP - General Family Medicine 04/27/22 documented as of this encounter
--- OUTSIDE RECORDS SUMMARY | 2024-12-06 10:35 | XMS_ITS | Encounter Summary ---
Author Organization [employer] Address [address] [facility] 7t [place] [address] Care Team Providers Care Apns Name Role Phone [facility] Primary Care Provider [phone] Reason for Visit * Reason Comments Med Refill Encounter Details Date Type Department Care Team ([facility] Contact Info) Description 11/30/2022 Refill [facility] 505 [place], [place] [phone] Senait Frias MD 505 [place] [address] Pain in right knee Social History Tobacco [...] Upcoming Encounters Date Type Department Care Team ([facility] Contact Info) Description 12/09/2024 1:45 PM EDT Office Visit [facility] MEDICINE 230 [place], [place] [phone] [facility] 230 [place] [address] 02/04/2025 9:45 AM EDT Office Visit [facility] MEDICINE 230 [place] [address] documented as of this encounter Visit Diagnoses Diagnosis Pain in right knee documented in this encounter Care Teams Apns Relationship Specialty Start Date End Date Eugenia Sandoval FNP 230 [place] [address] PCP - General Family Medicine 04/27/22 documented as of this encounter
--- OUTSIDE RECORDS SUMMARY | 2024-12-06 10:35 | XMS_ITS | Encounter Summary ---
Author Organization [employer] [facility] Address [address] [facility] 7t [place] [address] Care Team Providers Care Networking Technology Instructor Name Role Phone [facility] Primary Care Provider [phone] Reason for Visit * Reason Comments Med Refill Encounter Details Date Type Department Care Team (Late st Contact Info) Description 11/30/2022 Refill [facility] MEDICINE 230 [place] [address] [facility] 230 [place] [address] Other chronic pain Social History Tobacco Use [...] Description 12/09/2024 1:45 PM EDT Office Visit [facility] MEDICINE 230 [place] [address] [facility] 230 [place] [address] 02/04/2025 9:45 AM EDT Office Visit [facility] MEDICINE 230 [place] [address] documented as of this encounter Visit Diagnoses Diagnosis Other chronic pain documented in this encounter Care Teams Networking Technology Instructor Relationship Specialty Start Date End Date Eugenia Sandoval FNP 230 [place] [address] PCP - General Family Medicine 04/27/22 documented as of this encounter
--- OUTSIDE RECORDS SUMMARY | 2024-12-06 10:35 | XMS_ITS | Encounter Summary ---
Author Organization [employer] Address [address] [facility] [address] [address] 7t [place] [address] Care Team Providers Care Cloth Shrinking Supervisor Name Role Phone [facility] Primary Care Provider [phone] Reason for Visit * Reason Comments Med Refill Encounter Details Date Type Department Care Team ([facility] Contact Info) Description 08/09/2024 Refill [facility] MEDICINE 230 [place], [place] [phone] [facility] 230 [place], [place] [phone] Primary osteoarthritis of both knees Social History [...] Description 12/09/2024 1:45 PM EDT Office Visit [address] [address] [place] [facility] 230 [place] [address] 02/04/2025 9:45 AM EDT Office Visit [address] [address] documented as of this encounter Visit Diagnoses Diagnosis Primary osteoarthritis of both knees documented in this encounter Additional Health Concerns Assessment Noted Time PHQ-9 Depression Total Score: 0 06/17/20 24 2:07 PM EDT documented as of this encounter Care Teams Cloth Shrinking Supervisor Relationship Specialty Start Date End Date Eugenia Sandoval FNP [address] [place] [address] PCP - General Family Medicine 04/27/22 documented as of this encounter
--- OUTSIDE RECORDS SUMMARY | 2024-12-06 10:35 | XMS_ITS | Clinical Summary ---
Author Organization [employer] Address [address] [facility] [address] [place] [address] Care Team Providers Care Continuous Absorption Process Operator Name Role Phone [facility] Primary Care Provider [phone] Allergies Active Allergy Reactions Criticality Noted Date [...] into the shoulder, thigh, or buttocks. Active Fluticasone-Umecli din-Vilant (Trelegy Ellipta) 200-62.5-25 MCG/ACT aerosol powder Inhale [...] tablet by mouth in the morning. Active pancrelipase, Qsc-Fkxy-Pfre, (Creon) 2706-8386 units capsule Take 1 capsule by mouth [...] by mouth at bed time. Active zoster vaccine-recombinan t adjuvanted (Shingrix) 50 MCG/0.5ML vaccine Inject 0.5 mL into the shoulder, thigh, or buttocks. 021 Active naloxone (Narcan) 4 mg/0.1 mL nasal spray Administer 1 spray (4 mg) into affected nostril(s) if needed for opioid reversal. 2 each 023 Active lidocaine (Lidoderm) 5 % patchIndications:C hronic bilateral low back pain without sciatica Apply topically to affected areas. Leave on for up to 12 hours 30 patch 1 023 Active Methylcobalamin (B-12) 5000 MCG tablet dispersible TAKE 1 TABLET BY MOUTH ONCE DAILY 90 tablet 1 023 Active zolpidem (Ambien) 5 MG tabletIndications: Insomnia, unspecified type TAKE 1 TABLET BY MOUTH AT BEDTIME NEEDED FOR SLEEP 30 tablet 024 Active minoxidil (Loniten) 2.5 MG tabletIndications: Androgenic alopecia Take 1 tablet (2.5 mg) by mouth Once per day. 30 tablet 11 024 2024 Active Calcium Antacid Extra Strength 750 MG chewable tablet TAKE 1 TABLET BY MOUTH TWICE DAILY IN THE MORNING AND IN THE EVENING (CHEW) 60 tablet 11 024 Active levothyroxine (Synthroid, Levoxyl) 112 MCG tabletIndications: Acquired hypothyroidism TAKE 1 TABLET BY MOUTH EVERY MORNING BEFORE BREAKFAST 90 tablet 3 024 Active Ventolin HFA 108 (90 Base) MCG/ACT inhaler INHALE 2 PUFFS BY MOUTH EVERY 4 HOURS NEEDED 18 g 3 024 Active albuterol (2.5 MG/3ML) 0.083% nebulizer solution Take 3 mL (2.5 mg) by nebulization every 6 (six) hours if needed for wheezing. 75 mL 11 024 2024 Active ramelteon (Rozerem) 8 MG tabletIndications: Insomnia, unspecified type Take 1 tablet (8 mg) by mouth at bedtime. 30 tablet 11 024 2024 Active meloxicam (Mobic) 15 MG tablet TAKE 1 TABLET BY MOUTH EVERY DAY WITH MEALS Active losartan (Cozaar) 100 MG tabletIndications: Elevated blood pressure reading TAKE 1 TABLET BY MOUTH EVERY MORNING 90 tablet 3 024 Active fluticasone (Flonase) 50 MCG/ACT nasal sprayIndications:A llergy, sequela USE 1 SPRAY IN EACH NOSTRIL EVERY TWELVE HOURS 16 g 11 024 Active amLODIPine (Norvasc) 5 MG tabletIndications: Essential hypertension TAKE 1 TABLET BY MOUTH EVERY MORNING 90 tablet 3 025 Active tolterodine LA (Detrol LA) 4 MG 24 hr capsule TAKE 1 CAPSULE BY MOUTH EVERY MORNING 90 capsule 025 Active OneTouch Verio test stripIndications:H ypoglycemia TEST BLOOD SUGAR TWICE DAILY AND NEEDED 100 strip 3 025 Active Lancets (SpotXchangeTouch Delica Plus Ofpseg26D) miscIndications:Hy poglycemia TEST BLOOD SUGAR TWICE DAILY AND NEEDED 100 each 3 025 Active fexofenadine (Julita) 180 MG tabletIndications: Moderate persistent asthma with acute exacerbation TAKE 1 TABLET BY MOUTH EVERY DAY 30 tablet 2 025 Active diazePAM (Valium) 2 MG tablet Please take 1 tablet 30 minutes prior to your MRI. Please have someone drive you to the MRI. 1 tablet 025 Active sertraline (Zoloft) 100 MG tablet TAKE 2 TABLETS BY MOUTH ONCE DAILY IN THE MORNING 60 tablet 5 025 Active ondansetron ODT (Zofran-ODT) 4 MG disintegrating tabletIndications: Viral gastroenteritis Take 1 tablet (4 mg) by mouth every 12 (twelve) hours if needed for nausea or vomiting. 5 tablet 025 Active oxyCODONE-acetamin ophen (Percocet) 5-325 MG tabletIndications: Primary osteoarthritis of both knees TAKE 1 TABLET BY MOUTH EVERY 8 HOURS NEEDED FOR SEVERE PAIN 21 tablet 025 Active ondansetron ODT (Zofran-ODT) 4 MG disintegrating tablet take 1 tablet by oral route three times daily as needed 2024 Discontinued(R eorder (will not trigger notification to Pharmacy)) sertraline (Zoloft) 100 MG tablet TAKE 2 TABLETS BY MOUTH ONCE DAILY IN THE MORNING 60 tablet 5 024 2024 Discontinued oxyCODONE-acetamin ophen (Percocet) 5-325 MG tabletIndications: Primary osteoarthritis of both knees TAKE 1 TABLET BY MOUTH EVERY 8 HOURS NEEDED FOR SEVERE PAIN 84 tablet 025 2024 Discontinued oxyCODONE-acetamin ophen (Percocet) 5-325 MG tabletIndications: Primary osteoarthritis of both knees TAKE 1 TABLET BY MOUTH EVERY 8 HOURS NEEDED FOR SEVERE PAIN 21 tablet 025 2024 Discontinued oxyCODONE-acetamin ophen (Percocet) 5-325 MG tabletIndications: Primary osteoarthritis of both knees TAKE 1 TABLET BY MOUTH EVERY 8 HOURS NEEDED FOR SEVERE PAIN 21 tablet 025 2024 Discontinued Active Problems Problem Noted Date Diagnosed Date Viral gastroenteritis 11/27/2024 Assessment & Plan (11/27/2024 3:27 PM EDT): Exam benign. Likely viral gastroenteritis. -no evidence of dehydration on exam -no evidence of acute abdomen -supportive care with fluids -already taking omeprazole and tums. -prescribed refill of ondansetron ODT (Zofran-ODT) 4 MG, per patients request. Urinary incontinence 07/09/2024 Long-term current use of opiate analgesic 2023 Overview (09/24/2024): Dx: OA of knees, chronic bilateral low back pain w/o sciatica Rx: Percocet 5/325 q8 hours prn Last [employer] agreement: 04/09/24 Tier II (visit every 3 months) Assessment & Plan (12/03/2024 1:22 PM EDT): Timeline: - 12/03/24: Group - utox/pill count as expected Depression, recurrent 02/28/2024 Chronic bilateral low back pain without sciatica 04/09/2023 Overview (04/09/2023): ?? On percocet for chronic pain ?? Compliant with [employer] contract Assessment & Plan (07/09/2024 12:48 PM [...] R knee in 2024 Assessment & Plan (12/03/2024 1:21 PM EDT): -Good engagement and participation with Group Medical Visit model -Utox and pill count as expected -Encouraged multifactorial approach to pain control including pharm and non- pharm modalities Assessment & Plan (09/24/2024 1:43 PM EST): [...] daily ?? Amlodipine 5mg ?? Followed by [facility] cardiology for hx of CP. Completed stress test and echocardiogram 04/2022. Negative ?? Previous cardiac studies (echocardiogram in 2017 unremarkable, unremarkable Holter in 2017, EKG from [...] singuliar, Trelegy Ellipta, albuterol - Followed by [facility] pulmonology, last seen 03/2022 Osteoporosis 07/01/2015 Overview (06/21/2024): Follow[facility] [place] [facility] [place] 11/2023- Saw endocrinology for osteoporosis follow up and repeat DEXA. Worsening osteoporosis -3.4 at [facility]. Per visit note plan to start reclast therapy in 3 months once vitamin D repleted. 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 Continue vitamin D and calcium supplementation Assessment [...] - Stage IIIa - Previously seen by [facility], last note from 2018. - eGFR 03/2022 52; Creatinine 1.04 Assessment & Plan (10/12/2023 2:21 PM EST): Stable Continue to avoid NSAID's Maintain hydration Gastro-esophageal reflux disease with esophagiti s 07/01/2015 Overview (11/09/2022): - Extensive hx of dyspepsia, dysphagia, chronic diarrhea, and abdominal bloating - Followed by [facility] GI. Last seen 04/2022 with plan for [...] 07/01/2015 Overview (03/30/2023): - Sees therapist through [facility] - Seroquel 100mg -Ambien 5mg for [...] for reclast therapy 05/2023 Eye Exam: 09/[address] [facility], cataracts Assessment & Plan (11/09/2022 5:18 AM EDT): ?? Mammogram ordered today ?? Will schedule for PAP. If negative will plan to discontinue screenings. No hx of abnormal pap Encounters Date Type Department Care Team Description 12/03/2024 9:45 AM EDT Office Visit [facility] MEDICINE [address] [place] [address] Cara Rossi FNP Osteoarthritis involving multiple joints on both sides of body (Primary Dx); Long-term current use of opiate analgesic 12/03/2024 Travel 12/02/[address] [facility] MEDICINE [address] [place] [address] Eugenia Sandoval FNP Primary osteoarthritis of both knees 11/27/2024 3:20 PM EDT Office Visit [facility] WALK-IN CENTER [address] [place] [address] Mitali Che MD Viral gastroenteritis 11/21/[address] [facility] MEDICINE [address] [place] [address] Eugenia Sandoval FNP Primary osteoarthritis of both knees 11/20/[address] [facility] MEDICINE [address] [place] [address] Eugenia Sandoval FNP Reschedule Chronic Pain group 11/20/2024 Travel 11/20/[address] [facility] MED & PEDS [address] [place], [place] [phone] Sherice Kimball RN 11/18/[address] [facility] MEDICINE [address] [place] [address] Eugenia Sandoval FNP Appointment Request 11/15/[address] [facility] MEDICINE [address] [place] [address] Eugenia Sandoval FNP telephone call 11/12/[address] [facility] MEDICINE [address] [place] [address] Eugenia Sandoval FNP Primary osteoarthritis of both knees 11/07/[address] [facility] MEDICINE [address] [place] [address] Eugenia Sandoval FNP 10/30/[address] [facility] [address] [facility] [place] [address] [place] [facility] 10/28/2024 Telephone [facility] [address] [facility] [place] [address] [place] PHARMACOGENETICIST Prior Authorization (ramelteon (Rozerem) 8 MG tablet /) 10/23/2024 Orders Only [facility] MED[facility] [address] [facility] [place] [address] [place] FNP 10/22/2024 Telephone [facility] [address] [facility] [place] [address] [place] [facility] Durable Medical Equipment 10/16/[address] [facility] MED[facility]INE [address] [facility] [place] [address] Malia Bee DO Primary osteoarthritis of both knees 10/10/[address] [facility] MEDICINE [address] [place] [address] [place] torres FNP Moderate persistent asthma with acute exacerbation 10/03/2024 Telephone [facility] [address] [facility] [place] [address] [place] FNP Pre-op Notes 09/30/2024 1:15 PM EST Office Visit [facility] [place] [address] LoriEugenia torres FNP Cataract of right eye, unspecified cataract type (Primary Dx); Preoperative examination; Dizziness; Balance problem; Primary osteoarthritis of both knees; Other fatigue 09/30/2024 Travel 09/27/2024 Telephone [facility] [place] [address] [place] FNP chart prep 09/24/2024 9:45 AM EST Office Visit [facility] [place] [address] Cara Rossi FNP Chronic bilateral low back pain without sciatica (Primary Dx); Primary osteoarthritis involving multiple joints; Long-term current use of opiate analgesic 09/24/2024 Telephone [facility] [address] [facility] [place] [address] Lesley Mcmahan RN BPI Scoring 09/24/2024 Travel 09/24/[address] [facility] WALK[facility]IN [facility] [address] [place] [address] [facility] Hypoglycemia 09/17/[address] [facility] MEDICINE [address] [facility] [place] [address] [facility] Primary osteoarthritis of both knees 09/17/[address] [facility] MEDICINE [address] [place] [address] [facility] 09/10/[address] [facility] MEDICINE [address] [place] [address] [facility] Appointment Request from Last 3 Months Immunizations Name Administration [...] Sign Reading Time Taken Comments Blood Pressure 144/78 11/27/2024 3:17 PM EDT Pulse 77 11/27/2024 3:17 PM EDT Temperature 36.4 ??C (97.6 ??F) 11/27/2024 3:17 PM ED T Respiratory Rate 16 11/27/2024 3:17 PM EDT Oxygen Saturation 98% 11/27/2024 3:17 PM EDT Inhaled Oxygen Concentration - - Weight 67.2 kg (148 lb 3.2 oz) 11/27/2024 3:17 P M EDT Height 144.8 cm (4' 9 ) 11/27/2024 3:17 PM EDT Body Mass Index 32.07 11/27/2024 3:17 PM EDT Plan of Treatment Upcoming Encounters Date Type Department Care Team (Late st Contact Info) Description 12/09/2024 1:45 PM EDT Office Visit [facility] MEDICINE [address] [place] [phone] [place] FNP [address] [place], [place] [phone] 02/04/2025 9:45 AM EDT Office Visit [address] [phone] Health Maintenance Due Date Last Done Comments CT Colonography 1950 FIT DNA/Cologuard 1950 FIT 1950 FOBT 1950 Sigmoidoscopy 1950 Hepatitis B Vaccines (3 of 3 - 19+ 3-dose series) 09/15/2019 04/12/2019, 03/15/2019 Alcohol/Substance Use Screening 02/27/2025 02/28/2024 Depression Screening 06/17/2025 06/17/2024, 06/17/20 24 SDOH Screening 09/30/2025 09/30/2024 Tobacco Screening 10/02/2025 10/02/2024 Colonoscopy 10/28/2025 10/29/2015 Colorectal Cancer Screening 10/28/2025 Mammogram 10/23/2026 10/23/2024, 0601/2024, 02/07/2024, Additional history exists Lipid Panel 10/17/2028 10/17/2023, 03/0 04/2023, 06/21/2022, Additional history exists DTaP/Tdap/Td Vaccines (3 - Td or Tdap) 06/03/2031 06/03/2021, 08/17/2009, 07/01/1993 Hepatitis A Vaccines Aged Out 04/12/2019 No long er eligible based on patient's age to complete this topic Zoster Vaccines Completed 04/05/2022, 100 03/2021, 12/18/2014 Hepatitis C Screening Completed 06/21/2022 [...] body Long-term current use of opiate analgesic POCT INFLUENZA B Routine 11/27/2024 3:33 PM EDT Viral gastroenteritis POCT INFLUENZA A Routine 11/27/2024 3:33 PM EDT Viral gastroenteritis POCT RAPID COVID ANTIGEN Routine 11/27/2024 3:33 PM EDT Viral gastroenteritis MR BRAIN WO CONTRAST Routine 11/02/2024 Dizziness BI US BREAST LIMITED LEFT Routine 10/23/2024 11:00 AM EST POCT GLUCOSE Routine 09/30/2024 2:44 PM EST Dizziness POCT ROBERTA-14 URINE DRUG SCREEN Routine 09/24/2024 1:27 PM EST Chronic bilateral low back pain without sciatica LIPID PANEL, STANDARD Routine 10/17/2023 11:25 AM EST Essential hypertension THINPREP IMAGING PAP AND HPV MRNA E6/E7 WITH REFLEX TO HPV 16,18/45 Routine 01/13/2023 2:29 PM EDT Encounter for Papanicolaou smear for cervical cancer screening HM PAP/HPV Routine 01/13/2023 ZZZ HISTORICAL HEPATITIS C AB W/REFL TO HCV RNA, QN, PCR Routine 06/21/2022 10:33 AM EDT HM COLONOSCOPY Routine 10/29/2015 9:11 AM EST from Last 3 Months or Most Recently Relevant to Health Maintenance Results * POCT ROBERTA-14 Urine Drug Screen (12/03/2024 10:29 AM EDT) Only the most recent of2 resultswithin the time period is included. Oxycodone Screen, Urine Positive Urine Urine specimen obtained by clean catch procedure / Unknown 12/03/2024 10:29 AM EDT Narrative Sherice Kimball, VICTORIA - 12/03/2024 10:29 AM EDT .UTOX cup Lot#[id number] Exp. 04/16/26 Internal Pass Control Cara BOOKER POINT OF CARE TEST ENTER/EDIT ORDERABLES Final Result * POCT Rapid COVID Ag (11/27/2024 3:33 PM EDT) Rapid COVID Ag Negative QC Media Lot # [id number] Lot# Expiration Date Swab 11/27/2024 3:33 PM EDT Mitali Che MD POINT OF CARE TEST ENTER/E DIT ORDERABLES Final Result * POCT Influenza B manually resulted (11/27/2024 3:33 PM EDT) Pathologist [facility] Rapid Influenza B Ag Negative Negative, Indeterminate QC Media Lot # [id number] Lot# Expiration Date Swab 11/27/2024 3:33 PM EDT Mitali Che MD POINT OF CARE TEST ENTER/E DIT ORDERABLES Final Result * POCT Influenza A manually resulted (11/27/2024 3:33 PM EDT) Pathologist [facility] Rapid Influenza A Ag Negative Negative, Indeterminate QC Media Lot # [id number] Lot# Expiration Date Swab Nasopharyngeal structure / Unknown 11/27/2024 3:33 PM EDT Result [facility] Mitali Che MD POINT OF CARE TEST ENTER/E DIT ORDERABLES Final Result * MR Brain w/o Contrast (11/02/2024) Anatomical Region Laterality Modality Brain Magnetic Resonan ce [facility] PHARMACOGENETICIST IMG MRI PROCEDURES Final Resu lt * BI US Breast Limited Left (10/23/2024 11:00 AM EST) Anatomical Region Laterality Modality Breast Left Ultrasound 10/23/2024 11:0 0 AM EST Narrative 10/23/2024 12:11 PM EST ? [facility] [place] ? [address] ?[place] [address] ? Ultrasound Report ? Signed ? Patient: Colon Silva,Mary Kate S ?MR#: [id number] ?? [id number] ? : 1950 ?Acct:[id number] ? Age/Sex: 74 / F ?ADM Date: 02/26/25 ? Loc: HO.MAMMO ? Attending Dr: Eugenia Sandoval PHARMACOGENETICIST ? Ordering Physician: Eugenia Sandoval ?? Date of Service: 10/23/24 ?? Procedure(s): US breast LT limited mamm only ?? Accession Number(s): [id number] ? cc: Eugenia Sandoval PHARMACOGENETICIST ? EXAMINATION: ?? US DIAGNOSTIC ULTRASOUND BREAST, [...] DD/ 1100 ? TD/TT: 10/23/24 1129 ? Animal Eviscerator: ? Procedure Note Jaja, Image - 10/23/2024 [facility] [address] [place] [address] Dr. Harris, DUARTE [address] Ultrasound Report Signed Patient: Mary Kate Maya [facility]#: [id number] : 2Acct:[id number] Age/Sex: 74 / FADM Date: 10/23/24 Loc: [facility] Attending Dr: Eugenia Sandoval PHARMACOGENETICIST Ordering Physician: Eugenia Sandoval Date of Service: 10/23/24 Procedure(s): US breast LT limited mamm only Accession Number(s): [id number] cc: [facility] EXAMINATION: US DIAGNOSTIC ULTRASOUND BREAST, LEFT CLINICAL [...] by: Zaira Loco DO 10/23/2024 12:09 PM EST Workstation: [employer] Dictated By: Zaira Loco DO Signed By: <Electronically signed by Zaira Loco DO in OV> 10/23/24 1209 DD/ 1100 TD/TT: 10/23/24 1129 Animal Eviscerator: [facility] IMG US PROCEDURES Final Resul t * POCT Glucose (09/30/2024 2:44 PM EST) Glucose Blood, POC 101 60 - 200 mg/dL QC Media Lot # [id number] Lot# Expiration Date Blood Capillary blood specimen / Unknown 09/30/2024 2:44 PM EST [facility] POINT OF CARE TEST ENTER/EDIT ORDERABLES Final Result * (ABNORMAL) Lipid Panel, Standard (10/17/2023 11:25 AM EST) Triglycerides 69 <150 mg/dL [facility] Comment:Desirable Triglyceri de: less than 150 mg/dLBorderline High Triglyceride 150-199 mg/dLHigh Triglyceride: 200-499 mg/dLVery High Triglyceride: greater than or equal to 5OO mg/dL Cholesterol 182 <200 mg/dL [facility] Comment:Desirable Cholestero l: less than 200 mg/dLBorderline High Cholesterol: 200-239 mg/dLHigh Cholesterol: greater than 239 mg/dL LDL Cholesterol Calculated 122(H) <100 mg/dL [facility] Comment:Desirable LDL: less than 100 mg/dLNear Optimal/Above Optimal LDL: 110- 129 mg/dLBorderline High LDL: 130-159 mg/dLHigh LDL: 160-189 mg/dLVery High LDL: greater than or equal to 190 mg/dL HDL Cholesterol 47 >40 mg/dL [facility] Comment:Desirable HDL: great er than 40 mg/dL Note: This HDL assay may give artificially low results in patients with liver disease. Blood Venous blood specimen / Unknown 10/17/2023 11:25 AM EST 10/17/2023 1:09 PM EST [facility] PHARMACOGENETICIST LAB BLOOD ORDERABLES Final Re sult [facility] [address] [place] [phone] * Thinprep TIS PAP And HPV mRNA E6/E7 With Reflex To HPV 16,18/45 (01/13/2023 2:29 PM EDT) Clinical Information: Postmenopausal EasilyDot LMP: NONE GIVEN [employer] [place] [employer] Prev. PAP: NONE GIVEN [employer] Prev. BX: NO [facility] SOURCE: Cervix EasilyDot Statement Of Adequacy: Scooters Comment: Satisfactory for evaluation. Endocervical/transformation zone component absent. Interpretation/ Result: Negative for intraepithelial lesion or malignancy. [employer] COMMENT: This Pap test has been evaluated with computer assisted technology. Scooters Cytotechnologis t: Scooters Comment: BAL, CT(ASCP) CT screening location: [address] ??[id number] Review Cytotechnologis t: [employer] [place] [employer]Rev Comment: JNA, CT(ASCP) CT screening location: [address] ??[id number] (Always Message) Scooters Comment: EXPLANATORY NOTE: The Pap is a [...] HPV nRNA E6/E7 Not Detected Not Detected [employer]ers Comment: Methodology: Hand Patcher-Mediated Amplification This assay detects E6/E7 viral messenger RNA (mRNA) from 14 high-risk HPV types (16,18,31,33,35,39,45,51,52,56,58,59,66,68). Cervical sources are required for HPV testing. If a vaginal source from a patient who has had a total hysterectomy with removal of cervix was submitted, please contact the testing laboratory for alternative testing options. For additional information, please refer to http://education.Xcovery/faq/VKQ432u9 (This link if provided for information/ educational purposes only.) Genital 01/13/2023 2:29 PM EDT 01/16/2023 7:42 AM EDT [facility] LAB PATHOLOGY ORDERABLES Sandie l Result [address], [place] [address] [employer] [place] [employer] [address] [place] [address] * Hm Pap Smear (01/13/2023) Pap Negative for intraephithelial lesion or malignancy Negative for intraephithelial lesion or malignancy, Other HPV Undetected 01/13/2023 [facility] HEALTH MAINTENANCE Final Resu lt * [...] a test for HCV RNA (test code 33038) is suggested. ?? For additional information please refer to http://education.Xcovery/faq/SSI15j6 (This link is being provided for informational/ educational purposes only.) ?? 06/21/2022 10:3 3 AM EDT [facility] PHARMACOGENETICIST HISTORICAL/NON ORDERABLE LABS Final Result CONVERTED LEGACY LABS * Colonoscopy (10/29/2015 9:11 AM EST) Historical Provider HEALTH MAINTENANCE Final Result from Last 3 Months or Most Recently Relevant to Health Maintenance Insurance [facility] Care Teams Continuous Absorption Process Operator Relationship Specialty Start Date End Date LoriEugenia FNP [address] [place] [phone] PCP - General Family Medicine 04/27/22
--- OUTSIDE RECORDS SUMMARY | 2024-12-06 10:35 | XMS_ITS | Encounter Summary ---
Author Organization [employer] [facility] Address [address] [facility] [address] [place] [address] Care Team Providers Care Interactive Media Marketing Director Name Role Phone [facility] Primary Care Provider [phone] Reason for Visit * Reason Comments Med Refill Encounter Details Date Type Department Care Team ([facility] Contact Info) Description 01/09/2023 Refill [facility] [address] [place] [phone] [facility] [address] [place] [address] Social History Tobacco Use Types Packs/Day Years [...] Upcoming Encounters Date Type Department Care Team ([facility] Contact Info) Description 12/09/2024 1:45 PM EDT Office Visit [facility] [address] [place] [phone] [facility] [address] [place] [address] 02/04/2025 9:45 AM EDT Office Visit [facility] [address] [place] [phone] documented as of this encounter Visit Diagnoses Not on filedocumented in this encounter Care Teams Interactive Media Marketing Director Relationship Specialty Start Date End Date Eugenia Sandoval FNP [address] [place] [address] PCP - General Family Medicine 04/27/22 documented as of this encounter
--- OUTSIDE RECORDS SUMMARY | 2024-12-06 10:35 | XMS_ITS | Encounter Summary ---
Author Organization [employer] Address [address] [facility] 7[address] [place] [address] Care Team Providers Care Director Of Vocational Guidance Name Role Phone Eugenia Sandoval Primary Care Provider [phone] Reason for Referral * Hospital - Outpatient (Routine) - Closed Specialty Diagnoses / Procedures Referred By Nimisha tirado Referred To Contact Diagnoses Essential hypertension Excessive daytime sleepiness Procedures Polysomnography Eugenia Sandoval FNP [address] [place] [address] Phone: tel: fax: [address] Phone: tel: fax: Referral ID Status Reason Start Date Expiration Date Visits Re quested Visits Authorized [id number] Closed 07/02/2024 07/02/2025 1 1 Encounter Details Date Type Department Care Team (Late st Contact Info) Description 07/02/2024 Orders Only [facility] MED[facility] [address] [place], [place] [phone] Eugenia Sandoval FNP [address] [place] [address] Essential hypertension (Primary Dx); Excessive [...] Description 12/09/2024 1:45 PM EDT Office Visit [facility] [address] [place] [address] [facility] [address] [place] [address] 02/04/2025 9:45 AM EDT Office Visit [facility] [address] [place] [address] Scheduled Orders Name Type Priority Associated Diagnoses [...] documented as of this encounter Care Teams Director Of Vocational Guidance Relationship Specialty Start Date End Date Eugenia Sandoval FNP [address] [place] [address] PCP - General Family Medicine 04/27/22 documented as of this encounter
--- OUTSIDE RECORDS SUMMARY | 2024-12-06 10:35 | XMS_ITS | Encounter Summary ---
Author Organization [facility] Address [address] [facility] 7t [place] [address] Care Team Providers Care Consulting Services Associate Name Role Phone [facility] Primary Care Provider [phone] Reason for Visit * Reason Comments Med Refill Encounter Details Date Type Department Care Team (Late Contact Info) Description 02/18/[address] [facility] MEDICINE [address] [place] [address] [facility] [address] [place], [place] [phone] Social History Tobacco Use Types Packs/Day Years [...] PM EDT Office Visit [facility] MED[facility]INE [address] [place], [place] [phone] [facility] [address] [place], [place] [phone] 02/04/2025 9:45 AM EDT Office Visit [facility] [address] [place] [address] documented as of this encounter Visit Diagnoses Not on filedocumented in this encounter Care Teams Consulting Services Associate Relationship Specialty Start Date End Date Eugenia Sandoval FNP [address] [place] [address] PCP - General Family Medicine 04/27/22 documented as of this encounter
--- OUTSIDE RECORDS SUMMARY | 2024-12-06 10:35 | XMS_ITS | Encounter Summary ---
Author Organization [employer] Address [address] [facility] 7t [place] [address] Care Team Providers Care Sewer Digger Name Role Phone [facility] Primary Care Provider [phone] Reason for Visit * Reason Onset Date Comments Appointment Request 09/10/2024 Encounter Details Date Type Department Care Team ([facility] Contact Info) Description 09/10/2024 Telephone [facility] MEDICINE [address] [place], [place] [phone] [facility] [address] [place], [place] [phone] Appointment Request Social History Tobacco Use Types [...] pain management appt. Please contact pt at [phone]. (Marshallese Speaker) documented in this encounter Plan of Treatment Upcoming Encounters Date Type Department Care Team ([facility] st Contact Info) Description 12/09/2024 1:45 PM EDT Office Visit [facility] MEDICINE [address] [place] [phone] Eugenia Sandoval FNP [address] [place] [address] 02/04/2025 9:45 AM EDT Office Visit [facility] MEDICINE [address] [place] [address] documented as of this encounter Visit Diagnoses Not on filedocumented in this encounter Additional Health Concerns Assessment Noted Time PHQ-9 Depression Total Score: 0 06/17/20 24 2:07 PM EDT documented as of this encounter Care Teams Sewer Digger Relationship Specialty Start Date End Date Eugenia Sandoval FNP [address] [place] [address] PCP - General Family Medicine 04/27/22 documented as of this encounter
== END 2024-12-06 11:17 | disposition home or self-care (01) ==
LOC: HO.HGI 09:58
PROVIDERS: PCP Registered Nurse; Visit Provider Nurse Practitioner Family
DX: R19.7 Diarrhea, unspecified (principal); K21.00 Gastro-esophageal reflux disease with esophagitis, without bleeding
CPT/HCPCS: 99215

== ENCOUNTER → 2024-12-06 09:58 | Outpatient (BNVA) | payer OTHER, SELFPAY | PROVIDERS: PCP Registered Nurse; Visit Provider Nurse Practitioner Family | DX: K21.00 Gastro-esophageal reflux disease with esophagitis, without bleeding (principal); R19.7 Diarrhea, unspecified | CPT/HCPCS: 99212 ==

== ENCOUNTER 2025-03-18 11:38 | Outpatient (REF) | payer OTHER, SELFPAY ==
--- OUTSIDE RECORDS SUMMARY | 2025-03-18 12:53 | XMS_ITS | Encounter Summary ---
Author Organization [employer] Address [address] [facility] 7[address] [place] [address] Care Team Providers Care Pharmacy Sales Representative Name Role Phone [facility] Primary Care Provider [phone] Reason for Visit * Reason Comments Med Refill Encounter Details Date Type Department Care Team ([facility] Contact Info) Description 01/29/2025 Refill [facility] MEDICINE [address] [place], [place] [phone] [facility] [address] [place], [place] [phone] Primary osteoarthritis of both knees Social History [...] Date Recorded Patient Health Questionnaire-9 Score 0 12/09/2024 Patient Health Questionnaire-9 Score 0 12/09/2024 Last PHQ-9: Questionnaire Data Not on file 0 12/09/2024 Housing Stability Answer Date Recorded What is [...] Date Recorded Patient Health Questionnaire-2 Score 0 12/09/2024 Internet Access Answer Date Recorded Internet Access [...] Care Team (Late st Contact Info) Description 04/08/2025 9:45 AM EDT Office Visit [facility] MEDICINE [address] [place] [address] documented as of this encounter Visit Diagnoses Diagnosis Primary osteoarthritis of both knees documented in this encounter Additional Health Concerns Assessment Noted Time PHQ-9 Depression Total Score: 0 12/10/19 25 1:35 PM EDT documented as of this encounter Care Teams Pharmacy Sales Representative Relationship Specialty Start Date End Date Eugenia Sandoval FNP [address] [place] [address] PCP - General Family Medicine 04/27/22 documented as of this encounter
--- OUTSIDE RECORDS SUMMARY | 2025-03-18 12:53 | XMS_ITS | Clinical Summary ---
Author Organization [facility] Address [address] [place] [address] Care Team Providers Care Baseball Winder Name Role Phone Rufino Garcia [facility] Primary Care Provider Family History Medical [...] Ye ars (1 of 2 - PCV) 01/09/1969 Colorectal Cancer Screening: Annual FOBT 01/09/2001 Colorectal Cancer Screening: Colonoscopy 01/09/2001 Colorectal Cancer Screening: Sigmoidoscopy 01/09/2001 Influenza Vaccine (#1) 2025 Hepatitis B Vaccine Aged Out No longe r eligible based on patient's age to complete this topic Insurance [facility] ([id number]) [facility] ([id number]) Care Teams Baseball Winder Relationship Specialty Start Date End Date Rufino Garcia FNP [address] [place] [address], [address] [place] [address] PCP - General 09/07/20
--- OUTSIDE RECORDS SUMMARY | 2025-03-18 12:54 | XMS_ITS | Data Portability ---
Author Organization [facility], [facility] Address [address] [place] [address] Care Team Providers Care Sofa Cover Inspector Name Role Phone EUGENIA VERDIN Primary Care Provider Assessment Encounter Date Assessment Date Assessment LastModified by Organization Details LastModified Time 11/06/2024 11/06/2024 Chief complaint: Right knee pain. History of present illness: The patient is presenting with a chief complaint of right knee pain. The patient has tried rest, NSAIDS, physical therapy, corticosteroid injection, exercise, and activity modification but continues to have pain. The patient ambulates with an antalgic gait due to the pain. The patient has pain with range of motion of the knee and weight bearing. The pain is made worse with initiation of activity. The patient has difficulty peforming activities of daily living due to this pain. Physical examination: The patient is in no acute distress. She is alert and oriented x3. She has nonlabored breathing. Her hearing is intact to spoken word. Her extra-ocular motion is intact. Right lower extremity - Alignment: Valgus Effusion: moderate Range of motion: 0-105 Varus/valgus stress testing: moderate laxity Crepitus: slight Skin is intact without erythema, induration, or ecchymosis. The patient has full painless range of motion at the ipsilateral hip. Sensation is intact to light touch over the dorsum of the foot, in the first webspace, and over the plantar aspect of the foot. The patient has 5/5 strength with plantarflexion of the ankle, dorsiflexion of the ankle, plantarflexion of the great toe, and dorsiflexion of the great toe. The foot is warm and well-perfused with brisk capillary refill. There is a 2+ dorsalis pedis pulse. Radiographs: 4 views of the right knee including bilateral knee AP, bilateral knee Zur[place], right knee lateral, and bilateral knee merchant views were obtained and evaluated in the office today. X-rays demonstrate that the patient has end-stage, bone on bone, osteoarthritis of the right knee with joint space narrowing, subchondral sclerosis, and osteophyte formation. There is no evidence of fracture. Assessment and Plan: The patient is presenting with a chief complaint of right knee pain. She demonstrates end-stage, bone on bone, osteoarthritis of her right knee on radiographs. At this point, the patient has failed non-operative treatment of her right knee osteoarthritis. The patient has tried NSAIDs, rest, exercise, physical therapy, corticosteroid injection, and activity modification but continues to have worsening pain for greater than 3 months. A thorough discussion was had with the patient regarding both nonsurgical and surgical interventions for treatment of right knee osteoarthritis. Since the patient has experienced worsening pain despite conservative treatment, the patient wished to proceed with surgery. The nature of knee replacement surgery, the potential risks, benefits, complications, the magnitude of the surgery, the intensity of postoperative recovery, and the elective nature of a right total knee arthroplasty were discussed at length. Risks and complications discussed included postoperative stiffness, infection requiring further surgery or potential removal of implants, persistent infection requiring possible amputation, wound healing complications, instability, dislocation, need for additional surgery or revision arthroplasty, aseptic loosening, extensor mechanism disruption, implant failure, injury to nerve, foot drop, numbness, numbness over the lateral knee, injury to blood vessel, bleeding, hematoma, need for transfusion, fracture, heart attack, stroke, deep vein thrombosis, pulmonary embolism, and even intraoperative or postoperative . Despite these risks, the patient still wished to proceed with surgery. The patient was instructed that I am happy to meet again at any time in order to review any additional questions or concerns the patient might have. Since the patient wishes to proceed, we will schedule the patient for a right total knee arthroplasty. The patient will require clearance from a medical doctor prior to surgery. The next planned follow-up is at the preoperative history and physical appointment. Surgery will be scheduled so that it occurs at least 3 months or 12 weeks from the most recent corticosteroid injection. [email or web address] Not available 11/17/2024 20:32:02 12/19/2024 12/19/2024 PRIMARY DIAGNOSIS: Osteoarthritis of the right knee. REASON FOR ADMISSION: The patient is being admitted for a right total knee arthroplasty with Dr. Lozoya on 12/31/2024. HISTORY OF PRESENT ILLNESS: The patient is a 74-year-old female presenting today with right-sided knee pain. Her pain has been going on for several years and has been getting progressively worse. Her pain level is 6/10 in intensity at rest, increasing to 10/10 in intensity with weightbearing activities. She reports significant activity limitations, which include difficulty walking any prolonged distances, pivoting, and stairs. She has difficulty getting in and out of the car and chair and transition from sit to stand. The patient has been taking Tylenol in order to manage her symptoms, unfortunately with diminishing returns. She had a previous left total knee arthroplasty done with Dr. Lozoya on 12/22/2023, which is doing very well. The patient did have issues with postoperative dizziness, but ultimately was discharged to home on postoperative day 3. She required subsequent manipulation; however, now states that her range of motion is pretty good, and she is happy with the outcomes of her surgery. The patient has been ambulating with a cane for prolonged distances. She now states that she is ready for right total knee arthroplasty with Dr. Lozoya on 12/31/2024. PAST MEDICAL HISTORY: 1. Osteoarthritis of the right knee. 2. Hypertension. 3. Osteoporosis. 4. Irritable bowel syndrome with diarrhea. 5. Moderate persistent asthma. 6. Acquired hypothyroidism. 7. Chronic kidney disease, stage III, with baseline GFR between 30 to 59. 8. GERD with esophagitis. 9. Hyperlipidemia. 10. Anxiety. 11. Depression. 12. Osteoarthritis of multiple joints. 13. Chronic low back pain with sciatica. 14. Gait instability. 15. Obesity with BMI of 33.4. PAST SURGICAL HISTORY: 1. Left total knee arthroplasty with Dr. Lozoya on 12/22/2023. 2. Left knee manipulation on 01/30/2024. 3. Left ankle surgery. 4. Bilateral hand surgery. CURRENT MEDICATION LIST: 1. Azelastine nasal spray 1 spray to bilateral nares 2 times a day. 2. Reglan 5 mg 2 times a day as needed for nausea. 3. Zofran 4 mg 3 times a day as needed for nausea. 4. Dexilant 30 mg daily in the morning. 5. Creon 3000 units capsule 4 times a day. 6. Trelegy Ellipta 200 mcg/62.5 mcg 1 puff daily. 7. Gabapentin 300 mg 3 times a day. 8. Sucralfate 1 g 3 times a day before meals and at bedtime. 9. Simethicone 125 mg daily at bedtime. 10. Albuterol as needed for shortness of breath. 11. Klor-Con 25 mEq 1 tablet twice a day. 12. Minoxidil topical to the scalp for hair loss. 13. Centrum complete multivitamin, which she had stopped in preparation for the surgery. 14. Zyrtec 10 mg daily. 15. Narcan as needed. 16. Tums as needed. 17. Losartan 100 mg every day. 18. Vitamin B12. 19. Vitamin D3. 20. Zoloft 200 mg every day. 21. Tolterodine tartrate 4 mg every day. 22. Levothyroxine 125 mcg daily in the morning. 23. Meclizine 12.5 mg as needed for dizziness. 24. Amlodipine 2.5 mg daily in the morning. 25. Percocet 5/325 mg 3 times a day as needed for pain. 26. Ambien as needed for insomnia. ALLERGIES: PATIENT IS ALLERGIC TO HYDROCODONE, MORPHINE, METHYLBROMIDE, HOMATROPINE, AND PENICILLIN. SOCIAL HISTORY: The patient denies any alcohol, tobacco, or illicit drug use. She is . She is Cook Islander speaking only. PHYSICIANS: Her [facility]. REVIEW OF SYSTEMS: Negative with exception of HPI. The patient does have chronic diarrhea and has chronic shortness of breath from her asthma, which is well controlled. PHYSICAL EXAMINATION: VITAL SIGNS: Weight is 151 pounds. GENERAL: The patient is alert and oriented. Normal insight, affect and grooming. HEENT: Normocephalic. Conjunctivae are pink. Sclerae are anicteric. SKIN: Intact without rashes or lesions. Nails are without clubbing or cyanosis. NECK: Supple. Trachea is midline. No lymphadenopathy. CHEST: Lungs are clear to auscultation bilaterally. Breathing is nonlabored. CARDIOVASCULAR: Heart has a regular rate and rhythm with normal S1 and S2. No murmurs, rubs or gallops appreciated. No JVD. Carotid pulses without bruits. ABDOMEN: Soft, nontender with normal bowel sounds. No hepatosplenomegaly or masses noted. No bruits appreciated. EXTREMITIES: The patient has negative straight leg raise test bilaterally. Bilateral hips with full range of motion without pain. No trochanteric tenderness. Left knee has well-healed incision. Full range of motion. No pain. Right knee has valgus alignment, moderate effusion. Range of motion is 0 to 105 degrees. Moderate laxity with varus and valgus stresses. Slight crepitus. Motor sensation screening is intact. Calves are soft and nontender. Ankle motion is satisfactory. Pedal pulses palpable bilaterally. Skin on her feet is intact. PREOPERATIVE DIAGNOSTIC DATA: EKG reads sinus bradycardia at 57 beats per minute. Orthopedic x-rays demonstrate end-stage osteoarthritis of the right knee. There is [id number] articulation, subchondral sclerosis, and osteophyte formation. There is a well-positioned, well-fixed arthroplasty noted on the contralateral side. LABORATORY DATA: CBC, chemistry panel and coagulation studies were within normal limits. A1c 5.9. ASSESSMENT AND PLAN: The patient has advanced osteoarthritis of the right knee and is now scheduled for right total knee arthroplasty with Dr. Lozoya on 12/31/2024. The patient was seen by [facility] who stated that the patient is at low risk for perioperative cardiovascular and pulmonary complications. The patient will receive intravenous tranexamic acid. She will be on aspirin postoperatively for deep venous thrombosis prophylaxis. She will not receive any Celebrex due to her chronic kidney disease. She will be monitored on telemetry throughout the hospital stay. She will not receive any tramadol and only oxycodone, as she does not feel the tramadol is effective and she developed gastrointestinal upset. We will monitor point of care and order sliding scale insulin. Discharge plans will be to home the next day. The patient is not a candidate for same day discharge. The patient has been counseled regarding risks and benefits of proposed surgery. Her questions have been answered. She acknowledges understanding. The patient wishes to proceed with surgery. The patient will receive 1 week in-home physical therapy postoperatively. No prescriptions were given to her in this office visit. The patient will require prescriptions for aspirin and oxycodone prior to discharge from the hospital. She does not wish to receive any tramadol. She already takes Dexilant and cannot take Celebrex. The patient also refuses to take any stool softeners, as she has baseline diarrhea. CONTACTS: Her son, Ramesh, with cellphone number [phone]. [email or web address] Not available 12/20/2024 09:55:10 12/24/2024 12/24/2024 Assessment: Frances ent presents with symptoms that are consistent with knee OA. Demonstrates good understanding of home program, post-operative mechanics for gait and stairs, and expectations following surgery. Plan: Discharge patient to knee OA safe [facility]. Follow up with patient post-operatively. [email or web address] Not available 12/11/2024 06:46:59 Plan of Treatment Reminders Order Date Submit Date Provider Last Modified By Organization Details Last Modified Time Details Appointments O'RODRIGO JAMISON 2024 09:30A M Lesley Kelley CNP Not available Not available Not available [place] [facility] [place] 07:30A M Jace Sanford MD Not available Not available Not available POST OP 2024 01:00P M Krzysztof Dumont NP Not available Not available Not available POST OP 2024 01:00P M Jace Sanford MD Not available Not available Not available Lab None recorded . Referral None recorded . Procedures None recorded . Surgeries None recorded . Imaging XR, knee, 4 or more view - 102 rt 4v 2024 025 [email or web address] [facility], [address], [facility] [address], [place], [address], 11/20/2024 10:00:48 Medication Orders None recorded . Patient TargetsNo targets recorded. Patient InstructionsNo instructions recorded. Reason for Referral None Reported. Results Created Date Observation Date Name Description Value Unit Range Abnormal Flag Note LastModifiedBy Organization Detail LastModifiedTime 12/05/1912/05/2024 CBC WITH DIFFE RENTI AL/PL ATELE T WBC 7.3 x10e3 /uL 3.4-10 .8 normal Not Available [facility] ([facility]) [address] [facility], [place], [address], 12/05/2024 08:13:03 12/05/1912/05/2024 CBC WITH DIFFE RENTI AL/PL ATELE T RBC 4.06 x10e6 /uL 3.77-5 .28 normal Not Available [facility] ([facility]) [address] [place], [address], 12/05/2024 08:13:03 12/05/19 25 12/05/2024 CBC WITH DIFFE RENTI AL/PL ATELE T hemoglobin 12.0 g/dL 11.1-1 5.9 normal Not Available [facility] ([facility]) [address] [place], [address], 12/05/2024 08:13:03 12/05/1912/05/2024 CBC WITH DIFFE RENTI AL/PL ATELE T hematocrit 37.1 % 34.0-4 6.6 normal Not Available [facility] ([facility]) [address] [place], [address], 12/05/2024 08:13:03 12/05/19 25 12/05/2024 CBC WITH DIFFE RENTI AL/PL ATELE T MCV 91 fL 79-97 normal Not Available [facility] ([facility]) [address] [place], [address], 12/05/2024 08:13:03 12/05/19 25 12/05/2024 CBC WITH DIFFE RENTI AL/PL ATELE T MCH 29.6 pg 26.6-3 3.0 normal Not Available [facility] ([facility]) [address] [place], [address], 12/05/2024 08:13:03 12/05/19 25 12/05/2024 CBC WITH DIFFE RENTI AL/PL ATELE T MCHC 32.3 g/dL 31.5-3 5.7 normal Not Available [facility] ([facility]) [address] [place], [address], 12/05/2024 08:13:03 12/05/19 25 12/05/2024 CBC WITH DIFFE RENTI AL/PL ATELE T RDW 12.8 % 11.7-1 5.4 Not Available [facility] ([facility]) [address] [facility], [place], [address], 12/05/2024 08:13:03 12/05/19 25 12/05/2024 CBC WITH DIFFE RENTI AL/PL ATELE T platelets 412 x10e3 /uL 150-45 0 normal Not Available [facility] ([facility]) [address] [facility], [place], [address], 12/05/2024 08:13:03 12/05/19 25 12/05/2024 CBC WITH DIFFE RENTI AL/PL ATELE T neutrophils 56 % not estab. normal Not Available [facility] ([facility]) [address] [facility], [place], [address], 12/05/2024 08:13:03 12/05/19 25 12/05/2024 CBC WITH DIFFE RENTI AL/PL ATELE T lymphs 31 % not estab. normal Not Available [facility] ([facility]) [address] [facility], [place], [address], 12/05/2024 08:13:03 12/05/19 25 12/05/2024 CBC WITH DIFFE RENTI AL/PL ATELE T monocytes 9 % not estab. normal Not Available [facility] ([facility]) [address] [facility], [place], [address], 12/05/2024 08:13:03 12/05/19 25 12/05/2024 CBC WITH DIFFE RENTI AL/PL ATELE T eos 3 % not estab. normal Not Available [facility] ([facility]) [address] [facility], [place], [address], 12/05/2024 08:13:03 12/05/19 25 12/05/2024 CBC WITH DIFFE RENTI AL/PL ATELE T basos 1 % not estab. 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 0 normal Not Available [facility] ([facility]) [address] [facility], [place], [address], 12/05/2024 08:13:03 12/05/19 25 12/05/2024 CBC WITH DIFFE RENTI AL/PL ATELE T lymphs (absolute) 2.2 x10e3 /uL 0.7-3. 1 normal Not Available [facility] ([facility]) [address] [place], [address], 12/05/2024 08:13:03 12/05/19 25 12/05/2024 CBC WITH DIFFE RENTI AL/PL ATELE T monocytes(ab solute) 0.7 x10e3 /uL 0.1-0. 9 normal Not Available [facility] ([facility]) [address] [facility], [place], [address], 12/05/2024 08:13:03 12/05/19 25 12/05/2024 CBC WITH DIFFE RENTI AL/PL ATELE T eos (absolute) 0.2 x10e3 /uL 0.0-0. 4 normal Not Available [facility] ([facility]) [address] [place], [address], 12/05/2024 08:13:03 12/05/19 25 12/05/2024 CBC WITH DIFFE RENTI AL/PL ATELE T baso (absolute) 0.1 x10e3 /uL 0.0-0. 2 normal Not Available [facility] ([facility]) [address] [facility], [place], [address], 12/05/2024 08:13:03 12/05/19 25 12/05/2024 CBC WITH DIFFE RENTI AL/PL ATELE T immature granulocytes 0 % not estab. Not Available [facility] ([facility]) [address] [facility], [place], [address], 12/05/2024 08:13:03 12/05/19 25 12/05/2024 CBC WITH DIFFE RENTI AL/PL ATELE T immature grans (abs) 0.0 x10e3 /uL 0.0-0. 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 2 normal Not Available [facility] ([facility]) [address] [place], [address], 12/05/2024 08:13:03 12/05/19 25 12/05/2024 ELECT ROLYT E PANEL chloride 101 mmol/ L 96-106 normal Not Available [facility] ([facility]) [address] [facility], [place], [address], 12/05/2024 08:13:03 12/05/19 25 12/05/2024 ELECT ROLYT E PANEL carbon dioxide, total 21 mmol/ L 20-29 normal Not Available [facility] ([facility]) [address] [facility] [place], [address], 12/05/2024 08:13:03 12/05/19 25 12/05/2024 BUN+C REAT BUN 14 mg/dL 8-27 normal Not Available [facility] ([facility]) [address] [place], [address], 12/05/2024 08:13:04 12/05/19 25 12/05/2024 BUN+C REAT creatinine 0.85 mg/dL 0.57-1 .00 normal Not Available [facility] ([facility]) [address] [facility], [place], [address], 12/05/2024 08:13:04 12/05/19 25 12/05/2024 BUN+C REAT eGFR 73 mL/mi n/1.7 3 >59 normal Not Available [facility] ([facility]) [address] [facility], [place], [address], 12/05/2024 08:13:04 12/05/19 25 12/05/2024 BUN+C REAT BUN/creatini ne ratio 16 12-28 normal Not Available [facility] ([facility]) [address] [place], [address], 12/05/2024 08:13:04 12/05/19 25 12/05/2024 PROTH ROMBI N TIME (PT) INR 1.0 0.9-1. 2 Refer ence inter kimberly is for non-a ntico agula wagner patie nts. Sugge sted INR thera peuti c range for Vitam in K antag onist thera py: Stand zulma Dose (mode rate inten sity thera peuti c range ): 2.0 - 3.0 Highe r inten sity thera peuti c range 2.5 - 3.5 Not Available [facility] ([facility]) [address] [place], [address], 12/05/2024 08:13:05 12/05/1912/05/2024 PROTH ROMBI N TIME (PT) prothrombin time 10.9 sec 9.1-12 .0 normal Not Available [facility] ([facility]) [address] [place], [address], 12/05/2024 08:13:05 12/05/1912/05/2024 HEMOG LOBIN A1C hemoglobin A1C 5.9 % 4.8-5. 6 above high normal Predi abete s: 5.7 - 6.4 Diabe fide: >6.4 Glyce ezequiel contr ol for adult s with diabe fide: <7.0 Not Available [facility] ([facility]) [address] [place], [address], 12/05/2024 08:13:05 12/05/1912/05/2024 PTT, ACTIV ATED APTT 28 sec 24-33 normal This test has not been valid ated for monit oring unfra ction ated hepar in thera py. aPTT- based thera peuti c range s for unfra ction ated hepar in thera py have not been estab anette carranza For gener al guide lines on Hepar in monit oring , refer to the [facility] manuel of Phill kelley. Not Available [facility] ([facility]) [address] [place], [address], 12/05/2024 08:13:06 12/05/19 25 12/05/2024 GLUCO SE glucose 89 mg/dL 70-99 normal Not Available [facility] ([facility]) [address] [facility], [place], [address], 12/05/2024 08:13:06 11/07/19 25 11/06/2024 XR, knee, 4 or more view [email or web address] ?Encry pted=s hAaTro YD8dLq bEUv6g %2BXZw aYqtaq 0bqfl% 2Fg9IQ a4ajBk vP9nXo QUaueC m3YtLR FvZlgJ JJ8mAn HZtai3 [id number] AC0KqY nyGV6u hKiQtr MwF INTERFACE [facility] [address] [facility] [address], [place], [address], 11/06/2024 16:55:36 11/07/19 25 11/06/2024 XR, knee, 4 or more view [email or web address] ?Encry pted=s hAaTro YD8dLq bEUv6g %2BXZw aYqtaq 0bqfl% 2Fg9IQ a4ajBk vP9nXo QUaueC m3YtLR FvZlgJ JJ8mAn HZtai3 [id number] AC0KqY nyGV6u hKiQtr MwF INTERFACE [facility] [address] [facility] [address], [place], [address], 11/06/2024 16:55:38 Result Notes Documentation Provider Name and Address Organization Details Recorded Time Xr, Knee, 4 Or More View : [email or web address] Encrypted=xoCtDwpOB6nTmnZ Uv6g%6ZGMyaRrpvf1spxu%2Fg 3YTv8sjXigS6xCdYNhspQl2Iv DGJdLqdJVS1oPoROxzb73e940 4BG2GoEmgKT6ceIcQdtVhO Not Available [facility] 11/06/2024 16:55: 37 Xr, Knee, 4 Or More View : [email or web address] Encrypted=tuFcDhzCR0oDygP Uv6g%3GPYxiGcjjc7ljky%2Fg 1RGp3deUrcG0mTcWFtcnFx2Ib PZGqZccRBH8mFvDIssy31h576 2FD3LgYkjFV8vcGyFphCbR Not Available [facility] 11/06/2024 16:55: 39 Procedures Surgical History Date Name Laterality Status Provider Name and Address Organization Details Recorded Time 5 82320 Therapeutic Exercise (1:1) completed Steve Pennington, PT [address], [place], [address], [facility] 12/11/2024 06:45:02 5 89494: Low complexity PT Eval completed Steve Pennington, PT [address], [place], [address], [facility] 12/11/2024 06:45:05 4 Sports Knee 4&1 completed Derek Hamilton PA-C [address], [place], [address], [facility] 07/17/2024 15:12:43 4 Sports Knee 4&1 completed Jace Sanford MD [address], [place], [address], [facility] 03/27/2024 06:25:25 4 88890 Therapeutic Exercise (1:1) completed Carlos Ledbetter PTA [address], [place], [address], [facility] [facility] 03/20/2024 17:50:09 4 [id number] Therapeutic Exercise (1:1) completed Carlos Ledbetter PTA [address], [place], [address], [facility] 03/18/2024 17:58:22 4 [id number] Therapeutic Exercise (1:1) completed Carlos Ledbetter PTA [address], [place], [address], [facility] 03/06/2024 15:32:35 4 [id number] Therapeutic Exercise (1:1) completed Carlos Ledbetter PTA [address], [place], [address], [facility] 03/04/2024 15:09:05 4 71066 Therapeutic Exercise (1:1) completed Carlos Ledbetter PTA [address], [place], [address], [facility] 02/26/2024 16:04:46 4 77358 Therapeutic Exercise (1:1) completed Aye Hawk DPT [address], [place], [address], [facility] 02/21/2024 17:23:58 4 58255 Therapeutic Exercise (1:1) completed Carlos Beckham DPT [address], [place], [address], [facility] 02/20/2024 15:55:57 4 04357 Therapeutic Exercise (1:1) completed Carlos Ledbetter PTA [address], [place], [address], [facility] 02/14/2024 10:45:48 4 68265 Therapeutic Exercise (1:1) completed Carlos Ledbetter PTA [address], [place], [address], [facility] 02/12/2024 16:17:53 4 05413 Therapeutic Exercise (1:1) completed Carlos Ledbetter [employer] SAL[employer]ERSON [address], [place], [address], [facility] 02/08/2024 13:58:10 4 [id number] Therapeutic Exercise (1:1) completed Carlos Ledbetter, [employer] SALESPERSON [address], [place], [address], [facility] 02/07/2024 15:04:34 4 57139 Therapeutic Exercise (1:1) completed Carlos Anatoly, [employer] SALESPERSON [address], [place], [address], [facility] 02/06/2024 16:03:13 4 39224 Therapeutic Exercise (1:1) completed Carlos Anatoly, [employer] SALESPERSON [address], [place], [address], [facility] 02/05/2024 14:59:26 4 40862: Manual therapy completed Carlos Ledbetter, [employer] SALESPERSON [address], [place], [address], [facility] 02/05/2024 15:40:46 4 [id number] Therapeutic Exercise (1:1) cancelled Carlos Mayfieldos, [employer] SALESPERSON [address], [place], [address], [facility] 02/01/2024 13:13:02 4 74639 Therapeutic Exercise (1:1) completed Carlos Anatoly, [employer] SALESPERSON [address], [place], [address], [facility] 01/31/2024 17:06:36 4 06936 Therapeutic Exercise (1:1) completed Carlos Anatoly, [employer] SALESPERSON [address], [place], [address], [facility] 01/30/2024 14:13:08 4 76474 Therapeutic Exercise (1:1) completed Carlos Anatoly, [employer] SALESPERSON [address], [place], [address], [facility] 01/19/2024 12:25:40 4 87158: Manual therapy completed Carlos Ledbetter, [employer] SALESPERSON [address], [place], [address], [facility] 01/19/2024 13:55:22 4 44996 Therapeutic Exercise (1:1) completed CASH MadisonT [address], [place], [address], [facility] 01/15/2024 21:24:44 4 28336: Manual therapy completed Carlos Beckham DPLogan [address], [place], [address], [facility] 01/15/2024 21:24:50 4 34263 Therapeutic Exercise (1:1) completed Carlos Beckham DPT [address], [place], [address], [facility] 01/08/2024 14:32:44 4 36902: Low complexity PT Eval completed Carlos Beckham DPLogan [address], [place], [address], [facility] 01/08/2024 14:32:46 Imaging Results None recorded. Procedure Notes None recorded. Medical Equipment None Reported. Allergies Allergen ID Allergen Name Allergen Category Reaction Reaction Severity Criticality Documentation Date Start Date Code Code System Note Provider Name and Address Organization Details Recorded Time 28643 Product containin g penicilli n (product) medicatio n Not available Not available Not available 10/30/20232008 91978 8001 SNOMED Aller gyRea ction : 'ITCH Y'; Not Available [employer] 11:24:33 Medications Name Sig Start Date Stop Date Status Note LastModified by Organization Details LastModified Time medbox status USE DIRECTED active Not Available Not Available No t Available cyclobenzap rine 10 mg tablet TAKE 1 TABLET BY MOUTH EVERY 8 HOURS 02/11 completed Not Available Not Available Not Available atorvastati n 80 mg tablet active Not Available Not Available Not Available cefuroxime axetil 250 mg tablet active Not Available Not Available No t Available ketoconazol e 2 % shampoo APPLY TO SCALP AND LEAVE ON FOR 5 MINUTES THEN RINSE OFF TWICE A WEEK active Not Available Not Available No t Available albuterol sulfate 2.5 mg/3 mL (0.083 %) solution for nebulizatio n INHALE 1 AMPULE USING A NEBULIZER EVERY 6 HOURS NEEDED FOR WHEEZING active Not Available Not Available No t Available loperamide 2 mg capsule TAKE 2 CAPSULES BY MOUTH AFTER FIRST LOOSE STOOL THEN TAKE 1 CAPSULE BY MOUTH AFTER EVERY LOOSE STOOL DO NOT EXCEED 4 CAPSULES IN 24 HOURS active Not Available Not Available No t Available cetirizine 10 mg tablet TAKE 1 TABLET BY MOUTH EVERY MORNING FOR ALLERGIES active Not Available Not Available No t Available azithromyci n 250 mg tablet TAKE 2 TABLETS BY MOUTH ON DAY 1, THEN TAKE 1 TABLET DAILY ON DAYS 2-5 active Not Available Not Available No t Available amiodarone 200 mg tablet active Not Available Not Available Not Available tolterodine ER 4 mg capsule,ext ended release 24 hr TAKE 1 CAPSULE BY MOUTH EVERY MORNING active Not Available Not Available No t Available meloxicam 15 mg tablet TAKE 1 TABLET BY MOUTH EVERY DAY WITH MEALS active Not Available Not Available No t Available ondansetron HCl 4 mg tablet TAKE 1 TABLET BY MOUTH EVERY DAY NEEDED FOR NAUSEA AND VOMITING active Not Available Not Available No t Available prednisone 20 mg tablet TAKE 2 TABLETS BY MOUTH EVERY DAY FOR 5 DAYS active Not Available Not Available No t Available sertraline 100 mg tablet TAKE 2 TABLETS BY MOUTH ONCE DAILY IN THE MORNING active Not Available Not Available No t Available clopidogrel 75 mg tablet active Not Available Not Available Not Available fexofenadin e 180 mg tablet TAKE 1 TABLET BY MOUTH EVERY DAY active Not Available Not Available No t Available amlodipine 5 mg tablet TAKE 1 TABLET BY MOUTH EVERY MORNING active Not Available Not Available No t Available minoxidil 2.5 mg tablet TAKE 1 TABLET BY MOUTH EVERY MORNING active Not Available Not Available No t Available aspirin 81 mg tablet,leland yed release active Not Available Not Available Not Available tramadol 50 mg tablet TAKE 1 TABLET BY MOUTH EVERY 4 HOURS NEEDED FOR PAIN FOR 7 DAYS active Not Available Not Available No t Available Cholestyram ine Light 4 gram powder for suspension in a packet DISSOLVE 1 PACKET IN 2-6 OUNCES OF WATER OR JUICE AND DRINK TWICE DAILY BEFORE MEALS active Not Available Not Available No t Available acetaminoph en ER 650 mg tablet,exte nded release TAKE 2 TABLETS BY MOUTH EVERY 8 HOURS DIRECTED active Not Available Not Available No t Available ketorolac 0.5 % eye drops INSTILL 1 DROP IN THE AFFECTED EYE THREE TIMES DAILY STARTING 2 DAYS BEFORE SURGERY AND CONTINUE DIRECTED 11/06 completed Not Available Not Available Not Available oxycodone-a cetaminophe n 5 mg-325 mg tablet TAKE 1 TABLET BY MOUTH EVERY 8 HOURS NEEDED FOR SEVERE PAIN active Not Available Not Available No t Available aspirin 325 mg tablet,leland yed release TAKE 1 TABLET BY MOUTH TWO TIMES A DAY 02/11 completed Not Available Not Available Not Available amitriptyli ne 10 mg tablet TAKE 1 TABLET BY MOUTH AT BEDTIME active Not Available Not Available No t Available diazepam 2 mg tablet TAKE 1 TABLET BY MOUTH 30 MINUTES BEFORE YOUR PROCEDURE (MRI), active Not Available Not Available No t Available phenazopyri dine 100 mg tablet TAKE 1 TABLET BY MOUTH 3 TIMES A DAY FOR 2 DAYS NEEDED FOR PAIN active Not Available Not Available No t Available cephalexin 500 mg capsule Take 4 CAPS PO 1 HOUR PRIOR TO DENTAL APPT 2024 active Not Available Not Available Not Avai lable pantoprazol e 40 mg tablet,leland yed release TAKE 1 TABLET BY MOUTH EVERY MORNING active Not Available Not Available No t Available pseudoephed rine-guaife nesin ER 80-700 mg tablet,exte nded release Percocet 5-325MG Tablet 1 every 4 - 6 hours as needed 01/11 completed Statu s: 'Disc ontin ued'; Not Available Not Available Not Available levothyroxi ne 125 mcg tablet TAKE 1 TABLET BY MOUTH EVERY MORNING 02/11 completed Not Available Not Available Not Available Gas Relief Extra Strength 125 mg capsule TAKE 1 CAPSULE BY MOUTH 2 TO 4 TIMES DAILY NEEDED FOR GAS active Not Available Not Available No t Available gabapentin 300 mg capsule TAKE 1 CAPSULE BY MOUTH AT BEDTIME active Not Available Not Available No t Available montelukast 10 mg tablet TAKE 1 TABLET BY MOUTH EVERY EVENING active Not Available Not Available No t Available zolpidem 5 mg tablet TAKE 1 TABLET BY MOUTH AT BEDTIME NEEDED FOR SLEEP active Not Available Not Available No t Available ergocalcife rol (vitamin D2) 1,250 mcg (50,000 unit) capsule TAKE 1 CAPSULE BY MOUTH ONCE WEEKLY ON 11/06 completed Not Available Not Available Not Available ondansetron 4 mg disintegrat ing tablet DISSOLVE 1 TABLET UNDER THE TONGUE EVERY TWELVE HOURS NEEDED FOR NAUSEA AND VOMITING active Not Available Not Available No t Available losartan 100 mg tablet TAKE 1 TABLET BY MOUTH EVERY MORNING active Not Available Not Available No t Available fluticasone propionate 50 mcg/actuati on nasal spray,suspe nsion USE 1 SPRAY IN EACH NOSTRIL EVERY TWELVE HOURS active Not Available Not Available No t Available levothyroxi ne 112 mcg tablet TAKE 1 TABLET BY MOUTH EVERY MORNING BEFORE BREAKFAST active Not Available Not Available No t Available Ventolin HFA 90 mcg/actuati on aerosol inhaler INHALE 2 PUFFS BY MOUTH EVERY 4 HOURS NEEDED active Not Available Not Available No t Available oxycodone 5 mg tablet TAKE 1 TABLET BY MOUTH EVERY 4 HOURS NEEDED FOR 7 DAYS active Not Available Not Available No t Available metoprolol tartrate 25 mg tablet active Not Available Not Available No t Available ramelteon 8 mg tablet TAKE 1 TABLET BY MOUTH AT BEDTIME active Not Available Not Available No t Available Vistaril Vistaril 25MG Capsule 01/11 completed Statu s: 'Disc ontin ued'; Not Available Not Available Not Available Singulair Singulair 4MG Packet 01/11 completed Statu s: 'Disc ontin ued'; Not Available Not Available Not Available Tums Tums 500MG Tablet Chewable 01/11 completed Statu s: 'Disc ontin ued'; Not Available Not Available Not Available Antacid Extra Strength 300 mg (as calcium carb 750 mg) chewable tablet TAKE 1 TABLET BY MOUTH TWICE DAILY IN THE MORNING AND IN THE EVENING (chew) active Not Available Not Available No t Available oxycodone HCl-oxycodo ne-ASA as directed 1 TABLET Q 4 HOURS PRN PAIN DO NOT DIRVE WHILE ON THIS MED 01/11 completed Statu s: 'Disc ontin ued'; Not Available Not Available Not Available OneTouch Verio test strips USE DIRECTED TO TEST BLOOD SUGAR TWICE DAILY AND NEEDED active Not Available Not Available No t Available cyanocobala min (vit B-12) 5,000 mcg disintegrat ing tablet DISSOLVE 1 TABLET UNDER THE TONGUE ONCE DAILY active Not Available Not Available No t Available naloxone 4 mg/actuatio n nasal spray FOR SUSPECTED OPIOID OVERDOSE. SPRAY 0.1mL IN ONE NOSTRIL. REPEAT IN ALTERNATE NOSTRIL 2-3 MINUTES IF NEEDED. SEEK MEDICAL ATTENTION IMMEDIATE LY EVEN IF PATIENT RESPONDS. active Not Available Not Available No t Available OneTouch Verio Flex Meter TEST BLOOD SUGAR TWICE DAILY AND NEEDED 02/11 completed Not Available Not Available Not Available Trelegy Ellipta Trelegy Ellipta 200-62.5- 25MCG/ACT Aerosol Powder Breath Activated 02/11 completed Statu s: 'Curr ent'; Not Available Not Available Not Available OneTouch Delica Plus Lancet 33 gauge USE DIRECTED TO TEST BLOOD SUGAR TWICE DAILY AND NEEDED active Not Available Not Available No t Available Trelegy Ellipta 200 mcg-62.5 mcg-25 mcg powder for inhalation INHALE 1 PUFF BY MOUTH EVERY DAY AT THE SAME TIME RINSE MOUTH AFTER USING active Not Available Not Available No t Available Vitals Date Recorded Body height Provider Name an d Address Organization Details Last Updated DateTime 11/01/2024 142.24 cm Genoveva Coughlin [facility] 11/01/2024 14:13:30 Date Recorded Body height Body mass index (BMI) Body weight Provider Name and Address Organization Details Last Updated DateTime 11/06/2024 142.24 cm 33.4 kg/m2 48828.26 g DAREN MARCIAL [facility] 11/06/2024 16:47:17 Date Recorded Body height Body mass index (BMI) Body weight Provider Name and Address Organization Details Last Updated DateTime 12/19/2024 142.24 cm 33.9 kg/m2 74412.45 g REX IRELAND [facility] 12/19/2024 13:10:43 Date Recorded Body height Body mass index (BMI) Body weight Provider Name and Address Organization Details Last Updated DateTime 07/16/2024 142.24 cm 31.4 kg/m2 81233.93 g STEVE GAVIRIA [facility] 07/16/2024 17:09:14 Social History None recorded. Functional Status None recorded. Mental Status None recorded. Family History Nothing Reported. Medical History No medical history recorded. Gynecological HistoryNo gynecological history recorded. Obstetrics History GPAL:G 0 P 0 0 0 0 Past Encounters Encounter ID Performer Location Encounter Start Date Encounter Closed Date Diagnosis/Indication Diagnosis SNOMED-CT Code Diagnosis ICD10 Code Diagnosis Note [id number] Lesley Kelley CNP [facility] [address] [place] [address] 12/14/2023 13:09:17 01/04/2024 04:04:38 Osteoarthritis of left knee joint [id number] 70426 M17.12 [id number] Derek Hamilton PA-C [facility] [address] [place] [address] 01/05/2024 12:52:16 01/17/2024 16:07:54 History of left total knee replacement [id number] 841862 Z96.270 [id number] Carlos Beckham DPT [facility] [address] [place] [address] 01/08/2024 12:58:22 01/08/2024 14:38:04 History of left total knee replacement [id number] 352635 Z96.652 Z47.1 [id number] Carlos Beckham DPT [facility] [address] [place] [address] 01/15/2024 12:41:57 01/15/2024 14:37:38 History of left total knee replacement [id number] 348550 Z96.652 Z47.1 [id number] Carlos Ledbetter [employer]ERSON [facility] [address] [place] [address] 01/19/2024 13:05:55 01/19/2024 14:04:31 History of left total knee replacement 8410308264 412955 Z96.652 Z47.1 [id number] Jace Sanford MD [facility] [address] [place] [address] 01/29/2024 12:56:50 02/06/2024 16:03:27 History of left total knee replacement 1851381423 025530 Z96.532 [id number] Carlos Ledbetter [employer] [facility] [address] [place] [address] 01/30/2024 13:02:12 01/30/2024 14:41:55 History of left total knee replacement 0893543303 730549 Z96.652 Z47.1 [id number] Carlos Ledbetter, [employer] SALESPERSON [facility] [address] [place] [address] 01/31/2024 16:49:58 01/31/2024 17:40:43 History of left total knee replacement 9004224101 453364 Z96.652 Z47.1 [id number] Carlos Ledbetter, [employer] SALESPERSON [facility] [address] [place] [address] 02/05/2024 14:57:53 02/05/2024 15:42:31 History of left total knee replacement 6786146979 323436 Z96.652 Z47.1 [id number] Carlos Ledbetter, [employer] SALESPERSON [facility] [address] [place] [address] 02/06/2024 15:59:39 02/06/2024 17:08:07 History of left total knee replacement 1442254795 883519 Z96.652 Z47.1 [id number] Carlos Ledbetter, [employer] SALESPERSON [facility] [address] [place] [address] 02/07/2024 15:03:19 02/07/2024 16:35:35 History of left total knee replacement [id number] 421906 Z96.652 Z47.1 [id number] Carlos Ledbetter, [employer] SALESPERSON [facility] [address] [place] [address] 02/08/2024 15:57:05 02/08/2024 16:59:11 History of left total knee replacement 0088083155 613132 Z96.652 Z47.1 [id number] Jace Sanford MD [facility] [address] [place] [address] 02/12/2024 11:58:35 03/04/2024 14:48:51 History of left total knee replacement 1018098684 156542 Z96.346 [id number] Carlos Anatoly, [employer] SALESPERSON [facility] [address] [place] [address] 02/12/2024 16:12:43 02/12/2024 17:16:34 History of left total knee replacement 1946575430 280428 Z96.652 Z47.1 [id number] Carlos Ledbetter, [employer] SALESPERSON [facility] [address] [place] [address] 02/14/2024 16:06:56 02/14/2024 17:00:13 History of left total knee replacement 3293229366 919939 Z96.652 Z47.1 [id number] Carlos Beckham , DPT [facility] [address] [place] [address] 02/20/2024 14:52:59 02/20/2024 16:08:41 History of left total knee replacement 7485143030 058664 Z96.652 Z47.1 [id number] Aye Hawk, DPT [facility] [address] [place] [address] 02/21/2024 16:47:58 02/21/2024 18:08:40 History of left total knee replacement 6457593902 416495 Z96.652 Z47.1 [id number] Carlos Ledbetter, [employer] SALESPERSON [facility] [address] [place] [address] 02/26/2024 16:03:23 02/26/2024 16:33:52 History of left total knee replacement 9788129948 361980 Z96.652 Z47.1 [id number] Carlos Ledbetter, [employer] SALESPERSON [facility] [address] [place] [address] 03/04/2024 15:03:36 03/04/2024 15:40:09 History of left total knee replacement 8097764068 069272 Z96.652 Z47.1 [id number] Carlos Ledbetter, [employer] SALESPERSON [facility] [address] [place] [address] 03/06/2024 14:59:04 03/06/2024 16:25:56 History of left total knee replacement 8226527701 759564 Z96.652 Z47.1 [id number] Carlos Ledbetter, [employer] SALESPERSON [facility] [address] [place] [address] 03/18/2024 17:56:03 03/18/2024 18:02:06 History of left total knee replacement 4849886660 727157 Z96.652 Z47.1 [id number] Carlos Ledbetter, [employer] SALESPERSON [facility] [address] [place] [address] 03/20/2024 17:45:46 03/20/2024 18:00:52 History of left total knee replacement 1976267435 321286 Z96.652 Z47.1 [id number] Jace Sanford MD [facility] [address] [place] [address] 03/25/2024 12:53:47 04/12/2024 14:28:15 History of left total knee replacement 0000555910 827173 Z96.652 Osteoarthr itis of right knee joint 8791223588 M17.11 [id number] Derek Hamilton PA-C [facility] [address] [place] [address] 07/16/2024 16:45:16 08/14/2024 06:58:58 Osteoarthritis of right knee joint 9105331375 M17.11 [id number] Derek Hamilton PA-C [facility] [address] [place] [address] 11/01/2024 13:10:41 11/19/2024 15:55:39 Osteoarthritis of right knee joint 3156881370 M17.11 [id number] Jace Sanford MD [facility] [address] [place] [address] 11/06/2024 16:37:54 11/20/2024 10:00:48 Pain of right knee joint 0467112992 33628 M25.561 Osteoarthr itis of right knee joint 7375877141 M17.11 [id number] Steve Pennington, PT [facility] [address] [place] [address] 12/24/2024 09:49:03 12/24/2024 10:35:26 Osteoarthritis of knee 729472135 M17.11 [id number] CELSO [facility] [address] [place] [address] 12/19/2024 12:58:37 12/24/2024 04:05:04 Health Concerns Section Related Observation LastModified by Organization Detai ls LastModified Time None Recorded Concern Status LastModified by Organization Details LastModified Time None Recorded Advance Directives Directive None Recorded Payers Insurance Date Sequence Insurance Name Policy Number Policy Whitt Covered Member ID Whitt Member ID Guarantor Name 07/15/2024 1 [employer] [facility] - DOS ON OR AFTER 2022 - [employer] OPTIONS (MEDICARE REPLACEMENT/AD VANTAGE - HMO) Mary Kate C Colon [id number] Mary Kate C Colon 07/15/2024 1 [employer] [facility] - DOS ON OR AFTER 2022 - [employer] OPTIONS (MEDICARE REPLACEMENT/AD VANTAGE - HMO) Mary Kate C Colon [id number] Mary Kate C Colon 07/15/2024 1 [employer] [employer] [employer] - DOS ON OR AFTER 2022 - ONE CARE (MEDICARE REPLACEMENT/AD VANTAGE - HMO) Mary Kate C Colon [id number] Amry Kate C Colon 07/15/2024 1 [employer] [facility] [employer] [employer] - DOS ON OR AFTER 2022 - ONE CARE (MEDICARE REPLACEMENT/AD VANTAGE - HMO) Mary Kate C Colon [id number] Mary Kate C Colon 07/15/2024 1 [employer] [facility] - DOS ON OR AFTER 2022 - [employer] OPTIONS (MEDICARE REPLACEMENT/AD VANTAGE - HMO) Mary Kate C Colon [id number] Mary Kate C Colon 07/15/2024 1 [facility] [employer] - DOS ON OR AFTER 2022 - ONE CARE (MEDICARE REPLACEMENT/AD VANTAGE - HMO) Mary Kate C Colon [id number] Mary Kate C Colon 03/11/2025 1 [facility] - DOS ON OR AFTER 2022 - [employer] OPTIONS (MEDICARE REPLACEMENT/AD VANTAGE - HMO) Mary Kate C Colon [id number] Mary Kate C Colon Notes Date Note Type Note Provider Name and Address Organization Details Recorded Time 07/16/2024 text/html I am seeing the patient today under the supervision of Dr. Wall who was available but who did not see the patient. HPI:Patient presents today follow-up regarding their Right knee. They have had difficulty up and down stairs sitting standing. Previous injection approximately 4 months ago into her right knee which gave her good relief up until recently. Problems ambulating. Huia-hgr-ibthrao medications are helping somewhat but not significantly. Pain is constant aching sometimes sharp pain with giving out sensations. At this point patient is considering knee replacement surgery as she does not want to continue with injection treatments after today. Past family, medical, social history and review of systems has been reviewed, updated and is located in the patient s chart. Examination:The patient is well appearing and in no apparent distress. Alert and oriented x3. Gait is symmetric. Examination of the Right knee reveals no evidence of any edema, erythema, or warmth. No Deformity. Range of motion of the knee limited with mild discomfort at the end ranges. No effusion. Does have some tenderness to palpation about the medial hemijoint line. No tenderness to palpation about the lateral hemijoint line. Patellofemoral crepitus is noted. mild lateral ligamentous laxity. Negative Manan s. Calf is supple and nontender. Neurovascularly intact distally. Impression:Right Knee osteoarthritis Plan:We discussed the role of conservative management including medications, physical therapy, injection and bracing. At this point the patient was to proceed with injection. Please see procedure note. Referral placed today for Dr. Lozoya for further discussion of right knee replacement surgery. At this time all patient questions and concerns were answered today Derek Hamilton PA-C [address] [place] [address] [address], [place], [address], [facility] 07/17/2024 15:13:00 11/01/2024 text/html I am seeing the patient today under the supervision of Dr. Wall who was available but who did not see the patient. HPI:74-year-old female with known history of bilateral knee osteoarthritis with previous history of left knee replacement by Dr. Lozoya. Last seen about 3-1/2 months ago for an injection into her right knee. This injection only lasted for about a month. Continues to experience pain and discomfort in the right knee on a daily basis especially with ambulatory activities. [id number] medications have not provided her with significant relief. At this point patient ultimately would like to discuss knee replacement surgery. Past family, medical, social history and review of systems has been reviewed, updated and is located in the patient s chart. Examination:The patient is well appearing and in no apparent distress. Alert and oriented x3. Gait is symmetric. Examination of the Right knee reveals no evidence of any edema, erythema, or warmth. Valgus deformity. Range of motion of the knee limited with mild discomfort at the end ranges. Mild effusion. Does have some tenderness to palpation about the lateral hemijoint line. No tenderness to palpation about the medial hemijoint line. Patellofemoral crepitus is noted. mild medial ligamentous laxity. Negative Manan s. Calf is supple and nontender. Neurovascularly intact distally. Impression:Right Knee osteoarthritis Plan:We discussed the role of conservative management including medications, physical therapy, injection and bracing. Did have an in-depth discussion today about knee replacement surgery. Patient has history of left knee replacement and would like to proceed with right knee referral. I did discuss with the patient that if we do an injection today she would not be eligible to have surgery for 3 months. Patient understands and would like to forego the injection today. Referral placed to see Dr. Lozoya for surgical booking and planning. All patient questions and concerns answered today. Derek Hamilton PA-C [address] [facility] [address] [facility], [place], [address], [facility] 11/01/2024 15:44:23 12/24/2024 text/html Patient is 74 ye ar old female, with chronic history of knee pain and OA. H/o L TKR 12/08/23, had -3 - 60 initial p/o ROM, seen in outpt PT thru 03/20/24, achieved 0-105/112 knee ROM, and was ambulating w a cane. Seen today for prehab visit for scheduled R TKA on 12/31/24. Reviewed post-operative mobility and mechanics with appropriate assistive device. Has 2 steps into home and 0 steps inside home. Demonstrates good understanding of post-operative expectations and HEP. Current vocational status is retiredFunctional limitations include restricted knee ROM, difficulty ambulating community distances, and pain navigating stairs. Patient's goals are to amb w/o pain, pain free sit to stand, bed transfers, recreational walking Steve Pennington, PT [address], [place], [address], [facility] - [facility] 12/24/2024 10:43:43 OBGyn Episode No OBEpisode recorded.
[2025-03-18 13:24] LABS: MANUAL DIFF FLAG NO
[2025-03-18 13:50] LABS: Hematocrit 38.0 % (37.0-47.0); Hemoglobin 12.3 g/dl (12.0-16.0); Imm Gran Abs Auto 0.01 X10*3/uL (0.00-0.03); Imm Gran Pct Auto 0.2 % (0.0-0.4); Lymphocytes Absolute Auto 2.0 X10*3/uL (1.2-4.9); Mean Corpuscular HGB Conc 32.4 g/dl (31.0-35.0); Mean Corpuscular Hemoglobin 28.9 pg (27.0-33.0); Mean Corpuscular Volume 89.2 fL (80.0-98.0); NRBC Abs Auto 0.000 X10*3/uL (0.0-0.012); NRBC Pct Auto 0.0 /100WBC (0.0-0.2); Platelet Count 383 X10*3/uL (160-400); Red Blood Count 4.26 X10*6/uL (4.20-5.50); White Blood Count 6.2 X10*3/uL (4.8-10.8)
[2025-03-18 14:33] LABS: Folate 10.7 ng/mL (> or = 4.0); Vitamin B12 524 pg/mL (200-900)
[2025-03-18 14:34] LABS: Alanine Aminotransferase 12 U/L (0-31); Albumin Level 4.3 g/dL (3.5-5.0); Alkaline Phosphatase 77 U/L (39-117); Anion Gap 12 (12-20); Aspartate Amino Transferase 23 U/L (5-31); Blood Urea Nitrogen 15 mg/dL (9-16); Calcium 9.2 mg/dL (8.4-10.2); Carbon Dioxide 25 mmol/L (22-29); Chloride 108 mmol/L (96-108); Cholesterol 158 mg/dL (<200); Estimated Glomerular Filt Rate 60; HDL Cholesterol 43 mg/dL (>40); Iron 64 mcg/dL (30-160); Percent Iron Saturation 23 % (15-50); Potassium 3.7 mmol/L (3.3-5.1); Sodium 141 mmol/L (135-145); Total Iron Binding Capacity 279 mcg/dL (228-428); Total Protein 7.7 g/dL (6.5-8.0); Triglycerides 81 mg/dL (<150); Unsaturated Iron Binding 215 ug/dL
[2025-03-18 14:41] LABS: Thyroid Stimulating Hormone 0.37 uIU/mL (0.32-4.0)
[2025-03-22 16:48] LABS: VITAMIN D (1,25 OH) D3 35 pg/mL; Vit D (1,25-Dihydroxy) Total 47 pg/mL (18-72); Vitamin D (1,25 OH) D2 12 pg/mL
== END 2025-03-18 11:39 | disposition home or self-care (01) ==
LOC: HO.HHCL 11:38
PROVIDERS: Nurse Practitioner Family; PCP Registered Nurse; Visit Provider Registered Nurse
DX: R53.83 Other fatigue (principal); I10 Essential (primary) hypertension; E06.3 Autoimmune thyroiditis; R19.7 Diarrhea, unspecified
CPT/HCPCS: 36415; 80053; 80061; 82607; 82652; 82746; 83540; 84443; 84446; 84590; 84597; 85025; 86140

== ENCOUNTER 2025-04-22 11:41 | Outpatient (REF) | payer OTHER, SELFPAY ==
--- OUTSIDE RECORDS SUMMARY | 2025-04-22 12:37 | XMS_ITS | Encounter Summary ---
Author Organization [employer] Address [address] [facility] 7t [place] [address] Care Team Providers Care Telegraph Messenger Name Role Phone Eugenia Sandoval Primary Care Provider [phone] Reason for Visit * Reason Comments Med Refill Encounter Details Date Type Department Care Team ([facility] Contact Info) Description 02/18/2023 Refill [facility] MEDICINE [address] [place] [address] [phone] Eugenia Sandoval FNP [address] [place], [place] [phone] Social History Tobacco Use Types Packs/Day Years [...] Upcoming Encounters Date Type Department Care Team ([facility] Contact Info) Description 06/10/2025 9:45 AM EDT Office Visit [facility] [address] [place] [address] [phone] documented as of this encounter Visit Diagnoses Not on filedocumented in this encounter Care Teams Telegraph Messenger Relationship Specialty Start Date End Date Eugenia Sandoval FNP [address] [place] [address] PCP - General Family Medicine 04/27/22 documented as of this encounter
--- OUTSIDE RECORDS SUMMARY | 2025-04-22 12:37 | XMS_ITS | Encounter Summary ---
Author Organization [employer] Address [address] [facility] 7t [place] [address] Care Team Providers Care Teasel Gig Operator Name Role Phone Eugenia Sandoval [facility] Primary Care Provider [phone] Reason for Visit * Reason Comments Med Refill Encounter Details Date Type Department Care Team ([facility] Contact Info) Description 02/16/2023 Refill [facility] MEDICINE [address] [place], [place] [phone] Eugenia Sandoval [facility] [address] [place], [place] [phone] Other chronic pain Social History Tobacco Use [...] Upcoming Encounters Date Type Department Care Team ([facility] Contact Info) Description 06/10/2025 9:45 AM EDT Office Visit [facility] MEDICINE [address] [place] [address] [phone] documented as of this encounter Visit Diagnoses Diagnosis Other chronic pain documented in this encounter Care Teams Teasel Gig Operator Relationship Specialty Start Date End Date Eugenia Sandoval FNP [address] [place] [address] PCP - General Family Medicine 04/27/22 documented as of this encounter
--- OUTSIDE RECORDS SUMMARY | 2025-04-22 12:37 | XMS_ITS | Encounter Summary ---
Author Organization [employer] Address [address] [facility] [address]t [place] [address] Care Team Providers Care Jewel Hole Driller Name Role Phone [facility] Primary Care Provider [phone] Reason for Visit * Reason Comments Med Refill Encounter Details Date Type Department Care Team ([facility] Contact Info) Description 11/07/2023 Refill [facility] MEDICINE [address] [place], [place] [phone] [facility] [address] [place], [place] [phone] Other chronic pain; Insomnia, unspecified type Social [...] Care Team (Late st Contact Info) Description 06/10/2025 9:45 AM EDT Office Visit [facility] MEDICINE [address] [place] [address] documented as of this encounter Visit Diagnoses Diagnosis Other chronic pain Insomnia, unspecified type documented in this encounter Additional Health Concerns Assessment Noted Time PHQ-9 Depression Total Score: 9 03/30/20 23 2:25 PM EDT documented as of this encounter Care Teams Jewel Hole Driller Relationship Specialty Start Date End Date Eugenia Sandoval FNP [address] [place] [address] PCP - General Family Medicine 04/27/22 documented as of this encounter
--- OUTSIDE RECORDS SUMMARY | 2025-04-22 12:37 | XMS_ITS | Clinical Summary ---
Author Organization [facility] Address [address] [place] [address] Care Team Providers Care Bone Plant Supervisor Name Role Phone Rufino Garcia [facility] Primary Care Provider Family History Medical [...] patient's age to complete this topic Insurance [facility] ([id number]) [facility] ([id number]) Care Teams Bone Plant Supervisor Relationship Specialty Start Date End Date Rufino Garcia FNP [address] [place] [address], [address]rd [place] [address] PCP - General 09/07/20
--- OUTSIDE RECORDS SUMMARY | 2025-04-22 12:37 | XMS_ITS | Encounter Summary ---
Author Organization [employer] Address [address] [facility] [address]t [place] [address] Care Team Providers Care Guitar Player Name Role Phone [facility] Primary Care Provider [phone] Reason for Visit * Reason Comments Med Refill Encounter Details Date Type Department Care Team ([facility] st Contact Info) Description 01/30/2025 Refill [facility] MEDICINE [address] [place], [place] [phone] [facility] [address] [place], [place] [phone] Primary osteoarthritis of both knees; Anxiety due to invasive procedure Social History Tobacco Use Types Packs/Day Years [...] Description 06/10/2025 9:45 AM EDT Office Visit [facility] MEDICINE [address] [place] [address] documented as of this encounter Visit Diagnoses Diagnosis Primary osteoarthritis of both knees Anxiety due to invasive procedure documented in this encounter Additional Health Concerns Assessment Noted Time PHQ-9 Depression Total Score: 0 12/10/19 25 1:35 PM EDT documented as of this encounter Care Teams Guitar Player Relationship Specialty Start Date End Date Eugenia Sandoval FNP [address] [place] [address] PCP - General Family Medicine 04/27/22 documented as of this encounter
--- OUTSIDE RECORDS SUMMARY | 2025-04-22 12:37 | XMS_ITS | Encounter Summary ---
Author Organization [employer] Address [address] [facility] [address] [place] [address] Care Team Providers Care Crystal Mounter Name Role Phone [facility] Primary Care Provider [phone] Reason for Visit * Reason Comments Med Refill Encounter Details Date Type Department Care Team ([facility] Contact Info) Description 01/29/2025 Refill [facility] MEDICINE [address] [place], [place] [phone] [facility] [address] [place], [place] [phone] Primary osteoarthritis of both knees Social History [...] 06/10/2025 9:45 AM EDT Office Visit [facility] MEDICINE [address] [place] [address] documented as of this encounter Visit Diagnoses Diagnosis Primary osteoarthritis of both knees documented in this encounter Additional Health Concerns Assessment Noted Time PHQ-9 Depression Total Score: 0 12/10/19 25 1:35 PM EDT documented as of this encounter Care Teams Crystal Mounter Relationship Specialty Start Date End Date Eugenia Sandoval FNP [address] [place] [address] PCP - General Family Medicine 04/27/22 documented as of this encounter
--- OUTSIDE RECORDS SUMMARY | 2025-04-22 12:38 | XMS_ITS | Encounter Summary ---
Author Organization [employer] Address [address] [facility] 7t [place] [address] Care Team Providers Care Hand Ii Blocker Name Role Phone Eugenia Sandoval [facility] Primary Care Provider [phone] Reason for Visit * Reason Comments Med Refill Encounter Details Date Type Department Care Team ([facility] Contact Info) Description 11/30/2022 Refill [facility] MEDICINE [address] [place], [place] [phone] Eugenia Sandoval FNP [address] [place], [place] [phone] Other chronic pain Social History Tobacco Use [...] Upcoming Encounters Date Type Department Care Team ([facility] Contact Info) Description 06/10/2025 9:45 AM EDT Office Visit [facility] MEDICINE [address] [place] [address] [phone] documented as of this encounter Visit Diagnoses Diagnosis Other chronic pain documented in this encounter Care Teams Hand Ii Blocker Relationship Specialty Start Date End Date Eugenia Sandoval FNP [address] [place] [address] PCP - General Family Medicine 04/27/22 documented as of this encounter
--- OUTSIDE RECORDS SUMMARY | 2025-04-22 12:38 | XMS_ITS | Clinical Summary ---
Author Organization [employer] Address [address] [facility] [address] [place] [address] Care Team Providers Care Emergency Dispatch Operator Name Role Phone [facility] Primary Care Provider [phone] Allergies Active Allergy Reactions Criticality Noted Date Comments Latex 02/27/2024 Levofloxacin 09/17/2010 Other reaction(s): unspecified Morphine 02/27/2024 lowers bllood pressure Nitrofurantoin 10/08/2014 Other reaction(s): GI Problems, GI Problems Penicillins 09/17/2010 Other reaction(s): Rash, unspecified Medications * This document contains information received from the source organization and may not represent a complete record from that organization. azelastine (Astelin) 0.1 % nasal spray spray [...] by mouth in the morning. Active pancrelipase, Gnp-Hyzm-Arcb, (Creon) 9229-3112 units capsule Take 1 capsule by mouth [...] into the shoulder, thigh, or buttocks. Active naloxone (Narcan) 4 mg/0.1 mL nasal [...] NEEDED FOR SLEEP 30 tablet 024 Active Calcium Antacid Extra Strength 750 MG chewable tablet TAKE 1 TABLET BY MOUTH TWICE DAILY IN THE MORNING AND IN THE EVENING (CHEW) 60 tablet 11 024 Active levothyroxine (Synthroid, Levoxyl) 112 MCG tabletIndications: Acquired hypothyroidism TAKE 1 TABLET BY MOUTH EVERY MORNING BEFORE BREAKFAST 90 tablet 3 024 Active ramelteon (Rozerem) 8 MG tabletIndications: Insomnia, unspecified type Take 1 tablet (8 mg) by mouth at bedtime. 30 tablet 11 024 2024 Active meloxicam (Mobic) 15 MG tablet TAKE 1 TABLET BY MOUTH EVERY DAY WITH MEALS 024 Active losartan (Cozaar) 100 MG tabletIndications: Elevated blood pressure reading TAKE 1 TABLET BY MOUTH EVERY MORNING 90 tablet 3 024 Active fluticasone (Flonase) 50 MCG/ACT nasal sprayIndications:A llergy, sequela USE 1 SPRAY IN EACH NOSTRIL EVERY TWELVE HOURS 16 g 11 024 Active amLODIPine (Norvasc) 5 MG tabletIndications: Essential hypertension TAKE 1 TABLET BY MOUTH EVERY MORNING 90 tablet 3 025 Active OneTouch Verio test stripIndications:H ypoglycemia TEST BLOOD SUGAR TWICE DAILY AND NEEDED 100 strip 3 025 Active Lancets (OneTouch Delica Plus [id number]) miscIndications:Hy poglycemia TEST BLOOD SUGAR TWICE DAILY AND NEEDED 100 each 3 025 Active sertraline (Zoloft) 100 MG tablet TAKE 2 TABLETS BY MOUTH ONCE DAILY IN THE MORNING 60 tablet 5 025 Active ondansetron ODT (Zofran-ODT) 4 MG disintegrating tabletIndications: Viral gastroenteritis Take 1 tablet (4 mg) by mouth every 12 (twelve) hours if needed for nausea or vomiting. 5 tablet 025 Active albuterol (Ventolin HFA) 108 (90 Base) MCG/ACT inhalerIndications :Moderate asthma with exacerbation, unspecified whether persistent Inhale 2 puffs every 4 (four) hours if needed for wheezing or shortness of breath. 18 g 3 025 Active albuterol (2.5 MG/3ML) 0.083% nebulizer solutionIndication s:Moderate asthma with exacerbation, unspecified whether persistent Take 3 mL (2.5 mg) by nebulization every 6 (six) hours if needed for wheezing. 75 mL 11 025 2025 Active fexofenadine (Julita) 180 MG tabletIndications: Moderate persistent asthma with acute exacerbation TAKE 1 TABLET BY MOUTH EVERY DAY 30 tablet 2 025 Active diazePAM (Valium) 2 MG tabletIndications: Anxiety due to invasive procedure Please take 1 tablet 30 minutes prior to your MRI. Please have someone drive you to the MRI. 1 tablet 025 Active minoxidil (Loniten) 2.5 MG tabletIndications: Androgenic alopecia TAKE 1 TABLET BY MOUTH EVERY MORNING 30 tablet 11 025 Active tolterodine LA (Detrol LA) 4 MG 24 hr capsule TAKE 1 CAPSULE BY MOUTH EVERY MORNING 90 capsule Active Diclofenac Sodium 1 % gelIndications:Shireen felicia osteoarthritis of both knees APPLY 2 GRAMS TOPICALLY TO AFFECTED AREA(S) THREE TIMES DAILY NEEDED 100 g 1 025 Active oxyCODONE-acetamin ophen (Percocet) 5-325 MG tabletIndications: Primary osteoarthritis of both knees Take 1 tablet by mouth every 8 (eight) hours if needed for severe pain for up to 28 days. 84 tablet 025 2024 Active oxyCODONE-acetamin ophen (Percocet) 5-325 MG tabletIndications: Primary osteoarthritis of both knees Take 1 tablet by mouth every 8 (eight) hours if needed for severe pain for up to 28 days. Do not start before March 07, 2025. 84 tablet 025 2024 Discontinued(R eorder (will not trigger notification to Pharmacy)) oxyCODONE-acetamin ophen (Percocet) 5-325 MG tabletIndications: Primary osteoarthritis of both knees Take 1 tablet by mouth every 8 (eight) hours if needed for severe pain for up to 7 days. Do not start before April 04, 2025. 21 tablet 025 2024 Discontinued Active Problems Problem Noted Date Diagnosed Date Cataract of both eyes 01/22/2025 Preoperative examination 01/22/2025 At high risk for falls 12/11/2024 Urinary incontinence 07/09/2024 Long-term current use of opiate analgesic 2023 Overview (02/06/2025): Dx: OA of knees, chronic bilateral low back pain w/o sciatica Rx: Percocet 5/325 q8 hours prn Last ENRICHMENT TEACHER agreement: 02/04/25 Tier II (visit every 3 months) Assessment & Plan (04/08/2025 1:46 PM EDT): Timeline: - 12/03/24: Group - utox/pill count as expected - 02/04/25: Group - utox/pill count as expected - 04/08/25: Group - utox/pill count as expected Assessment & Plan (02/06/2025 1:54 PM EDT): Timeline: - 12/03/24: Group - utox/pill count as expected - 02/04/25: Group - utox/pill count as expected Assessment & Plan (12/03/2024 1:22 PM EDT): Timeline: - 12/03/24: Group - utox/pill count as expected Depression, recurrent 02/28/2024 Chronic bilateral low back pain without sciatica 04/09/2023 Overview (04/08/2025): On percocet for chronic pain Compliant with ENRICHMENT TEACHER agreement Assessment & Plan (07/09/2024 12:48 PM EST): Pt attended and participated in group today to the fullest of her abilities - urine toxicology and pill count as expected - continue to consider and use non-pharmacological modalities of pain management Assessment & Plan (04/09/2023 1:49 PM EDT): Patient with widespread chronic pian and notable gait instability. Patient agrees to PT referral for gait instability Ambulates with cane Gait instability 04/09/2023 Healthcare maintenance 11/09/2022 Overview (12/11/2024): Mammo: q. 6 months 2/2 hx of birads-3; complex cysts left breast. 01/2024 birads -3. Followed by [facility] Pap: 2016 NIL HPV negative; 12/2022 NIL HPV neg. Pap's discontinued C-scope:2015; negative repeat due 2025.Saw GI for follow up re chronic diarrhea/abdominal pain. Per visit note patient declines repeat colonoscopy at this time. Negative 2016 colonoscopy. Normal EGD 2015; 2017 Assessment & Plan (11/09/2022 5:18 AM EDT): Mammogram ordered today Will schedule for PAP. If negative will plan to discontinue screenings. No hx of abnormal pap Osteoarthritis involving mul tiple joints on both sides of body 11/09/2022 Overview (09/24/2024): Chronic pain in bilateral knees, back, shoulders Followed by [facility] - left TKA 12/22/23; plan for R knee in 2024 Assessment & Plan (04/08/2025 1:45 PM EDT): -Good engagement and participation with Group Medical Visit model -Utox and pill count as expected -Encouraged multifactorial approach to pain control including pharm and non- pharm modalities Assessment & Plan (02/06/2025 1:53 PM EDT): -Good engagement and participation with Group Medical Visit model -Utox and pill count as expected -Encouraged multifactorial approach to pain control including pharm and non- pharm modalities Assessment & Plan (12/03/2024 1:21 PM EDT): [...] deficiency 07/01/2015 Essential hypertension 07/01/2015 Overview (04/09/2023): Losartan 100mg daily Amlodipine 5mg Followed by [facility] [place] for hx of CP. Completed stress test and echocardiogram 04/2022. Negative Previous cardiac studies (echocardiogram in 2018 unremarkable, unremarkable Holter in 2017, EKG from 2019 NSR) Home sleep study ordered-10/2022 - Aerobic exercise [...] Assessment & Plan (06/19/2023 10:00 AM EDT): BP elevated in office. Reports home readings well controlled. Did not take medication yet today Pt will take medication at home and continue to monitor Assessment & Plan (04/09/2023 1:39 PM EDT): Well controlled Continue current regimen Assessment & Plan (11/09/2022 5:19 AM EDT): BP elevated in office INCREASE amlodipine to 5mg daily Pt also reports loud snoring and daytime sleepiness. Will order home sleep study Irritable bowel syndrome with diarrhea 5 Moderate persistent asthma 07/01/2015 Overview (11/09/2022): - Currently managed with singuliar, Trelegy Ellipta, albuterol - Followed by [facility] pulmonology, last seen 03/2022 Osteoporosis 07/01/2015 Overview (06/21/2024): Followed by [facility] [place] 11/2023- Saw endocrinology for osteoporosis follow up and repeat DEXA. Worsening osteoporosis -3.4 at [facility]. Per visit note plan to start reclast therapy in 3 months once vitamin D repleted. 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 - eGFR 03/2022 52; Creatinine 1.04 Assessment & Plan (10/12/2023 2:21 PM EST): Stable Continue to avoid NSAID's Maintain hydration Gastro-esophageal reflux disease with esophagiti s 07/01/2015 Overview (11/09/2022): - Extensive hx of dyspepsia, dysphagia, chronic diarrhea, and abdominal bloating - Followed by [facility]. 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 Likely viral gastroenteritis. -no evidence of dehydration on exam -no evidence of acute abdomen -supportive care with fluids -already taking omeprazole and tums. -prescribed refill of ondansetron ODT (Zofran-ODT) 4 MG, per patients request. Encounters * This document contains information received from the source organization and may not represent a complete record from that organization. Date Type Department Care Team Description 04/10/2025 Refill [facility] [address] [place] [address] CamillaEugenia, SALESPERSON FURS Primary osteoarthritis of both knees 04/08/2025 9:45 AM EDT Office Visit [facility] [address] [place] [address] Cara Rossi, SALESPERSON FURS Chronic bilateral low back pain without sciatica (Primary Dx); Long-term current use of opiate analgesic; Osteoarthritis involving multiple joints on both sides of body 04/08/2025 Travel 04/04/2025 Orders Only [facility] [address] [place], [place] [phone] Nomi, Lisa, OD Combined forms of age-related cataract of both eyes (Primary Dx) 04/04/2025 Telephone [facility] [address] [place] [address] Eugenia Sandoval FNP Medication Question 04/02/2025 Refill [facility] [address] [place] [address] Eugenia Sandoval FNP Primary osteoarthritis of both knees 04/02/2025 Refill [facility] [address] [place] [address] Eugenia Sandoval FNP Primary osteoarthritis of both knees 03/25/2025 Telephone [facility] [address] [place] [address] Eugenia Sandoval FNP Stable Lab Letter 03/24/2025 Results Follow-Up [facility] [place] [address] Eugenia Sandoval FNP Comprehensive Metabolic Panel, Lipid Panel, Standard, TSH 03/21/2025 Refill [facility] [place] [address] Cara Rossi FNP Primary osteoarthritis of both knees 03/18/2025 Orders Only GENERIC EXTERNAL DATA DEPARTMENT Provider, Generic External Data 03/17/2025 1:00 PM EDT Office Visit [address] [address] Eugenia Sandoval FNP Essential hypertension (Primary Dx); 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; Osteoarthritis involving multiple joints on both sides of body; Hx of total knee replacement, left 03/17/2025 Travel 03/14/2025 Telephone [facility] [address] [place] [phone] Eugenia Sandoval FNP Chart Prep 03/14/[address] [address] Eugenia Sandoval FNP [facility] Dental Form 03/11/2025 Refill [facility] [address] [place] [address] Eugenia Sandoval FNP 03/06/2025 Patient Outreach [address] [address] Eugenia Sandoval FNP Pre-visit Planning (SDOH screening completed on 09/30/2024) 03/04/2025 Telephone [facility] [address] [place] [address] Eugenia Sandoval FNP Results 03/03/2025 Refill [facility] [address] [facility] [place] [address] Cara Rossi FNP Primary osteoarthritis of both knees 02/04/2025 9:45 AM EDT Office Visit [facility] [address] [place] [address] Cara Rossi FNP Osteoarthritis involving multiple joints on both sides of body (Primary Dx); Long-term current use of opiate analgesic; Primary osteoarthritis of both knees 02/04/[address] [address] Lesley Mcmahan RN ENRICHMENT TEACHER Renewal today 02/04/2025 Travel 02/03/2025 Orders Only [facility] [address] [place] [address] Eugenia Sandoval FNP Abnormal brain MRI (Primary Dx) 02/03/2025 Telephone [facility] [address] [place] [address] Eugenia Sandoval FNP 02/02/2025 Refill [facility] [address] [place] [address] Sha Trejo MD Androgenic alopecia 01/30/2025 Refill [facility] [address] [place] [address] Eugenia Sandoval FNP Primary osteoarthritis of both knees; Anxiety due to invasive procedure 01/29/2025 Orders Only [facility] [address] [place] [address] Eugenia Sandoval FNP Abnormal finding on MRI of brain (Primary Dx); Anxiety due to invasive procedure 01/29/2025 Refill [facility] [address] [place] [address] Eugenia Sandoval FNP Primary osteoarthritis of both knees 01/28/2025 Telephone [facility] [address] [place] [address] Eugenia Sandoval FNP Referral 01/22/2025 2:45 PM EDT Office Visit [facility] [address] [place] [address] Inderjit Salcido CNP Cataract of both eyes, unspecified cataract type (Primary Dx); Preoperative examination; Moderate asthma with exacerbation, unspecified whether persistent; Essential hypertension; Stage 3a chronic kidney disease ([facility]/HCC); 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 01/22/2025 Travel 01/21/2025 Telephone [facility] [address] [place] [address] Tani Hidalgo MA Chartprep from Last 3 Months Immunizations Immunization Administration Dates Next Due Hep A, Adult [...] Passive Smoke Exposure: Never Smokeless Tobacco: Never Tobacco Cessation:Counseling Given: Not Answered Alcohol Use Standard Drinks/Week Comments Never 0 [...] Sign Reading Time Taken Comments Blood Pressure 140/80 03/17/2025 1:05 PM EDT Pulse 62 03/17/2025 1:05 PM EDT Temperature 36.8 C (98.2 F) 03/17/2025 1:05 PM EDT Respiratory Rate 20 03/17/2025 1:05 PM EDT Oxygen Saturation 99% 01/22/2025 3:20 PM EDT Inhaled Oxygen Concentration - - Weight 67.8 kg (149 lb 6.4 oz) 03/17/2025 1:05 P M EDT Height 144.8 cm (4' 9 ) 03/17/2025 1:05 PM EDT Body Mass Index 32.33 03/17/2025 1:05 PM EDT Plan of Treatment Upcoming Encounters Date Type Department Care Team (Late st Contact Info) Description 06/10/2025 9:45 AM EDT Office Visit [facility] [address] [place], [place] [phone] Health Maintenance Due Date Last Done Comments CT Colonography 1952 FIT DNA/Cologuard 1952 FIT 1950 FOBT 1950 Sigmoidoscopy 1952 Alcohol/Substance Use Screening 1964 Hepatitis B Vaccines (3 of 3 - 19+ 3-dose series) 09/15/2019 04/12/2019, 03/15/2019 COVID-19 Vaccine ( season) 2024 06/17/2024, 08/17/2023, 07/25/2022, Additional history exists Influenza Vaccine (#1) 2025 , 06/14/2023, 05/25/2022, Additional history exists SDOH Screening 09/30/2025 09/30/2024 Colonoscopy 10/28/2025 10/29/2015 Colorectal Cancer Screening 10/28/2025 Depression Screening 12/09/2025 12/09/2024, 12/10/19 25 Tobacco Screening 03/17/2026 03/17/2025 Mammogram 10/23/2026 10/23/2024, 01/27, 02/07/2024, Additional history exists Lipid Panel 03/18/2030 03/18/2025, 09/29, 11/03/2022, Additional history exists DTaP/Tdap/Td Vaccines (3 - [...] Aged 60 years or older Completed 03/14/2024 HIB Vaccines Aged Out No longer eligi ble based on patient's age to complete this topic HPV Vaccines Aged Out No longer eligi ble based on patient's age to complete this topic IPV Vaccines Aged Out No longer eligi ble based on patient's age to complete this topic Meningococcal B Vaccine Aged Out No l onger eligible based on patient's age to complete [...] Comments POCT ROBERTA-14 URINE DRUG SCREEN Routine 04/08/2025 10:19 AM EDT Chronic bilateral low back pain without sciatica VITAMIN A Routine 03/18/2025 11:51 AM EDT VITAMIN K1 Routine 03/18/2025 11:51 AM EDT VITAMIN D 1,25 DIHYDROXY Routine 03/18/2025 11:51 AM EDT VITAMIN E (TOCOPHEROL) Routine 03/18/2025 11:51 AM EDT C-REACTIVE PROTEIN Routine 03/18/2025 11 :51 AM EDT IRON AND TOTAL IRON BINDING CAPACITY Routine 03/18/2025 11:51 AM EDT VITAMIN B12/FOLATE, SERUM PANEL Routine 03/18/2025 11:51 AM EDT CBC WITH AUTO DIFFERENTIAL Routine 03/18/2025 11:51 AM EDT TSH Routine 03/18/2025 11:51 AM EDT 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 LIPID PANEL, STANDARD Routine 03/18/2025 11:51 AM EDT Essential hypertension COMPREHENSIVE METABOLIC PANEL Routine 03/18/2025 11:51 AM EDT Essential hypertension POCT ROBERTA-14 URINE DRUG SCREEN Routine 02/04/2025 10:06 AM EDT Long-term current use of opiate analgesic BI US BREAST LIMITED LEFT Routine 10/23/2024 11:00 AM EST THINPREP IMAGING PAP AND HPV MRNA E6/E7 WITH REFLEX TO HPV 16,18/45 Routine 01/13/2023 2:29 PM EDT Encounter for Papanicolaou smear for cervical cancer screening PAP/HPV Routine 01/13/2023 ZZZ HISTORICAL HEPATITIS C AB W/REFL TO HCV RNA, QN, PCR Routine 06/21/2022 10:33 AM EDT HM COLONOSCOPY Routine 10/29/2015 9:11 AM EST from Last 3 Months or Most Recently Relevant to Health Maintenance Results * (ABNORMAL) POCT ROBERTA-14 Urine Drug Screen (04/08/2025 10:19 AM EDT) Only the most recent of2 resultswithin the time period is included. THC Negative Negative Cocaine Screen, Urine Negative Negative Opiate Screen, Urine Negative Negative Methamphetamine Screen Urine Negative Negative Amphetamine Screen, Urine Negative Negative Benzodiazepines Screen, Urine Negative Negative Barbiturate Screen, Urine Negative Negative Methadone Screen, Urine Negative Negative Buprenophine Screen, Urine Negative Negative TCA, Urine Negative Negative MDMA Urine Negative Negative ng/mL Oxycodone Screen, Urine Positive(A) Negative Phencyclidine (PCP), Urine Negative Negative Propoxyphene, Urine Negative Negative Fentanyl, Urine Negative Negative Urine Urine specimen obtained by clean catch procedure / Unknown 04/08/2025 10:19 AM EDT Narrative Sherice Kimball RN - 04/08/2025 10:19 AM EDT .UTOX cup Lot#[id number] Exp. 06/03/26 Internal Pass Control Cara Rossi SALESPERSON FURS POINT OF CARE TEST ENTER/EDIT ORDERABLES Final Result * Vitamin K1 (03/18/2025 11:51 AM EDT) Vitamin K1 186 130 - 1500 pg/mL [facility] Comment:This test was develo ped and its analytical performancecharacteristics have been determined by [employer] [place], [place]. It hasnot been cleared or approved by the U.S. Food and DrugAdministration. This assay has been validated pursuantto the CLIA regulations and is used for clinicalpurposes.THIS TEST WAS PERFORMED AT:[employer] [place] [id number] NELSON MD,PHD 03/18/2025 11:5 1 AM EDT 03/18/2025 1:22 PM EDT us Generic External Data Provider LAB BLOOD ORDERAB LES Final Result [facility] [address] [place] [phone] * Vitamin B12 (Cobalamin) and Folate Panel, Serum (03/18/2025 11:51 AM EDT) Vitamin B12 524 200 - 900 pg/mL [facility] Comment:NORMAL 200-900 PG/ML INDETERMINATE 160-199 PG/ML DEFICIENT < 160 PG/ML Folate 10.7 > or = 4.0 ng/mL [facility] Comment:Reference Values:> o r = 4.0 ng/mL< 4.0 ng/mL suggests folate deficiency Methotrexate, aminopterin and folinic acid(leucovorin) are chemotherapeutic agents whose molecularstructures are similar to folate; therefore, the Architectfolate assay cannot be used for patients using these drugs. 03/18/2025 11:5 1 AM EDT 03/18/2025 1:38 PM EDT us Generic External Data Provider LAB BLOOD ORDERAB LES Final Result [facility] [address] [place] [address] [phone] * (ABNORMAL) CBC auto differential (03/18/2025 11:51 AM EDT) White Blood Count 6.2 4.8 - 10.8 X10*3/uL [facility] Red Blood Count 4.26 4.20 - 5.50 X10*6/uL [facility] Hemoglobin 12.3 12.0 - 16.0 g/dl [facility] Hematocrit 38.0 37.0 - 47.0 % [facility] Mean Corpuscular Volume 89.2 80.0 - 98.0 fL [facility] Mean Corpuscular Hemoglobin 28.9 27.0 - 33.0 pg [facility] Mean Corpuscular HGB Conc 32.4 31.0 - 35.0 g/dl [facility] Red Cell Distribution Width 15.0 11.0 - 16.0 % [facility] Platelet Count 383 160 - 400 X10*3/uL [facility] Mean Platelet Volume 11.3 9.4 - 12.3 fL [facility] Neutrophils Percent Auto 55.5 45 - 73 % [facility] Imm Gran Pct Auto 0.2 0.0 - 0.4 % [facility] Lymphocytes Percent Auto 31.7 20 - 40 % [facility] Monocytes Percent Auto 7.8 2 - 11 % [facility] Eosinophils Percent Auto 4.1(H) 0 - 4 % [facility] Basophils Percent Auto 0.7 0 - 2 % [facility] NRBC Pct Auto 0.0 0.0 - 0.2 /100WBC [facility] Neutrophils Absolute Auto 3.4 2.0 - 8.3 x10*3/uL [facility] Imm Gran Abs Auto 0.01 0.00 - 0.03 X10*3/uL [facility] Lymphocytes Absolute Auto 2.0 1.2 - 4.9 X10*3/uL [facility] Monocytes Absolute Auto 0.5 0.1 - 1.2 X10*3/uL [facility] Eosinophils Absolute Auto 0.3 0.0 - 0.4 X10*3/uL [facility] Basophils Absolute Auto 0.0 0.0 - 0.2 X10*3/uL [facility] NRBC Abs Auto 0.000 0.0 - 0.012 X10*3/uL [facility] 03/18/2025 11:5 1 AM EDT 03/18/2025 1:20 PM EDT Generic External Data Provider LAB BLOOD ORDERAB LES Final Result Performing Organization Address [facility] de Phone Number [facility] [address] [place] [phone] * Iron And Total Iron Binding Capacity (03/18/2025 11:51 AM EDT) Iron 64 30 - 160 mcg/dL [facility] Total Iron Binding Capacity 279 228 - 428 mcg/dL [facility] Percent Iron Saturation 23 15 - 50 % [facility] Unsaturated Iron Binding 215 ug/dL [facility] 03/18/2025 11:5 1 AM EDT 03/18/2025 1:38 PM EDT us Generic External Data Provider LAB BLOOD ORDERAB LES Final Result Performing Organization Address City/[facility]/ZIP Co de Phone Number [facility] [address] [place] [address] [phone] * (ABNORMAL) Vitamin A (03/18/2025 11:51 AM EDT) Pathologist [facility] Vitamin A (Retinol) 22(A) 38 - 98 mcg/dL [facility] Comment:Vitamin supplementat ion within 24 hours prior toblood draw may affect the accuracy of the results.This test was developed and its analytical performancecharacteristics have been determined by [place]. It hasnot been cleared or approved by the U.S. Food and DrugAdministration. This assay has been validated pursuantto the CLIA regulations and is used for clinicalpurposes.THIS TEST WAS PERFORMED AT:[employer]/MARK [id number] [place] [address]UBNPKOMHEAVENLY NELSON MD,PHD 03/18/2025 11:5 1 AM EDT 03/18/2025 1:22 PM EDT us Generic External Data Provider LAB BLOOD ORDERAB LES Final Result [facility] [address] [place] [phone] * Vitamin D 1,25 dihydroxy (03/18/2025 11:51 AM EDT) Pathologist [facility] Vit D (1,25-Dihydroxy) Total 47 18 - 72 pg/mL [facility] VITAMIN D (1,25 [place]) D3 35 pg/mL [facility] Vitamin D (1,25 OH) D2 12 pg/mL [facility] Comment:Vitamin D3, 1,25(OH) 2 indicates both endogenousproduction and supplementation. Vitamin D2, 1,25(OH)2is an indicator of exogenous sources, such as diet orsupplementation. Interpretation and therapy are basedon measurement of Vitamin D,1,25(OH)2, Total.This test was developed and its analyticalperformance characteristics have been determinedby [employer] [place], [place].It has not been cleared or approved by the FDA. Thisassay has been validated pursuant to the CLIAregulations and is used for clinical purposes.THIS TEST WAS PERFORMED AT:[employer]/[facility] [place] [address]MWBVEBVHEAVENLY NELSON MD,PHD 03/18/2025 11:5 1 AM EDT 03/18/2025 1:38 PM EDT Generic External Data Provider LAB BLOOD ORDERAB LES Final Result Performing Organization Address City/[facility]/ZIP Co de Phone Number [facility] [address] [place] [phone] * C-reactive Protein (03/18/2025 11:51 AM EDT) C Reactive Protein 0.29 < or = 0.50 mg/dL [facility] 03/18/2025 11:5 1 AM EDT 03/18/2025 1:38 PM EDT Generic External Data Provider LAB BLOOD ORDERAB LES Final Result Performing Organization Address [facility] Co de Phone Number [facility] [address] [place] [phone] * Vitamin E (Tocopherol) (03/18/2025 11:51 AM EDT) Vitamin E, Alpha-Tocopherol 8.6 5.7 - 19.9 mg/L [facility] Comment:Levels of alpha-toco pherol <5 mg/L are consistentwith Vitamin E deficiency in adults. Vitamin E, Sscn-Oxrjg-Zolvqlttjn <1.0 <=4.3 mg/L [facility] Comment:Vitamin supplementat ion within 24 hours prior toblood draw may affect the accuracy of the results.This test was developed and its analytical performancecharacteristics have been determined by [employer] [place], [place]. It hasnot been cleared or approved by the U.S. Food and DrugAdministration. This assay has been validated pursuantto the CLIA regulations and is used for clinicalpurposes.THIS TEST WAS PERFORMED AT:[employer]/[facility]EVOHXCCDO[address] [place] [address]VYNDKSHHEAVENLY NELSON MD,PHD 03/18/2025 11:5 1 AM EDT 03/18/2025 1:22 PM EDT Generic External Data Provider LAB BLOOD ORDERAB LES Final Result Performing Organization Address [facility]/ZIP Co de Phone Number [facility] [address] [place] [phone] * TSH (03/18/2025 11:51 AM EDT) Pathologist [facility] Thyroid Stimulating Hormone 0.37 0.32 - 4.0 uIU/mL [facility] Comment:TSH 3rd Generation ( [facility]) Blood Venous blood specimen / Unknown 03/18/2025 11:51 AM EDT 03/18/2025 1:38 PM EDT [facility] [employer] LAB BLOOD ORDERABLES Final Re sult Performing Organization Address [facility] Co de Phone Number [facility] [address] [place] [phone] * Lipid Panel, Standard (03/18/2025 11:51 AM EDT) Triglycerides 81 <150 mg/dL [facility] Comment:Desirable Triglyceri de: less than 150 mg/dLBorderline High Triglyceride 150-199 mg/dLHigh Triglyceride: 200-499 mg/dLVery High Triglyceride: greater than or equal to 5OO mg/dL Cholesterol 158 <200 mg/dL [facility] Comment:Desirable Cholestero l: less than 200 mg/dLBorderline High Cholesterol: 200-239 mg/dLHigh Cholesterol: greater than 239 mg/dL LDL Cholesterol Calculated 99 <100 mg/dL [facility] Comment:Desirable LDL: less than 100 mg/dLNear Optimal/Above Optimal LDL: 110- 129 mg/dLBorderline High LDL: 130-159 mg/dLHigh LDL: 160-189 mg/dLVery High LDL: greater than or equal to 190 mg/dL HDL Cholesterol 43 >40 mg/dL [facility] Comment:Desirable HDL: great er than 40 mg/dL Note: This HDL assay may give artificially low results in patients with liver disease. Blood Venous blood specimen / Unknown 03/18/2025 11:51 AM EDT 03/18/2025 1:38 PM EDT [facility] LAB BLOOD ORDERABLES Final Re sult [facility] [address] [place] [phone] * Comprehensive Metabolic Panel (03/18/2025 11:51 AM EDT) Sodium 141 135 - 145 mmol/L [facility] Potassium 3.7 3.3 - 5.1 mmol/L [facility] Chloride 108 96 - 108 mmol/L [facility] Carbon Dioxide 25 22 - 29 mmol/L [facility] Anion Gap 12 12 - 20 [facility] Urea Nitrogen (BUN) 15 9 - 16 mg/dL [facility] Creatinine, Serum 0.92 0.5 - 1.4 mg/dL [facility] Estimated Glomerular Filt Rate 60 [facility] Comment:Chronic Kidney Disea se: Estimated GFR < 60 mL/min/1.74i7Nmypuh Kidney Disease: Estimated GFR < 15 mL/min/1.73m2 Glucose 93 60 - 115 mg/dL [facility] Calcium 9.2 8.4 - 10.2 mg/dL [facility] Bilirubin, Total 0.5 0.0 - 1.0 mg/dL [facility] Aspartate Amino Transferase 23 5 - 31 U/L [facility] Alanine Aminotransferase 12 0 - 31 U/L [facility] Total Protein 7.7 6.5 - 8.0 g/dL [facility] Albumin Level 4.3 3.5 - 5.0 g/dL [facility] Alkaline Phosphatase 77 39 - 117 U/L [facility] Blood Venous blood specimen / Unknown 03/18/2025 11:51 AM EDT 03/18/2025 1:38 PM EDT [facility] [employer] LAB BLOOD ORDERABLES Final Re sult [facility] [address] [place] [phone] * BI US Breast Limited Left (10/23/2024 11:00 AM EST) Anatomical Region Laterality Modality Breast Left Ultrasound 10/23/2024 11:0 0 AM EST Narrative 10/23/2024 12:11 PM EST [address] [place] [address] Ultrasound Report Signed Patient: Mary Kate Maya MR#: [id number] : 1950 Acct:[id number] Age/Sex: 74 / F ADM Date: 10/23/24 Loc: HO.MAMMO Attending Dr: Eugenia BOOKER Ordering Physician: Eugenia Sandoval Date of Service: 10/23/24 Procedure(s): US breast LT limited mamm only Accession Number(s): [id number] cc: Eugenia Sandoval [facility] EXAMINATION: US DIAGNOSTIC ULTRASOUND BREAST, LEFT CLINICAL [...] Zaira Loco DO 10/23/2024 12:09 PM EST RP Dictated By: Zaira Loco DO Signed By: <Electronically signed by Zaira Loco DO in OV> 10/23/24 1209 DD/ 1100 TD/TT: 10/23/24 1129 Cell Phone Repair Technician: Procedure Note Donotuseinterpreter, Image - 10/23/2024 [facility] [address] [place] [address] Ultrasound Report Signed Patient: Mary Kate Maya [facility]#: [id number] : 1950cct:[id number] Age/Sex: 74 / FADM Date: 10/23/24 Loc: HO.MAMMO Attending Dr: Eugenia Sandoval [employer] Ordering Physician: Eugenia Sandoval Date of Service: 10/23/24 Procedure(s): US breast LT limited mamm only Accession Number(s): [id number] cc: Eugenia Sandoval [employer] EXAMINATION: US DIAGNOSTIC ULTRASOUND BREAST, LEFT CLINICAL [...] Zaira Loco DO 10/23/2024 12:09 PM EST RP Dictated By: Zaira Loco DO Signed By: <Electronically signed by Zaira Loco DO in OV> 10/23/24 1209 DD/ 1100 TD/TT: 10/23/24 1129 Cell Phone Repair Technician: [facility] [employer]UR[employer] IMG US PROCEDURES Final Resul t * Thinprep TIS PAP And HPV mRNA E6/E7 With Reflex To HPV 16,18/45 (01/13/2023 2:29 PM EDT) Clinical Information: Postmenopausal [facility] LMP: NONE GIVEN [facility] Prev. PAP: NONE GIVEN [facility] Prev. BX: NO [employer] SOURCE: Cervix [employer] Statement Of Adequacy: [employer] Comment: Satisfactory for evaluation. Endocervical/transformation zone component absent. Interpretation/ Result: Negative for intraepithelial lesion or malignancy. [employer] COMMENT: This Pap test has been evaluated with computer assisted technology. [employer] Cytotechnologis t: [employer] Comment: BAL, CT(ASCP) CT screening location: [place] [address] Review Cytotechnologis t: [facility] Comment: JNA, CT(ASCP) CT screening location: [place] [address] (Always Message) [employer] Comment: EXPLANATORY NOTE: The Pap is a [...] HPV nRNA E6/E7 Not Detected Not Detected [employer] Comment: Methodology: Cat Sitter-Mediated Amplification This assay detects E6/E7 viral messenger RNA (mRNA) from 14 high-risk HPV types (16,18,31,33,35,39,45,51,52,56,58,59,66,68). Cervical sources are required for HPV testing. If a vaginal source from a patient who has had a total hysterectomy with removal of cervix was submitted, please contact the testing laboratory for alternative testing options. For additional information, please refer to http://education.[employer]/faq/KUQ663x8 (This link if provided for information/ educational purposes only.) Genital 01/13/2023 2:29 PM EDT 01/16/2023 7:42 AM EDT Result [facility] LAB PATHOLOGY ORDERABLES Sandie l Result Performing Organization Address City/[facility]/ZIP Co de Phone Number [facility] [address] [place] [address], [place] [address] [employer] [facility] [address] [place] [phone] * Hm Pap Smear (01/13/2023) Pap Negative for intraephithelial lesion or malignancy Negative for intraephithelial lesion or malignancy, Other HPV Undetected 01/13/2023 Result [facility] HEALTH MAINTENANCE Final Resu lt * HEPATITIS C AB W/REFL TO HCV RNA, QN, PCR (06/21/2022 10:33 AM EDT) HEPATITIS C ANTIBODY NON-REACTI VE NON-REACT DENYS [facility]VERTED [facility] LAB[facility] INDEX 0.20 <1.00 [facility] Comment: HCV antibody was non-reactive. There is no laboratory evidence of HCV infection. In most cases, no further action is required. However, if recent HCV exposure is suspected, a test for HCV RNA (test code 68914) is suggested. For additional information please refer to http://education.[employer].[place] [employer]/faq/UCH21p2 (This link is being provided for informational/ educational purposes only.) 06/21/2022 10:3 3 AM EDT Result [facility] HISTORICAL/NON ORDERABLE LABS Final Result CONVERTED [facility]GACY LABS * Hm Colonoscopy (10/29/2015 9:11 AM EST) Result [facility] Historical Provider MD HEALTH MAINTENANCE Final Result from Last 3 Months or Most Recently Relevant to Health Maintenance Insurance [facility] RESIDENTIAL OPTIONS (HMO D-SNP) [employer] [id number] Care Teams Emergency Dispatch Operator Relationship Specialty Start Date End Date Eugenia Sandoval FNP [address] [place] [phone] PCP - General Family Medicine 04/27/22
--- OUTSIDE RECORDS SUMMARY | 2025-04-22 12:38 | XMS_ITS | Encounter Summary ---
Author Organization [employer] Address [address] [facility] 7t [place] [address] Care Team Providers Care Resort Desk Clerk Name Role Phone [facility] Primary Care Provider [phone] Reason for Visit * Reason Onset Date Comments Appointment Request 09/10/2024 Encounter Details Date Type Department Care Team ([facility] Contact Info) Description 09/10/2024 Telephone [facility] [address] [place], [place] [phone] [facility] [address] [place], [place] [phone] Appointment Request Social History Tobacco Use Types [...] pain management appt. Please contact pt at [phone]. (Senegalese Speaker) documented in this encounter Plan of Treatment Upcoming Encounters Date Type Department Care Team (Late st Contact Info) Description 06/10/2025 9:45 AM EDT Office Visit [facility] [address] [place] [address] documented as of this encounter Visit Diagnoses Not on filedocumented in this encounter Additional Health Concerns Assessment Noted Time PHQ-9 Depression Total Score: 0 06/17/20 24 2:07 PM EDT documented as of this encounter Care Teams Resort Desk Clerk Relationship Specialty Start Date End Date Eugenia Sandoval FNP [address] [place] [address] PCP - General Family Medicine 04/27/22 documented as of this encounter
--- OUTSIDE RECORDS SUMMARY | 2025-04-22 12:38 | XMS_ITS | Encounter Summary ---
Author Organization [employer] Address [address] [facility] 7t [place] [address] Care Team Providers Care Lumber Inspector Name Role Phone [facility] Primary Care Provider [phone] Reason for Visit * Reason Comments Med Refill Encounter Details Date Type Department Care Team ([facility] st Contact Info) Description 12/18/2022 Refill [facility] [address] [place], [place] [phone] [facility] [address] [place], [place] [phone] Other chronic pain Social History Tobacco Use [...] Description 06/10/2025 9:45 AM EDT Office Visit [facility] [address] [place] [address] documented as of this encounter Visit Diagnoses Diagnosis Other chronic pain documented in this encounter Care Teams Lumber Inspector Relationship Specialty Start Date End Date Eugenia Sandoval FNP [address] [place] [address] PCP - General Family Medicine 04/27/22 documented as of this encounter
--- OUTSIDE RECORDS SUMMARY | 2025-04-22 12:38 | XMS_ITS | Encounter Summary ---
Author Organization [employer] [facility] Address [address] [facility] 7t [place] [address] Care Team Providers Care Traveling Storekeeper Name Role Phone Eugenia Sandoval [facility] Primary Care Provider [phone] Reason for Visit * Reason Comments Med Refill Encounter Details Date Type Department Care Team ([facility] Contact Info) Description 01/09/2023 Refill [facility] [address] [place], [place] [phone] Eugenia Sandoval [facility] [address] [place] [address] Social History Tobacco Use Types Packs/Day Years [...] Department Care Team (Late Contact Info) Description 06/10/2025 9:45 AM EDT Office Visit [facility] [address] [place] [address] documented as of this encounter Visit Diagnoses Not on filedocumented in this encounter Care Teams Traveling Storekeeper Relationship Specialty Start Date End Date Eugenia Sandoval FNP [address] [place] [phone] PCP - General Family Medicine 04/27/22 documented as of this encounter
--- OUTSIDE RECORDS SUMMARY | 2025-04-22 12:38 | XMS_ITS | Encounter Summary ---
Author Organization [employer] Address [address] [facility] 7t [place] [address] Care Team Providers Care Treasury Director Name Role Phone Eugenia Sandoval Primary Care Provider [phone] Reason for Referral * Hospital - Outpatient (Routine) - Closed Specialty Diagnoses / Procedures Referred By Nimisha tirado Referred To Contact Diagnoses Essential hypertension Excessive daytime sleepiness Procedures Polysomnography Eugenia Sandoval FNP [address] [place] [address] Phone: tel: fax: [address] Phone: tel: fax: Referral ID Status Reason Start Date Expiration Date Visits Re quested Visits Authorized [id number] Closed 07/02/2024 07/02/2025 1 1 Encounter Details Date Type Department Care Team (Late st Contact Info) Description 07/02/2024 Orders Only [facility] [address] [place], [place] [phone] Eugenia Sandoval FNP [address] [place], [place] [phone] Essential hypertension (Primary Dx); Excessive daytime sleepiness [...] Description 06/10/2025 9:45 AM EDT Office Visit [facility] [address] [place] [phone] Scheduled Orders Name Type Priority Associated Diagnoses [...] documented as of this encounter Care Teams Treasury Director Relationship Specialty Start Date End Date Eugenia Sandoval FNP [address] [place] [phone] PCP - General Family Medicine 04/27/22 documented as of this encounter
--- OUTSIDE RECORDS SUMMARY | 2025-04-22 12:38 | XMS_ITS | Encounter Summary ---
Author Organization [employer] Address [address] [facility] 7t [place] [address] Care Team Providers Care Hide Trimmer Name Role Phone [facility] Primary Care Provider [phone] Reason for Visit * Reason Onset Date Comments NCNS for TELESALES AGENT RV today 09/21/2022 NCNS Encounter Details Date Type Department Care Team (Late Contact Info) Description 09/21/2022 Telephone [facility] [address] [place] [address] [facility] [address] [place] [address] NCNS for TELESALES AGENT RV today (NCNS) Social History Tobacco Use [...] from pt calling to r/s appt for TELESALES AGENT RV on 09/21/2022 at 10 am. Please contact pt at [phone] documented in this encounter Plan of Treatment Upcoming Encounters Date Type Department Care Team (Late Contact Info) Description 06/10/2025 9:45 AM EDT Office Visit [facility] [address] [place] [address] documented as of this encounter Visit Diagnoses Not on filedocumented in this encounter Care Teams Hide Trimmer Relationship Specialty Start Date End Date Eugenia Sandoval FNP [address] [place] [address] PCP - General Family Medicine 04/27/22 documented as of this encounter
--- OUTSIDE RECORDS SUMMARY | 2025-04-22 12:38 | XMS_ITS | Encounter Summary ---
Author Organization [employer] [facility] Address [address] [facility] 7t [place] [address] Care Team Providers Care Rn Imaging Name Role Phone Eugenia Sandoval [facility] Primary Care Provider [phone] Reason for Visit * Reason Comments Med Refill Encounter Details Date Type Department Care Team ([facility] Contact Info) Description 08/23/2022 Refill [facility] [address] [place] [address] Eugenia Sandoval [facility] [address] [place] [address] Other chronic pain Social History Tobacco Use [...] Description 06/10/2025 9:45 AM EDT Office Visit [facility] [address] [place] [phone] documented as of this encounter Visit Diagnoses Diagnosis Other chronic pain documented in this encounter Care Teams Rn Imaging Relationship Specialty Start Date End Date Eugenia Sandoval FNP [address] [place] [phone] PCP - General Family Medicine 04/27/22 documented as of this encounter
--- OUTSIDE RECORDS SUMMARY | 2025-04-22 12:38 | XMS_ITS | Encounter Summary ---
Author Organization [employer] Address [address] [facility] 7t [place] [address] Care Team Providers Care Computer Hardware Developer Name Role Phone [facility] Primary Care Provider [phone] Reason for Visit * Reason Onset Date Comments Results 03/04/2025 Encounter Details Date Type Department Care Team ([facility] Contact Info) Description 03/04/[address] [facility] [address] [place], [place] [phone] [facility] [address] [place], [place] [phone] Results Social History Tobacco Use Types Packs/Day Years [...] encounter Miscellaneous Notes * Telephone Encounter - Zuleyma Pérez RN - 03/04/2025 2:31 PM EDT Please advise on brain MRI results from 02/19/25, there were a few minor findings. Thank you! * Telephone Encounter - Flavio Haskins - 03/04/2025 11:56 AM EDT TC from pt requesting call back regarding Results. Type of results: CT Scan Date when done: around 2 weeks ago Facility: [facility] Tc from pt stating she needs CT scan results for surgery. documented in this encounter Plan of Treatment Upcoming Encounters Date Type Department Care Team (Late st Contact Info) Description 06/10/2025 9:45 AM EDT Office Visit [facility] [address] [place] [phone] documented as of this encounter Visit Diagnoses Not on filedocumented in this encounter Additional Health Concerns Assessment Noted Time PHQ-9 Depression Total Score: 0 12/10/19 25 1:35 PM EDT documented as of this encounter Care Teams Computer Hardware Developer Relationship Specialty Start Date End Date Eugenia Sandoval FNP [address] [place] [phone] PCP - General Family Medicine 04/27/22 documented as of this encounter
--- OUTSIDE RECORDS SUMMARY | 2025-04-22 12:38 | XMS_ITS | Encounter Summary ---
Author Organization [employer] Address [address] [facility] 7t [place] [address] Care Team Providers Care Warehouse Worker Name Role Phone [facility] Primary Care Provider Reason for Visit * Reason Comments Med Refill Encounter Details Date Type Department Care Team ([facility] Contact Info) Description 08/09/2024 Refill [facility] [address] [place], [place] [phone] [facility] [address] [place], [place] [phone] Primary osteoarthritis of both knees Social History [...] Description 06/10/2025 9:45 AM EDT Office Visit [facility] [address] [place] [address] documented as of this encounter Visit Diagnoses Diagnosis Primary osteoarthritis of both knees documented in this encounter Additional Health Concerns Assessment Noted Time PHQ-9 Depression Total Score: 0 06/17/20 24 2:07 PM EDT documented as of this encounter Care Teams Warehouse Worker Relationship Specialty Start Date End Date Eugenia Sandoval FNP [address] [place] [address] PCP - General Family Medicine 04/27/22 documented as of this encounter
--- OUTSIDE RECORDS SUMMARY | 2025-04-22 12:38 | XMS_ITS | Encounter Summary ---
Author Organization [employer] Address [address] [facility] [address] 7[address] [place] [address] Care Team Providers Care Test Man Name Role Phone Eugenia Sandoval Primary Care Provider [phone] Reason for Visit * Reason Comments Med Refill Encounter Details Date Type Department Care Team ([facility] Contact Info) Description 11/30/2022 Refill [facility] [address] [place], [place] [phone] Senait Frias MD [address] [place] [address] Pain in right knee Social History Tobacco [...] Upcoming Encounters Date Type Department Care Team ([facility] Contact Info) Description 06/10/2025 9:45 AM EDT Office Visit [facility] [address] [place], [place] [phone] documented as of this encounter Visit Diagnoses Diagnosis Pain in right knee documented in this encounter Care Teams Test Man Relationship Specialty Start Date End Date Eugenia Sandoval FNP [address] [place] [address] PCP - General Family Medicine 04/27/22 documented as of this encounter
--- OUTSIDE RECORDS SUMMARY | 2025-04-22 12:38 | XMS_ITS | Encounter Summary ---
Author Organization [employer] Address [address] [facility] [address] 7t [place] [address] Care Team Providers Care Theatrical Trouper Name Role Phone [place] Eugenia [employer] [facility] Primary Care Provider [phone] Encounter Details Date Type Department Care Team ([facility] st Contact Info) Description 12/06/2023 Orders Only [facility] 230 [place], [place] [phone] Provider, MD Aga Social History Tobacco Use Types Packs/Day Years [...] Description 06/10/2025 9:45 AM EDT Office Visit [facility] 230 [place] [address] documented as of this encounter Procedures Procedure [...] documented as of this encounter Care Teams Theatrical Trouper Relationship Specialty Start Date End Date Eugenia Sandoval FNP 230 [place] [address] PCP - General Family Medicine 04/27/22 documented as of this encounter
--- OUTSIDE RECORDS SUMMARY | 2025-04-22 12:38 | XMS_ITS | Encounter Summary ---
Author Organization [employer] Address [address] [facility] [address] 7t [place] [address] Care Team Providers Care Accounting Professional Name Role Phone [facility] Primary Care Provider [phone] Reason for Visit * Reason Onset Date Comments Med Refill [employer] 03/21/2024 I informe d the patient, that the Certification of Serious Illness from [employer], is ready to be picked up at the [facility] Dept. She verbalized understanding. Encounter Details Date Type Department Care Team (Late st Contact Info) Description 03/21/2024 Refill [facility] 230 [place], [place] [phone] [facility] 230 [place], [place] [phone] Primary osteoarthritis of both knees Social History [...] that the Certification of Serious Illness from [email or web address], is ready to be picked up at the [facility] Dept. She verbalized understanding. documented in this encounter Plan of Treatment Upcoming Encounters Date Type Department Care Team (Late st Contact Info) Description 06/10/2025 9:45 AM EDT Office Visit [facility] 230 [place] [address] documented as of this encounter Visit Diagnoses Diagnosis Primary osteoarthritis of both knees documented in this encounter Additional Health Concerns Assessment Noted Time PHQ-9 Depression Total Score: 6 02/28/20 24 2:13 PM EDT documented as of this encounter Care Teams Accounting Professional Relationship Specialty Start Date End Date Eugenia Sandoval FNP 230 [place] [address] PCP - General Family Medicine 04/27/22 documented as of this encounter
--- OUTSIDE RECORDS SUMMARY | 2025-04-22 12:38 | XMS_ITS | Encounter Summary ---
Author Organization [employer] Address 75 [facility] 7t [place] [address] Care Team Providers Care Microsoft Systems Engineer Name Role Phone Eugenia Sandoval Primary Care Provider [phone] Reason for Visit * Reason Comments Med Refill Encounter Details Date Type Department Care Team ([facility] Contact Info) Description 05/27/2023 Refill [facility] 230 [place] [address] Jenna Bar FNP Social History Tobacco Use Types Packs/Day Years [...] Upcoming Encounters Date Type Department Care Team ([facility] Contact Info) Description 06/10/2025 9:45 AM EDT Office Visit [facility] [address] [place] [address] [phone] documented as of this encounter Visit Diagnoses Not on filedocumented in this encounter Additional Health Concerns Assessment Noted Time PHQ-9 Depression Total Score: 9 03/30/20 23 2:25 PM EDT documented as of this encounter Care Teams Microsoft Systems Engineer Relationship Specialty Start Date End Date Eugenia Sandoval FNP 230 [place] [address] PCP - General Family Medicine 04/27/22 documented as of this encounter
[2025-04-22 13:15] LABS: Albumin Level 4.1 g/dL (3.5-5.0); Anion Gap 11 (12-20); Blood Urea Nitrogen 14 mg/dL (9-16); Calcium 9.3 mg/dL (8.4-10.2); Carbon Dioxide 25 mmol/L (22-29); Chloride 107 mmol/L (96-108); Estimated Glomerular Filt Rate 56; Potassium 3.6 mmol/L (3.3-5.1); Sodium 139 mmol/L (135-145)
== END 2025-04-22 11:42 | disposition home or self-care (01) ==
LOC: HO.LAB 11:41
PROVIDERS: PCP Registered Nurse; Visit Provider Nurse Practitioner Family
DX: R19.7 Diarrhea, unspecified (principal)
CPT/HCPCS: 36415; 80048; 82040

== ENCOUNTER 2025-04-23 13:43 | Outpatient (REF) | payer OTHER, SELFPAY ==
--- OUTSIDE RECORDS SUMMARY | 2025-04-23 14:33 | XMS_ITS | Encounter Summary ---
Author Organization [employer] Address 75 [facility] 7t [place] [address] Care Team Providers Care Meat Curer Name Role Phone [facility] Primary Care Provider [phone] Reason for Visit * Reason Comments Med Refill Encounter Details Date Type Department Care Team ([facility] st Contact Info) Description 01/30/2025 Refill [facility] 230 [place], [place] [phone] [facility] 230 [place], [place] [phone] Primary osteoarthritis of both knees; Anxiety due [...] Care Team (Late st Contact Info) Description 04/23/2025 3:20 PM EDT Office Visit [facility] [address] [place] [address] 06/10/2025 9:45 AM EDT Office Visit [facility] [address] [place] [address] documented as of this encounter Visit Diagnoses Diagnosis Primary osteoarthritis of both knees Anxiety due to invasive procedure documented in this encounter Additional Health Concerns Assessment Noted Time PHQ-9 Depression Total Score: 0 12/10/19 25 1:35 PM EDT documented as of this encounter Care Teams Meat Curer Relationship Specialty Start Date End Date Eugenia Sandoval FNP [address] [place] [address] PCP - General Family Medicine 04/27/22 documented as of this encounter
--- OUTSIDE RECORDS SUMMARY | 2025-04-23 14:33 | XMS_ITS | Clinical Summary ---
Author Organization [facility] Address [address] [place] [address] Care Team Providers Care Risk Investigator Name Role Phone Rufino Garcia [facility] Primary Care Provider Family History [...] age to complete this topic Insurance [facility] ([id number]) [facility] ([id number]) Care Teams Risk Investigator Relationship Specialty Start Date End Date Rufino Garcia FNP [address] [place] [address], 3rd [place] [address] PCP - General 09/07/20
--- OUTSIDE RECORDS SUMMARY | 2025-04-23 14:33 | XMS_ITS | Encounter Summary ---
Author Organization [employer] Address 75 [facility] 7t [place] [address] Care Team Providers Care Fire Services Plumber Name Role Phone [facility] Primary Care Provider [phone] Reason for Visit * Reason Comments Med Refill Encounter Details Date Type Department Care Team ([facility] Contact Info) Description 01/29/2025 Refill [facility] 230 [place], [place] [phone] [facility] 230 [place], [place] [phone] Primary osteoarthritis of both knees Social History [...] Description 04/23/2025 3:20 PM EDT Office Visit [facility] [address] [place] [address] 06/10/2025 9:45 AM EDT Office Visit [facility] [address] [place] [address] documented as of this encounter Visit Diagnoses Diagnosis Primary osteoarthritis of both knees documented in this encounter Additional Health Concerns Assessment Noted Time PHQ-9 Depression Total Score: 0 12/10/19 25 1:35 PM EDT documented as of this encounter Care Teams Fire Services Plumber Relationship Specialty Start Date End Date Eugenia Sandoval FNP [address] [place] [address] PCP - General Family Medicine 04/27/22 documented as of this encounter
--- OUTSIDE RECORDS SUMMARY | 2025-04-23 14:33 | XMS_ITS | Encounter Summary ---
Author Organization [employer] Address [address] [facility] [address] 7t [place] [address] Care Team Providers Care Client Liaison Name Role Phone [facility] Primary Care Provider [phone] Encounter Details Date Type Department Care Team ([facility] Contact Info) Description 04/22/2025 Orders Only GENERIC EXTERNAL DATA DEPARTMENT Provider, Generic External Data Social History Tobacco Use Types Packs/Day Years [...] Description 04/23/2025 3:20 PM EDT Office Visit [facility] [address] [place] [address] 06/10/2025 9:45 AM EDT Office Visit [facility] [address] [place] [address] documented as of this encounter Procedures Procedure Name Priority Date/Time Associated Diagnosis Comments ALBUMIN Routine 04/22/2025 11:56 AM EDT BASIC METABOLIC PANEL Routine 04/22/2025 11:56 AM EDT documented in this encounter Results * Albumin (04/22/2025 11:56 AM EDT) Albumin Level 4.1 3.5 - 5.0 g/dL [facility] 04/22/2025 11:5 6 AM EDT 04/22/2025 11:56 AM EDT us Generic External Data Provider LAB BLOOD ORDERAB LES Final Result [facility] [address] [place] [address] [phone] * (ABNORMAL) Basic Metabolic Panel (04/22/2025 11:56 AM EDT) Sodium 139 135 - 145 mmol/L [facility] Potassium 3.6 3.3 - 5.1 mmol/L [facility] Chloride 107 96 - 108 mmol/L [facility] Carbon Dioxide 25 22 - 29 mmol/L [facility] Anion Gap 11(L) 12 - 20 [facility] Urea Nitrogen (BUN) 14 9 - 16 mg/dL [facility] Creatinine, Serum 0.97 0.5 - 1.4 mg/dL [facility] Estimated Glomerular Filt Rate 56 [facility] Comment:Chronic Kidney Disea se: Estimated GFR < 60 mL/min/1.84k0Chqorv Kidney Disease: Estimated GFR < 15 mL/min/1.73m2 Glucose 97 60 - 115 mg/dL [facility] Calcium 9.3 8.4 - 10.2 mg/dL [facility] 04/22/2025 11:5 6 AM EDT 04/22/2025 11:56 AM EDT us Generic External Data Provider LAB BLOOD ORDERAB LES Final Result [facility] [address] [place] [address] [phone] documented in this encounter Visit Diagnoses Not on filedocumented in this encounter Additional Health Concerns Assessment Noted Time PHQ-9 Depression Total Score: 0 12/10/19 25 1:35 PM EDT documented as of this encounter Care Teams Client Liaison Relationship Specialty Start Date End Date Eugenia Sandoval FNP 230 [place] [address] PCP - General Family Medicine 04/27/22 documented as of this encounter
--- OUTSIDE RECORDS SUMMARY | 2025-04-23 14:34 | XMS_ITS | Encounter Summary ---
Author Organization [employer] Address 75 [facility] 7t [place] [address] Care Team Providers Care Tile Shader Name Role Phone [facility] Primary Care Provider [phone] Reason for Visit * Reason Comments Med Refill Encounter Details Date Type Department Care Team ([facility] Contact Info) Description 08/09/2024 Refill [facility] 230 [place], [place] [phone] [facility] 230 [place], [place] [phone] Primary osteoarthritis of both knees Social History [...] Description 04/23/2025 3:20 PM EDT Office Visit [facility] [address] [place] [address] 06/10/2025 9:45 AM EDT Office Visit [facility] [address] [place] [address] documented as of this encounter Visit Diagnoses Diagnosis Primary osteoarthritis of both knees documented in this encounter Additional Health Concerns Assessment Noted Time PHQ-9 Depression Total Score: 0 06/17/20 24 2:07 PM EDT documented as of this encounter Care Teams Tile Shader Relationship Specialty Start Date End Date Eugenia Sandoval FNP [address] [place] [address] PCP - General Family Medicine 04/27/22 documented as of this encounter
--- OUTSIDE RECORDS SUMMARY | 2025-04-23 14:34 | XMS_ITS | Encounter Summary ---
Author Organization [employer] Address 75 [facility] 7t [place] [address] Care Team Providers Care Story Writer Name Role Phone Eugenia Sandoval Primary Care Provider [phone] Reason for Referral * Hospital - Outpatient (Routine) - Closed Specialty Diagnoses / Procedures Referred By Nimisha tirado Referred To Contact Diagnoses Essential hypertension Excessive daytime sleepiness Procedures Polysomnography Eugenia Sandoval FNP 230 [place] [address] Phone: tel: fax: [address] Phone: tel: fax: Referral ID Status Reason Start Date Expiration Date Visits Re quested Visits Authorized [id number] Closed 07/02/2024 07/02/2025 1 1 Encounter Details Date Type Department Care Team (Late st Contact Info) Description 07/02/2024 Orders Only [facility] 230 [place], [place] [phone] Eugenia Sandoval FNP 230 [place], [place] [phone] Essential hypertension (Primary Dx); Excessive daytime sleepiness [...] Description 04/23/2025 3:20 PM EDT Office Visit [facility] [address] [place] [address] 06/10/2025 9:45 AM EDT Office Visit [facility] [address] [place] [address] Scheduled Orders Name Type Priority Associated Diagnoses [...] documented as of this encounter Care Teams Story Writer Relationship Specialty Start Date End Date Eugenia Sandoval FNP [address] [place] [address] PCP - General Family Medicine 04/27/22 documented as of this encounter
--- OUTSIDE RECORDS SUMMARY | 2025-04-23 14:34 | XMS_ITS | Encounter Summary ---
Author Organization [employer] Address 75 [facility] 7t [place] [address] Care Team Providers Care Business Administration Teacher Name Role Phone [facility] Primary Care Provider [phone] Reason for Visit * Reason Onset Date Comments [facility] for PERSONAL COMPUTER NETWORK ANALYST RV today 09/21/2022 [facility] Encounter Details Date Type Department Care Team (Late Contact Info) Description 09/21/2022 Telephone [facility] MEDICINE [address] [place] [address] [facility] 230 [place] [address] [facility] for PERSONAL COMPUTER NETWORK ANALYST RV today ([facility]) Social History Tobacco Use [...] pt calling to r/s appt for PERSONAL COMPUTER NETWORK ANALYST RV on 09/21/2022 at 10 am. Please contact pt at [phone] documented in this encounter Plan of Treatment Upcoming Encounters Date Type Department Care Team (Late Contact Info) Description 04/23/2025 3:20 PM EDT Office Visit [facility] [address] [place] [address] 06/10/2025 9:45 AM EDT Office Visit [facility] [address] [place] [address] documented as of this encounter Visit Diagnoses Not on filedocumented in this encounter Care Teams Business Administration Teacher Relationship Specialty Start Date End Date Eugenia Sandoval FNP [address] [place] [address] PCP - General Family Medicine 04/27/22 documented as of this encounter
--- OUTSIDE RECORDS SUMMARY | 2025-04-23 14:34 | XMS_ITS | Encounter Summary ---
Author Organization [employer] Address 75 [facility] 7t [place] [address] Care Team Providers Care Manager Corporate Marketing Name Role Phone [facility] Primary Care Provider [phone] Reason for Visit * Reason Onset Date Comments Results 03/04/2025 Encounter Details Date Type Department Care Team ([facility] Contact Info) Description 03/04/2025 Telephone [facility] 230 [place], [place] [phone] [facility] 230 [place], [place] [phone] Results Social History Tobacco Use Types Packs/Day [...] when done: around 2 weeks ago Facility: [facility] Tc from pt stating she needs CT scan results for surgery. documented in this encounter Plan of Treatment Upcoming Encounters Date Type Department Care Team (Late st Contact Info) Description 04/23/2025 3:20 PM EDT Office Visit [facility] [address] [address] 06/10/2025 9:45 AM EDT Office Visit [facility] [address] [place] [address] documented as of this encounter Visit Diagnoses Not on filedocumented in this encounter Additional Health Concerns Assessment Noted Time PHQ-9 Depression Total Score: 0 12/10/19 25 1:35 PM EDT documented as of this encounter Care Teams Manager Corporate Marketing Relationship Specialty Start Date End Date Eugenia Sandoval FNP 230 [place] [address] PCP - General Family Medicine 04/27/22 documented as of this encounter
--- OUTSIDE RECORDS SUMMARY | 2025-04-23 14:34 | XMS_ITS | Encounter Summary ---
Author Organization [employer] Address [address] [facility] [address] 7t [place] [address] Care Team Providers Care Doula Name Role Phone [facility] Primary Care Provider [phone] Reason for Visit * Reason Onset Date Comments Med Refill [employer] 03/21/2024 I informe d the patient, that the Certification of Serious Illness from [employer], is ready to be picked up at the [facility] Dept. She verbalized understanding. Encounter Details Date Type Department Care Team (Late st Contact Info) Description 03/21/2024 Refill [facility] MEDICINE 230 [place], [place] [phone] [facility] 230 [place], [place] [phone] Primary osteoarthritis of both knees Social History [...] that the Certification of Serious Illness from [email or web address], is ready to be picked up at the [facility] Dept. She verbalized understanding. documented in this encounter Plan of Treatment Upcoming Encounters Date Type Department Care Team (Late st Contact Info) Description 04/23/2025 3:20 PM EDT Office Visit [facility] 230 [place] [address] 06/10/2025 9:45 AM EDT Office Visit [facility] MEDIC[facility] [address] [place] [address] documented as of this encounter Visit Diagnoses Diagnosis Primary osteoarthritis of both knees documented in this encounter Additional Health Concerns Assessment Noted Time PHQ-9 Depression Total Score: 6 02/28/20 24 2:13 PM EDT documented as of this encounter Care Teams Doula Relationship Specialty Start Date End Date Lori, ADE Bello [address] [place] [address] PCP - General Family Medicine 04/27/22 documented as of this encounter
--- OUTSIDE RECORDS SUMMARY | 2025-04-23 14:34 | XMS_ITS | Encounter Summary ---
Author Organization [employer] Address 75 [facility] 7t [place] [address] Care Team Providers Care Guest Relations Manager Name Role Phone [facility] Primary Care Provider [phone] Reason for Visit * Reason Comments Med Refill Encounter Details Date Type Department Care Team ([facility] Contact Info) Description 02/16/2023 Refill [facility] [address] [place] [phone] [place] [address] [address] Other chronic pain Social History Tobacco Use [...] Upcoming Encounters Date Type Department Care Team ([facility] Contact Info) Description 04/23/2025 3:20 PM EDT Office Visit [facility] [address] [place] [address] [phone] 06/10/2025 9:45 AM EDT Office Visit [facility] [address] [place] [address] [phone] documented as of this encounter Visit Diagnoses Diagnosis Other chronic pain documented in this encounter Care Teams Guest Relations Manager Relationship Specialty Start Date End Date Eugenia Sandoval FNP [address] [place] [address] DU[place]TE Harris [address] PCP - General Family Medicine 04/27/22 documented as of this encounter
--- OUTSIDE RECORDS SUMMARY | 2025-04-23 14:34 | XMS_ITS | Encounter Summary ---
Author Organization [employer] Address 75 [facility] 7t [place] [address] Care Team Providers Care Windows Deployment Technician Name Role Phone [facility] Primary Care Provider [phone] Reason for Visit * Reason Onset Date Comments Appointment Request 09/10/2024 Encounter Details Date Type Department Care Team ([facility] Contact Info) Description 09/10/2024 Telephone [facility] MEDICINE 230 [place], [place] [phone] [facility] 230 [place], [place] [phone] Appointment Request Social History Tobacco Use Types [...] pain management appt. Please contact pt at [phone]. (Brazilian Speaker) documented in this encounter Plan of Treatment Upcoming Encounters Date Type Department Care Team (Late st Contact Info) Description 04/23/2025 3:20 PM EDT Office Visit [facility] [address] [place] [address] 06/10/2025 9:45 AM EDT Office Visit [facility] MEDICINE [address] [place] [address] documented as of this encounter Visit Diagnoses Not on filedocumented in this encounter Additional Health Concerns Assessment Noted Time PHQ-9 Depression Total Score: 0 06/17/20 24 2:07 PM EDT documented as of this encounter Care Teams Windows Deployment Technician Relationship Specialty Start Date End Date Eugenia Sandoval FNP [address] [place] [address] PCP - General Family Medicine 04/27/22 documented as of this encounter
--- OUTSIDE RECORDS SUMMARY | 2025-04-23 14:34 | XMS_ITS | Encounter Summary ---
Author Organization [employer] Address [address] [facility] 7t [place] [address] Care Team Providers Care Wreath Inspector Name Role Phone [place] Eugenia PACKAGING ENGINEER Primary Care Provider [phone] Encounter Details Date Type Department Care Team ([facility] st Contact Info) Description 12/06/2023 Orders Only [facility] MED[facility] 230 [place], [place] [phone] Provider, MD Aga Social History Tobacco Use [...] Description 04/23/2025 3:20 PM EDT Office Visit [facility] [address] [place] [address] 06/10/2025 9:45 AM EDT Office Visit [facility] [address] [place] [address] documented as of this encounter Procedures Procedure Name Priority Date/Time Associated Diagnosis Comments [facility] COLONOSCOPY Routine 10/29/2015 9:11 AM EST documented in this encounter Results * Hm Colonoscopy (10/29/2015 9:11 AM EST) Historical Provider HEALTH MAINTENANCE Final Result documented in this encounter Visit Diagnoses Not on filedocumented in this encounter Additional Health Concerns Assessment Noted Time PHQ-9 Depression Total Score: 9 03/30/20 23 2:25 PM EDT documented as of this encounter Care Teams Wreath Inspector Relationship Specialty Start Date End Date Eugenia Sandoval FNP [address] [place] [address] PCP - General Family Medicine 04/27/22 documented as of this encounter
--- OUTSIDE RECORDS SUMMARY | 2025-04-23 14:34 | XMS_ITS | Encounter Summary ---
Author Organization [facility] Address [address] [facility] 7t [place] [address] Care Team Providers Care Traffic Director Name Role Phone Eugenia Sandvoal KILN PULLER Primary Care Provider [phone] Reason for Visit * Reason Comments Med Refill Encounter Details Date Type Department Care Team ([facility] Contact Info) Description 01/09/2023 Refill [facility] MED[facility]INE [address] [place] [phone] Eugenia Sandoval FNP [address] [place] [phone] Social History Tobacco Use Types Packs/Day Years [...] Upcoming Encounters Date Type Department Care Team ([facility] Contact Info) Description 04/23/2025 3:20 PM EDT Office Visit [facility] [address] [place] [address] [phone] 06/10/2025 9:45 AM EDT Office Visit [facility]INE [address] [place] [phone] documented as of this encounter Visit Diagnoses Not on filedocumented in this encounter Care Teams Traffic Director Relationship Specialty Start Date End Date Eugenia Sandoval FNP [address] [place] [phone] PCP - General Family Medicine 04/27/22 documented as of this encounter
--- OUTSIDE RECORDS SUMMARY | 2025-04-23 14:34 | XMS_ITS | Encounter Summary ---
Author Organization [employer] Address [address] [facility] 7t [place] [address] Care Team Providers Care Geomorphology Teacher Name Role Phone [facility] Primary Care Provider [phone] Reason for Visit * Reason Comments Med Refill Encounter Details Date Type Department Care Team ([facility] Contact Info) Description 11/07/2023 Refill [facility] MED[facility]INE [address] [place], [place] [phone] [facility] [address] [place], [place] [phone] Other chronic pain; Insomnia, unspecified type Social [...] Office Visit [facility] [address] [place] [phone] 06/10/2025 9:45 AM EDT Office Visit [facility] MED[facility] [address] [place] [phone] documented as of this encounter Visit Diagnoses Diagnosis Other chronic pain Insomnia, unspecified type documented in this encounter Additional Health Concerns Assessment Noted Time PHQ-9 Depression Total Score: 9 03/30/20 23 2:25 PM EDT documented as of this encounter Care Teams Geomorphology Teacher Relationship Specialty Start Date End Date Eugenia Sandoval FNP [address] [place] [phone] PCP - General Family Medicine 04/27/22 documented as of this encounter
--- OUTSIDE RECORDS SUMMARY | 2025-04-23 14:34 | XMS_ITS | Encounter Summary ---
Author Organization [facility] Address [address] [facility] 7t [place] [address] Care Team Providers Care Court Deputy Name Role Phone Eugenia Sandoval FOOD SERVICES COORDINATOR Primary Care Provider [phone] Reason for Visit * Reason Comments Med Refill Encounter Details Date Type Department Care Team ([facility] Contact Info) Description 08/23/2022 Refill [facility] MEDICINE [address] [place] [phone] Eugenia Sandoval FNP [address] [place] [phone] Other chronic pain Social History Tobacco Use [...] Care Team ([facility] Contact Info) Description 04/23/2025 3:20 PM EDT Office Visit [facility] [address] [place] [address] [phone] 06/10/2025 9:45 AM EDT Office Visit [facility] MEDICINE [address] [place] [address] [phone] documented as of this encounter Visit Diagnoses Diagnosis Other chronic pain documented in this encounter Care Teams Court Deputy Relationship Specialty Start Date End Date Eugenia Sandoval FNP [address] [place] [phone] PCP - General Family Medicine 04/27/22 documented as of this encounter
--- OUTSIDE RECORDS SUMMARY | 2025-04-23 14:34 | XMS_ITS | Encounter Summary ---
Author Organization [employer] Address [address] [facility] 7t [place] [address] Care Team Providers Care K 9 Handler/ Deputy Name Role Phone Lori [facility] Primary Care Provider [phone] Reason for Visit * Reason Comments Med Refill Encounter Details Date Type Department Care Team ([facility] Contact Info) Description 05/27/2023 Refill [facility] MED[facility] [address] [place] [address] [phone] Jenna Bra FNP Social History Tobacco Use Types Packs/Day [...] Upcoming Encounters Date Type Department Care Team ([facility] Contact Info) Description 04/23/2025 3:20 PM EDT Office Visit [facility] [address] [place] [address] [phone] 06/10/2025 9:45 AM EDT Office Visit [facility] [address] [place] [address] [phone] documented as of this encounter Visit Diagnoses Not on filedocumented in this encounter Additional Health Concerns Assessment Noted Time PHQ-9 Depression Total Score: 9 03/30/20 23 2:25 PM EDT documented as of this encounter Care Teams K 9 Handler/ Deputy Relationship Specialty Start Date End Date Eugenia Sandoval FNP [address] [place] [phone] PCP - General Family Medicine 04/27/22 documented as of this encounter
--- OUTSIDE RECORDS SUMMARY | 2025-04-23 14:34 | XMS_ITS | Encounter Summary ---
Author Organization [employer] Address [address] [facility] 7t [place] [address] Care Team Providers Care Orthotist/Prosthetist Name Role Phone [facility] Primary Care Provider [phone] Reason for Visit * Reason Comments Med Refill Encounter Details Date Type Department Care Team ([facility] Contact Info) Description 11/30/[address] [facility] MEDICINE [address] [place] [phone] [phone] Other chronic pain Social History Tobacco Use [...] Description 04/23/2025 3:20 PM EDT Office Visit [facility] [address] [place] [address] [phone] 06/10/2025 9:45 AM EDT Office Visit [facility] [address] [place] [address] [phone] documented as of this encounter Visit Diagnoses Diagnosis Other chronic pain documented in this encounter Care Teams Orthotist/Prosthetist Relationship Specialty Start Date End Date Eugenia Sandoval FNP [address] [place] [address] DU[place]TE Harris [address] PCP - General Family Medicine 04/27/22 documented as of this encounter
--- OUTSIDE RECORDS SUMMARY | 2025-04-23 14:34 | XMS_ITS | Encounter Summary ---
Author Organization [employer] Address [address] [facility] 7t [place] [address] Care Team Providers Care Agriscience Technology Instructor Name Role Phone [facility] Primary Care Provider [phone] Reason for Visit * Reason Comments Med Refill Encounter Details Date Type Department Care Team ([facility] st Contact Info) Description 12/18/2022 Refill [facility] MEDICINE [address] [place], [place] [phone] [facility] [address] [place], [place] [phone] Other chronic pain Social History Tobacco Use [...] Description 04/23/2025 3:20 PM EDT Office Visit [facility] [address] [place] [address] 06/10/2025 9:45 AM EDT Office Visit [facility] [address] [place] [phone] documented as of this encounter Visit Diagnoses Diagnosis Other chronic pain documented in this encounter Care Teams Agriscience Technology Instructor Relationship Specialty Start Date End Date Eugenia Sandoval FNP [address] [place] [phone] PCP - General Family Medicine 04/27/22 documented as of this encounter
--- OUTSIDE RECORDS SUMMARY | 2025-04-23 14:34 | XMS_ITS | Encounter Summary ---
Author Organization [employer] Address [address] [facility] 7t [place] [address] Care Team Providers Care Police District Switchboard Operator Name Role Phone [facility] Primary Care Provider [phone] Reason for Visit * Reason Comments Med Refill Encounter Details Date Type Department Care Team ([facility] Contact Info) Description 02/18/[address] [facility] MED[facility]INE [address] [place] [phone] [address] Social History Tobacco Use Types Packs/Day Years [...] Upcoming Encounters Date Type Department Care Team ([facility] Contact Info) Description 04/23/2025 3:20 PM EDT Office Visit [facility] [address] [place] [address] [phone] 06/10/2025 9:45 AM EDT Office Visit [facility] [address] [place] [phone] documented as of this encounter Visit Diagnoses Not on filedocumented in this encounter Care Teams Police District Switchboard Operator Relationship Specialty Start Date End Date Eugenia Sandoval FNP [address] [place] [phone] PCP - General Family Medicine 04/27/22 documented as of this encounter
--- OUTSIDE RECORDS SUMMARY | 2025-04-23 14:34 | XMS_ITS | Clinical Summary ---
Author Organization [employer] Address [address] [facility] [address] [place] [address] Care Team Providers Care Chicken Hatchery Helper Name Role Phone [facility] Primary Care Provider [phone] Allergies Active Allergy Reactions Criticality Noted Date [...] by mouth in the morning. 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 Completed stress [...] singuliar, Trelegy Ellipta, albuterol - Followed by [facility] pulmonology, last seen 03/2022 Osteoporosis 07/01/2015 Overview (06/21/2024): Followed by [facility] [place] 11/2023- Saw endocrinology for osteoporosis follow up and repeat DEXA. Worsening osteoporosis -3.4 at [facility]. Per visit note plan to start reclast therapy in 3 months once vitamin D repleted. 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 - eGFR 03/2022 52; Creatinine 1.04 Assessment & Plan (10/12/2023 2:21 PM EST): Stable Continue to avoid NSAID's Maintain hydration Gastro-esophageal reflux disease with esophagiti s 07/01/2015 Overview (11/09/2022): - Extensive hx of dyspepsia, dysphagia, chronic diarrhea, and abdominal bloating - Followed by [facility]. Last seen 04/2022 with plan for [...] 07/01/2015 Overview (03/30/2023): - Sees therapist through [facility] - Seroquel 100mg -Ambien 5mg for sleep [...] organization. Date Type Department Care Team Description 04/22/2025 Orders Only GENERIC EXTERNAL DATA DEPARTMENT Provider, Generic External Data 04/10/2025 Refill [facility] [address] [place], [place] [phone] CalipatriaEugenia FNP Primary osteoarthritis of both knees 04/08/2025 9:45 AM EDT Office Visit [facility] [address] [place], [place] [phone] Cara Rossi FNP Chronic bilateral low back pain without sciatica (Primary Dx); Long-term current use of opiate analgesic; Osteoarthritis involving multiple joints on both sides of body 04/08/2025 Travel 04/04/2025 Orders Only [facility] [address] [place], [place] [phone] Nomi, Lisa, OD Combined forms of age-related cataract of both eyes (Primary Dx) 04/04/2025 Telephone [facility] [address] [place] [address] Eugenia Sandoval FNP Medication Question 04/02/2025 Refill [facility] [address] [place] [address] Eugenia Sandoval FNP Primary osteoarthritis of both knees 04/02/2025 Refill [facility] [address] [place] [address] Eugenia Sandoval FNP Primary osteoarthritis of both knees 03/25/2025 Telephone [facility] [address] [place] [phone] Eugenia Sandoval FNP Stable Lab Letter 03/24/2025 Results Follow-Up [facility] [address] [place] [phone] Eugenia Sandoval FNP Comprehensive Metabolic Panel, Lipid Panel, Standard, TSH 03/21/[address] [address] Cara Rossi FNP Primary osteoarthritis of both knees 03/18/2025 Orders Only GENERIC EXTERNAL DATA DEPARTMENT Provider, Generic External Data 03/17/2025 1:00 PM EDT Office Visit [address] [address] Eugenia Sandoval FNP Essential hypertension (Primary Dx); 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; Osteoarthritis involving multiple joints on both sides of body; Hx of total knee replacement, left 03/17/2025 Travel 03/14/2025 Telephone [facility] [address] [place] [phone] Eugenia Sandoval FNP Chart Prep 03/14/[address] [address] Eugenia Sandoval FNP [facility] Dental Form 03/11/2025 Refill [facility] [address] [place] [phone] Eugenia Sandoval FNP 03/06/2025 Patient Outreach [address] [address] Eugenia Sandoval FNP Pre-visit Planning (SDOH screening completed on 09/30/2024) 03/04/2025 Telephone [facility] [address] [place] [phone] Eugenia Sandoval FNP Results 03/03/2025 Refill [facility] [address] [place] [phone] Cara Rossi FNP Primary osteoarthritis of both knees 02/04/2025 9:45 AM EDT Office Visit [address] [address] Cara Rossi FNP Osteoarthritis involving multiple joints on both sides of body (Primary Dx); Long-term current use of opiate analgesic; Primary osteoarthritis of both knees 02/04/[address] [address] Lesley Mcmahan RN SECRETARY TO [employer] COMMISSIONERS Renewal today 02/04/2025 Travel 02/03/2025 Orders Only [facility] [address] [place] [phone] Eugenia Sandoval FNP Abnormal brain MRI (Primary Dx) 02/03/2025 Telephone [facility] [address] [place] [phone] Eugenia Sandoval FNP 02/02/[address] [address] Sha Trejo MD Androgenic alopecia 01/30/[address] [address] Eugenia Sandoval FNP Primary osteoarthritis of both knees; Anxiety due to invasive procedure 01/29/2025 Orders Only [facility] [address] [place] [phone] Eugenia Sandoval FNP Abnormal finding on MRI of brain (Primary Dx); Anxiety due to invasive procedure 01/29/2025 Refill [facility] [address] [place] [phone] Eugenia Sandoval FNP Primary osteoarthritis of both knees 01/28/[address] [phone] CalipatriaEugenia, PLUSH DRESSER Referral 01/22/2025 2:45 PM EDT Office Visit [facility] [address] [place] [address] Inderjit Salcido CNP Cataract of both eyes, unspecified cataract type (Primary Dx); Preoperative examination; Moderate asthma with exacerbation, unspecified whether persistent; Essential hypertension; Stage 3a chronic kidney disease ([facility]); 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 01/22/2025 Travel 01/21/2025 Telephone [facility] [address] [place], [place] [phone] Tani Hidalgo MA Chartprep from Last 3 [...] 3:20 PM EDT Office Visit [facility] [address] [place] [phone] 06/10/2025 9:45 AM EDT Office Visit [facility] [address] [place] [phone] Health Maintenance Due Date Last Done Comments [...] Tobacco Screening 03/17/2026 03/17/2025 Mammogram 10/23/2026 10/23/2024, 06/01/2024, 02/07/2024, Additional history exists Lipid Panel 03/18/2030 [...] METABOLIC PANEL Routine 04/22/2025 11:56 AM EDT POCT ROBERTA-14 URINE DRUG SCREEN Routine 04/08/2025 [...] Recently Relevant to Health Maintenance Results * Albumin (04/22/2025 11:56 AM EDT) Albumin Level 4.1 3.5 - 5.0 g/dL [facility] 04/22/2025 11:5 6 AM EDT 04/22/2025 11:56 AM EDT Generic External Data Provider LAB BLOOD ORDERAB LES Final Result Performing Organization Address [facility] de Phone Number [facility] [address] [place] [phone] * (ABNORMAL) Basic Metabolic Panel (04/22/2025 11:56 AM EDT) Pathologist [facility] Sodium 139 135 - 145 mmol/L [facility] Potassium 3.6 3.3 - 5.1 mmol/L [facility] Chloride 107 96 - 108 mmol/L [facility] Carbon Dioxide 25 22 - 29 mmol/L [facility] Anion Gap 11(L) 12 - 20 [facility] Urea Nitrogen (BUN) 14 9 - 16 mg/dL [facility] Creatinine, Serum 0.97 0.5 - 1.4 mg/dL [facility] Estimated Glomerular Filt Rate 56 [facility] Comment:Chronic Kidney Disea se: Estimated GFR < 60 mL/min/1.43h8Sifioj Kidney Disease: Estimated GFR < 15 mL/min/1.73m2 Glucose 97 60 - 115 mg/dL [facility] Calcium 9.3 8.4 - 10.2 mg/dL [facility] 04/22/2025 11:5 6 AM EDT 04/22/2025 11:56 AM EDT Generic External Data Provider LAB BLOOD ORDERAB LES Final Result Performing Organization Address [facility] Co de Phone Number [facility] [address] [place] [phone] * (ABNORMAL) POCT ROBERTA-14 Urine Drug Screen [...] - 04/08/2025 10:19 AM EDT .UTOX cup Lot#[id number] Exp. 06/03/26 Internal Pass Control Cara BOOKER POINT OF CARE TEST ENTER/EDIT ORDERABLES Final Result * Vitamin K1 (03/18/2025 11:51 AM EDT) Vitamin K1 186 130 - 1500 pg/mL [facility] Comment:This test was develo ped and its analytical performancecharacteristics have been determined by [employer] [place], [place]. It hasnot been cleared or approved by the U.S. Food and DrugAdministration. This assay has been validated pursuantto the CLIA regulations and is used for clinicalpurposes.THIS TEST WAS PERFORMED AT:[employer] [place] [address]DQBYXYUHEAVENLY NELSON MD,PHD 03/18/2025 11:5 1 AM EDT 03/18/2025 1:22 PM EDT Generic External Data Provider LAB BLOOD ORDERAB LES Final Result [facility] [address] [place] [phone] * Vitamin B12 (Cobalamin) and Folate Panel, Serum (03/18/2025 11:51 AM EDT) Pathologist [facility] Vitamin B12 524 200 - 900 pg/mL [facility] Comment:NORMAL 200-900 PG/ML INDETERMINATE 160-199 PG/ML DEFICIENT < 160 PG/ML Folate 10.7 > or = 4.0 ng/mL [facility] Comment:Reference Values:> o r = 4.0 ng/mL< 4.0 ng/mL suggests folate deficiency Methotrexate, aminopterin and folinic acid(leucovorin) are chemotherapeutic agents whose molecularstructures are similar to folate; therefore, the Architectfolate assay cannot be used for patients using these drugs. 03/18/2025 11:5 1 AM EDT 03/18/2025 1:38 PM EDT us Generic External Data Provider LAB BLOOD ORDERAB LES Final Result [facility] [address] [place] [phone] * (ABNORMAL) CBC auto differential (03/18/2025 11:51 AM EDT) Pathologist [facility] White Blood Count 6.2 4.8 - 10.8 X10*3/uL [facility] Red Blood Count 4.26 4.20 - 5.50 X10*6/uL [facility] Hemoglobin 12.3 12.0 - 16.0 g/dl [facility] Hematocrit 38.0 37.0 - 47.0 % [facility] Mean Corpuscular Volume 89.2 80.0 - 98.0 fL [facility] Mean Corpuscular Hemoglobin 28.9 27.0 - 33.0 pg [facility] Mean Corpuscular HGB Conc 32.4 31.0 - 35.0 g/dl [facility] Red Cell Distribution Width 15.0 11.0 - 16.0 % [facility] Platelet Count 383 160 - 400 X10*3/uL [facility] Mean Platelet Volume 11.3 9.4 - 12.3 fL [facility] Neutrophils Percent Auto 55.5 45 - 73 % [facility] Imm Gran Pct Auto 0.2 0.0 - 0.4 % [facility] Lymphocytes Percent Auto 31.7 20 - 40 % [facility] Monocytes Percent Auto 7.8 2 - 11 % [facility] Eosinophils Percent Auto 4.1(H) 0 - 4 % [facility] Basophils Percent Auto 0.7 0 - 2 % [facility] NRBC Pct Auto 0.0 0.0 - 0.2 /100WBC [facility] Neutrophils Absolute Auto 3.4 2.0 - 8.3 x10*3/uL [facility] Imm Gran Abs Auto 0.01 0.00 - 0.03 X10*3/uL [facility] Lymphocytes Absolute Auto 2.0 1.2 - 4.9 X10*3/uL [facility] Monocytes Absolute Auto 0.5 0.1 - 1.2 X10*3/uL [facility] Eosinophils Absolute Auto 0.3 0.0 - 0.4 X10*3/uL [facility] Basophils Absolute Auto 0.0 0.0 - 0.2 X10*3/uL [facility] NRBC Abs Auto 0.000 0.0 - 0.012 X10*3/uL [facility] 03/18/2025 11:5 1 AM EDT 03/18/2025 1:20 PM EDT us Generic External Data Provider LAB BLOOD ORDERAB LES Final Result [facility] [address] [place], [place] [phone] * Iron And Total Iron Binding Capacity (03/18/2025 11:51 AM EDT) Iron 64 30 - 160 mcg/dL [facility] Total Iron Binding Capacity 279 228 - 428 mcg/dL [facility] Percent Iron Saturation 23 15 - 50 % [facility] Unsaturated Iron Binding 215 ug/dL [facility] 03/18/2025 11:5 1 AM EDT 03/18/2025 1:38 PM EDT Generic External Data Provider LAB BLOOD ORDERAB LES Final Result Performing Organization Address [facility] Co de Phone Number [facility] [address] [place] [phone] * (ABNORMAL) Vitamin A (03/18/2025 11:51 AM EDT) Pathologist [facility] Vitamin A (Retinol) 22(A) 38 - 98 mcg/dL [facility] Comment:Vitamin supplementat ion within 24 hours prior toblood draw may affect the accuracy of the results.This test was developed and its analytical performancecharacteristics have been determined by [employer] [place], [place]. It hasnot been cleared or approved by the U.S. Food and DrugAdministration. This assay has been validated pursuantto the CLIA regulations and is used for clinicalpurposes.THIS TEST WAS PERFORMED AT:[employer] [place] [address]RYPHJJUHEAVENLY NELSON MD,PHD 03/18/2025 11:5 1 AM EDT 03/18/2025 1:22 PM EDT Generic External Data Provider LAB BLOOD ORDERAB LES Final Result Performing Organization Address City/[facility]/ZIP Co de Phone Number [facility] [address] [place] [phone] * Vitamin D 1,25 dihydroxy (03/18/2025 11:51 AM EDT) Pathologist [facility] Vit D (1,25-Dihydroxy) Total 47 18 - 72 pg/mL [facility] VITAMIN D (1,25 OH) D3 35 pg/mL [facility] Vitamin D (1,25 OH) D2 12 pg/mL [facility] Comment:Vitamin D3, 1,25(OH) 2 indicates both endogenousproduction and supplementation. Vitamin D2, 1,25(OH)2is an indicator of exogenous sources, such as diet orsupplementation. Interpretation and therapy are basedon measurement of Vitamin D,1,25(OH)2, Total.This test was developed and its analyticalperformance characteristics have been determinedby [employer] [place], [place].It has not been cleared or approved by the FDA. Thisassay has been validated pursuant to the CLIAregulations and is used for clinical purposes.THIS TEST WAS PERFORMED AT:[employer] [id number] [place] [address]DYQUCNYHEAVENLY NELSON MD,PHD 03/18/2025 11:5 1 AM EDT 03/18/2025 1:38 PM EDT Generic External Data Provider LAB BLOOD ORDERAB LES Final Result Performing Organization Address [facility]/ZIP Co de Phone Number [facility] [address] [place] [phone] * C-reactive Protein (03/18/2025 11:51 AM EDT) Pathologist [facility] C Reactive Protein 0.29 < or = 0.50 mg/dL [facility] 03/18/2025 11:5 1 AM EDT 03/18/2025 1:38 PM EDT Generic External Data Provider LAB BLOOD ORDERAB LES Final Result Performing Organization Address [facility]/ZIP Co de Phone Number [facility] [address] [place] [phone] * Vitamin E (Tocopherol) (03/18/2025 11:51 AM EDT) Vitamin E, Alpha-Tocopherol 8.6 5.7 - 19.9 mg/L [facility] Comment:Levels of alpha-toco pherol <5 mg/L are consistentwith Vitamin E deficiency in adults. Vitamin E, Ymyf-Rarhw-Glqjpmvomh <1.0 <=4.3 mg/L [facility] Comment:Vitamin supplementat ion within 24 hours prior toblood draw may affect the accuracy of the results.This test was developed and its analytical performancecharacteristics have been determined by [email or web address] [place], [place]. It hasnot been cleared or approved by the U.S. Food and DrugAdministration. This assay has been validated pursuantto the CLIA regulations and is used for clinicalpurposes.THIS TEST WAS PERFORMED AT:[employer] [place] [address]BAEOVTPHEAVENLY NELSON MD,PHD 03/18/2025 11:5 1 AM EDT 03/18/2025 1:22 PM EDT Generic External Data Provider LAB BLOOD ORDERAB LES Final Result Performing Organization Address [facility]/ZIP Co de Phone Number [facility] [address] [place] [phone] * TSH (03/18/2025 11:51 AM EDT) Thyroid Stimulating Hormone 0.37 0.32 - 4.0 uIU/mL [facility] Comment:TSH 3rd Generation ( [facility]) Blood Venous blood specimen / Unknown 03/18/2025 11:51 AM EDT 03/18/2025 1:38 PM EDT [facility] PLUSH DRESSER LAB BLOOD ORDERABLES Final Re sult Performing Organization Address City/[facility]/ZIP Co de Phone Number [facility] [address] [place] [phone] * Lipid Panel, Standard (03/18/2025 11:51 AM EDT) Triglycerides 81 <150 mg/dL [facility] Comment:Desirable Triglyceri de: less than 150 mg/dLBorderline High Triglyceride 150-199 mg/dLHigh Triglyceride: 200-499 mg/dLVery High Triglyceride: greater than or equal to 5OO mg/dL Cholesterol 158 <200 mg/dL [facility] Comment:Desirable Cholestero l: less than 200 mg/dLBorderline High Cholesterol: 200-239 mg/dLHigh Cholesterol: greater than 239 mg/dL LDL Cholesterol Calculated 99 <100 mg/dL [facility] Comment:Desirable LDL: less than 100 mg/dLNear Optimal/Above Optimal LDL: 110- 129 mg/dLBorderline High LDL: 130-159 mg/dLHigh LDL: 160-189 mg/dLVery High LDL: greater than or equal to 190 mg/dL HDL Cholesterol 43 >40 mg/dL [facility] Comment:Desirable HDL: great er than 40 mg/dL Note: This HDL assay may give artificially low results in patients with liver disease. Blood Venous blood specimen / Unknown 03/18/2025 11:51 AM EDT 03/18/2025 1:38 PM EDT [facility] PLUSH DRESSER LAB BLOOD ORDERABLES Final Re sult [facility] [address] [place] [phone] [phone] * Comprehensive Metabolic Panel (03/18/2025 11:51 AM EDT) Sodium 141 135 - 145 mmol/L [facility] Potassium 3.7 3.3 - 5.1 mmol/L [facility] Chloride 108 96 - 108 mmol/L [facility] Carbon Dioxide 25 22 - 29 mmol/L [facility] Anion Gap 12 12 - 20 [facility] Urea Nitrogen (BUN) 15 9 - 16 mg/dL [facility] Creatinine, Serum 0.92 0.5 - 1.4 mg/dL [facility] Estimated Glomerular Filt Rate 60 [facility] Comment:Chronic Kidney Disea se: Estimated GFR < 60 mL/min/1.21w6Geusro Kidney Disease: Estimated GFR < 15 mL/min/1.73m2 Glucose 93 60 - 115 mg/dL [facility] Calcium 9.2 8.4 - 10.2 mg/dL [facility] Bilirubin, Total 0.5 0.0 - 1.0 mg/dL [facility] Aspartate Amino Transferase 23 5 - 31 U/L [facility] Alanine Aminotransferase 12 0 - 31 U/L [facility] Total Protein 7.7 6.5 - 8.0 g/dL [facility] Albumin Level 4.3 3.5 - 5.0 g/dL [facility] Alkaline Phosphatase 77 39 - 117 U/L [facility] Blood Venous blood specimen / Unknown 03/18/2025 11:51 AM EDT 03/18/2025 1:38 PM EDT [facility] LAB BLOOD ORDERABLES Final Re sult Performing Organization Address City/State/[facility] Co de Phone Number [facility] [address] [place] [phone] * BI US Breast Limited Left (10/23/2024 11:00 AM EST) Anatomical Region Laterality Modality Breast Left Ultrasound 10/23/2024 11:0 0 AM EST Narrative 10/23/2024 12:11 PM EST [facility] [address] [place] [address] Ultrasound Report Signed Patient: Mary Kate Maya MR#: [id number] : 1950 Acct:[id number] Age/Sex: 74 / F ADM Date: 10/23/24 Loc: HO.MAMMO Attending Dr: Eugenia BOOKER Ordering Physician: Eugenia Sandoval Date of Service: 10/23/24 Procedure(s): US breast LT limited mamm only Accession Number(s): [id number] cc: Eugenia Sandoval EXAMINATION: US DIAGNOSTIC ULTRASOUND [...] by: Zaira Loco DO 10/23/2024 12:09 PM [facility] Dictated By: Zaira Loco DO Signed By: <Electronically signed by Zaira Loco DO in OV> 10/23/24 1209 DD/ 1100 TD/TT: 10/23/24 1129 Director Safety: Procedure Note Donotuseinterpreter, Image - 10/23/[address] [place] [address] Ultrasound Report Signed Patient: Mary Kate Maya [facility]#: [id number] : 1950cct:[id number] Age/Sex: 74 / FADM Date: 10/23/24 Loc: MAMMO Attending Dr: Eugenia Sandoval PLUSH DRESSER Ordering Physician: Eugenia Sandoval Date of Service: 10/23/24 Procedure(s): US breast LT limited mamm only Accession Number(s): [id number] cc: Eugenia Sandoval PLUSH DRESSER EXAMINATION: US DIAGNOSTIC ULTRASOUND BREAST, LEFT CLINICAL [...] 10/23/24 1209 DD/ 1100 TD/TT: 10/23/24 1129 Director Safety: [facility] PLUSH DRESSER IMG US PROCEDURES Final Resul t * Thinprep TIS PAP And HPV mRNA E6/E7 With Reflex To HPV 16,18/45 (01/13/2023 2:29 PM EDT) Clinical Information: Postmenopausal [facility] [employer] LMP: NONE GIVEN [employer] Prev. PAP: NONE GIVEN [employer] Prev. BX: NO [employer] SOURCE: Cervix [employer] Statement Of Adequacy: [employer] Comment: Satisfactory for evaluation. Endocervical/transformation zone component absent. Interpretation/ Result: Negative for intraepithelial lesion or malignancy. [employer] COMMENT: This Pap test has been evaluated with computer assisted technology. [employer] Cytotechnologis t: [employer] Comment: BAL, CT(ASCP) CT screening location: [place] [address] Review [employer]otechnologis [employer]: [employer] Comment: JNA, CT(ASCP) CT screening location: [place] [address] (Always Message) [employer] Comment: EXPLANATORY NOTE: The Pap is a [...] HPV nRNA E6/E7 Not Detected Not Detected [employer] Comment: Methodology: Crusher [employer]man-Mediated Amplification This assay detects E6/E7 viral messenger RNA (mRNA) from 14 high-risk HPV types (16,18,31,33,35,39,45,51,52,56,58,59,66,68). Cervical sources are required for HPV testing. If a vaginal source from a patient who has had a total hysterectomy with removal of cervix was submitted, please contact the testing laboratory for alternative testing options. For additional information, please refer to [email or web address]/faq/GZI859p8 (This link if provided for information/ educational purposes only.) Genital 01/13/2023 2:29 PM EDT 01/16/2023 7:42 AM EDT [facility] LAB PATHOLOGY ORDERABLES Sandie salinas Result [facility] [address], [place] [address] [employer] [facility] [address] [place] [phone] * Hm Pap Smear (01/13/2023) Pathologist [facility] Pap Negative for intraephithelial lesion or malignancy Negative for intraephithelial lesion or malignancy, Other HPV Undetected 01/13/2023 [facility] HEALTH MAINTENANCE Final Resu lt * [...] a test for HCV RNA (test code 47034) is suggested. For additional information please refer to http://[employer] [employer]/faq/[id number] (This link is being provided for informational/ educational purposes only.) 06/21/2022 10:3 3 AM EDT [facility] HISTORICAL/NON ORDERABLE LABS Final Result CONVERTED LEGACY LABS * Hm Colonoscopy (10/29/2015 9:11 AM EST) Historical Provider MD HEALTH MAINTENANCE Final Result from Last 3 Months or Most Recently Relevant to Health Maintenance Insurance [employer] [id number] Care Teams Chicken Hatchery Helper Relationship Specialty Start Date End Date Eugenia Sandoval, [facility] [address] [place] [address] PCP - General Family Medicine 04/27/22
--- OUTSIDE RECORDS SUMMARY | 2025-04-23 14:34 | XMS_ITS | Encounter Summary ---
Author Organization [employer] Address [address] [place] [address] Care Team Providers Care Senior Account Manager Name Role Phone Lori [facility] Primary Care Provider [phone] Reason for Visit * Reason Comments Med Refill Encounter Details Date Type Department Care Team ([facility] Contact Info) Description 11/30/2022 Refill [facility] [address] [place], [place] [phone] Senait Frias MD [address] [place] [address] Pain in right knee Social History Tobacco [...] Upcoming Encounters Date Type Department Care Team ([facility] Contact Info) Description 04/23/2025 3:20 PM EDT Office Visit [facility] [address] [place] [phone] 06/10/2025 9:45 AM EDT Office Visit [facility] [address] [place] [phone] documented as of this encounter Visit Diagnoses Diagnosis Pain in right knee documented in this encounter Care Teams Senior Account Manager Relationship Specialty Start Date End Date Eugenia Sandoval FNP [address] [place] [phone] PCP - General Family Medicine 04/27/22 documented as of this encounter
[2025-05-01 19:57] LABS: Calprotectin, Fecal 752 mcg/g
== END 2025-04-23 13:44 | disposition home or self-care (01) ==
LOC: HO.LNP 13:43
PROVIDERS: Visit Provider Nurse Practitioner Family
DX: R19.7 Diarrhea, unspecified (principal)
CPT/HCPCS: 83993

== ENCOUNTER 2025-04-23 17:02 | Emergency (ER) | payer OTHER, SELFPAY ==
[2025-04-23 17:38] VITALS: BP 151/79; PULSE 77; RESP 16; TEMP 36.6; O2SAT 100; BMI 35.9
--- NOTE | 2025-04-23 17:39 | ED.GENADULT ---
HPI - General Adult General Chief complaint: Nausea/Vomiting/Diarrhea Stated complaint: diarrhea ? infection Time Seen by Provider: 04/23/25 21:34 Source: patient Mode of arrival: ambulatory Limitations: language barrier History of Present Illness ED Provider: Dr. Mosquera HPI narrative: 75-year-old female presented hospital today for epigastric pain. Patient was seen in outpatient clinic was discharged with Keflex without any alleviation. She has been having watery diarrhea postprandial pain. And nausea. Patient stated whenever she drinks water or eats she feels a bitter taste and she is having watery diarrhea. Patient was sent to the ER for further evaluation. Related Data Home Medications ?Medication ?Instructions ?Recorded ?Confirmed amlodipine 2.5 mg tablet 2.5 mg PO DAILY 05/24/21 12/06/24 cholecalciferol (vitamin D3) 50 50 mcg PO QAM 05/24/21 12/06/24 mcg (2,000 unit) tablet cyanocobalamin (vitamin B-12) 5,000 mcg PO DAILY 05/24/21 12/06/24 5,000 mcg disintegrating tablet levothyroxine 125 mcg tablet 125 mcg PO QAM 05/24/21 12/06/24 losartan 100 mg tablet 100 mg PO DAILY 05/24/21 12/06/24 sertraline 100 mg tablet 100 mg PO BID 05/24/21 12/06/24 tolterodine 4 mg capsule,extended 4 mg PO DAILY 05/24/21 12/06/24 release 24 hr albuterol sulfate 90 mcg/actuation 0 mcg inhalation 02/04/22 12/06/24 aerosol inhaler (Ventolin HFA) [id number] PO 02/04/22 12/06/24 3,000-9,500-15,000 unit capsule, delayed rel (Creon) metoclopramide HCl 5 mg tablet 5 mg PO QIDACHS 02/04/22 12/06/24 minoxidil 5 % topical solution 1 ml topical BID 02/04/22 12/06/24 multivitamin-ferrous 1 tab PO DAILY 02/04/22 12/06/24 fumarate-folic acid 18 mg-400 mcg tablet (Centrum Complete) naloxone 4 mg/actuation nasal 4 mg intranasal Q3M PRN 02/04/22 12/06/24 spray (Narcan) oxycodone-acetaminophen 5 mg-325 1 tab PO BID PRN 02/04/22 12/06/24 mg tablet potassium bicarbonate-citric acid 25 meq PO BID 02/04/22 12/06/24 25 mEq effervescent tablet (Klor-Con/EF) sucralfate 1 gram tablet 1 g PO QIDACHS 02/04/22 12/06/24 acetaminophen 500 mg tablet 0 mg PO 02/09/22 12/06/24 fluticasone propionate 50 spray intranasal 02/09/22 12/06/24 mcg/actuation nasal spray,suspension calcium carbonate (Antacid Ext Str 1 tab PO 03/21/22 12/06/24 (calcium carb)) meclizine 12.5 mg tablet 12.5 mg PO TID PRN dizziness 03/21/22 12/06/24 ipratropium bromide 21 mcg (0.03 intranasal 04/21/22 12/06/24 %) nasal spray zolpidem 5 mg tablet 5 mg PO BEDTIME PRN 04/21/22 12/06/24 Previous Rx's ?Medication ?Instructions ?Recorded azelastine 137 mcg (0.1 %) nasal 2 spray intranasal BID 30 days #30 04/21/22 spray mL gabapentin 300 mg capsule 300 mg PO BEDTIME #30 caps 10/05/22 cyclobenzaprine 10 mg tablet 10 mg PO Q8H #20 tabs 01/25/23 albuterol sulfate 2.5 mg/3 mL 2.5 mg (3 mL) inhalation Q6H PRN 02/08/23 (0.083 %) solution for nebulization for wheezing #180 mL phenazopyridine 100 mg tablet 100 mg PO TID PRN pain 6 doses #6 01/12/24 tabs cetirizine 10 mg tablet 10 mg PO QAM for allergies #30 tabs 01/18/24 azithromycin 250 mg tablet See Rx Instructions PO .COMPLEX #6 07/01/24 tabs ondansetron HCl 4 mg tablet 4 mg PO DAILY PRN nausea and 11/29/24 vomiting #30 tabs pantoprazole 40 mg tablet,delayed 40 mg PO QAM #30 tabs 11/29/24 release fluticasone fur. 200 mcg-umeclid 1 ea inhalation DAILY #60 ea 01/10/25 62.5 mcg-vilant 25 mcg inhalat.powder (Trelegy Ellipta) montelukast 10 mg tablet 10 mg PO QPM #30 tabs 04/04/25 loperamide 2 mg capsule (Imodium 2 mg PO Q6H PRN loose stool #30 04/21/25 A-D) caps simethicone 125 mg capsule (Gas 125 mg PO BID-QID for gas #90 caps 04/21/25 Relief Extra Strength) famotidine 20 mg tablet (Pepcid) 20 mg PO DAILY 14 days #14 tabs 04/24/25 sucralfate 1 gram tablet (Carafate) 1 g PO BID #14 tabs 04/24/25 sulfamethoxazole 800 1 tab PO Q12H 7 days #14 tabs 04/24/25 mg-trimethoprim 160 mg tablet (Bactrim DS) Allergies Allergy/AdvReac Type Severity Reaction Status Date / Time morphine (MORPHINE) Allergy Severe HYPOTENSION Verified 04/23/25 17:41 levofloxacin (LEVOFLOXACIN) Allergy Intermediate DIZZY Verified 04/23/25 17:41 Penicillins Allergy Mild RASH Verified 04/23/25 17:41 penicillin V Allergy Unknown Rash Verified 04/23/25 17:41 Review of Systems Review of Systems: Pertinent review of systems as mentioned in HPI. All other system otherwise negative. [facility] Past Medical History [facility] Narrative: Medical history as mentioned in HPI Medical History (Updated 04/24/25 @ 00:19 by Laila Mosquera DO) Chronic allergic rhinitis Insomnia Hypertension Asthma Surgical History (Updated 12/06/24 @ 17:08 by India Lawton CNP) History of cholecystectomy Hx of left knee surgery Hx of hand surgery History of esophagogastroduodenoscopy (EGD) Hx of colonoscopy Social History Social History Household Members: Spouse and Children Alcohol intake: never Patient Tobacco Use Status: Never used Tobacco Smoked in Last 30 Days: No Second Hand Smoke Exposure: Yes Use of substances other than those prescribed or required for medical reasons: No Advance Directives: No Advance Directives Information Provided: Yes Do you have a plan to hurt others: No Plan Current occupational status: disabled Physical Exam ED Exam Exam: General: Pleasant, no distress, interacting appropriately Head: Normacephalic, atraumatic ENT: oral mucosa moist, neck supple, no tracheal deviation Cardiovascular: regular rate, regular rhythm, no murmurs, rubbing, gallops Respiratory: CTAB, no wheeze, rales, rhonchi Gastrointestinal: Soft, epigastric tenderness on palpation Neurological: Awake and alert, no facial droop noted Skin: Warm and dry Psychiatric: Appropriate mood and thoughts Vital Signs: Vital Signs - 24 hr 04/23/25 17:38 04/23/25 21:19 04/23/25 22:23 Temperature 97.9 F 98.1 F 97.4 F Pulse Rate 77 68 84 Respiratory Rate 16 16 16 Blood Pressure 151/79 H 145/60 H 119/55 L Pulse Oximetry 100 97 100 Oxygen Delivery Method Room Air Room Air Room Air BMI result Body Mass Index 35.9 Course Course Course Narrative: This is an RME: Additional HPI, ROS, PE not included below will be deferred to primary provider. RME assessment and note performed by: Kera Garcia PA-C This is a [id number]-female, with a hx of HTN, asthma, who presents to the ER with a complaint of diarrhea, chills, epigastric pain. Reports that she has had diarrhea with epigastric pain, chills, nausea, no vomiting. Took Keflex 1 month ago, 14 day course then took 1 dose last week for a dental procedure and developed her symptoms 5 days ago. Plan: Labs, EKG, further ER eval needed Medications Administered Discontinued Medications Generic Name Dose Route Start Last Admin Trade Name Freq PRN Reason Stop Dose Admin Al Hydroxide/Mg Hydroxide 30 ml 04/23/25 21:53 04/23/25 22:08 Magnesium Hydrox/Alum Hydrox 30 Ml Oral.Susp PO 04/23/25 21:54 30 ml ONCE ONE Administration Famotidine 20 mg 04/23/25 21:53 04/23/25 22:08 Famotidine/Pf 20 Mg/2 Ml Vial IVPUSH 04/23/25 21:54 20 mg ONCE ONE Administration Sodium Chloride 1,000 mls @ 999 mls/hr 04/23/25 22:00 04/23/25 23:26 Ns IV 04/23/25 23:00 Infused .Q1H1M ROSEANN Infusion Lidocaine HCl 15 ml 04/23/25 21:53 04/23/25 22:08 Lidocaine Hcl Viscous 2 % 15 Ml Solution MUCOUS MEM 04/23/25 21:54 15 ml ONCE ONE Administration Ondansetron HCl 4 mg 04/23/25 21:53 04/23/25 22:08 Ondansetron Hcl 4 Mg/2 Ml Vial IVPUSH 04/23/25 21:54 4 mg ONCE ONE Administration Medical Decision Making Medical Decision Making [facility] Narrative: 75-year-old female presented hospital today for epigastric pain and diarrhea and postprandial pain. Based on patient's history and presentation I think this is gastric reflux and gastritis. Patient has tenderness epigastric area. Complain of bitter sensation in her mouth. Plan to trial patient with a GI cocktail including Maalox viscous lidocaine. IV Pepcid will be given to the patient as well. We will plan to reassess patient after medication. Review patient's lab work. It is unremarkable. UA is negative. Patient states that she is feeling better at this time. Patient was able to tolerate p.o. challenge. We will plan to discharge patient at this time. We will change her antibiotic to Pen-VK. Suspect patient may have intolerance to Keflex. She is currently taking Protonix. We will start patient on a short course of Pepcid and Carafate as well. Encouraged the patient to call back to her dental office to see if this antibiotic is okay for her to take for the procedure. We will plan to send patient home with Bactrim. Patient has a penicillin allergy, she is also allergic to fluoroquinolone. Patient agrees and understands this plan all questions addressed. Patient will be discharged home. Differential Diagnosis Differential Diagnoses: The differential diagnosis associated with the presentation includes Gastritis, cholecystitis, gastroenteritis, gastric reflux UTI Lab Data [facility] Lab Attestation statement: I reviewed the patient's lab results. 04/23/25 18:02 04/23/25 18:02 Labs: Lab Results 04/23/25 04/23/25 Range/Units 18:02 21:32 WBC 7.8 (4.8-10.8) X10*3/uL RBC 4.18 L (4.20-5.50) X10*6/uL Hgb 12.2 (12.0-16.0) g/dl Hct 36.5 L (37.0-47.0) % MCV 87.3 (80.0-98.0) fL MCH 29.2 (27.0-33.0) pg MCHC 33.4 (31.0-35.0) g/dl RDW 13.9 (11.0-16.0) % Plt Count 387 (160-400) X10*3/uL MPV 10.3 (9.4-12.3) fL Immature Gran % (Auto) 0.3 (0.0-0.4) % Neut % (Auto) 59.0 (45-73) % Lymph % (Auto) 28.3 (20-40) % Divide % (Auto) 10.2 (2-11) % Eos % (Auto) 1.8 (0-4) % Baso % (Auto) 0.4 (0-2) % Lymph # (Auto) 2.2 (1.2-4.9) X10*3/uL Divide # (Auto) 0.8 (0.1-1.2) X10*3/uL Eos # (Auto) 0.1 (0.0-0.4) X10*3/uL Baso # (Auto) 0.0 (0.0-0.2) X10*3/uL Abs Immat Gran (auto) 0.02 (0.00-0.03) X10*3/uL Absolute Neuts (auto) 4.6 (2.0-8.3) x10*3/uL Absolute Nucleated RBC 0.000 (0.0-0.012) X10*3/uL Nucleated RBC % (auto) 0.0 (0.0-0.2) /100WBC Sodium 139 (135-145) mmol/L Potassium 3.7 (3.3-5.1) mmol/L Chloride 106 (96-108) mmol/L Carbon Dioxide 25 (22-29) mmol/L Anion Gap 12 (12-20) BUN 12 (9-16) mg/dL Creatinine 1.05 (0.5-1.4) mg/dL Estim Creat Clear Calc 32.9 Estimated GFR 51 Random Glucose 91 (60-115) mg/dL Calcium 9.7 (8.4-10.2) mg/dL Magnesium 2.1 (1.6-2.6) mg/dL Total Bilirubin 0.4 (0.0-1.0) mg/dL Direct Bilirubin 0.1 (0.0-0.5) mg/dL AST 22 (5-31) U/L ALT 13 (0-31) U/L Alkaline Phosphatase 76 (39-117) U/L Troponin I High Sens < 2.7 (<3.5-17.0) ng/L Total Protein 7.8 (6.5-8.0) g/dL Albumin 4.3 (3.5-5.0) g/dL Lipase 41 (8-78) U/L Urine Color Yellow Urine Appearance Clear Urine pH 6.0 (5.0-9.0) Ur Specific [place] 1.015 (1.005-1.025) Urine Protein Negative (Neg-Trace) mg/dL Urine Glucose (UA) Negative (Negative) mg/dL Urine Ketones Negative (Negative) mg/dL Urine Blood Negative (Negative) Urine Nitrite Negative (Negative) Ur Leukocyte Esterase Negative (Negative) Discharge Plan Discharge Clinical Impression: Gastritis Patient Disposition: Home, Self-Care Instructions: Gastritis (ED) Prescriptions: New sucralfate [Carafate] 1 gram tablet 1 g PO BID Qty: 14 0RF famotidine [Pepcid] 20 mg tablet 20 mg PO DAILY 14 Days Qty: 14 0RF sulfamethoxazole-trimethoprim [Bactrim DS] 800-160 mg tablet 1 tab PO Q12H 7 Days Qty: 14 0RF No Action gabapentin 300 mg capsule 300 mg PO BEDTIME Qty: 30 6RF albuterol sulfate 2.5 mg /3 mL (0.083 %) solution for nebulization 2.5 mg inhalation Q6H PRN (Reason: for wheezing) Qty: 180 12RF cetirizine 10 mg tablet 10 mg PO QAM Qty: 30 11RF pantoprazole 40 mg tablet,delayed release (DR/EC) 40 mg PO QAM Qty: 30 11RF ondansetron HCl 4 mg tablet 4 mg PO DAILY PRN (Reason: nausea and vomiting) Qty: 30 0RF Trelegy Ellipta 200-62.5-25 mcg blister with device 1 ea inhalation DAILY Qty: 60 2RF montelukast 10 mg tablet 10 mg PO QPM Qty: 30 2RF simethicone [Gas Relief Extra Strength] 125 mg capsule 125 mg PO BID-QID Qty: 90 1RF loperamide [Imodium A-D] 2 mg capsule 2 mg PO Q6H PRN (Reason: loose stool) Qty: 30 0RF Rx Instructions: Take 2 cap after 1st loose stool- One caplet after each subsequent loose stools No more than 4 caps in a 24 hour. cyclobenzaprine 10 mg tablet 10 mg PO Q8H Qty: 20 0RF phenazopyridine 100 mg tablet 100 mg PO TID PRN (Reason: pain) Qty: 6 0RF metoclopramide HCl 5 mg tablet 5 mg PO QIDACHS Creon 3,000-9,500- 15,000 unit capsule,delayed release(DR/EC) PO sucralfate 1 gram tablet 1 g PO QIDACHS Klor-Con/EF 25 mEq tablet, effervescent 25 meq PO BID minoxidil 5 % solution 1 ml topical BID Centrum Complete 18-400 mg-mcg tablet 1 tab PO DAILY naloxone [Narcan] 4 mg/actuation spray,non-aerosol 4 mg intranasal Q3M PRN Rx Instructions: spray 1 dose into ONE nostril; alternate nostrils w each dose until help arrives albuterol sulfate [Ventolin HFA] 90 mcg/actuation HFA aerosol inhaler 0 mcg inhalation oxycodone-acetaminophen 5-325 mg tablet 1 tab PO BID PRN zolpidem 5 mg tablet 5 mg PO BEDTIME PRN ipratropium bromide 21 mcg (0.03 %) spray,non-aerosol intranasal azelastine 137 mcg (0.1 %) aerosol,spray 2 spray intranasal BID 30 Days Qty: 30 6RF Rx Instructions: administer into each nostril cyanocobalamin (vitamin B-12) 5,000 mcg tablet,disintegrating 5,000 mcg PO DAILY losartan 100 mg tablet 100 mg PO DAILY sertraline 100 mg tablet 100 mg PO BID tolterodine 4 mg capsule,extended release 24hr 4 mg PO DAILY amlodipine 2.5 mg tablet 2.5 mg PO DAILY levothyroxine 125 mcg tablet 125 mcg PO QAM cholecalciferol (vitamin D3) 50 mcg (2,000 unit) tablet 50 mcg PO QAM fluticasone propionate 50 mcg/actuation spray,suspension intranasal acetaminophen 500 mg tablet 0 mg PO meclizine 12.5 mg tablet 12.5 mg PO TID PRN (Reason: dizziness) calcium carbonate [Antacid Ext Str (calcium carb)] 300 mg (750 mg) tablet,chewable 1 tab PO azithromycin 250 mg tablet See Rx Instructions PO .COMPLEX Qty: 6 0RF Rx Instructions: For 250 mg dose pack: take 500 mg today (day 1), then 250 mg for 4 days (days 2-5) PO Print Language: Pashto
--- NOTE | 2025-04-23 17:41 | ECG_ITS ---
Test Reason : CP Blood Pressure : */* mmHG Vent. Rate : 70 BPM Atrial Rate : 70 BPM P-R Int : 184 ms QRS Dur : 72 ms QT Int : 416 ms P-R-T Axes : 150 -22 1 degrees QTcB Int : 449 ms Normal sinus rhythm Nonspecific T wave abnormality Abnormal ECG When compared with ECG of 21-Dec-2020 22:21, Nonspecific T wave abnormality, worse in Inferior leads Referred By: Kera Garcia Electronically Signed By: AMNA BRUMFIELD
[2025-04-23 18:07] LABS: MANUAL DIFF FLAG NO
[2025-04-23 18:21] LABS: Hematocrit 36.5 % (37.0-47.0); Hemoglobin 12.2 g/dl (12.0-16.0); Imm Gran Abs Auto 0.02 X10*3/uL (0.00-0.03); Imm Gran Pct Auto 0.3 % (0.0-0.4); Lymphocytes Absolute Auto 2.2 X10*3/uL (1.2-4.9); Mean Corpuscular HGB Conc 33.4 g/dl (31.0-35.0); Mean Corpuscular Hemoglobin 29.2 pg (27.0-33.0); Mean Corpuscular Volume 87.3 fL (80.0-98.0); NRBC Abs Auto 0.000 X10*3/uL (0.0-0.012); NRBC Pct Auto 0.0 /100WBC (0.0-0.2); Platelet Count 387 X10*3/uL (160-400); Red Blood Count 4.18 X10*6/uL (4.20-5.50); White Blood Count 7.8 X10*3/uL (4.8-10.8)
[2025-04-23 18:30] LABS: Alanine Aminotransferase 13 U/L (0-31); Albumin Level 4.3 g/dL (3.5-5.0); Alkaline Phosphatase 76 U/L (39-117); Anion Gap 12 (12-20); Aspartate Amino Transferase 22 U/L (5-31); Blood Urea Nitrogen 12 mg/dL (9-16); Calcium 9.7 mg/dL (8.4-10.2); Carbon Dioxide 25 mmol/L (22-29); Chloride 106 mmol/L (96-108); Creatinine Clr Calc Pharmacy 32.9; Estimated Glomerular Filt Rate 51; Lipase 41 U/L (8-78); Magnesium 2.1 mg/dL (1.6-2.6); Potassium 3.7 mmol/L (3.3-5.1); Sodium 139 mmol/L (135-145); Total Protein 7.8 g/dL (6.5-8.0)
[2025-04-23 18:41] LABS: Troponin-I High Sensitivity < 2.7 ng/L (<3.5-17.0)
[2025-04-23 21:19] VITALS: BP 145/60; PULSE 68; RESP 16; TEMP 36.7; O2SAT 97
[2025-04-23 21:38] LABS: Appearance Urine Clear; Glucose Urine UA Negative (Negative); PH 6.0 (5.0-9.0); Specific Gravity - Urine 1.015 (1.005-1.025)
--- NOTE | 2025-04-23 21:54 | ED.GENADULT ---
HPI - General Adult General Chief complaint: Nausea/Vomiting/Diarrhea Stated complaint: diarrhea ? infection Time Seen by Provider: 04/23/25 21:34 Source: patient Mode of arrival: ambulatory Limitations: language barrier History of Present Illness ED Provider: Dr. Mosquera Related Data Home Medications ?Medication ?Instructions ?Recorded ?Confirmed amlodipine 2.5 mg tablet 2.5 mg PO DAILY 05/24/21 12/06/24 cholecalciferol (vitamin D3) 50 50 mcg PO QAM 05/24/21 12/06/24 mcg (2,000 unit) tablet cyanocobalamin (vitamin B-12) 5,000 mcg PO DAILY 05/24/21 12/06/24 5,000 mcg disintegrating tablet levothyroxine 125 mcg tablet 125 mcg PO QAM 05/24/21 12/06/24 losartan 100 mg tablet 100 mg PO DAILY 05/24/21 12/06/24 sertraline 100 mg tablet 100 mg PO BID 05/24/21 12/06/24 tolterodine 4 mg capsule,extended 4 mg PO DAILY 05/24/21 12/06/24 release 24 hr albuterol sulfate 90 mcg/actuation 0 mcg inhalation 02/04/22 12/06/24 aerosol inhaler (Ventolin HFA) [id number] PO 02/04/22 12/06/24 3,000-9,500-15,000 unit capsule, delayed rel (Creon) metoclopramide HCl 5 mg tablet 5 mg PO QIDACHS 02/04/22 12/06/24 minoxidil 5 % topical solution 1 ml topical BID 02/04/22 12/06/24 multivitamin-ferrous 1 tab PO DAILY 02/04/22 12/06/24 fumarate-folic acid 18 mg-400 mcg tablet (Centrum Complete) naloxone 4 mg/actuation nasal 4 mg intranasal Q3M PRN 02/04/22 12/06/24 spray (Narcan) oxycodone-acetaminophen 5 mg-325 1 tab PO BID PRN 02/04/22 12/06/24 mg tablet potassium bicarbonate-citric acid 25 meq PO BID 02/04/22 12/06/24 25 mEq effervescent tablet (Klor-Con/EF) sucralfate 1 gram tablet 1 g PO QIDACHS 02/04/22 12/06/24 acetaminophen 500 mg tablet 0 mg PO 02/09/22 12/06/24 fluticasone propionate 50 spray intranasal 02/09/22 12/06/24 mcg/actuation nasal spray,suspension calcium carbonate (Antacid Ext Str 1 tab PO 03/21/22 12/06/24 (calcium carb)) meclizine 12.5 mg tablet 12.5 mg PO TID PRN dizziness 03/21/22 12/06/24 ipratropium bromide 21 mcg (0.03 intranasal 04/21/22 12/06/24 %) nasal spray zolpidem 5 mg tablet 5 mg PO BEDTIME PRN 04/21/22 12/06/24 Previous Rx's ?Medication ?Instructions ?Recorded azelastine 137 mcg (0.1 %) nasal 2 spray intranasal BID 30 days #30 04/21/22 spray mL gabapentin 300 mg capsule 300 mg PO BEDTIME #30 caps 10/05/22 cyclobenzaprine 10 mg tablet 10 mg PO Q8H #20 tabs 01/25/23 albuterol sulfate 2.5 mg/3 mL 2.5 mg (3 mL) inhalation Q6H PRN 02/08/23 (0.083 %) solution for nebulization for wheezing #180 mL phenazopyridine 100 mg tablet 100 mg PO TID PRN pain 6 doses #6 01/12/24 tabs cetirizine 10 mg tablet 10 mg PO QAM for allergies #30 tabs 01/18/24 azithromycin 250 mg tablet See Rx Instructions PO .COMPLEX #6 07/01/24 tabs ondansetron HCl 4 mg tablet 4 mg PO DAILY PRN nausea and 11/29/24 vomiting #30 tabs pantoprazole 40 mg tablet,delayed 40 mg PO QAM #30 tabs 11/29/24 release fluticasone fur. 200 mcg-umeclid 1 ea inhalation DAILY #60 ea 01/10/25 62.5 mcg-vilant 25 mcg inhalat.powder (Trelegy Ellipta) montelukast 10 mg tablet 10 mg PO QPM #30 tabs 04/04/25 loperamide 2 mg capsule (Imodium 2 mg PO Q6H PRN loose stool #30 04/21/25 A-D) caps simethicone 125 mg capsule (Gas 125 mg PO BID-QID for gas #90 caps 04/21/25 Relief Extra Strength) Allergies Allergy/AdvReac Type Severity Reaction Status Date / Time morphine (MORPHINE) Allergy Severe HYPOTENSION Verified 04/23/25 17:41 levofloxacin (LEVOFLOXACIN) Allergy Intermediate DIZZY Verified 04/23/25 17:41 Penicillins Allergy Mild RASH Verified 04/23/25 17:41 penicillin V Allergy Unknown Rash Verified 04/23/25 17:41 [facility] Past Medical History Medical History (Updated 12/06/24 @ 13:57 by India Lawton CNP) Chronic allergic rhinitis Insomnia Hypertension Asthma Surgical History (Updated 12/06/24 @ 17:08 by India Lawton CNP) History of cholecystectomy Hx of left knee surgery Hx of hand surgery History of esophagogastroduodenoscopy (EGD) Hx of colonoscopy Social History Social History Household Members: Spouse and Children Alcohol intake: never Patient Tobacco Use Status: Never used Tobacco Second Hand Smoke Exposure: Yes Advance Directives: No Advance Directives Information Provided: Yes Do you have a plan to hurt others: No Plan Current occupational status: disabled Physical Exam ED Vital Signs: Vital Signs - 24 hr 04/23/25 17:38 04/23/25 21:19 Temperature 97.9 F 98.1 F Pulse Rate 77 68 Respiratory Rate 16 16 Blood Pressure 151/79 H 145/60 H Pulse Oximetry 100 97 Oxygen Delivery Method Room Air Room Air BMI result Body Mass Index 35.9 Medical Decision Making Lab Data 04/23/25 18:02 04/23/25 18:02 Labs: Lab Results 04/23/25 04/23/25 Range/Units 18:02 21:32 WBC 7.8 (4.8-10.8) X10*3/uL RBC 4.18 L (4.20-5.50) X10*6/uL Hgb 12.2 (12.0-16.0) g/dl Hct 36.5 L (37.0-47.0) % MCV 87.3 (80.0-98.0) fL MCH 29.2 (27.0-33.0) pg MCHC 33.4 (31.0-35.0) g/dl RDW 13.9 (11.0-16.0) % Plt Count 387 (160-400) X10*3/uL MPV 10.3 (9.4-12.3) fL Immature Gran % (Auto) 0.3 (0.0-0.4) % Neut % (Auto) 59.0 (45-73) % Lymph % (Auto) 28.3 (20-40) % [place] % (Auto) 10.2 (2-11) % Eos % (Auto) 1.8 (0-4) % Baso % (Auto) 0.4 (0-2) % Lymph # (Auto) 2.2 (1.2-4.9) X10*3/uL [place] # (Auto) 0.8 (0.1-1.2) X10*3/uL Eos # (Auto) 0.1 (0.0-0.4) X10*3/uL Baso # (Auto) 0.0 (0.0-0.2) X10*3/uL Abs Immat Gran (auto) 0.02 (0.00-0.03) X10*3/uL Absolute Neuts (auto) 4.6 (2.0-8.3) x10*3/uL Absolute Nucleated RBC 0.000 (0.0-0.012) X10*3/uL Nucleated RBC % (auto) 0.0 (0.0-0.2) /100WBC Sodium 139 (135-145) mmol/L Potassium 3.7 (3.3-5.1) mmol/L Chloride 106 (96-108) mmol/L Carbon Dioxide 25 (22-29) mmol/L Anion Gap 12 (12-20) BUN 12 (9-16) mg/dL Creatinine 1.05 (0.5-1.4) mg/dL Estim Creat Clear Calc 32.9 Estimated GFR 51 Random Glucose 91 (60-115) mg/dL Calcium 9.7 (8.4-10.2) mg/dL Magnesium 2.1 (1.6-2.6) mg/dL Total Bilirubin 0.4 (0.0-1.0) mg/dL Direct Bilirubin 0.1 (0.0-0.5) mg/dL AST 22 (5-31) U/L ALT 13 (0-31) U/L Alkaline Phosphatase 76 (39-117) U/L Troponin I High Sens < 2.7 (<3.5-17.0) ng/L Total Protein 7.8 (6.5-8.0) g/dL Albumin 4.3 (3.5-5.0) g/dL Lipase 41 (8-78) U/L Urine Color Yellow Urine Appearance Clear Urine pH 6.0 (5.0-9.0) Ur Specific [place] 1.015 (1.005-1.025) Urine Protein Negative (Neg-Trace) mg/dL Urine Glucose (UA) Negative (Negative) mg/dL Urine Ketones Negative (Negative) mg/dL Urine Blood Negative (Negative) Urine Nitrite Negative (Negative) Ur Leukocyte Esterase Negative (Negative) Discharge Plan Discharge Prescriptions: No Action gabapentin 300 mg capsule 300 mg PO BEDTIME Qty: 30 6RF albuterol sulfate 2.5 mg /3 mL (0.083 %) solution for nebulization 2.5 mg inhalation Q6H PRN (Reason: for wheezing) Qty: 180 12RF cetirizine 10 mg tablet 10 mg PO QAM Qty: 30 11RF pantoprazole 40 mg tablet,delayed release (DR/EC) 40 mg PO QAM Qty: 30 11RF ondansetron HCl 4 mg tablet 4 mg PO DAILY PRN (Reason: nausea and vomiting) Qty: 30 0RF Trelegy Ellipta 200-62.5-25 mcg blister with device 1 ea inhalation DAILY Qty: 60 2RF montelukast 10 mg tablet 10 mg PO QPM Qty: 30 2RF simethicone [Gas Relief Extra Strength] 125 mg capsule 125 mg PO BID-QID Qty: 90 1RF loperamide [Imodium A-D] 2 mg capsule 2 mg PO Q6H PRN (Reason: loose stool) Qty: 30 0RF Rx Instructions: Take 2 cap after 1st loose stool- One caplet after each subsequent loose stools No more than 4 caps in a 24 hour. cyclobenzaprine 10 mg tablet 10 mg PO Q8H Qty: 20 0RF phenazopyridine 100 mg tablet 100 mg PO TID PRN (Reason: pain) Qty: 6 0RF metoclopramide HCl 5 mg tablet 5 mg PO QIDACHS Creon 3,000-9,500- 15,000 unit capsule,delayed release(DR/EC) PO sucralfate 1 gram tablet 1 g PO QIDACHS Klor-Con/EF 25 mEq tablet, effervescent 25 meq PO BID minoxidil 5 % solution 1 ml topical BID Centrum Complete 18-400 mg-mcg tablet 1 tab PO DAILY naloxone [Narcan] 4 mg/actuation spray,non-aerosol 4 mg intranasal Q3M PRN Rx Instructions: spray 1 dose into ONE nostril; alternate nostrils w each dose until help arrives albuterol sulfate [Ventolin HFA] 90 mcg/actuation HFA aerosol inhaler 0 mcg inhalation oxycodone-acetaminophen 5-325 mg tablet 1 tab PO BID PRN zolpidem 5 mg tablet 5 mg PO BEDTIME PRN ipratropium bromide 21 mcg (0.03 %) spray,non-aerosol intranasal azelastine 137 mcg (0.1 %) aerosol,spray 2 spray intranasal BID 30 Days Qty: 30 6RF Rx Instructions: administer into each nostril cyanocobalamin (vitamin B-12) 5,000 mcg tablet,disintegrating 5,000 mcg PO DAILY losartan 100 mg tablet 100 mg PO DAILY sertraline 100 mg tablet 100 mg PO BID tolterodine 4 mg capsule,extended release 24hr 4 mg PO DAILY amlodipine 2.5 mg tablet 2.5 mg PO DAILY levothyroxine 125 mcg tablet 125 mcg PO QAM cholecalciferol (vitamin D3) 50 mcg (2,000 unit) tablet 50 mcg PO QAM fluticasone propionate 50 mcg/actuation spray,suspension intranasal acetaminophen 500 mg tablet 0 mg PO meclizine 12.5 mg tablet 12.5 mg PO TID PRN (Reason: dizziness) calcium carbonate [Antacid Ext Str (calcium carb)] 300 mg (750 mg) tablet,chewable 1 tab PO azithromycin 250 mg tablet See Rx Instructions PO .COMPLEX Qty: 6 0RF Rx Instructions: For 250 mg dose pack: take 500 mg today (day 1), then 250 mg for 4 days (days 2-5) PO Print Language: Japanese
[2025-04-23] MEDS: Lidocaine HCl Viscous 2 % 15 ML SOLUTION MUCOUS MEM (22:08)
[2025-04-23] MEDS: Magnesium Hydrox/Alum Hydrox 30 ML ORAL.SUSP PO (22:08)
[2025-04-23 22:23] VITALS: BP 119/55; PULSE 84; RESP 16; TEMP 36.3; O2SAT 100
[2025-04-24] VITALS: BP 132/68; PULSE 69; RESP 16; TEMP 36.7; O2SAT 96
[2025-04-24 00:30] VITALS: BP 132/68; PULSE 69; RESP 16; TEMP 36.7; O2SAT 96
== END 2025-04-24 00:31 | disposition home or self-care (01) ==
PROVIDERS: Physician Assistant Medical; Emergency Provider Student in an Organized Health Care Education/Training Program; PCP Registered Nurse
DX: K29.70 Gastritis, unspecified, without bleeding (principal); R11.2 Nausea with vomiting, unspecified; R19.7 Diarrhea, unspecified; R10.13 Epigastric pain; I10 Essential (primary) hypertension; J45.909 Unspecified asthma, uncomplicated
CPT/HCPCS: 36415; 80048; 80076; 81003; 83690; 83735; 84484; 85025; 93005; 96361; 96374; 96375; 99284; 99285; J1308; J2405

== ENCOUNTER → 2025-04-23 17:41 | Outpatient (BNV) | payer OTHER, SELFPAY | PROVIDERS: Emergency Provider Student in an Organized Health Care Education/Training Program; PCP Registered Nurse; Visit Provider Internal Medicine | DX: R94.31 Abnormal electrocardiogram [ECG] [EKG] (principal); R07.9 Chest pain, unspecified | CPT/HCPCS: 93010 ==

== ENCOUNTER 2025-05-01 11:29 | Outpatient (REF) | payer OTHER, SELFPAY ==
--- NOTE | ~2025-05-01 | XR_ITS ---
EXAMINATION: XR ANKLE, RIGHT CLINICAL INFORMATION: sprain COMPARISON: 07/17/2021. TECHNIQUE: AP, lateral, and mortise views of the right ankle. FINDINGS: No fracture, dislocation, or suspicious bone lesion. The mortise is intact. The talar dome is normal. The subtalar joints are normal. There is a small plantar and small dorsal calcaneal spur. No soft tissue abnormality. No ankle joint effusion. XR/XR ankle RT min 3V IMPRESSION: No acute bony findings of the right ankle. Electronically signed by: Krzysztof Castellon MD 05/01/2025 01:36 PM EDT
--- OUTSIDE RECORDS SUMMARY | 2025-05-01 10:15 | XMS_ITS | Encounter Summary ---
Author Organization [employer] Address [address] [place] [address] Care Team Providers Care Sock Lining Stitcher Name Role Phone Lori Eugenia THEATRE PROGRAM DIRECTOR Primary Care Provider [phone] Reason for Visit * Reason Comments Pre-op Exam Eye surgery Encounter Details Date Type Department Care Team ([facility] st Contact Info) Description 05/01/2025 10:15 AM EDT Office Visit [facility] [address] [place] [address] Estefania Weldon MD [address] [place] [address] Sprain of left ankle, unspecified ligament, initial encounter Social History Tobacco Use Types Packs/Day Years [...] the past 12 months, has t he Particle, gas, oil or water company threatened to [...] Sign Reading Time Taken Comments Blood Pressure 130/80 05/01/2025 10:20 AM EDT Pulse 80 05/01/2025 10:20 AM EDT Temperature 36.1 C (97 F) 05/01/2025 10:20 AM EDT Respiratory Rate 18 05/01/2025 10:20 AM EDT Oxygen Saturation - - Inhaled Oxygen Concentration - - Weight 65.3 kg (144 lb) 05/01/2025 10:20 AM EDT Height 144.8 cm (4' 9 ) 05/01/2025 10:20 AM EDT Body Mass Index 31.16 05/01/2025 10:20 AM EDT documented in this encounter Plan of Treatment Upcoming Encounters Date Type Department Care Team (Late st Contact Info) Description 06/10/2025 9:45 AM EDT Office Visit [facility] [address] [place] [address] Scheduled Orders Name Type Priority Associated Diagnoses Orde r Schedule XR Ankle 3+ Views Left Imaging Routine Sprain of left ankle, unspecified ligament, initial encounter Expected: 05/01/2025, Expires: 05/01/2026 documented as of this encounter Visit Diagnoses Diagnosis Sprain of left ankle, unspecified ligament, initial encounter documented in this encounter Additional Health Concerns Assessment Noted Time PHQ-9 Depression Total Score: 0 12/10/19 25 1:35 PM EDT documented as of this encounter Care Teams Sock Lining Stitcher Relationship Specialty Start Date End Date Eugenia Sandoval FNP [address] [place] [address] PCP - General Family Medicine 04/27/22 documented as of this encounter
--- OUTSIDE RECORDS SUMMARY | 2025-05-01 13:11 | XMS_ITS | Encounter Summary ---
Author Organization [employer] Address [address] [facility] [address] [place] [address] Care Team Providers Care Social Sciences Professor Name Role Phone [facility] Primary Care Provider [phone] Reason for Visit * Reason Comments Med Refill Encounter Details Date Type Department Care Team ([facility] Contact Info) Description 01/29/2025 Refill [facility] [address] [place], [place] [phone] [facility] [address] [place], [place] [phone] Primary osteoarthritis of both knees Social History [...] Description 06/10/2025 9:45 AM EDT Office Visit [facility] [address] [place] [address] documented as of this encounter Visit Diagnoses Diagnosis Primary osteoarthritis of both knees documented in this encounter Additional Health Concerns Assessment Noted Time PHQ-9 Depression Total Score: 0 12/10/19 25 1:35 PM EDT documented as of this encounter Care Teams Social Sciences Professor Relationship Specialty Start Date End Date Eugenia Sandoval FNP [address] [place] [address] PCP - General Family Medicine 04/27/22 documented as of this encounter
--- OUTSIDE RECORDS SUMMARY | 2025-05-01 13:11 | XMS_ITS | Encounter Summary ---
Author Organization [employer] Address [address] [facility] 7t [place] [address] Care Team Providers Care Insurance Claims Processor Name Role Phone [facility] Primary Care Provider [phone] Reason for Visit * Reason Comments Med Refill Encounter Details Date Type Department Care Team ([facility] st Contact Info) Description 01/30/2025 Refill [facility] [address] [place], [place] [phone] [facility] [address] [place], [place] [phone] Primary osteoarthritis of both knees; Anxiety due [...] Description 06/10/2025 9:45 AM EDT Office Visit [facility] [address] [place] [address] documented as of this encounter Visit Diagnoses Diagnosis Primary osteoarthritis of both knees Anxiety due to invasive procedure documented in this encounter Additional Health Concerns Assessment Noted Time PHQ-9 Depression Total Score: 0 12/10/19 25 1:35 PM EDT documented as of this encounter Care Teams Insurance Claims Processor Relationship Specialty Start Date End Date Eugenia Sandoval FNP [address] [place] [address] PCP - General Family Medicine 04/27/22 documented as of this encounter
--- OUTSIDE RECORDS SUMMARY | 2025-05-01 13:11 | XMS_ITS | Clinical Summary ---
Author Organization [facility] Address [address] [place] [address] Care Team Providers Care Programming Instructor Name Role Phone Rufino Garcia [facility] Primary Care Provider Family History [...] patient's age to complete this topic Insurance [facility] ([id number]) [facility] ([id number]) Care Teams Programming Instructor Relationship Specialty Start Date End Date Rufino Garcia FNP [address] [place] [address], 3rd [place] [address] PCP - General 09/07/20
--- OUTSIDE RECORDS SUMMARY | 2025-05-01 13:12 | XMS_ITS | Encounter Summary ---
Author Organization [employer] Address [address] [facility] 7t [place] [address] Care Team Providers Care Fur Trapper Name Role Phone [facility] Primary Care Provider [phone] Encounter Details Date Type Department Care Team ([facility] Contact Info) Description 04/30/2025 Telephone [facility] [address] [place], [place] [phone] [facility] [address] [place] [address] Social History Tobacco Use Types Packs/Day Years [...] Telephone Encounter - Jolanta Beckwith [place] - 04/30/2025 2:48 PM EDT Chart Prep Labs: done Images: not applicable Referrals: complete Vaccines due: Covid, Flu, and Hep B Screenings: n/a Overdue care gaps: PHQ-9 and SARAH-7 documented in this encounter Plan of Treatment Upcoming Encounters Date Type Department Care Team (Late st Contact Info) Description 06/10/2025 9:45 AM EDT Office Visit [facility] [address] [place] [address] documented as of this encounter Visit Diagnoses Not on filedocumented in this encounter Additional Health Concerns Assessment Noted Time PHQ-9 Depression Total Score: 0 12/10/19 25 1:35 PM EDT documented as of this encounter Care Teams Fur Trapper Relationship Specialty Start Date End Date Eugenia Sandoval FNP [address] [place] [address] PCP - General Family Medicine 04/27/22 documented as of this encounter
--- OUTSIDE RECORDS SUMMARY | 2025-05-01 13:12 | XMS_ITS | Encounter Summary ---
Author Organization [employer] Address [address] [facility] 7t [place] [address] Care Team Providers Care Bellmaker Name Role Phone Eugenia Sandoval [facility] Primary Care Provider [phone] Reason for Visit * Reason Comments Med Refill Encounter Details Date Type Department Care Team ([facility] Contact Info) Description 11/30/2022 Refill [facility] [address] [place], [place] [phone] Eugenia Sandoval FNP [address] [place], [place] [phone] Other chronic pain Social History Tobacco Use [...] Upcoming Encounters Date Type Department Care Team ([facility] Contact Info) Description 06/10/2025 9:45 AM EDT Office Visit [facility] MED[facility]INE [address] [place] [phone] documented as of this encounter Visit Diagnoses Diagnosis Other chronic pain documented in this encounter Care Teams Bellmaker Relationship Specialty Start Date End Date Eugenia Sandoval FNP [address] [place] [address] PCP - General Family Medicine 04/27/22 documented as of this encounter
--- OUTSIDE RECORDS SUMMARY | 2025-05-01 13:12 | XMS_ITS | Encounter Summary ---
Author Organization [employer] Address [address] [facility] 7t [place] [address] Care Team Providers Care Production Laborer Name Role Phone Eugenia Sandoval Primary Care Provider [phone] Reason for Visit * Reason Comments Med Refill Encounter Details Date Type Department Care Team ([facility] Contact Info) Description 11/30/2022 Refill [facility] [address] [place], [place] [phone] Senait Frias MD [address] [place] [address] Pain in right knee Social History Tobacco [...] Upcoming Encounters Date Type Department Care Team ([facility] Contact Info) Description 06/10/2025 9:45 AM EDT Office Visit [facility] [address] [place], [place] [phone] documented as of this encounter Visit Diagnoses Diagnosis Pain in right knee documented in this encounter Care Teams Production Laborer Relationship Specialty Start Date End Date Eugenia Sandoval FNP [address] [place] [address] PCP - General Family Medicine 04/27/22 documented as of this encounter
--- OUTSIDE RECORDS SUMMARY | 2025-05-01 13:12 | XMS_ITS | Encounter Summary ---
Author Organization [employer] Address [address] [facility] [address] [place] [address] Care Team Providers Care Tugboat Engineer Name Role Phone [facility] Primary Care Provider [phone] Reason for Visit * Reason Comments Med Refill Encounter Details Date Type Department Care Team ([facility] st Contact Info) Description 04/27/2025 Refill [facility] [address] [place], [place] [phone] [facility] [address] [place], [place] [phone] Acquired hypothyroidism; Moderate persistent asthma with acute exacerbation Social [...] Description 06/10/2025 9:45 AM EDT Office Visit [facility] [address] [place] [address] documented as of this encounter Visit Diagnoses Diagnosis Acquired hypothyroidism Unspecified hypothyroidism Moderate persistent asthma with acute exacerbation documented in this encounter Additional Health Concerns Assessment Noted Time PHQ-9 Depression Total Score: 0 12/10/19 25 1:35 PM EDT documented as of this encounter Care Teams Tugboat Engineer Relationship Specialty Start Date End Date Eugenia Sandoval FNP [address] [place] [address] PCP - General Family Medicine 04/27/22 documented as of this encounter
--- OUTSIDE RECORDS SUMMARY | 2025-05-01 13:12 | XMS_ITS | Encounter Summary ---
Author Organization [employer] Address [address] [facility] 7t [place] [address] Care Team Providers Care External Relations Manager Name Role Phone [facility] Primary Care Provider [phone] Reason for Visit * Reason Comments Med Refill Encounter Details Date Type Department Care Team ([facility] st Contact Info) Description 12/18/2022 Refill [facility] [address] [place], [place] [phone] [facility] [address] [place], [place] [phone] Other chronic pain Social History Tobacco Use [...] 06/10/2025 9:45 AM EDT Office Visit [facility] [address] [place] [address] documented as of this encounter Visit Diagnoses Diagnosis Other chronic pain documented in this encounter Care Teams External Relations Manager Relationship Specialty Start Date End Date Eugenia Sandoval FNP [address] [place] [address] PCP - General Family Medicine 04/27/22 documented as of this encounter
--- OUTSIDE RECORDS SUMMARY | 2025-05-01 13:12 | XMS_ITS | Encounter Summary ---
Author Organization [employer] Address [address] [facility] [address]t [place] [address] Care Team Providers Care Improvement Coordinator Name Role Phone [facility] Primary Care Provider [phone] Reason for Visit * Reason Comments Med Refill Encounter Details Date Type Department Care Team ([facility] st Contact Info) Description 04/27/2025 Refill [facility] [address] [place], [place] [phone] Rasheeda Russell MD [address] [place], [place] [phone] Moderate persistent asthma with acute exacerbation Social [...] Description 06/10/2025 9:45 AM EDT Office Visit [facility] [address] [place] [address] documented as of this encounter Visit Diagnoses Diagnosis Moderate persistent asthma with acute exacerbation documented in this encounter Additional Health Concerns Assessment Noted Time PHQ-9 Depression Total Score: 0 12/10/19 25 1:35 PM EDT documented as of this encounter Care Teams Improvement Coordinator Relationship Specialty Start Date End Date Eugenia Sandoval FNP [address] [place] [address] PCP - General Family Medicine 04/27/22 documented as of this encounter
--- OUTSIDE RECORDS SUMMARY | 2025-05-01 13:12 | XMS_ITS | Encounter Summary ---
Author Organization [employer] Address [address] [facility] 7t [place] [address] Care Team Providers Care Cytogeneticist Name Role Phone [facility] Primary Care Provider [phone] Reason for Visit * Reason Comments Med Refill Encounter Details Date Type Department Care Team ([facility] st Contact Info) Description 11/07/2023 Refill [facility] [address] [place], [place] [phone] [facility] [address] [place], [place] [phone] Other chronic pain; Insomnia, unspecified type Social [...] Visit [facility] [address] [place] [address] documented as of this encounter Visit Diagnoses Diagnosis Other chronic pain Insomnia, unspecified type documented in this encounter Additional Health Concerns Assessment Noted Time PHQ-9 Depression Total Score: 9 03/30/20 23 2:25 PM EDT documented as of this encounter Care Teams Cytogeneticist Relationship Specialty Start Date End Date Eugenia Sandoval FNP [address] [place] [address] PCP - General Family Medicine 04/27/22 documented as of this encounter
--- OUTSIDE RECORDS SUMMARY | 2025-05-01 13:12 | XMS_ITS | Encounter Summary ---
Author Organization [employer] Address [address] [facility] 7t [place] [address] Care Team Providers Care Internal Investigator Name Role Phone Eugenia Sandoval Primary Care Provider [phone] Reason for Visit * Reason Comments Med Refill Encounter Details Date Type Department Care Team ([facility] Contact Info) Description 05/27/2023 Refill [facility] MED[facility]INE [address] [place] [address] Jenna Bar FNP Social History [...] Upcoming Encounters Date Type Department Care Team ([facility] Contact Info) Description 06/10/2025 9:45 AM EDT Office Visit [facility] [address] [place] [address] [phone] documented as of this encounter Visit Diagnoses Not on filedocumented in this encounter Additional Health Concerns Assessment Noted Time PHQ-9 Depression Total Score: 9 03/30/20 23 2:25 PM EDT documented as of this encounter Care Teams Internal Investigator Relationship Specialty Start Date End Date Eugenia Sandoval FNP [address] [place] [address] PCP - General Family Medicine 04/27/22 documented as of this encounter
--- OUTSIDE RECORDS SUMMARY | 2025-05-01 13:12 | XMS_ITS | Encounter Summary ---
Author Organization [employer] Address [address] [facility] 7t [place] [address] Care Team Providers Care Stringed Instrument Repairer Name Role Phone [facility] Primary Care Provider [phone] Reason for Visit * Reason Onset Date Comments NCNS for SHOWER ROOM ATTENDANT RV today 09/21/2022 [facility] Encounter Details Date Type Department Care Team (Late Contact Info) Description 09/21/2022 Telephone [facility] MEDICINE [address] [place] [address] 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 Please contact pt at [phone] documented in this encounter Plan of Treatment Upcoming Encounters Date Type Department Care Team (Late Contact Info) Description 06/10/2025 9:45 AM EDT Office Visit [facility] MEDICINE [address] [place] [address] documented as of this encounter Visit Diagnoses Not on filedocumented in this encounter Care Teams Stringed Instrument Repairer Relationship Specialty Start Date End Date Eugenia Sandoval FNP [address] [place] [address] PCP - General Family Medicine 04/27/22 documented as of this encounter
--- OUTSIDE RECORDS SUMMARY | 2025-05-01 13:12 | XMS_ITS | Encounter Summary ---
Author Organization [employer] Address [address] [facility] 7t [place] [address] Care Team Providers Care Print Shop Helper Name Role Phone Eugenia Sandoval [facility] Primary Care Provider Reason for Visit * Reason Comments Med Refill Encounter Details Date Type Department Care Team ([facility] Contact Info) Description 02/16/2023 Refill [facility] MEDICINE [address] [place], [place] [phone] Eugenia Sandoval [facility] [address] [place], [place] [phone] Other chronic pain Social History Tobacco Use [...] Encounters Date Type Department Care Team ([facility] Contact Info) Description 06/10/2025 9:45 AM EDT Office Visit [facility] MEDICINE [address] [place] [address] [phone] documented as of this encounter Visit Diagnoses Diagnosis Other chronic pain documented in this encounter Care Teams Print Shop Helper Relationship Specialty Start Date End Date Eugenia Sandoval FNP [address] [place] [address] PCP - General Family Medicine 04/27/22 documented as of this encounter
--- OUTSIDE RECORDS SUMMARY | 2025-05-01 13:12 | XMS_ITS | Encounter Summary ---
Author Organization [employer] Address [address] [facility] [address] [place] [address] Care Team Providers Care Emd Special Education Teacher Name Role Phone [facility] Primary Care Provider [phone] Reason for Visit * Reason Onset Date Comments Med Refill [employer] 03/21/2024 I informe d the patient, that the Certification of Serious Illness from [employer], is ready to be picked up at the [facility] Dept. She verbalized understanding. Encounter Details Date Type Department Care Team (Late st Contact Info) Description 03/21/2024 Refill [facility] MEDICINE [address] [place], [place] [phone] [facility] [address] [place], [place] [phone] Primary osteoarthritis of both knees Social History [...] that the Certification of Serious Illness from [employer], is ready to be picked up at the [facility] Dept. She verbalized understanding. documented in this encounter Plan of Treatment Upcoming Encounters Date Type Department Care Team (Late st Contact Info) Description 06/10/2025 9:45 AM EDT Office Visit [facility] MEDICINE [address] [place] [address] documented as of this encounter Visit Diagnoses Diagnosis Primary osteoarthritis of both knees documented in this encounter Additional Health Concerns Assessment Noted Time PHQ-9 Depression Total Score: 6 02/28/20 24 2:13 PM EDT documented as of this encounter Care Teams Emd Special Education Teacher Relationship Specialty Start Date End Date Eugenia Sandoval FNP [address] [place] [address] PCP - General Family Medicine 04/27/22 documented as of this encounter
--- OUTSIDE RECORDS SUMMARY | 2025-05-01 13:12 | XMS_ITS | Encounter Summary ---
Author Organization [employer] Address [address] [facility] 7t [place] [address] Care Team Providers Care Manager Star Name Role Phone Eugenia Sandoval Primary Care Provider [phone] Reason for Referral * Hospital - Outpatient (Routine) - Closed Specialty Diagnoses / Procedures Referred By Nimisha tirado Referred To Contact Diagnoses Essential hypertension Excessive daytime sleepiness Procedures Polysomnography Eugenia Sandoval FNP [address] [place] [address] Phone: tel: fax: [address] Phone: tel: fax: Referral ID Status Reason Start Date Expiration Date Visits Re quested Visits Authorized [id number] Closed 07/02/2024 07/02/2025 1 1 Encounter Details Date Type Department Care Team (Late st Contact Info) Description 07/02/2024 Orders Only [facility] MEDICINE [address] [place], [place] [phone] Eugenia Sandoval FNP [address] [place], [place] [phone] Essential hypertension (Primary Dx); Excessive daytime sleepiness [...] Description 06/10/2025 9:45 AM EDT Office Visit [facility] MEDICINE [address] [place] [address] Scheduled Orders Name Type Priority Associated Diagnoses [...] as of this encounter Care Teams Manager Star Relationship Specialty Start Date End Date Eugenia Sandoval FNP [address] [place] [address] PCP - General Family Medicine 04/27/22 documented as of this encounter
--- OUTSIDE RECORDS SUMMARY | 2025-05-01 13:12 | XMS_ITS | Encounter Summary ---
Author Organization [employer] Address [address] [facility] 7t [place] [address] Care Team Providers Care Expanded Function Dental Assistant Name Role Phone [facility] Primary Care Provider [phone] Reason for Visit * Reason Onset Date Comments Appointment Request 09/10/2024 Encounter Details Date Type Department Care Team ([facility] Contact Info) Description 09/10/2024 Telephone [facility] [address] [place], [place] [phone] [facility] [address] [place], [place] [phone] Appointment Request Social History Tobacco Use Types [...] pain management appt. Please contact pt at [phone]. (Yi Speaker) documented in this encounter Plan of Treatment Upcoming Encounters Date Type Department Care Team (Late st Contact Info) Description 06/10/2025 9:45 AM EDT Office Visit [facility] [address] [place] [address] documented as of this encounter Visit Diagnoses Not on filedocumented in this encounter Additional Health Concerns Assessment Noted Time PHQ-9 Depression Total Score: 0 06/17/20 24 2:07 PM EDT documented as of this encounter Care Teams Expanded Function Dental Assistant Relationship Specialty Start Date End Date Eugenia Sandoval FNP [address] [place] [address] PCP - General Family Medicine 04/27/22 documented as of this encounter
--- OUTSIDE RECORDS SUMMARY | 2025-05-01 13:12 | XMS_ITS | Encounter Summary ---
Author Organization [employer] Address [address] [facility] 7t [place] [address] Care Team Providers Care Supervisor Offset Plate Preparation Name Role Phone [facility] Primary Care Provider [phone] Reason for Visit * Reason Onset Date Comments pre op 04/30/2025 Encounter Details Date Type Department Care Team ([facility] Contact Info) Description 04/30/2025 Telephone [facility] MEDICINE [address] [place], [place] [phone] [facility] [address] [place], [place] [phone] pre op Social History Tobacco Use Types Packs/Day Years [...] encounter Miscellaneous Notes * Telephone Encounter - Jabier Ventura - 04/30/2025 12:29 PM EDT Facility agreed to pre-op on 05/[address] Reynoso, Pt's son made aware . Facility will call to remind * Telephone Encounter - Maximus Alfaro - 04/30/2025 8:37 AM EDT Date of Surgery: 05/15 Surgical procedure being done: Cataract left eye Type of anesthesia: topical Lab needed: No EKG: No Surgeon's name: Dr Jayla Youngblood Facility name: [facility] [place] Surgeon's office number: [phone] Surgeon's office fax number: [phone] Contact name (person you spoke with): Lauren Last office note from surgeon requested: Yes Send Message to Jabier Ventura documented in this encounter Plan of Treatment Upcoming Encounters Date Type Department Care Team (Late st Contact Info) Description 06/10/2025 9:45 AM EDT Office Visit [facility] MEDICINE [address] [place] [address] documented as of this encounter Visit Diagnoses Not on filedocumented in this encounter Additional Health Concerns Assessment Noted Time PHQ-9 Depression Total Score: 0 12/10/19 25 1:35 PM EDT documented as of this encounter Care Teams Supervisor Offset Plate Preparation Relationship Specialty Start Date End Date Eugenia Sandoval FNP [address] [place] [address] PCP - General Family Medicine 04/27/22 documented as of this encounter
--- OUTSIDE RECORDS SUMMARY | 2025-05-01 13:12 | XMS_ITS | Clinical Summary ---
Author Organization [email or web address] Address [address] [facility] [address] [place] [address] Care Team Providers Care Credit Risk Review Officer Name Role Phone [facility] Primary Care Provider [phone] Allergies Active Allergy Reactions Criticality Noted Date [...] by mouth in the morning. Active pancrelipase, Pwn-Qvbs-Mczy, (Creon) 2980-6080 units capsule Take 1 capsule by mouth [...] NEEDED FOR SLEEP 30 tablet 024 Active ramelteon (Rozerem) 8 MG tabletIndications: [...] TWICE DAILY AND NEEDED 100 strip 3 Active Lancets (OneTouch Delica Plus [id number]) miscIndications:Hy poglycemia TEST BLOOD SUGAR TWICE DAILY AND NEEDED 100 each 3 025 Active ondansetron ODT (Zofran-ODT) 4 MG [...] or shortness of breath. 18 g 3 Active albuterol (2.5 MG/3ML) 0.083% nebulizer solutionIndication s:Moderate asthma with exacerbation, unspecified whether persistent Take 3 mL (2.5 mg) by nebulization every 6 (six) hours if needed for wheezing. 75 mL 11 025 2025 Active diazePAM (Valium) 2 MG tabletIndications: Anxiety due to invasive procedure Please take 1 tablet 30 minutes prior to your MRI. Please have someone drive you to the MRI. 1 tablet Active minoxidil (Loniten) 2.5 MG tabletIndications: Androgenic alopecia TAKE 1 TABLET BY MOUTH EVERY MORNING 30 tablet 11 Active tolterodine LA (Detrol LA) 4 MG 24 hr capsule TAKE 1 CAPSULE BY MOUTH EVERY MORNING 90 capsule 025 Active Diclofenac Sodium 1 % gelIndications:Shireen felicia osteoarthritis of both knees APPLY 2 GRAMS TOPICALLY TO AFFECTED AREA(S) THREE TIMES DAILY NEEDED 100 g 1 Active oxyCODONE-acetamin ophen (Percocet) 5-325 MG tabletIndications: Primary osteoarthritis of both knees Take 1 tablet by mouth every 8 (eight) hours if needed for severe pain for up to 28 days. 84 tablet 025 2024 Active FT Antacid Extra Strength 750 MG chewable tablet TAKE 1 TABLET BY MOUTH TWICE DAILY IN THE MORNING AND IN THE EVENING (chew) 60 tablet 11 Active levothyroxine (Synthroid, Levoxyl) 112 MCG tabletIndications: Acquired hypothyroidism TAKE 1 TABLET BY MOUTH EVERY MORNING BEFORE BREAKFAST 90 tablet 3 Active sertraline (Zoloft) 100 MG tablet TAKE 2 TABLETS BY MOUTH ONCE DAILY IN THE MORNING 60 tablet 5 Active fexofenadine (Julita) 180 MG tabletIndications: Moderate persistent asthma with acute exacerbation TAKE 1 TABLET BY MOUTH EVERY DAY 30 tablet 3 Active Calcium Antacid Extra Strength 750 MG chewable tablet TAKE 1 TABLET BY MOUTH TWICE DAILY IN THE MORNING AND IN THE EVENING (CHEW) 60 tablet 11 024 2024 Discontinued levothyroxine (Synthroid, Levoxyl) 112 MCG tabletIndications: Acquired hypothyroidism TAKE 1 TABLET BY MOUTH EVERY MORNING BEFORE BREAKFAST 90 tablet 3 024 2024 Discontinued sertraline (Zoloft) 100 MG tablet TAKE 2 TABLETS BY MOUTH ONCE DAILY IN THE MORNING 60 tablet 5 025 2024 Discontinued fexofenadine (Julita) 180 MG tabletIndications: Moderate persistent asthma with acute exacerbation TAKE 1 TABLET BY MOUTH EVERY DAY 30 tablet 2 025 2024 Discontinued(R eorder (will not trigger [...] Active Problems Problem Noted Date Diagnosed Date Left ankle sprain 05/01/2025 Cataract of both eyes 01/22/2025 Preoperative examination 01/22/2025 At high risk for falls 12/11/2024 Urinary incontinence 07/09/2024 Long-term current use of opiate analgesic 2023 Overview (02/06/2025): Dx: OA of knees, chronic bilateral low back pain w/o sciatica Rx: Percocet 5/325 q8 hours prn Last [employer] agreement: 02/04/25 Tier II (visit every 3 [...] 12/03/24: Group - utox/pill count as expected Chronic bilateral low back pain without sciatica 04/09/2023 Overview (04/08/2025): On percocet for chronic pain Compliant with [employer] agreement Assessment & Plan (07/09/2024 12:48 PM [...] 11/09/2022 Overview (12/11/2024): Mammo: q. 6 months 2/ hx of birads-3; complex cysts left breast. 01/2024 birads -3. Followed by [facility] [employer] tracking Pap: 2016 NIL HPV negative; 12/2022 NIL HPV neg. Pap's discontinued C-scope:2015; negative repeat due 2025.Saw GI for follow up re chronic diarrhea/abdominal pain. Per visit note patient declines repeat colonoscopy at this time. Negative 2015 colonoscopy. Normal EGD 2015; 2017 Assessment & [...] Losartan 100mg daily Amlodipine 5mg Followed by [facility] [place] cardiology for hx of [...] singuliar, Trelegy Ellipta, albuterol - Followed by [facility] pulmonology, last seen 03/2022 Osteoporosis 07/01/2015 Overview (06/21/2024): [place] [facility] [place] 11/2023- Saw endocrinology for osteoporosis follow up and repeat DEXA. Worsening osteoporosis -3.4 at [facility]. Per visit note plan to start reclast therapy in 3 months once vitamin D repleted. 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 - eGFR 03/2022 52; Creatinine 1.04 Assessment & Plan (10/12/2023 2:21 PM EST): Stable Continue to avoid NSAID's Maintain hydration Gastro-esophageal reflux disease with esophagiti s 07/01/2015 Overview (11/09/2022): - Extensive hx of dyspepsia, dysphagia, chronic diarrhea, and abdominal bloating - Followed by [facility] GI. Last seen 04/2022 [...] 07/01/2015 Overview (03/30/2023): - Sees therapist through [facility] - Seroquel 100mg -Ambien 5mg [...] ODT (Zofran-ODT) 4 MG, per patients request. Depression, recurrent 02/28/20245 Encounters * This document contains information received from the source organization and may not represent a complete record from that organization. Date Type Department Care Team Description 05/01/2025 10:15 AM EDT Office Visit [facility] [address] [facility] [place] [address] Estefania Weldon MD Sprain of left ankle, unspecified ligament, initial encounter 04/30/2025 Telephone [facility] [address] [place] [address] [place] [facility] 04/30/2025 Telephone [facility] [address] [place] [address] [place] [facility] pre op 04/29/2025 Telephone [facility] [address] [place] [address] Zuleyma Pérez RN ER Follow-up 04/27/2025 Refill [facility] [address] [place] [address] Rasheeda Russell MD Moderate persistent asthma with acute exacerbation 04/27/2025 Refill [facility] [address] [place] [address] [place] [facility] Acquired hypothyroidism; Moderate persistent asthma with acute exacerbation 04/23/2025 3:40 PM EDT Office Visit [facility] [address] [place] [address] Hoang Dubois MD Diarrhea, unspecified type (Primary Dx); Epigastric pain; Nausea 04/23/2025 Orders Only GENERIC EXTERNAL DATA DEPARTMENT Provider, Generic External Data 04/23/2025 Travel 04/22/2025 Orders Only GENERIC EXTERNAL DATA DEPARTMENT Provider, Generic External Data 04/10/2025 Refill [facility] [address] [place] [address] [place] [facility] Primary osteoarthritis of both knees 04/08/2025 9:45 AM EDT Office Visit [facility] [address] [place] [address] Cara Rossi, ADE Chronic bilateral low back pain without sciatica (Primary Dx); Long-term current use of opiate analgesic; Osteoarthritis involving multiple joints on both sides of body 04/08/2025 Travel 04/04/2025 Orders Only [facility] [address] [place] [address] Nomi, Lisa, OD Combined forms of age-related cataract of both eyes (Primary Dx) 04/04/2025 Telephone [facility] [address] [place] [address] [place] Sandoval FNP Medication Question 04/02/2025 Refill [facility] [address] [place] [address] [place] Sandoval FNP Primary osteoarthritis of both knees 04/02/2025 Refill [facility] [address] [place] [address] Eug[place] Sandoval FNP Primary osteoarthritis of both knees 03/25/2025 Telephone [facility] [address] [place] [address] Eug[place] Sandoval FNP Stable Lab Letter 03/24/2025 Results Follow-Up [facility] [address] [place] [address] Eug[place] Sandoval FNP Comprehensive Metabolic Panel, Lipid Panel, Standard, TSH 03/21/2025 Refill [facility] [address] [place] [address] Cara Rossi FNP Primary osteoarthritis of both knees 03/18/2025 Orders Only GENERIC EXTERNAL DATA DEPARTMENT Provider, Generic External Data 03/17/2025 1:00 PM EDT Office Visit [facility] [address] [place] [address] [place] Sandoval FNP Essential hypertension (Primary Dx); 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; Osteoarthritis involving multiple joints on both sides of body; Hx of total knee replacement, left 03/17/2025 Travel 03/14/2025 Telephone [facility] [address] [place] [address] Eug[place] Sandoval FNP Chart Prep 03/14/2025 Telephone [facility] [address] [place] [address] Eugenia Sandoval FNP [facility] Dental Form 03/11/2025 Refill [facility] [address] [place] [address] Eugenia Sandoval FNP 03/06/2025 Patient Outreach [address] [address] [place] Sandoval FNP Pre-visit Planning ([facility] screening completed on 09/30/2024) 03/04/2025 Telephone [facility] [address] [place] [phone] Eug[place] Sandoval FNP Results 03/03/2025 Refill [facility] [address] [place] [address] Cara Rossi FNP Primary osteoarthritis of both knees 02/04/2025 9:45 AM EDT Office Visit [address] [address] Cara Rossi FNP Osteoarthritis involving multiple joints on both sides of body (Primary Dx); Long-term current use of opiate analgesic; Primary osteoarthritis of both knees 02/04/[address] [address] Lesley Mcmahan RN [employer] Renewal today 02/04/2025 Travel 02/03/2025 Orders Only [facility] [address] [place] [phone] [place] Sandoval FNP Abnormal brain MRI (Primary Dx) 02/03/2025 Telephone [facility] [address] [place] [address] Eug[place] Sandoval FNP 02/02/2025 Refill [facility] [address] [place] [address] Sha Trejo MD Androgenic alopecia 01/30/2025 Refill [facility] [address] [place] [address] Eug[place] Sandoval FNP Primary osteoarthritis of both knees; Anxiety due to invasive procedure 01/29/2025 Orders Only [facility] [address] [place] [address] Eug[place] Sandoval FNP Abnormal finding on MRI of brain (Primary Dx); Anxiety due to invasive procedure 01/29/2025 Refill [facility] [address] [place] [address] Eugenia Sandoval FNP Primary osteoarthritis of both knees from Last 3 Months Immunizations Immunization Administration [...] antigen) 05/29/2012 Pfizer Covid-19 Vaccine 12+ 06/17/2024, Pneumococcal Conjugate PCV 13 12/18/2017 Pneumococcal Conjugate [...] 18 05/01/2025 10:20 AM EDT Oxygen Saturation 99% 04/23/2025 3:21 PM EDT Inhaled Oxygen Concentration - - Weight 65.3 kg (144 lb) 05/01/2025 10:20 AM EDT Height 144.8 cm (4' 9 ) 05/01/2025 10:20 AM EDT Body Mass Index 31.16 05/01/2025 10:20 AM EDT Plan of Treatment Upcoming Encounters Date Type Department Care Team (Late st Contact Info) Description 06/10/2025 9:45 AM EDT Office Visit [facility] [address] [place] [address] Health Maintenance Due Date Last Done Comments CT Colonography 1952 FIT DNA/Cologuard 1952 FIT 1952 FOBT 1950 Sigmoidoscopy 1952 Alcohol/Substance Use Screening 1964 Hepatitis B Vaccines (3 of 3 - 19+ 3-dose series) 09/15/2019 04/12/2019, 03/15/2019 COVID-19 Vaccine (2023- season) 2025 06/17/2024, 08/17/2023, 07/25/2022, Additional history exists Influenza Vaccine (#1) 2025 , 06/14/2023, 05/25/2022, Additional history exists SDOH Screening 09/30/2025 09/30/2024 Mammogram 10/23/2025 10/23/2024, 01/27, 02/07/2024, Additional history exists Colonoscopy 10/28/2025 10/29/2015 Colorectal Cancer Screening 10/28/2025 Depression Screening 12/09/2025 12/09/2024, 12/10/19 25 Tobacco Screening 04/23/2026 04/23/2025 Lipid Panel 03/18/2030 03/18/2025, 09/29, 11/03/2022, Additional [...] Procedure Name Priority Date/Time Associated Diagnosis Comments URINALYSIS WITH REFLEX MICROSCOPIC Routine 04/23/2025 9:32 PM EDT HIGH SENSITIVITY TROPONIN I Routine 04/23/2025 6:02 PM EDT LIPASE Routine 04/23/2025 6:02 PM EDT MAGNESIUM Routine 04/23/2025 6:02 PM EDT BASIC METABOLIC PANEL Routine 04/23/2025 6:02 PM EDT HEPATIC FUNCTION PANEL Routine 04/23/2025 6:02 PM EDT CBC WITH AUTO DIFFERENTIAL Routine 04/23/2025 6:02 PM EDT ALBUMIN Routine 04/22/2025 11:56 AM EDT BASIC [...] Recently Relevant to Health Maintenance Results * Urinalysis w/reflex microscopic (04/23/2025 9:32 PM EDT) Color Urine Yellow [facility] Appearance Urine Clear [facility] PH 6.0 5.0 - 9.0 [facility] Glucose Urine UA Negative Negative mg/dL [facility] Urine Blood Negative Negative [facility] Specific [place] - Urine 1.015 1.005 - 1.025 [facility] Urine Protein Negative Neg-Trace mg/dL [facility] Urine Ketones Negative Negative mg/dL [facility] Nitrite Urine Negative Negative [facility] Leukocyte Esterase Urine Negative Negative [facility] 04/23/2025 9:32 PM EDT 04/23/2025 9:35 PM EDT Narrative [facility] - 04/23/2025 9:39 PM EDT [id number], Clean Catch Generic External Data Provider LAB URINE ORDERAB LES Final Result Performing Organization Address [facility] Co de Phone Number [facility] [address] [place] [phone] * High Sensitivity Troponin I (04/23/2025 6:02 PM EDT) TROPONIN I HIGH SENSITIVITY <2.7 <3.5 - 17.0 ng/L [facility] Comment:The Oh high sens itivity Troponin-I results should beused in conjunction with other diagnostic information suchas ECG, clinical observations and information, and patientsymptoms to aid in the diagnosis of DE. 04/23/2025 6:02 PM EDT 04/23/2025 6:06 PM EDT us Generic External Data Provider LAB BLOOD ORDERAB LES Final Result Performing Organization Address City/[facility]/ZIP Co de Phone Number [facility] [address] [place] [phone] * (ABNORMAL) CBC auto differential (04/23/2025 6:02 PM EDT) Only the most recent of2 resultswithin the time period is included. White Blood Count 7.8 4.8 - 10.8 X10*3/uL [facility] Red Blood Count 4.18(L) 4.20 - 5.50 X10*6/uL [facility] Hemoglobin 12.2 12.0 - 16.0 g/dl [facility] Hematocrit 36.5(L) 37.0 - 47.0 % [facility] Mean Corpuscular Volume 87.3 80.0 - 98.0 fL [facility] Mean Corpuscular Hemoglobin 29.2 27.0 - 33.0 pg [facility] Mean Corpuscular HGB Conc 33.4 31.0 - 35.0 g/dl [facility] Red Cell Distribution Width 13.9 11.0 - 16.0 % [facility] Platelet Count 387 160 - 400 X10*3/uL [facility] Mean Platelet Volume 10.3 9.4 - 12.3 fL [facility] Neutrophils Percent Auto 59.0 45 - 73 % [facility] Imm Gran Pct Auto 0.3 0.0 - 0.4 % [facility] Lymphocytes Percent Auto 28.3 20 - 40 % [facility] Monocytes Percent Auto 10.2 2 - 11 % [facility] Eosinophils Percent Auto 1.8 0 - 4 % [facility] Basophils Percent Auto 0.4 0 - 2 % [facility] NRBC Pct Auto 0.0 0.0 - 0.2 /100WBC [facility] Neutrophils Absolute Auto 4.6 2.0 - 8.3 x10*3/uL [facility] Imm Gran Abs Auto 0.02 0.00 - 0.03 X10*3/uL [facility] Lymphocytes Absolute Auto 2.2 1.2 - 4.9 X10*3/uL [facility] Monocytes Absolute Auto 0.8 0.1 - 1.2 X10*3/uL [facility] Eosinophils Absolute Auto 0.1 0.0 - 0.4 X10*3/uL [facility] Basophils Absolute Auto 0.0 0.0 - 0.2 X10*3/uL [facility] NRBC Abs Auto 0.000 0.0 - 0.012 X10*3/uL [facility] 04/23/2025 6:02 PM EDT 04/23/2025 6:06 PM EDT us Generic External Data Provider LAB BLOOD ORDERAB LES Final Result Performing Organization Address City/[facility]/ZIP Co de Phone Number [facility] [address] [place] [phone] * Magnesium (04/23/2025 6:02 PM EDT) Magnesium 2.1 1.6 - 2.6 mg/dL [facility] 04/23/2025 6:02 PM EDT 04/23/2025 6:06 PM EDT Generic External Data Provider LAB BLOOD ORDERAB LES Final Result Performing Organization Address [facility] Co de Phone Number [facility] [address] [place] [phone] * Lipase (04/23/2025 6:02 PM EDT) Lipase 41 8 - 78 U/L [facility] 04/23/2025 6:02 PM EDT 04/23/2025 6:06 PM EDT Generic External Data Provider LAB BLOOD ORDERAB LES Final Result Performing Organization Address [facility] Co de Phone Number [facility] [address] [place] [phone] * Hepatic Function Panel (04/23/2025 6:02 PM EDT) Bilirubin, Total 0.4 0.0 - 1.0 mg/dL [facility] Bilirubin, Direct 0.1 0.0 - 0.5 mg/dL [facility] Aspartate Amino Transferase 22 5 - 31 U/L [facility] Alanine Aminotransferase 13 0 - 31 U/L [facility] Total Protein 7.8 6.5 - 8.0 g/dL [facility] Albumin Level 4.3 3.5 - 5.0 g/dL [facility] Alkaline Phosphatase 76 39 - 117 U/L [facility] 04/23/2025 6:02 PM EDT 04/23/2025 6:06 PM EDT us Generic External Data Provider LAB BLOOD ORDERAB LES Final Result [facility] [address] [place] [phone] * Basic Metabolic Panel (04/23/2025 6:02 PM EDT) Only the most recent of2 resultswithin the time period is included. Sodium 139 135 - 145 mmol/L [facility] Potassium 3.7 3.3 - 5.1 mmol/L [facility] Chloride 106 96 - 108 mmol/L [facility] Carbon Dioxide 25 22 - 29 mmol/L [facility] Anion Gap 12 12 - 20 [facility] Urea Nitrogen (BUN) 12 9 - 16 mg/dL [facility] Creatinine, Serum 1.05 0.5 - 1.4 mg/dL [facility] Creatinine Clr Calc Pharmacy 32.9 [facility] Comment:Provided height and weight: 134.62 cm,65.1 kg.eGFR (calculated from the MDRD study equation) and eCrCl(calculated from the Cockcroft-Gault equation) are based ondifferent parameters and may not yield comparable results.If eCrCl result is absurd, please check patient'sheight/weight. Estimated Glomerular Filt Rate 51 [facility] Comment:Chronic Kidney Disea se: Estimated GFR < 60 mL/min/[id number] Kidney Disease: Estimated GFR < 15 mL/min/1.73m2 Glucose 91 60 - 115 mg/dL [facility] Calcium 9.7 8.4 - 10.2 mg/dL [facility] 04/23/2025 6:02 PM EDT 04/23/2025 6:06 PM EDT Generic External Data Provider LAB BLOOD ORDERAB LES Final Result Performing Organization Address City/[facility] Co de Phone Number [facility] [address] [place] [phone] * Albumin (04/22/2025 11:56 AM EDT) Albumin Level 4.1 3.5 - 5.0 g/dL [facility] 04/22/2025 11:5 6 AM EDT 04/22/2025 11:56 AM EDT Generic External Data Provider LAB BLOOD ORDERAB LES Final Result Performing Organization Address [facility] de Phone Number [facility] [address] [place] [phone] * (ABNORMAL) POCT ROBERTA-14 Urine Drug [...] - 04/08/2025 10:19 AM EDT .UTOX cup Lot#[id number] Exp. 06/03/26 Internal Pass Control Cara BOOKER POINT OF CARE TEST ENTER/EDIT ORDERABLES Final Result * Vitamin K1 (03/18/2025 11:51 AM EDT) Vitamin K1 186 130 - 1500 pg/mL [facility] Comment:This test was develo ped and its analytical performancecharacteristics have been determined by [employer] [place], [place]. It hasnot been cleared or approved by the U.S. Food and DrugAdministration. This assay has been validated pursuantto the CLIA regulations and is used for clinicalpurposes.THIS TEST WAS PERFORMED AT:[facility] [place] [id number] NELSON MD,PHD 03/18/2025 11:5 1 AM EDT 03/18/2025 1:22 PM EDT us Generic External Data Provider LAB BLOOD ORDERAB LES Final Result [facility] [address] [place] [phone] * Vitamin B12 (Cobalamin) and Folate Panel, Serum (03/18/2025 11:51 AM EDT) Vitamin B12 524 200 - 900 pg/mL [facility] Comment:NORMAL 200-900 PG/ML INDETERMINATE 160-199 PG/ML DEFICIENT < 160 PG/ML Folate 10.7 > or = 4.0 ng/mL [facility] Comment:Reference Values:> o r = 4.0 ng/mL< 4.0 ng/mL suggests folate deficiency Methotrexate, aminopterin and folinic acid(leucovorin) are chemotherapeutic agents whose molecularstructures are similar to folate; therefore, the Architectfolate assay cannot be used for patients using these drugs. 03/18/2025 11:5 1 AM EDT 03/18/2025 1:38 PM EDT Generic External Data Provider LAB BLOOD ORDERAB LES Final Result Performing Organization Address [facility] de Phone Number [facility] [address] [place] [phone] * Iron And Total Iron Binding Capacity (03/18/2025 11:51 AM EDT) Iron 64 30 - 160 mcg/dL [facility] Total Iron Binding Capacity 279 228 - 428 mcg/dL [facility] Percent Iron Saturation 23 15 - 50 % [facility] Unsaturated Iron Binding 215 ug/dL [facility] 03/18/2025 11:5 1 AM EDT 03/18/2025 1:38 PM EDT Generic External Data Provider LAB BLOOD ORDERAB LES Final Result Performing Organization Address [facility] de Phone Number [facility] [address] [place] [phone] * (ABNORMAL) Vitamin A (03/18/2025 11:51 AM EDT) Vitamin A (Retinol) 22(A) 38 - 98 mcg/dL [facility] Comment:Vitamin supplementat ion within 24 hours prior toblood draw may affect the accuracy of the results.This test was developed and its analytical performancecharacteristics have been determined by [employer] [place], [place]. It hasnot been cleared or approved by the U.S. Food and DrugAdministration. This assay has been validated pursuantto the CLIA regulations and is used for clinicalpurposes.THIS TEST WAS PERFORMED AT:[facility] [place] [id number] NELSON MD,PHD 03/18/2025 11:5 1 AM EDT 03/18/2025 1:22 PM EDT Generic External Data Provider LAB BLOOD ORDERAB LES Final Result Performing Organization Address [facility] Co de Phone Number [facility] [address] [place] [address] [phone] * Vitamin D 1,25 dihydroxy (03/18/2025 11:51 AM EDT) Vit D (1,25-Dihydroxy) Total 47 18 - 72 pg/mL [facility] VITAMIN D (1,25 OH) D3 35 pg/mL [facility] Vitamin D (1,25 OH) D2 12 pg/mL [facility] Comment:Vitamin D3, 1,25(OH) 2 indicates both endogenousproduction and supplementation. Vitamin D2, 1,25(OH)2is an indicator of exogenous sources, such as diet orsupplementation. Interpretation and therapy are basedon measurement of Vitamin D,1,25(OH)2, Total.This test was developed and its analyticalperformance characteristics have been determinedby [employer] [place], [place].It has not been cleared or approved by the FDA. Thisassay has been validated pursuant to the CLIAregulations and is used for clinical purposes.THIS TEST WAS PERFORMED AT:[id number] [place] [address]FYKDFIUHEAVENLY NELSON MD,PHD 03/18/2025 11:5 1 AM EDT 03/18/2025 1:38 PM EDT us Generic External Data Provider LAB BLOOD ORDERAB LES Final Result Performing Organization Address [facility]/ZIP Co de Phone Number [facility] [address] [place] [phone] * C-reactive Protein (03/18/2025 11:51 AM EDT) C Reactive Protein 0.29 < or = 0.50 mg/dL [facility] 03/18/2025 11:5 1 AM EDT 03/18/2025 1:38 PM EDT Generic External Data Provider LAB BLOOD ORDERAB LES Final Result Performing Organization Address City/[facility]/ZIP Co de Phone Number [facility] [address] [place] [phone] * Vitamin E (Tocopherol) (03/18/2025 11:51 AM EDT) Vitamin E, Alpha-Tocopherol 8.6 5.7 - 19.9 mg/L [facility] Comment:Levels of alpha-toco pherol <5 mg/L are consistentwith Vitamin E deficiency in adults. Vitamin E, Qzir-Ozfco-Lplgrtoojl <1.0 <=4.3 mg/L [facility] Comment:Vitamin supplementat ion within 24 hours prior toblood draw may affect the accuracy of the results.This test was developed and its analytical performancecharacteristics have been determined by [employer] [place], [place]. It hasnot been cleared or approved by the U.S. Food and DrugAdministration. This assay has been validated pursuantto the CLIA regulations and is used for clinicalpurposes.THIS TEST WAS PERFORMED AT:[facility]/[facility] [place] [address]CWTHPHFHEAVENLY NELSON MD,PHD 03/18/2025 11:5 1 AM EDT 03/18/2025 1:22 PM EDT Generic External Data Provider LAB BLOOD ORDERAB LES Final Result Performing Organization Address City/[facility]/ZIP Co de Phone Number [facility] [address] [place] [phone] * TSH (03/18/2025 11:51 AM EDT) Thyroid Stimulating Hormone 0.37 0.32 - 4.0 uIU/mL [facility] Comment:TSH 3rd Generation ( [facility]) Blood Venous blood specimen / Unknown 03/18/2025 11:51 AM EDT 03/18/2025 1:[address]T [facility] LAB BLOOD ORDERABLES Final Re sult Performing Organization Address [facility] Co de Phone Number [facility] [address] [place] [phone] * Lipid Panel, Standard (03/18/2025 11:51 AM EDT) Triglycerides 81 <150 mg/dL [facility] Comment:Desirable Triglyceri de: less than 150 mg/dLBorderline High Triglyceride 150-199 mg/dLHigh Triglyceride: 200-499 mg/dLVery High Triglyceride: greater than or equal to 5OO mg/dL Cholesterol 158 <200 mg/dL [facility] Comment:Desirable Cholestero l: less than 200 mg/dLBorderline High Cholesterol: 200-239 mg/dLHigh Cholesterol: greater than 239 mg/dL LDL Cholesterol Calculated 99 <100 mg/dL [facility] Comment:Desirable LDL: less than 100 mg/dLNear Optimal/Above Optimal LDL: 110- 129 mg/dLBorderline High LDL: 130-159 mg/dLHigh LDL: 160-189 mg/dLVery High LDL: greater than or equal to 190 mg/dL HDL Cholesterol 43 >40 mg/dL [facility] Comment:Desirable HDL: great er than 40 mg/dL Note: This HDL assay may give artificially low results in patients with liver disease. Blood Venous blood specimen / Unknown 03/18/2025 11:51 AM EDT 03/18/2025 1:[address] [facility] LAB BLOOD ORDERABLES Final Re sult Performing Organization Address [facility]/ZIP Co de Phone Number [facility] [address] [place] [phone] * Comprehensive Metabolic Panel (03/18/2025 11:51 AM EDT) Sodium 141 135 - 145 mmol/L [facility] Potassium 3.7 3.3 - 5.1 mmol/L [facility] Chloride 108 96 - 108 mmol/L [facility] Carbon Dioxide 25 22 - 29 mmol/L [facility] Anion Gap 12 12 - 20 [facility] Urea Nitrogen (BUN) 15 9 - 16 mg/dL [facility] Creatinine, Serum 0.92 0.5 - 1.4 mg/dL [facility] Estimated Glomerular Filt Rate 60 [facility] Comment:Chronic Kidney Disea se: Estimated GFR < 60 mL/min/1.36u9Fasdcs Kidney Disease: Estimated GFR < 15 mL/min/1.73m2 Glucose 93 60 - 115 mg/dL [facility] Calcium 9.2 8.4 - 10.2 mg/dL [facility] Bilirubin, Total 0.5 0.0 - 1.0 mg/dL [facility] Aspartate Amino Transferase 23 5 - 31 U/L [facility] Alanine Aminotransferase 12 0 - 31 U/L [facility] Total Protein 7.7 6.5 - 8.0 g/dL [facility] Albumin Level 4.3 3.5 - 5.0 g/dL [facility] Alkaline Phosphatase 77 39 - 117 U/L [facility] Blood Venous blood specimen / Unknown 03/18/2025 11:51 AM EDT 03/18/2025 1:38 PM EDT [facility] LAB BLOOD ORDERABLES Final Re sult [facility] [address] [place] [phone] * BI US Breast Limited Left (10/23/2024 11:00 AM EST) Anatomical Region Laterality Modality Breast Left Ultrasound 10/23/2024 11:0 0 AM EST Narrative 10/23/2024 12:11 PM EST [facility] [address] [place] [address] Ultrasound Report Signed Patient: Mary Kate Maya MR#: [id number] : 1950 Acct:[id number] Age/Sex: 74 / F ADM Date: 10/23/24 Loc: MAMMO Attending Dr: Eugenia BOOKER Ordering Physician: Eugenia Sandoval Date of Service: 10/23/24 Procedure(s): US breast LT limited mamm only Accession Number(s): [id number] cc: Eugenia Sandoval EXAMINATION: US DIAGNOSTIC ULTRASOUND [...] by: Zaira Loco DO 10/23/2024 12:09 PM [facility] Dictated By: Zaira Loco DO Signed By: <Electronically signed by Zaira Loco DO in OV> 10/23/24 1209 DD/ 1100 TD/TT: 10/23/24 1129 Digestion Operator: Procedure Note Donotuseinterpreter, Image - 10/23/2024 [facility] [address] [place], [place] [address] Ultrasound Report Signed Patient: Mary Kate Maya SMR#: [id number] : 1950cct:[id number] Age/Sex: 74 / FADM Date: 10/23/24 Loc: MAMMO Attending Dr: Eugenia BOOKER Ordering Physician: Eugenia Sandoval Date of Service: 10/23/24 Procedure(s): US breast LT limited mamm only Accession Number(s): [id number] cc: [place] [place] EXAMINATION: US DIAGNOSTIC ULTRASOUND BREAST, LEFT CLINICAL [...] Zaira Loco DO 10/23/2024 12:09 PM EST Dictated By: Zaira Loco DO Signed By: <Electronically signed by Zaira Loco DO in OV> 10/23/24 1209 DD/ 1100 TD/TT: 10/23/24 1129 Digestion Operator: [facility] IMG US PROCEDURES Final Resul t * Thinprep TIS PAP And HPV mRNA E6/E7 With Reflex To HPV 16,18/45 (01/13/2023 2:29 PM EDT) Clinical Information: Postmenopausal [facility] LMP: NONE GIVEN [facility] [place] [facility] Prev. PAP: NONE GIVEN [facility] Prev. BX: NO [facility] [employer] SOURCE: Cervix [facility] Statement Of Adequacy: [facility] Comment: Satisfactory for evaluation. Endocervical/transformation zone component absent. Interpretation/ Result: Negative for intraepithelial lesion or malignancy. [facility] COMMENT: This Pap test has been evaluated with computer assisted technology. [facility] [place] DIGITAL MEDIAt Cytotechnologis t: [facility] Comment: BAL, CT(ASCP) CT screening location: [address] [address] Review Cytotechnologis t: [facility] [facility] [facility] Comment: JNA, CT(ASCP) CT screening location: [address] [address] (Always Message) [facility] [facility] [facility] Comment: EXPLANATORY NOTE: The Pap is a [...] HPV nRNA E6/E7 Not Detected Not Detected [facility] [facility] [facility] Comment: Methodology: Computer Tape Librarian-Mediated Amplification This assay detects E6/E7 viral messenger RNA (mRNA) from 14 high-risk HPV types (16,18,31,33,35,39,45,51,52,56,58,59,66,68). Cervical sources are required for HPV testing. If a vaginal source from a patient who has had a total hysterectomy with removal of cervix was submitted, please contact the testing laboratory for alternative testing options. For additional information, please refer to http://education.[employer]/faq/VSA839c0 (This link if provided for information/ educational purposes only.) Genital 01/13/2023 2:29 PM EDT 01/16/2023 7:[address] AM EDT [facility] LAB PATHOLOGY ORDERABLES Sandie l Result [address], [place] [address] [facility] [place] [facility] [address] [place] [phone] * Hm Pap Smear (01/13/2023) Pap Negative for intraephithelial lesion or malignancy Negative for intraephithelial lesion or malignancy, Other HPV Undetected 01/13/[address] [facility] HEALTH MAINTENANCE Final Resu lt * [...] a test for HCV RNA (test code 23417) is suggested. For additional information please refer to http://education.[employer]Weaver/faq/ZKP09t4 (This link is being provided for informational/ educational purposes only.) 06/21/2022 10:3 3 AM EDT [facility] HISTORICAL/NON ORDERABLE LABS Final Result CONVERTED LEGACY LABS * Colonoscopy (10/29/2015 9:11 AM EST) Historical Provider HEALTH MAINTENANCE Final Result from Last 3 Months or Most Recently Relevant to Health Maintenance Insurance [facility] [employer] (O D-SNP) [employer] [id number] Care Teams Credit Risk Review Officer Relationship Specialty Start Date End Date Eugenia Sandoval FNP [address] [place] [phone] PCP - General Family Medicine 04/27/22
--- OUTSIDE RECORDS SUMMARY | 2025-05-01 13:12 | XMS_ITS | Encounter Summary ---
Author Organization [email or web address] Address [address] [facility] 7t [place] [address] Care Team Providers Care Athlete Manager Name Role Phone [facility] Primary Care Provider [phone] Reason for Visit * Reason Onset Date Comments Results 03/04/2025 Encounter Details Date Type Department Care Team ([facility] Contact Info) Description 03/04/2025 Telephone [facility] [address] [place], [place] [phone] [facility] [address] [place], [place] [phone] Results Social History Tobacco Use Types Packs/Day [...] Thank you! * Telephone Encounter - Flavio Hasikns - 03/04/2025 11:56 AM EDT TC from pt requesting call back regarding Results. Type of results: CT Scan Date when done: around 2 weeks ago Facility: [facility] Tc from pt stating she needs CT scan results for surgery. documented in this encounter Plan of Treatment Upcoming Encounters Date Type Department Care Team (Late st Contact Info) Description 06/10/2025 9:45 AM EDT Office Visit [facility] [address] [place] [phone] documented as of this encounter Visit Diagnoses Not on filedocumented in this encounter Additional Health Concerns Assessment Noted Time PHQ-9 Depression Total Score: 0 12/10/19 25 1:35 PM EDT documented as of this encounter Care Teams Athlete Manager Relationship Specialty Start Date End Date Eugenia Sandoval FNP [address] [place] [phone] PCP - General Family Medicine 04/27/22 documented as of this encounter
--- OUTSIDE RECORDS SUMMARY | 2025-05-01 13:12 | XMS_ITS | Encounter Summary ---
Author Organization [facility] Address [address] [facility] 7t [place] [address] Care Team Providers Care Solar Manager Name Role Phone Eguenia Sandoval [facility] Primary Care Provider [phone] Reason for Visit * Reason Comments Med Refill Encounter Details Date Type Department Care Team ([facility] Contact Info) Description 08/23/2022 Refill [facility] [address] [place] [address] Eugenia Sandoval [facility] [address] [place] [address] Other chronic pain Social History Tobacco Use [...] EDT Office Visit [facility] [address] [place] [phone] documented as of this encounter Visit Diagnoses Diagnosis Other chronic pain documented in this encounter Care Teams Solar Manager Relationship Specialty Start Date End Date Eugenia Sandoval FNP [address] [place] [phone] PCP - General Family Medicine 04/27/22 documented as of this encounter
--- OUTSIDE RECORDS SUMMARY | 2025-05-01 13:12 | XMS_ITS | Encounter Summary ---
Author Organization [facility] Address [address] [facility] 7t [place] [address] Care Team Providers Care Field Crop Farming Supervisor Name Role Phone Eugenia Sandoval [facility] Primary Care Provider [phone] Reason for Visit * Reason Comments Med Refill Encounter Details Date Type Department Care Team ([facility] Contact Info) Description 01/09/2023 Refill [facility] [address] [place], [place] [phone] Eugenia Sandoval [facility] [address] [place] [address] Social History Tobacco Use Types Packs/Day Years [...] Description 06/10/2025 9:45 AM EDT Office Visit [facility] [address] [place] [phone] documented as of this encounter Visit Diagnoses Not on filedocumented in this encounter Care Teams Field Crop Farming Supervisor Relationship Specialty Start Date End Date Eugenia Sandoval FNP [address] [place] [phone] PCP - General Family Medicine 04/27/22 documented as of this encounter
--- OUTSIDE RECORDS SUMMARY | 2025-05-01 13:12 | XMS_ITS | Encounter Summary ---
Author Organization [employer] Address [address] [facility] 7t [place] [address] Care Team Providers Care Barge Master Name Role Phone [place] Eugenia PHYSICIAN ANESTHESIOLOGIST Primary Care Provider [phone] Encounter Details Date Type Department Care Team ([facility] st Contact Info) Description 12/06/2023 Orders Only [facility] [address] [place], [place] [phone] Provider, MD Aga Social History Tobacco Use [...] Description 06/10/2025 9:45 AM EDT Office Visit [facility] [address] [place] [address] documented as of this encounter Procedures Procedure [...] documented as of this encounter Care Teams Barge Master Relationship Specialty Start Date End Date Eugenia Sandoval FNP [address] [place] [address] PCP - General Family Medicine 04/27/22 documented as of this encounter
--- OUTSIDE RECORDS SUMMARY | 2025-05-01 13:12 | XMS_ITS | Encounter Summary ---
Author Organization [employer] Address [address] [facility] 7t [place] [address] Care Team Providers Care Acidizer Name Role Phone [facility] Primary Care Provider Reason for Visit * Reason Onset Date Comments ER Follow-up 04/29/2025 Encounter Details Date Type Department Care Team ([facility] Contact Info) Description 04/29/2025 Telephone [facility] [address] [place] [address] Zuleyma Pérez RN [address] [place] [address] ER Follow-up Social History Tobacco Use Types Packs/Day Years [...] Telephone Encounter - Zuleyma Pérez RN - 04/29/2025 9:46 AM EDT TC placed to pt. For ED status check. Pt. In ED 04/23/25 for epigastric pain, diarrhea, chills, weakness, decreased appetite. Sx. Gastritis and prescribed carafate 1g bid, pepcid 20mg daily and bactrim q. 12 hours x 7 days. TC placed to pt. For status check, pt. Reports improvement in symptoms however continues with loosestools approx 2/ day. Pt reports being able to eat bland food, broth. Encouraged pt. To keep bland/BRAT diet, maintain increased fluid intake, and pt. Agrees to call clinic for worsening symptoms orpersistent symptoms after abx are completed. Pt. Agrees to plan documented in this encounter Plan of Treatment Upcoming Encounters Date Type Department Care Team (Late st Contact Info) Description 06/10/2025 9:45 AM EDT Office Visit [facility] [address] [place] [phone] documented as of this encounter Visit Diagnoses Not on filedocumented in this encounter Additional Health Concerns Assessment Noted Time PHQ-9 Depression Total Score: 0 12/10/19 25 1:35 PM EDT documented as of this encounter Care Teams Acidizer Relationship Specialty Start Date End Date Eugenia Sandoval FNP [address] [place] [address] PCP - General Family Medicine 04/27/22 documented as of this encounter
--- OUTSIDE RECORDS SUMMARY | 2025-05-01 13:12 | XMS_ITS | Encounter Summary ---
Author Organization [employer] Address [address] [facility] 7t [place] [address] Care Team Providers Care Bevel Face Stoner And Polisher Name Role Phone [facility] Primary Care Provider [phone] Reason for Visit * Reason Comments Med Refill Encounter Details Date Type Department Care Team ([facility] Contact Info) Description 08/09/2024 Refill [facility] [address] [place], [place] [phone] [facility] [address] [place], [place] [phone] Primary osteoarthritis of both knees Social History [...] Visit [facility] [address] [place] [address] documented as of this encounter Visit Diagnoses Diagnosis Primary osteoarthritis of both knees documented in this encounter Additional Health Concerns Assessment Noted Time PHQ-9 Depression Total Score: 0 06/17/20 24 2:07 PM EDT documented as of this encounter Care Teams Bevel Face Stoner And Polisher Relationship Specialty Start Date End Date Eugenia Sandoval FNP [address] [place] [address] PCP - General Family Medicine 04/27/22 documented as of this encounter
--- OUTSIDE RECORDS SUMMARY | 2025-05-01 13:12 | XMS_ITS | Encounter Summary ---
Author Organization [employer] Address [address] [facility] [address]t [place] [address] Care Team Providers Care Taxicab Starter Name Role Phone Eugenia Sandoval Primary Care Provider [phone] Reason for Visit * Reason Comments Med Refill Encounter Details Date Type Department Care Team ([facility] Contact Info) Description 02/18/2023 Refill [facility] [address] [place] [phone] Eugenia Sandoval FNP [address] [place], [place] [phone] Social History Tobacco Use Types Packs/Day Years [...] Upcoming Encounters Date Type Department Care Team ([facility] Contact Info) Description 06/10/2025 9:45 AM EDT Office Visit [facility] [address] [place] [address] [phone] documented as of this encounter Visit Diagnoses Not on filedocumented in this encounter Care Teams Taxicab Starter Relationship Specialty Start Date End Date Eugenia Sandoval FNP [address] [place] [address] PCP - General Family Medicine 04/27/22 documented as of this encounter
== END 2025-05-01 11:30 | disposition home or self-care (01) ==
LOC: HO.HHCX 11:29
PROVIDERS: PCP Registered Nurse; Visit Provider Internal Medicine
DX: S93.402D Sprain of unspecified ligament of left ankle, subsequent encounter (principal)
CPT/HCPCS: 73610

== ENCOUNTER → 2025-05-01 11:30 | Outpatient (BNV) | payer OTHER, SELFPAY | PROVIDERS: PCP Registered Nurse; Visit Provider Radiology Diagnostic Radiology | DX: M25.571 Pain in right ankle and joints of right foot (principal) | CPT/HCPCS: 73610 ==

== ENCOUNTER 2025-06-11 14:44 | Outpatient (AMB) | payer OTHER, SELFPAY ==
--- OUTSIDE RECORDS SUMMARY | 2025-06-10 09:45 | XMS_ITS | Encounter Summary ---
Author Organization [employer] Address [address] 7t [place] [address] Care Team Providers Care City Planning Teacher Name Role Phone Lori [facility] Primary Care Provider [phone] Encounter Details Date Type Department Care Team (Latest Contact Info) Description 06/10/2025 9:45 AM EDT Office Visit [facility] MEDICINE [address] [place] [address] Cara Rossi FNP [address] [place], [place] [phone] Osteoarthritis involving multiple joints on both sides of body (Primary Dx); Long-term current use of opiate analgesic; Moderate persistent asthma with acute exacerbation Social [...] the past 12 months, has t he [email or web address], gas, oil or water [employer] threatened to shut off services in your [...] this encounter Progress Notes * Cara Rossi, CLINICAL MANAGER HOME CARE - 06/10/2025 9:45 AM EDT Subjective: Mary Kate Silva is a 75 y.o. female w/ PMH hypertension, mod persistent asthma, GERD, CKD,hypothyroid, HLD, OA, anxiety/depression, and chronic low back pain, who presents to the office for- Chronic Pain Clinic Group visits. Initial Group visit: 11/21/23 Group Topic: KT Tape Presentation Interim: Had to cancel Cataract surgery as surgeon would like to address dizziness prior to rescheduling. Also want clearance from Neurology due to MRI findings. She is scheduled for an appointment tomorrow, 06/11/25, with Neurology, and is aware of the consult. Chronic Pain History: Associated Diagnosis: primary osteoarthritis involving multiple joints Primary location of pain: bilateral knees Left TKA performed by SHAUNA 12/22/23, planning to have R knee replacement in 2024 Current pharm tx: Medication: Percocet 5-325mg Q8H PRN. States taking medication as prescribed. Hx of steroid injections Non-pharm tx: movement Related Specialists: SHAUNA Social history: - Lives with ( since ), and son Review of Systems Constitutional: Negative [...] normal. Problem List Items Addressed This Visit Mental Health Long-term current use of opiate analgesic Overview Dx: OA of knees, chronic bilateral low back pain w/o sciatica Rx: Percocet 5/325 q8 hours prn Last RIVET HAMMER MACHINE OPERATOR agreement: 02/04/25 Tier II (visit every 3 months) Current Assessment & Plan Timeline: - 12/03/24: Group - utox/pill count as expected - 02/04/25: Group - utox/pill count as expected - 04/08/25: Group - utox/pill count as expected -06/10/25: Group - utox/pill count as expected Relevant Orders POCT ROBERTA-14 Urine Drug Screen (Completed) Musculoskeletal and Injuries Osteoarthritis involving multiple joints on both sides of body - Primary Overview Chronic pain in bilateral knees, back, shoulders Followed by [facility] - left TKA 12/22/23; plan for R knee in 2024 Current Assessment & Plan -Good engagement and participation with Group Medical Visit model -Utox and pill count as expected -Encouraged multifactorial approach to pain control including pharm and non- pharm modalities Pulmonary and Pneumonias Moderate persistent asthma Overview - Currently managed with singuliar, Trelegy Ellipta, albuterol - Followed by [facility] pulmonology, last seen 03/2022 Current Assessment & Plan - Has used nebulizer in the past with good effect. DME request for nebulizer May 2025 Follow up: 1-3 months for Group Chronic Pain Clinic. Follow up as scheduled with PCP, sooner as needed. * Lesley Mcmahan RN - 06/10/2025 9:45 AM EDT RIVET HAMMER MACHINE OPERATOR pharmaceutical service representative: PDMP reviewed today. Last fill date: 06/06/2025 Percocet 5mg count was 17, anticipated 8 to be remaining. UTOX completed. Positive for OXY, Negative for AMP, BAR, BUP, BZO, TERRI, FTY, MDMA, MET, MOP, MTD, PCP, TCA, THC. UTOX as expected. documented in this encounter Miscellaneous Notes * Assessment & Plan Note - ADE Cevallos - 06/10/2025 2:06 PM EDTAssociated Problem(s): Moderate persistent asthma - Has used nebulizer in the past with good effect. DME request for nebulizer May 2025 * Assessment & Plan Note - ADE Cevallos - 06/10/2025 12:45 PM EDT Associated Problem(s): Long-term current use of opiate analgesic Timeline: - 12/03/24: Group - utox/pill count as expected - 02/04/25: Group - utox/pill count as expected - 04/08/25: Group - utox/pill count as expected -06/10/25: Group - utox/pill count as expected * Assessment & Plan Note - ADE Cevallos - 06/10/2025 12:44 PM EDT Associated Problem(s): Osteoarthritis involving multiple joints on both sides of body -Good engagement and participation with Group Medical Visit model -Utox and pill count as expected -Encouraged multifactorial approach to pain control including pharm and non- pharm modalities documented in this encounter Plan of Treatment Upcoming Encounters Date Type Department Care Team (Late st Contact Info) Description 06/25/2025 2:45 PM EDT Office Visit [facility] MEDICINE [address] [place] [address] Eugenia Sandoval FNP [address] [place], [place] [phone] 08/05/2025 9:45 AM EST Office Visit [facility] [address] [place] [address] documented as of this encounter Procedures Procedure Name Priority Date/Time Associated Diagnosis Comments POCT ROBERTA-14 URINE DRUG SCREEN Routine 06/10/2025 10:14 AM EDT Long-term current use of opiate analgesic documented in this encounter Results * (ABNORMAL) POCT ROBERTA-14 Urine Drug Screen (06/10/2025 10:14 AM EDT) THC Negative Negative Cocaine Screen, Urine Negative [...] obtained by clean catch procedure / Unknown 06/10/2025 10:14 AM EDT Estefania Mantilla MD POINT OF CARE TEST ENTER/EDIT ORDERABLES Edited Result - Final documented in this encounter Visit Diagnoses Diagnosis Osteoarthritis involving multiple joints on both sides of body- Primary Long-term current use of opiate analgesic Encounter for long-term (current) use of other medications Moderate persistent asthma with acute exacerbation documented in this encounter Additional Health Concerns Assessment Noted Time PHQ-9 Depression Total Score: 0 12/10/19 25 1:35 PM EDT documented as of this encounter Care Teams City Planning Teacher Relationship Specialty Start Date End Date Lori ADE Bello [address] [place] [phone] PCP - General Family Medicine 04/27/22 documented as of this encounter
--- NOTE | 2025-06-11 15:19 | MHC.OFFVIS ---
Vital Signs 06/11/25 15:21 Height 4 ft 2 in BP 132/80 Blood Pressure Location Rt brachial Position Sitting Respiration 16 Pulse 78 Pulse Source Pulse Oximeter Pulse Oximetry (%) 98 Oxygen Delivery Method Room Air Intake Visit Reasons: Surgical Clearance for Cataract Surg. Dx: Dizzines Source Water Protection Specialist Required: Yes Source Water Protection Specialist Services: Source Water Protection Specialist Offered & Declined Information Interpreted: non-clinical & clinical Accompanied by: Sister in Law Allergies morphine (MORPHINE) Allergy (Severe, Verified 04/23/25 17:41) HYPOTENSION levofloxacin (LEVOFLOXACIN) Allergy (Intermediate, Verified 04/23/25 17:41) DIZZY Penicillins Allergy (Mild, Verified 04/23/25 17:41) RASH penicillin V Allergy (Unknown, Verified 04/23/25 17:41) Rash HPI Comments Details: Mary Kate is a 75-year-old female patient with a past medical history of hearing loss, hypertension, insomnia, headaches, asthma, depression, thyroid disease, and osteoporosis who is here today for a preop clearance visit for cataract surgery. She was scheduled with Neurology because she has some ongoing dizziness. Since being evaluated by primary care, they performed an MRI of the brain with and without contrast as well as have initiated orders for vestibular physical therapy. According to the patient today, she has been having dizziness intermittently. She feels that it is related to poor po intake and if her blood sugars drop. She has been experiencing dizziness episodes over the last few months that occur on average once per week and can last several minutes until she eats. Once she eats her dizziness resolves. She denies any dizziness outside of these episodes that she directly correlates with reduced po intake and drops in BG. She does report that she has vertigo which is different from the diziness that is related to her low blood sugar. This occurs a couple times per month and can last about 30 minutes and resolves on its own. She reports that she has had episodes triggered by loud noises and in the past she has had inner ear surgeries and tells me that there is a hole in her right ear. She feels that her vertigo has been present since this time more than 10 years ago. She has significant chronic hearing loss to that right ear. She does also endorse some imbalance but reports that is due to her chronic knee pain. She denies any falls. She always uses her cane at home for assistance and has a walker that she uses for longer distances. She denies having gone to vestibular PT that was notably recommended by her primary care according to office notes. Prior workup: MRI brain w and w/o contrast 02/19/2025: 1. Stable exam. Chronic prominence of bilateral central sulci most likely due to greater peripheral to central involution versus arachnoid cysts, particularly on the left. A similar collection again seen in the posterior fossa to the right most likely an arachnoid cyst. No associated encephalomalacia or masses, and findings are of low radiographic concern. 2. Sparse bihemispheric white matter changes most consistent with chronic microvascular ischemia (Fazekas grade I). No acute or large territory infarcts. [facility] Medical History (Updated 06/11/25 @ 16:01 by Lakisha Aguirre CNP) Colon cancer screening Elevated fecal calprotectin Chronic allergic rhinitis Insomnia Hypertension Asthma Surgical History (Updated 12/06/24 @ 17:08 by India Lawton CNP) History of cholecystectomy Hx of left knee surgery Hx of hand surgery History of esophagogastroduodenoscopy (EGD) Hx of colonoscopy Social History Household Members: Spouse and Children Alcohol intake: never Patient Tobacco Use Status: Never used Tobacco Second Hand Smoke Exposure: Yes Current occupational status: disabled Review of Systems Neuro Denies Abnormal speech present Physical Exam Vital Signs: Last Vital Signs Pulse 78 06/11/25 15:21 Resp 16 06/11/25 15:21 BP 132/80 06/11/25 15:21 Pulse Ox 98 06/11/25 15:21 Oxygen Delivery Method Room Air 06/11/25 15:21 Const General: cooperative and no acute distress Orientation/consciousness: oriented to person, oriented to place and oriented to time Neuro General: oriented to person, oriented to place and oriented to time Cranial nerves: Yes CN's II-XII intact bilaterally and Yes Bilaterally intact EOM present (Vertical eye movement did induce some vertigo which resolved spontaneously ) Cognition (Neuro): normal cognition Speech: No Abnormal speech present Gait exam (Neuro): Antalgic gait present and Assistive device used Motor exam (neuro): Abnormal motor strength present (4/5 BUE. Lower extremity deferred s/t pain ) Deep tendon reflexes (DTR's): Right triceps reflex intensity grade: 2+, Left triceps reflex intensity grade: 2+, Rt Biceps (C5, C6): 2+, Left biceps reflex intensity grade: 2+, Right brachioradialis reflex intensity grade: 2+, Left brachioradialis reflex intensity grade: 2+ and Left patellar reflex intensity grade: 2+ Assessment & Plan Assessment & Plan (1) Vertigo: Code(s): R42 - Dizziness and giddiness Category: Medical (2) Imbalance: Code(s): R26.89 - Other abnormalities of gait and mobility Category: Medical (3) Dizziness: Code(s): R42 - Dizziness and giddiness Category: Medical Plan Mary Kate is a 75-year-old female patient with a past medical history of hearing loss, hypertension, insomnia, headaches, asthma, depression, thyroid disease, and osteoporosis who is here today for a preop clearance visit for cataract surgery. It seems as though she has distinct episodes of what she considers to be ?dizziness? that correlate heavily with reduced p.o. intake and likely low blood sugars. As soon as she eats, these episodes resolve on their own. She also notes some vertigo episodes that occur in 30 minute episodes occurring on average twice per month which has been going on for approximately 10 years since a surgery to her right ear. There has not been any change to these episodes in terms of severity or frequency over the course of many years. She also does note some imbalance which she attributes to her chronic knee pain. Noteworthy however, her brain MRI does show some atrophic changes including the cerebellum which may contribute to her balance. She however denies any falls and overall her exam is reassuring in terms of cerebellar findings. She does use a cane and a walker at home for support. She did have some induced vertigo with EOM exercises on exam. I think reasonably, vestibular physical therapy would be appropriate. Overall however, there is no neurological contraindication for cataract surgery at this time. This case including review of imaging was discussed with Dr. Sal. Coding Level of Care Code New Pt Level 3 (60657) Diagnoses Vertigo R42 Imbalance R26.89 Dizziness R42
[2025-06-11 15:21] VITALS: BP 132/80; PULSE 78; RESP 16; O2SAT 98
--- OUTSIDE RECORDS SUMMARY | 2025-06-11 18:28 | XMS_ITS | Encounter Summary ---
Author Organization [employer] Address [address] [facility] 7t [place] [address] Care Team Providers Care Television Service Engineer Name Role Phone [place] [facility] Primary Care Provider [phone] Reason for Visit * Reason Comments Med Refill Encounter Details Date Type Department Care Team ([facility] Contact Info) Description 02/18/2023 Refill [facility] MEDICINE [address] [place] [phone] [facility] [address] [place], [place] [phone] Social History Tobacco Use Types Packs/Day Years [...] Upcoming Encounters Date Type Department Care Team ([facility] Contact Info) Description 06/25/2025 2:45 PM EDT Office Visit [facility] MEDICINE [address] [place], [place] [phone] [address] [phone] 08/05/2025 9:45 AM EST Office Visit [facility] MED[facility]INE [address] [place] [address] documented as of this encounter Visit Diagnoses Not on filedocumented in this encounter Care Teams Television Service Engineer Relationship Specialty Start Date End Date Eugenia Sandoval FNP [address] [place] [address] PCP - General Family Medicine 04/27/22 documented as of this encounter
--- OUTSIDE RECORDS SUMMARY | 2025-06-11 18:28 | XMS_ITS | Encounter Summary ---
Author Organization [employer] Address [address] [facility] 7t [place] [address] Care Team Providers Care Skin Installer Name Role Phone [place] [facility] Primary Care Provider [phone] Reason for Visit * Reason Comments Med Refill Encounter Details Date Type Department Care Team ([facility] Contact Info) Description 02/16/2023 Refill [facility] MEDICINE [address] [place] [phone] [place] [facility] [address] [place], [place] [phone] Other chronic pain Social History Tobacco Use [...] Upcoming Encounters Date Type Department Care Team ([facility] Contact Info) Description 06/25/2025 2:45 PM EDT Office Visit [facility] MEDICINE [address] [place] [address] [phone] [place] [facility] [address] [place], [place] [phone] 08/05/2025 9:45 AM EST Office Visit [facility] MEDICINE [address] [place] [address] documented as of this encounter Visit Diagnoses Diagnosis Other chronic pain documented in this encounter Care Teams Skin Installer Relationship Specialty Start Date End Date Eugenia Sandoval FNP [address] [place] [address] PCP - General Family Medicine 04/27/22 documented as of this encounter
--- OUTSIDE RECORDS SUMMARY | 2025-06-11 18:28 | XMS_ITS | Encounter Summary ---
Author Organization [employer] Address [address] [facility] 7t [place] [address] Care Team Providers Care Accounting Officer Name Role Phone [facility] Primary Care Provider [phone] Reason for Visit * Reason Comments Med Refill Encounter Details Date Type Department Care Team ([facility] Contact Info) Description 11/07/2023 Refill [facility]INE [address] [place], [place] [phone] [facility] [address] [place], [place] [phone] Other chronic pain; Insomnia, unspecified type Social [...] Description 06/25/2025 2:45 PM EDT Office Visit [facility] MEDICINE [address] [place] [phone] Eugenia Sandoval FNP [address] [place] [address] 08/05/2025 9:45 AM EST Office Visit [address] [address] documented as of this encounter Visit Diagnoses Diagnosis Other chronic pain Insomnia, unspecified type documented in this encounter Additional Health Concerns Assessment Noted Time PHQ-9 Depression Total Score: 9 03/30/20 23 2:25 PM EDT documented as of this encounter Care Teams Accounting Officer Relationship Specialty Start Date End Date Eugenia Sandoval FNP [address] [place] [phone] PCP - General Family Medicine 04/27/22 documented as of this encounter
--- OUTSIDE RECORDS SUMMARY | 2025-06-11 18:28 | XMS_ITS | Encounter Summary ---
Author Organization [employer] Address [address] [facility] 7t [place] [address] Care Team Providers Care Epic Prelude Analyst Name Role Phone [facility] Primary Care Provider [phone] Reason for Visit * Reason Comments Med Refill Encounter Details Date Type Department Care Team ([facility] Contact Info) Description 01/29/2025 Refill [facility] MEDICINE [address] [place], [place] [phone] [facility] [address] [place], [place] [phone] Primary osteoarthritis of both knees Social History [...] Description 06/25/2025 2:45 PM EDT Office Visit [facility] MEDICINE [address] [place] [phone] Eugenia Sandoval [address] [address] 08/05/2025 9:45 AM EST Office Visit [address] [address] documented as of this encounter Visit Diagnoses Diagnosis Primary osteoarthritis of both knees documented in this encounter Additional Health Concerns Assessment Noted Time PHQ-9 Depression Total Score: 0 12/10/19 25 1:35 PM EDT documented as of this encounter Care Teams Epic Prelude Analyst Relationship Specialty Start Date End Date Eugenia Sandoval FNP [address] [place] [phone] PCP - General Family Medicine 04/27/22 documented as of this encounter
--- OUTSIDE RECORDS SUMMARY | 2025-06-11 18:28 | XMS_ITS | Encounter Summary ---
Author Organization [employer] Address [address] [facility] 7t [place] [address] Care Team Providers Care Automatic Print Developer Name Role Phone [facility] Primary Care Provider [phone] Reason for Visit * Reason Onset Date Comments Durable Medical Equipment 06/03/2025 Encounter Details Date Type Department Care Team ([facility] st Contact Info) Description 06/03/2025 Telephone [facility] MEDICINE [address] [place], [place] [phone] [facility] [address] [place] [address] Durable Medical Equipment Social History Tobacco Use Types Packs/Day Years [...] encounter Miscellaneous Notes * Telephone Encounter - Maximus Alfaro - 06/03/2025 12:38 PM EDT Tc from pt requesting a DME order for a nebulizer states one she has is broken Contact pt at [phone] (sinhala) documented in this encounter Plan of Treatment Upcoming Encounters Date Type Department Care Team (Late st Contact Info) Description 06/25/2025 2:45 PM EDT Office Visit [facility] MEDICINE [address] [place] [phone] [place], Eugenia, [facility] [address] [place] [address] 08/05/2025 9:45 AM EST Office Visit [address] [address] documented as of this encounter Visit Diagnoses Not on filedocumented in this encounter Additional Health Concerns Assessment Noted Time PHQ-9 Depression Total Score: 0 04/14/20 25 1:35 PM EDT documented as of this encounter Care Teams Automatic Print Developer Relationship Specialty Start Date End Date Eugenia Sandoval FNP [address] [place] [phone] PCP - General Family Medicine 04/27/22 documented as of this encounter
--- OUTSIDE RECORDS SUMMARY | 2025-06-11 18:28 | XMS_ITS | Encounter Summary ---
Author Organization [employer] Address [address] [facility] 7t [place] [address] Care Team Providers Care Tool And Cutter Grinder Name Role Phone [facility] Primary Care Provider [phone] Reason for Visit * Reason Comments Med Refill Encounter Details Date Type Department Care Team ([facility] st Contact Info) Description 01/30/2025 Refill [facility] MEDICINE [address] [place], [place] [phone] [facility] 230 [place], [place] [phone] Primary osteoarthritis of both knees; Anxiety due [...] Description 06/25/2025 2:45 PM EDT Office Visit [address] [address] [place] [address] [address] 08/05/2025 9:45 AM EST Office Visit [address] [address] documented as of this encounter Visit Diagnoses Diagnosis Primary osteoarthritis of both knees Anxiety due to invasive procedure documented in this encounter Additional Health Concerns Assessment Noted Time PHQ-9 Depression Total Score: 0 12/10/19 25 1:35 PM EDT documented as of this encounter Care Teams Tool And Cutter Grinder Relationship Specialty Start Date End Date LoriEugenia torres [facility] [address] [place] [address] PCP - General Family Medicine 04/27/22 documented as of this encounter
--- OUTSIDE RECORDS SUMMARY | 2025-06-11 18:29 | XMS_ITS | Encounter Summary ---
Author Organization [employer] Address [address] [facility] 7t [place] [address] Care Team Providers Care Tilting Head Band Sawyer Name Role Phone [facility] Primary Care Provider [phone] Reason for Visit * Reason Onset Date Comments Medication Question 06/06/2025 DME Nebulizer & Glucometer questions 06/06/2025 Encounter Details Date Type Department Care Team ([facility] st Contact Info) Description 06/06/2025 Telephone [facility] MEDICINE [address] [place] [address] [facility] 230 [place], [place] [phone] Medication Question; DME Nebulizer & Glucometer questions Social History Tobacco Use Types Packs/Day Years [...] the past 12 months, has t he [employer], gas, oil or water [employer] threatened to shut off services in your [...] Telephone Encounter - Lesley Mcmahan RN - 06/06/2025 11:04 AM EDT Return TC via P/I#[id number], pt reminded of her chronic pain group appointment 06/10/25 and we will address her refill at that time. Pt agreeable. Pt asking about glucometer. Reviewed nurses note from 06/03/25 TC placed to [facility] pharmacy, they report onetouch supplies are currently still covered and they will get rxs ready for pt. Now. They report pt. Is overdue. They report coverage for supplies may be changing in 08/28/25 but we will be notified at that time ifany changes need to be made. Clarified message above for patient. Patient said she understands that her current glucometer will be covered for use until the end of this year. Once we hear from [employer] what she will need for next year we can send information to PCP for orders. Pt asking about Nebulizer replacement. Reviewed DME call note from 06/03/25, stating PA department to generate an order for a replacement nebulizer & PCP's agreement with this plan. Advised patient that I would send her message to PA department so she can get a timeframe as I dont see any indications. Pt also asking where she would pick it up as well. * Telephone Encounter - Flavio Jozef - 06/06/2025 10:53 AM EDT Tc from pt requesting a call back regarding oxyCODONE-acetaminophen (Percocet) 5-325 MG tablet. Pt would like to clarify why she is only receiving a 7 day script for medication. Please contact pt at [phone]. (Slovak Speaker) documented in this encounter Plan of Treatment Upcoming Encounters Date Type Department Care Team (Late st Contact Info) Description 06/25/2025 2:45 PM EDT Office Visit [address] [address] Eugenia Sandoval FNP [address] [place] [address] 08/05/2025 9:45 AM EST Office Visit [address] [address] documented as of this encounter Visit Diagnoses Not on filedocumented in this encounter Additional Health Concerns Assessment Noted Time PHQ-9 Depression Total Score: 0 12/10/19 25 1:35 PM EDT documented as of this encounter Care Teams Tilting Head Band Sawyer Relationship Specialty Start Date End Date Eugenia Sandoval FNP [address] [place] [address] PCP - General Family Medicine 04/27/22 documented as of this encounter
--- OUTSIDE RECORDS SUMMARY | 2025-06-11 18:29 | XMS_ITS | Encounter Summary ---
Author Organization [employer] Address 75 [facility] 7t [place] [address] Care Team Providers Care Mechanical Engineering Intern Name Role Phone [facility] Primary Care Provider [phone] Reason for Visit * Reason Comments Med Refill Encounter Details Date Type Department Care Team ([facility] Contact Info) Description 11/30/2022 Refill [facility] [address] [place], [place] [phone] Senait Frias MD [address] [place] [address] Pain in right knee Social History Tobacco [...] Upcoming Encounters Date Type Department Care Team ([facility] Contact Info) Description 06/25/2025 2:45 PM EDT Office Visit [facility] MEDICINE 230 [place], [place] [phone] [facility] [address] [place], [place] [phone] 08/05/2025 9:45 AM EST Office Visit [facility] MED[facility]INE [address] [place] [address] documented as of this encounter Visit Diagnoses Diagnosis Pain in right knee documented in this encounter Care Teams Mechanical Engineering Intern Relationship Specialty Start Date End Date Eugenia Sandoval FNP [address] [place] [address] PCP - General Family Medicine 04/27/22 documented as of this encounter
--- OUTSIDE RECORDS SUMMARY | 2025-06-11 18:29 | XMS_ITS | Encounter Summary ---
Author Organization [facility] [facility] Address [address] [facility] 7t [place] [address] Care Team Providers Care Drapery Maker Name Role Phone Eugenia Sandoval [facility] Primary Care Provider [phone] Reason for Visit * Reason Comments Med Refill Encounter Details Date Type Department Care Team ([facility] Contact Info) Description 08/23/[address] [address] Eugenia Sandoval [address] [address] Other chronic pain Social History Tobacco Use [...] [facility] Contact Info) Description 06/25/2025 2:45 PM EDT Office Visit [facility] MEDICINE [address] [place] [address] Eugenia Sandoval [address] [address] 08/05/2025 9:45 AM EST Office Visit [facility] MEDICINE [address] [place] [address] documented as of this encounter Visit Diagnoses Diagnosis Other chronic pain documented in this encounter Care Teams Drapery Maker Relationship Specialty Start Date End Date RavenEugeniaADE [address] [place] [address] PCP - General Family Medicine 04/27/22 documented as of this encounter
--- OUTSIDE RECORDS SUMMARY | 2025-06-11 18:29 | XMS_ITS | Encounter Summary ---
Author Organization [employer] Address [address] [facility] 7t [place] [address] Care Team Providers Care Arts Manager Name Role Phone [facility] Primary Care Provider Reason for Visit * Reason Onset Date Comments Appointment Request 09/10/2024 Encounter Details Date Type Department Care Team ([facility] Contact Info) Description 09/10/2024 Telephone [facility] MEDICINE 230 [place], [place] [phone] [facility] [address] [place], [place] [phone] Appointment Request Social History Tobacco Use Types [...] pain management appt. Please contact pt at [phone]. (Kazakh Speaker) documented in this encounter Plan of Treatment Upcoming Encounters Date Type Department Care Team ([facility] st Contact Info) Description 06/25/2025 2:45 PM EDT Office Visit [address] [address] Eugenia Sandoval FNP [address] [place] [address] 08/05/2025 9:45 AM EST Office Visit [address] [address] documented as of this encounter Visit Diagnoses Not on filedocumented in this encounter Additional Health Concerns Assessment Noted Time PHQ-9 Depression Total Score: 0 06/17/20 24 2:07 PM EDT documented as of this encounter Care Teams Arts Manager Relationship Specialty Start Date End Date Eugenia Sandoval FNP [address] [place] [address] PCP - General Family Medicine 04/27/22 documented as of this encounter
--- OUTSIDE RECORDS SUMMARY | 2025-06-11 18:29 | XMS_ITS | Encounter Summary ---
Author Organization [employer] Address [address] [facility] [address] 7t [place] [address] Care Team Providers Care Geophysical Laboratory Director Name Role Phone [facility] Primary Care Provider [phone] Encounter Details Date Type Department Care Team (Latest Contact Info) Description 06/10/2025 Travel Social History Tobacco Use Types Packs/Day [...] Description 06/25/2025 2:45 PM EDT Office Visit [facility] MEDICINE [address] [place] [address] Eugenia Sandoval FNP [address] [place] [address] 08/05/2025 9:45 AM EST Office Visit [address] [address] documented as of this encounter Visit Diagnoses Not on filedocumented in this encounter Additional Health Concerns Assessment Noted Time PHQ-9 Depression Total Score: 0 12/10/19 25 1:35 PM EDT documented as of this encounter Care Teams Geophysical Laboratory Director Relationship Specialty Start Date End Date Eugenia Sandoval FNP [address] [place] [address] PCP - General Family Medicine 04/27/22 documented as of this encounter
--- OUTSIDE RECORDS SUMMARY | 2025-06-11 18:29 | XMS_ITS | Encounter Summary ---
Author Organization [employer] Address [address] [facility] 7t [place] [address] Care Team Providers Care Credit Collections Specialist Name Role Phone Lori [facility] Primary Care Provider [phone] Reason for Visit * Reason Comments Med Refill Encounter Details Date Type Department Care Team ([facility] Contact Info) Description 05/27/2023 Refill [facility] MEDICINE [address] [place] [phone] Jenna Bar FNP Social History Tobacco Use [...] Team ([facility] Contact Info) Description 06/25/2025 2:45 PM EDT Office Visit [facility] [address] [place] [phone] [place] Eugenia [address] [address] 08/05/2025 9:45 AM EST Office Visit [facility] [address] [place] [address] documented as of this encounter Visit Diagnoses Not on filedocumented in this encounter Additional Health Concerns Assessment Noted Time PHQ-9 Depression Total Score: 9 03/30/20 23 2:25 PM EDT documented as of this encounter Care Teams Credit Collections Specialist Relationship Specialty Start Date End Date Eugenia Sandoval FNP 230 [place] [address] PCP - General Family Medicine 04/27/22 documented as of this encounter
--- OUTSIDE RECORDS SUMMARY | 2025-06-11 18:29 | XMS_ITS | Encounter Summary ---
Author Organization [employer] Address [address] [facility] 7t [place] [address] Care Team Providers Care Buhr Dresser Name Role Phone Kunia [facility] Primary Care Provider [phone] Reason for Visit * Reason Comments Med Refill Encounter Details Date Type Department Care Team ([facility] Contact Info) Description 11/30/2022 Refill [facility] MEDICINE [address] [place] [address] Kunia [facility] 230 [place], [place] [phone] Other chronic pain Social History Tobacco Use [...] Department Care Team (Late Contact Info) Description 06/25/2025 2:45 PM EDT Office Visit [facility] MEDICINE [address] [place] [phone] Kunia [facility] [address] [place], [place] [phone] 08/05/2025 9:45 AM EST Office Visit [facility] MEDICINE [address] [place] [address] documented as of this encounter Visit Diagnoses Diagnosis Other chronic pain documented in this encounter Care Teams Buhr Dresser Relationship Specialty Start Date End Date Eugenia Sandoval FNP [address] [place] [address] PCP - General Family Medicine 04/27/22 documented as of this encounter
--- OUTSIDE RECORDS SUMMARY | 2025-06-11 18:29 | XMS_ITS | Encounter Summary ---
Author Organization [employer] Address 75 [facility] 7t [place] [address] Care Team Providers Care College Associate Name Role Phone [facility] Primary Care Provider [phone] Reason for Visit * Reason Comments Med Refill Encounter Details Date Type Department Care Team ([facility] Contact Info) Description 08/09/2024 Refill [facility] [address] [place], [place] [phone] [facility] 230 [place], [place] [phone] Primary osteoarthritis of both knees Social History [...] Description 06/25/2025 2:45 PM EDT Office Visit [address] [address] [place] [facility] 230 [place] [address] 08/05/2025 9:45 AM EST Office Visit [address] [address] documented as of this encounter Visit Diagnoses Diagnosis Primary osteoarthritis of both knees documented in this encounter Additional Health Concerns Assessment Noted Time PHQ-9 Depression Total Score: 0 06/17/20 24 2:07 PM EDT documented as of this encounter Care Teams College Associate Relationship Specialty Start Date End Date Eugenia Sandoval FNP [address] [place] [address] PCP - General Family Medicine 04/27/22 documented as of this encounter
--- OUTSIDE RECORDS SUMMARY | 2025-06-11 18:29 | XMS_ITS | Encounter Summary ---
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 Please contact pt at [phone] documented in this encounter Plan of Treatment Upcoming Encounters Date Type Department Care Team (Late Contact Info) Description 06/25/2025 2:45 PM EDT Office Visit [facility] MEDICINE [address] [place] [address] Eugenia Sandoval FNP [address] [place] [address] 08/05/2025 9:45 AM EST Office Visit [facility] [address] [place] [address] documented as of this encounter Visit Diagnoses Not on filedocumented in this encounter Care Teams Cloth Hauler Relationship Specialty Start Date End Date Eug[place] [address] PCP - General Family Medicine 04/27/22 documented as of this encounter
--- OUTSIDE RECORDS SUMMARY | 2025-06-11 18:29 | XMS_ITS | Encounter Summary ---
Author Organization [employer] Address 75 [facility] 7t [place] [address] Care Team Providers Care Diesel Truck Technician Name Role Phone Eugenia Sandoval Primary Care Provider [phone] Reason for Referral * Medications - Closed Specialty Diagnoses / Procedures Referred By Nimisha tirado Referred To Contact Diagnoses Primary osteoarthritis of both knees Eugenia Sandoval FNP [address] [place] [address] Phone: tel: fax: Referral ID Status Reason Start Date Expiration Date Visits Re quested Visits Authorized [id number] Closed 1 1 Reason for Visit * Reason Onset Date Comments Med Refill 06/10/2025 Encounter Details Date Type Department Care Team (Late st Contact Info) Description 06/10/2025 Refill [facility] MEDICINE [address] [place] [address] Lesley Mcmahan RN Primary osteoarthritis of both knees Social History [...] Description 06/25/2025 2:45 PM EDT Office Visit [facility] MEDICINE [address] [place] [address] [facility] 230 [place] [address] 08/05/2025 9:45 AM EST Office Visit [facility] MEDICINE [address] [place] [address] documented as of this encounter Visit Diagnoses Diagnosis Primary osteoarthritis of both knees documented in this encounter Additional Health Concerns Assessment Noted Time PHQ-9 Depression Total Score: 0 12/10/19 25 1:35 PM EDT documented as of this encounter Care Teams Diesel Truck Technician Relationship Specialty Start Date End Date Lori ADE Bello [address] [place] [address] PCP - General Family Medicine 04/27/22 documented as of this encounter
--- OUTSIDE RECORDS SUMMARY | 2025-06-11 18:29 | XMS_ITS | Encounter Summary ---
Author Organization [employer] Address [address] [facility] 7t [place] [address] Care Team Providers Care Channel Cementer Insole Machine Name Role Phone [facility] Primary Care Provider [phone] Reason for Visit * Reason Comments Med Refill Encounter Details Date Type Department Care Team ([facility] st Contact Info) Description 12/18/2022 Refill [facility] MEDICINE 230 [place], [place] [phone] [facility] 230 [place], [place] [phone] Other chronic pain Social History Tobacco Use [...] Description 06/25/2025 2:45 PM EDT Office Visit [address] [address] Eugenia Sandoval FNP 230 [place] [address] 08/05/2025 9:45 AM EST Office Visit [address] [address] documented as of this encounter Visit Diagnoses Diagnosis Other chronic pain documented in this encounter Care Teams Channel Cementer Insole Machine Relationship Specialty Start Date End Date Eugenia Sandoval FNP [address] [place] [address] PCP - General Family Medicine 04/27/22 documented as of this encounter
--- OUTSIDE RECORDS SUMMARY | 2025-06-11 18:29 | XMS_ITS | Clinical Summary ---
Author Organization [employer] Address [address] [place] [address] Care Team Providers [employer] Name Role Phone [facility] Primary Care Provider [phone] Allergies Active Allergy Reactions Criticality Noted Date [...] by mouth in the morning. Active pancrelipase, Xey-Uzdw-Mgbi, (Creon) 8224-4104 units capsule Take 1 capsule by mouth [...] BY MOUTH EVERY MORNING 90 tablet 3 Active OneTouch Verio test stripIndications:H ypoglycemia TEST BLOOD SUGAR TWICE DAILY AND NEEDED 100 strip 3 Active Lancets (OneTouch Delica Plus [id number]) miscIndications:Hy poglycemia TEST BLOOD SUGAR TWICE DAILY [...] hours if needed for wheezing. 75 mL 2025 Active diazePAM (Valium) 2 MG tabletIndications: Anxiety due to invasive procedure Please take 1 tablet 30 minutes prior to your MRI. Please have someone drive you to the MRI. 1 tablet Active minoxidil (Loniten) 2.5 MG tabletIndications: Androgenic alopecia TAKE 1 TABLET BY MOUTH EVERY MORNING 30 tablet 11 Active Diclofenac Sodium 1 % gelIndications:Shireen felicia osteoarthritis of both knees APPLY 2 GRAMS TOPICALLY TO AFFECTED AREA(S) THREE TIMES DAILY NEEDED 100 g 1 Active FT Antacid Extra Strength 750 MG [...] THE MORNING 60 tablet 5 025 Active fexofenadine (Julita) 180 MG tabletIndications: Moderate persistent asthma with acute exacerbation TAKE 1 TABLET BY MOUTH EVERY DAY 30 tablet 3 025 Active tolterodine LA (Detrol LA) 4 MG 24 hr capsule TAKE 1 CAPSULE BY MOUTH EVERY MORNING 90 capsule 025 Active oxyCODONE-acetamin ophen (Percocet) 5-325 MG tabletIndications: Primary osteoarthritis of both knees Take 1 tablet by mouth every 8 (eight) hours if needed for severe pain for up to 28 days. Do not start before June 13, 2025. 84 tablet 025 2024 Active tolterodine LA (Detrol LA) 4 MG 24 hr capsule TAKE 1 CAPSULE BY MOUTH EVERY MORNING 90 capsule 025 2024 Discontinued oxyCODONE-acetamin ophen (Percocet) 5-325 MG tabletIndications: Primary osteoarthritis of both knees TAKE 1 TABLET BY MOUTH EVERY 8 HOURS NEEDED FOR SEVERE PAIN FOR UP TO 28 DAYS 84 tablet 025 2024 Discontinued(R eorder (will not trigger notification to Pharmacy)) oxyCODONE-acetamin ophen (Percocet) 5-325 MG tabletIndications: Primary osteoarthritis of both knees Take 1 tablet by mouth every 8 (eight) hours if needed for severe pain for up to 7 days. Do not start before June 06, 2025. 21 tablet 025 2024 Discontinued(R eorder (will not trigger notification to Pharmacy)) Active Problems Problem Noted Date Diagnosed Date Left ankle sprain 05/01/2025 Assessment & Plan (05/01/2025 3:17 PM EDT): I will order an x-ray patient will be contacted with results I advised to elevate her ankle apply ice and rest Cataract of both eyes 01/22/2025 Preoperative examination 01/22/2025 Assessment & Plan (05/01/2025 3:16 PM EDT): Patient is an RCRI score of 0 which means she has a 0.5% risk Advise n.p.o. after midnight before the procedure, I advised her to take her blood pressure medications the day of the procedure with a small sip of water Surgery should proceed as scheduled At high risk for falls 12/11/2024 Urinary incontinence 07/09/2024 Long-term current use of opiate analgesic 2023 Overview (02/06/2025): Dx: OA of knees, chronic bilateral low back pain w/o sciatica Rx: Percocet 5/325 q8 hours prn Last DIRECTOR INDEX agreement: 02/04/25 Tier II (visit every 3 months) Assessment & Plan (06/10/2025 12:45 PM EDT): Timeline: - 12/03/24: Group - utox/pill count as expected - 02/04/25: Group - utox/pill count as expected - 04/08/25: Group - utox/pill count as expected -06/10/25: Group - utox/pill count as expected Assessment & Plan (04/08/2025 1:46 PM EDT): [...] On percocet for chronic pain Compliant with DIRECTOR INDEX agreement Assessment & Plan (07/09/2024 12:48 PM [...] left breast. 01/2024 birads -3. Followed by [employer] tracking Pap: 2016 NIL HPV negative; 12/2022 [...] R knee in 2024 Assessment & Plan (06/10/2025 12:44 PM EDT): -Good engagement and participation with Group Medical Visit model -Utox and pill count as expected -Encouraged multifactorial approach to pain control including pharm and non- pharm modalities Assessment & Plan (04/08/2025 1:45 PM EDT): [...] Losartan 100mg daily Amlodipine 5mg Followed by [facility] cardiology for hx of [...] sleep study Irritable bowel syndrome with diarrhea Moderate persistent asthma 07/01/2015 Overview (11/09/2022): - Currently managed with singuliar, Trelegy Ellipta, albuterol - Followed by [facility] pulmonology, last seen 03/2022 Assessment & Plan (06/10/2025 2:06 PM EDT): - Has used nebulizer in the past with good effect. DME request for nebulizer May 2025 Osteoporosis 07/01/2015 Overview (06/21/2024): Followed by [facility] endo 11/2023- Saw endocrinology for osteoporosis follow up and repeat DEXA. Worsening osteoporosis -3.4 at [facility]. Per visit note plan to start reclast therapy in 3 months once vitamin D repleted. 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 - eGFR 03/2022 52; Creatinine 1.04 Assessment & Plan (10/12/2023 2:21 PM EST): Stable Continue to avoid NSAID's Maintain hydration Gastro-esophageal reflux disease with esophagiti s 07/01/2015 Overview (11/09/2022): - Extensive hx of dyspepsia, dysphagia, chronic diarrhea, and abdominal bloating - Followed by [facility] GI. Last seen 04/2022 [...] 07/01/2015 Overview (03/30/2023): - Sees therapist through [facility] - Seroquel 100mg -Ambien 5mg [...] 4 MG, per patients request. Depression, recurrent 02/28/20242024 Encounters * This document contains information received from the source organization and may not represent a complete record from that organization. Date Type Department Care Team Description 06/10/2025 9:45 AM EDT Office Visit [facility] MEDICINE [address] [place] [address] Cara Rossi FNP Osteoarthritis involving multiple joints on both sides of body (Primary Dx); Long-term current use of opiate analgesic; Moderate persistent asthma with acute exacerbation 06/10/2025 Refill [facility] MEDICINE [address] [place] [address] Lesley Mcmahan RN Primary osteoarthritis of both knees 06/10/2025 Travel 06/06/2025 Telephone [facility] MEDICINE [address] [place] [address] Eugenia Sandoval FNP Medication Question; DME Nebulizer & Glucometer questions 06/04/2025 Refill [facility] MEDICINE [address] [place] [address] Eugenia Sandoval FNP 06/03/2025 Telephone [facility] MEDICINE [address] [place] [address] Eugenia Sandoval FNP Durable Medical Equipment 06/03/2025 Telephone [facility] MEDICINE [address] [place] [address] Eugenia Sandoval FNP Medication Question 06/02/2025 Refill [facility] MEDICINE [address] [facility] [place] [address] Eugenia Sandoval FNP Primary osteoarthritis of both knees 05/16/2025 Orders Only [facility] WALK-IN CENTER [address] [place] [address] Eugenia Sandoval FNP Abnormal finding on MRI of brain (Primary Dx) 05/14/2025 Telephone [facility] [address] [place] [address] Eugenia Sandoval FNP telephone call 05/08/2025 Results Follow-Up [facility] [address] [place] [address] Estefania Weldon MD XR Ankle 3+ Views Right 05/06/2025 Refill [facility] [address] [place] [address] Eugenia Sandoval FNP Primary osteoarthritis of both knees 05/01/2025 10:15 AM EDT Office Visit [facility] [address] [place] [address] Estefania Weldon MD Preoperative examination (Primary Dx); Sprain of left ankle, unspecified ligament, initial encounter 04/30/2025 Telephone [facility] [address] [place] [address] Eugenia Sandoval FNP 04/30/2025 Telephone [facility] [address] [place] [address] Eugenia Sandoval FNP pre op 04/29/2025 Telephone [facility] [address] [place] [address] Zuleyma Pérez, COMPLIANCE QUALITY PERFORMANCE ANALYST Follow-up 04/27/2025 Refill [facility] [address] [place] [address] Rasheeda Russell MD Moderate persistent asthma with acute exacerbation 04/27/2025 Refill [facility] [address] [place] [address] Eugenia Sandoval FNP Acquired hypothyroidism; Moderate persistent asthma with acute exacerbation 04/23/2025 3:40 PM EDT Office Visit [facility] WALK-IN CENTER [address] [place] [address] Hoang Dubois MD Diarrhea, unspecified type (Primary Dx); Epigastric pain; Nausea 04/23/2025 Orders Only GENERIC EXTERNAL DATA DEPARTMENT Provider, Generic External Data 04/23/2025 Travel 04/22/2025 Orders Only GENERIC EXTERNAL DATA DEPARTMENT Provider, Generic External Data 04/10/2025 Refill [facility] MEDICINE [address] [place] [address] Eugenia Sandoval FNP Primary osteoarthritis of both knees 04/08/2025 9:45 AM EDT Office Visit [facility] MEDICINE [address] [place] [address] Cara Rossi FNP Chronic bilateral low back pain without sciatica (Primary Dx); Long-term current use of opiate analgesic; Osteoarthritis involving multiple joints on both sides of body 04/08/2025 Travel 04/04/2025 Orders Only [facility] OPTOMETRY [address] [place] [address] Nomi, Lisa, OD Combined forms of age-related cataract of both eyes (Primary Dx) 04/04/2025 Telephone [facility] MEDICINE [address] [place] [address] Eugenia Sandoval FNP Medication Question 04/02/2025 Refill [facility] MEDICINE [address] [place] [address] Eugenia Sandoval FNP Primary osteoarthritis of both knees 04/02/2025 Refill [facility] MEDICINE [address] [place] [address] Eugenia Sandoval FNP Primary osteoarthritis of both knees 03/25/2025 Telephone [facility] MEDICINE [address] [place] [address] Eugenia Sandoval FNP Stable Lab Letter 03/24/2025 Results Follow-Up [facility] WALK[facility]IN CENTER [address] [place] [address] Eugenia Sandoval FNP Comprehensive Metabolic Panel, Lipid Panel, Standard, TSH 03/21/2025 Refill [facility] MEDICINE [address] [place] [address] Cara Rossi FNP Primary osteoarthritis of both knees 03/18/2025 Orders Only GENERIC EXTERNAL DATA DEPARTMENT Provider, Generic External Data 03/17/2025 1:00 PM EDT Office Visit [address] [address] Eugenia Sandoval FNP Essential hypertension (Primary Dx); 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; Osteoarthritis involving multiple joints on both sides of body; Hx of total knee replacement, left 03/17/2025 Travel 03/14/2025 Telephone [facility] [address] [place] [address] Eugenia Sandoval FNP Chart Prep 03/14/[address] [address] Eugenia Sandoval FNP [facility] Form 03/11/2025 Refill [facility] [address] [place] [address] Eugenia Sandoval FNP from Last 3 Months Immunizations Immunization Administration [...] Description 06/25/2025 2:45 PM EDT Office Visit [facility] MEDICINE [address] [place] [address] [place] [place] [address] [place] [address] 08/05/2025 9:45 AM EST Office Visit [address] [phone] Health Maintenance Due Date Last Done Comments CT Colonography 1950 FIT DNA/Cologuard 1950 FIT 1950 FOBT 1950 Sigmoidoscopy 1950 Alcohol/Substance Use Screening 1962 Hepatitis B Vaccines (3 of 3 - 19+ 3-dose series) 09/15/2019 04/12/2019, 03/15/2019 COVID-19 Vaccine ( season) 2025 06/17/2024, 08/17/2023, 07/25/2022, Additional history exists Influenza Vaccine (#1) 2025 , 06/14/2023, 05/25/2022, Additional history exists SDOH Screening 09/30/2025 09/30/2024 Mammogram 10/23/2025 10/23/2024, 01/27, 02/07/2024, Additional history exists Colonoscopy 10/28/2025 10/29/2015 Colorectal Cancer Screening 10/28/2025 Depression Screening 12/09/2025 12/09/2024, 12/10/19 Tobacco Screening 04/23/2026 04/23/2025 Lipid Panel 03/18/2030 [...] EDT Long-term current use of opiate analgesic XR ANKLE 3+ VIEWS RIGHT Routine 05/01/2025 11:19 AM EDT AMB REFERRAL TO OPHTHALMOLOGY Routine 04/24/2025 Combined forms of age-related cataract of both eyes URINALYSIS WITH REFLEX MICROSCOPIC Routine 04/23/2025 9:32 [...] Routine 03/18/2025 11:51 AM EDT Essential hypertension BI US BREAST LIMITED LEFT Routine 10/23/2024 11:00 AM EST THINPREP IMAGING PAP AND HPV MRNA E6/E7 WITH REFLEX TO HPV 16,18/45 Routine 01/13/2023 2:29 PM EDT Encounter for Papanicolaou smear for cervical cancer screening PAP/HPV Routine 01/13/2023 ZZZ HISTORICAL HEPATITIS C AB W/REFL TO HCV RNA, QN, PCR Routine 06/21/2022 10:33 AM EDT COLONOSCOPY Routine 10/29/2015 9:11 AM EST from Last 3 Months or Most Recently Relevant to Health Maintenance Results * (ABNORMAL) POCT ROBERTA-14 Urine Drug Screen (06/10/2025 10:14 AM EDT) Only the most recent of2 [...] TEST ENTER/EDIT ORDERABLES Edited Result - Final * XR Ankle 3+ Views Right (05/01/2025 11:19 AM EDT) Anatomical Region Laterality Modality Lower Extremities, Ankle Right Radiogr aphic Imaging 05/01/2025 11:1 9 AM EDT Narrative 05/01/2025 1:39 PM EDT [facility] [address] [place] [address] XRay Report Signed Patient: Mary Kate Maya MR#: [id number] : 1950 Acct:[id number] Age/Sex: 75 / F ADM Date: 05/01/25 Loc: .HHX Attending Dr: Estefania James MD Ordering Physician: Estefania Weldon MD Date of Service: 05/01/25 Procedure(s): XR ankle RT min 3V Accession Number(s): [id number] cc: Estefania Weldon MD; [facility] Reason for Exam: sprain EXAMINATION: XR ANKLE, RIGHT CLINICAL INFORMATION: sprain COMPARISON: 07/17/2021. TECHNIQUE: AP, lateral, and mortise views of the right ankle. FINDINGS: No fracture, dislocation, or suspicious bone lesion. The mortise is intact. The talar dome is normal. The subtalar joints are normal. There is a small plantar and small dorsal calcaneal spur. No soft tissue abnormality. No ankle joint effusion. XR/XR ankle RT min 3V IMPRESSION: No acute bony findings of the right ankle. Electronically signed by: Krzysztof Castellon MD 05/01/2025 01:36 PM EDT Dictated By: Krzysztof Castellon MD Signed By: <Electronically signed by Krzysztof Castellon MD in OV> 05/01/25 1336 DD/ 1119 TD/TT: 05/01/25 1200 Inspector Hot Forgings: Procedure Note Donotuseinterpreter, Image - 05/01/2025 [facility] [address] [place] [address] XRay Report Signed Patient: Mary Kate Maya [facility]#: [id number] : 2Acct:[id number] Age/Sex: 75 / FADM Date: 05/01/25 Loc: HO.CX Attending Dr: Estefania James MD Ordering Physician: Estefania Weldon MD Date of Service: 05/01/25 Procedure(s): XR ankle RT min 3V Accession Number(s): [id number] cc: Estefania Weldon MD; [facility] Reason for Exam: sprain EXAMINATION: XR ANKLE, RIGHT CLINICAL INFORMATION: sprain COMPARISON: 07/17/2021. TECHNIQUE: AP, lateral, and mortise views of the right ankle. FINDINGS: No fracture, dislocation, or suspicious bone lesion. The mortise is intact. The talar dome is normal. The subtalar joints are normal. There is a small plantar and small dorsal calcaneal spur. No soft tissue abnormality. No ankle joint effusion. XR/XR ankle RT min 3V IMPRESSION: No acute bony findings of the right ankle. Electronically signed by: Krzysztof Castellon MD 05/01/2025 01:36 PM EDT Dictated By: Krzysztof Castellon MD Signed By: <Electronically signed by Krzysztof Castellon MD in OV> 05/01/25 1336 DD/ 1119 TD/TT: 05/01/25 1200 Inspector Hot Forgings: us Estefania James MD IMG XR PROCEDURES Fin al Result * Referral to Ophthalmology (04/24/2025) us Lisa Nomi OD OUTPATIENT REFERRAL ORDERABLE S Final Result * Urinalysis w/reflex microscopic (04/23/2025 9:32 PM EDT) Color Urine Yellow [facility] Appearance Urine Clear [facility] PH 6.0 5.0 - 9.0 [facility] Glucose Urine UA Negative Negative mg/dL [facility] Urine Blood Negative Negative [facility] Specific [place] - Urine 1.015 1.005 - 1.025 [facility] Urine Protein Negative Neg-Trace mg/dL [facility] Urine Ketones Negative Negative mg/dL [facility] Nitrite Urine Negative Negative [facility] Leukocyte Esterase Urine Negative Negative [facility] 04/23/2025 9:32 PM EDT 04/23/2025 9:35 PM EDT Narrative [facility] - 04/23/2025 9:39 PM EDT [id number], Clean Catch Generic External Data Provider LAB URINE ORDERAB LES Final Result Performing Organization Address [facility] Co de Phone Number [facility] [address] [place] [phone] * High Sensitivity Troponin I (04/23/2025 6:02 PM EDT) Pathologist [facility] TROPONIN I HIGH SENSITIVITY <2.7 <3.5 - 17.0 ng/L [facility] Comment:The Oh high sens itivity Troponin-I results should beused in conjunction with other diagnostic information suchas ECG, clinical observations and information, and patientsymptoms to aid in the diagnosis of [facility]. 04/23/2025 6:02 PM EDT 04/23/2025 6:06 PM EDT us Generic External Data Provider LAB BLOOD ORDERAB LES Final Result Performing Organization Address [facility] Co de Phone Number [facility] [address] [place] [phone] * (ABNORMAL) CBC auto differential (04/23/2025 6:02 PM EDT) Only the most recent of2 resultswithin the time period is included. Pathologist [facility] White Blood Count 7.8 4.8 - 10.8 X10*3/uL [facility] Red Blood Count 4.18(L) 4.20 - 5.50 X10*6/uL [facility] Hemoglobin 12.2 12.0 - 16.0 g/dl [facility] Hematocrit 36.5(L) 37.0 - 47.0 % [facility] Mean Corpuscular Volume 87.3 80.0 - 98.0 fL [facility] Mean Corpuscular Hemoglobin 29.2 27.0 - 33.0 pg [facility] Mean Corpuscular HGB Conc 33.4 31.0 - 35.0 g/dl [facility] Red Cell Distribution Width 13.9 11.0 - 16.0 % [facility] Platelet Count 387 160 - 400 X10*3/uL [facility] Mean Platelet Volume 10.3 9.4 - 12.3 fL [facility] Neutrophils Percent Auto 59.0 45 - 73 % [facility] Imm Gran Pct Auto 0.3 0.0 - 0.4 % [facility] Lymphocytes Percent Auto 28.3 20 - 40 % [facility] Monocytes Percent Auto 10.2 2 - 11 % [facility] Eosinophils Percent Auto 1.8 0 - 4 % [facility] Basophils Percent Auto 0.4 0 - 2 % [facility] NRBC Pct Auto 0.0 0.0 - 0.2 /100WBC [facility] Neutrophils Absolute Auto 4.6 2.0 - 8.3 x10*3/uL [facility] Imm Gran Abs Auto 0.02 0.00 - 0.03 X10*3/uL [facility] Lymphocytes Absolute Auto 2.2 1.2 - 4.9 X10*3/uL [facility] Monocytes Absolute Auto 0.8 0.1 - 1.2 X10*3/uL [facility] Eosinophils Absolute Auto 0.1 0.0 - 0.4 X10*3/uL [facility] Basophils Absolute Auto 0.0 0.0 - 0.2 X10*3/uL [facility] NRBC Abs Auto 0.000 0.0 - 0.012 X10*3/uL [facility] 04/23/2025 6:02 PM EDT 04/23/2025 6:06 PM EDT Generic External Data Provider LAB BLOOD ORDERAB LES Final Result Performing Organization Address [facility]/ZIP Co de Phone Number [facility] [address] [place] [phone] * Magnesium (04/23/2025 6:02 PM EDT) Pathologist [facility] Magnesium 2.1 1.6 - 2.6 mg/dL [facility] 04/23/2025 6:02 PM EDT 04/23/2025 6:06 PM EDT Generic External Data Provider LAB BLOOD ORDERAB LES Final Result Performing Organization Address [facility] Co de Phone Number [facility] [address] [place] [phone] * Lipase (04/23/2025 6:02 PM EDT) Pathologist [facility] Lipase 41 8 - 78 U/L [facility] 04/23/2025 6:02 PM EDT 04/23/2025 6:06 PM EDT Generic External Data Provider LAB BLOOD ORDERAB LES Final Result Performing Organization Address [facility] Co de Phone Number [facility] [address] [place] [phone] * Hepatic Function Panel (04/23/2025 6:02 PM EDT) Bilirubin, Total 0.4 0.0 - 1.0 mg/dL [facility] Bilirubin, Direct 0.1 0.0 - 0.5 mg/dL [facility] Aspartate Amino Transferase 22 5 - 31 U/L [facility] Alanine Aminotransferase 13 0 - 31 U/L [facility] Total Protein 7.8 6.5 - 8.0 g/dL [facility] Albumin Level 4.3 3.5 - 5.0 g/dL [facility] Alkaline Phosphatase 76 39 - 117 U/L [facility] 04/23/2025 6:02 PM EDT 04/23/2025 6:06 PM EDT us Generic External Data Provider LAB BLOOD ORDERAB LES Final Result [facility] [address] [place] [address] [phone] * Basic Metabolic Panel (04/23/2025 6:02 PM EDT) Only the most recent of2 resultswithin the time period is included. Sodium 139 135 - 145 mmol/L [facility] Potassium 3.7 3.3 - 5.1 mmol/L [facility] Chloride 106 96 - 108 mmol/L [facility] Carbon Dioxide 25 22 - 29 mmol/L [facility] Anion Gap 12 12 - 20 [facility] Urea Nitrogen (BUN) 12 9 - 16 mg/dL [facility] Creatinine, Serum 1.05 0.5 - 1.4 mg/dL [facility] Creatinine Clr Calc Pharmacy 32.9 [facility] Comment:Provided height and weight: 134.62 cm,65.1 kg.eGFR (calculated from the MDRD study equation) and eCrCl(calculated from the Cockcroft-Gault equation) are based ondifferent parameters and may not yield comparable results.If eCrCl result is absurd, please check patient'sheight/weight. Estimated Glomerular Filt Rate 51 [facility] Comment:Chronic Kidney Disea se: Estimated GFR < 60 mL/min/1.26s2Mjhgot Kidney Disease: Estimated GFR < 15 mL/min/1.73m2 Glucose 91 60 - 115 mg/dL [facility] Calcium 9.7 8.4 - 10.2 mg/dL [facility] 04/23/2025 6:02 PM EDT 04/23/2025 6:06 PM EDT us Generic External Data Provider LAB BLOOD ORDERAB LES Final Result Performing Organization Address City/[facility]/ZIP Co de Phone Number [facility] [address] [place] [phone] * Albumin (04/22/2025 11:56 AM EDT) Albumin Level 4.1 3.5 - 5.0 g/dL [facility] 04/22/2025 11:5 6 AM EDT 04/22/2025 11:56 AM EDT us Generic External Data Provider LAB BLOOD ORDERAB LES Final Result Performing Organization Address [facility] de Phone Number [facility] [address] [place] [address] [phone] * Vitamin K1 (03/18/2025 11:51 AM EDT) Vitamin K1 186 130 - 1500 pg/mL [facility] Comment:This test was develo ped and its analytical performancecharacteristics have been determined by [employer] [place], [place]. It hasnot been cleared or approved by the U.S. Food and DrugAdministration. This assay has been validated pursuantto the CLIA regulations and is used for clinicalpurposes.THIS TEST WAS PERFORMED AT:[employer]/[facility] [place] [phone] NELSON MD,PHD 03/18/2025 11:5 1 AM EDT 03/18/2025 1:22 PM EDT us Generic External Data Provider LAB BLOOD ORDERAB LES Final Result Performing Organization Address [facility] Co de Phone Number [facility] [address] [place] [phone] * Vitamin B12 (Cobalamin) and Folate Panel, Serum (03/18/2025 11:51 AM EDT) [facility] Vitamin B12 524 200 - 900 pg/mL [facility] Comment:NORMAL 200-900 PG/ML INDETERMINATE 160-199 PG/ML DEFICIENT < 160 PG/ML Folate 10.7 > or = 4.0 ng/mL [facility] Comment:Reference Values:> o r = 4.0 ng/mL< 4.0 ng/mL suggests folate deficiency Methotrexate, aminopterin and folinic acid(leucovorin) are chemotherapeutic agents whose molecularstructures are similar to folate; therefore, the Architectfolate assay cannot be used for patients using these drugs. 03/18/2025 11:5 1 AM EDT 03/18/2025 1:38 PM EDT Generic External Data Provider LAB BLOOD ORDERAB LES Final Result Performing Organization Address City/[facility]/ZIP Co de Phone Number [facility] [address] [place] [address] [phone] * Iron And Total Iron Binding Capacity (03/18/2025 11:51 AM EDT) [facility] Iron 64 30 - 160 mcg/dL [facility] Total Iron Binding Capacity 279 228 - 428 mcg/dL [facility] Percent Iron Saturation 23 15 - 50 % [facility] Unsaturated Iron Binding 215 ug/dL [facility] 03/18/2025 11:5 1 AM EDT 03/18/2025 1:38 PM EDT us Generic External Data Provider LAB BLOOD ORDERAB LES Final Result Performing Organization Address City/[facility]/ZIP Co de Phone Number [facility] [address] [place] [address] [phone] * (ABNORMAL) Vitamin A (03/18/2025 11:51 AM EDT) Vitamin A (Retinol) 22(A) 38 - 98 mcg/dL [facility] Comment:Vitamin supplementat ion within 24 hours prior toblood draw may affect the accuracy of the results.This test was developed and its analytical performancecharacteristics have been determined by [employer], [place]. It hasnot been cleared or approved by the U.S. Food and DrugAdministration. This assay has been validated pursuantto the CLIA regulations and is used for clinicalpurposes.THIS TEST WAS PERFORMED AT:[employer] [id number] [place] [address]NRHSODOHEAVENLY NELSON MD,PHD 03/18/2025 11:5 1 AM EDT 03/18/2025 1:22 PM EDT us Generic External Data Provider LAB BLOOD ORDERAB LES Final Result [facility] [address] [place] [address] [phone] * Vitamin D 1,25 dihydroxy (03/18/2025 11:51 AM EDT) Vit D (1,25-Dihydroxy) Total 47 18 - 72 pg/mL [facility] VITAMIN D (1,25 OH) D3 35 pg/mL [facility] Vitamin D (1,25 OH) D2 12 pg/mL [facility] Comment:Vitamin D3, 1,25(OH) 2 indicates both endogenousproduction and supplementation. Vitamin D2, 1,25(OH)2is an indicator of exogenous sources, such as diet orsupplementation. Interpretation and therapy are basedon measurement of Vitamin D,1,25(OH)2, Total.This test was developed and its analyticalperformance characteristics have been determinedby [facility] [place].It has not been cleared or approved by the FDA. Thisassay has been validated pursuant to the CLIAregulations and is used for clinical purposes.THIS TEST WAS PERFORMED AT:[employer] [id number] [place] [address]NPODGRPHEAVENLY NELSON MD,PHD 03/18/2025 11:5 1 AM EDT 03/18/2025 1:38 PM EDT Generic External Data Provider LAB BLOOD ORDERAB LES Final Result Performing Organization Address [facility]/ZIP Co de Phone Number [facility] [address] [place] [address] [phone] * C-reactive Protein (03/18/2025 11:51 AM EDT) C Reactive Protein 0.29 < or = 0.50 mg/dL [facility] 03/18/2025 11:5 1 AM EDT 03/18/2025 1:38 PM EDT Generic External Data Provider LAB BLOOD ORDERAB LES Final Result Performing Organization Address [facility] Co de Phone Number [facility] [address] [place] [address] [phone] * Vitamin E (Tocopherol) (03/18/2025 11:51 AM EDT) Vitamin E, Alpha-Tocopherol 8.6 5.7 - 19.9 mg/L [facility] Comment:Levels of alpha-toco pherol <5 mg/L are consistentwith Vitamin E deficiency in adults. Vitamin E, Tekp-Yyshx-Udnjikejdj <1.0 <=4.3 mg/L [facility] Comment:Vitamin supplementat ion within 24 hours prior toblood draw may affect the accuracy of the results.This test was developed and its analytical performancecharacteristics have been determined by [employer] [place], [place]. It hasnot been cleared or approved by the U.S. Food and DrugAdministration. This assay has been validated pursuantto the CLIA regulations and is used for clinicalpurposes.THIS TEST WAS PERFORMED AT:[employer]/[facility] [place] [address]MPODEKQHEAVENLY NELSON MD,PHD 03/18/2025 11:5 1 AM EDT 03/18/2025 1:22 PM EDT Generic External Data Provider LAB BLOOD ORDERAB LES Final Result Performing Organization Address [facility]/ZIP Co de Phone Number [facility] [address] [place] [phone] * TSH (03/18/2025 11:51 AM EDT) Thyroid Stimulating Hormone 0.37 0.32 - 4.0 uIU/mL [facility] Comment:TSH 3rd Generation ( [facility]) Blood Venous blood specimen / Unknown 03/18/2025 11:51 AM EDT 03/18/2025 1:38 PM EDT [facility] [address] JUDGE LAB BLOOD ORDERABLES Final Re sult Performing Organization Address [facility] Co de Phone Number [facility] [address] [place] [address] [phone] * Lipid Panel, Standard (03/18/2025 11:51 AM EDT) Triglycerides 81 <150 mg/dL [facility] Comment:Desirable Triglyceri de: less than 150 mg/dLBorderline High Triglyceride 150-199 mg/dLHigh Triglyceride: 200-499 mg/dLVery High Triglyceride: greater than or equal to 5OO mg/dL Cholesterol 158 <200 mg/dL [facility] Comment:Desirable Cholestero l: less than 200 mg/dLBorderline High Cholesterol: 200-239 mg/dLHigh Cholesterol: greater than 239 mg/dL LDL Cholesterol Calculated 99 <100 mg/dL [facility] Comment:Desirable LDL: less than 100 mg/dLNear Optimal/Above Optimal LDL: 110- 129 mg/dLBorderline High LDL: 130-159 mg/dLHigh LDL: 160-189 mg/dLVery High LDL: greater than or equal to 190 mg/dL HDL Cholesterol 43 >40 mg/dL [facility] Comment:Desirable HDL: great er than 40 mg/dL Note: This HDL assay may give artificially low results in patients with liver disease. Blood Venous blood specimen / Unknown 03/18/2025 11:51 AM EDT 03/18/2025 1:38 PM EDT [facility] [address] JUDGE LAB BLOOD ORDERABLES Final Re sult [facility] [address] [place] [phone] * Comprehensive Metabolic Panel (03/18/2025 11:51 AM EDT) Sodium 141 135 - 145 mmol/L [facility] Potassium 3.7 3.3 - 5.1 mmol/L [facility] Chloride 108 96 - 108 mmol/L [facility] Carbon Dioxide 25 22 - 29 mmol/L [facility] Anion Gap 12 12 - 20 [facility] Urea Nitrogen (BUN) 15 9 - 16 mg/dL [facility] Creatinine, Serum 0.92 0.5 - 1.4 mg/dL [facility] Estimated Glomerular Filt Rate 60 [facility] Comment:Chronic Kidney Disea se: Estimated GFR < 60 mL/min/1.23d8Mnnmlr Kidney Disease: Estimated GFR < 15 mL/min/1.73m2 Glucose 93 60 - 115 mg/dL [facility] Calcium 9.2 8.4 - 10.2 mg/dL [facility] Bilirubin, Total 0.5 0.0 - 1.0 mg/dL [facility] Aspartate Amino Transferase 23 5 - 31 U/L [facility] Alanine Aminotransferase 12 0 - 31 U/L [facility] Total Protein 7.7 6.5 - 8.0 g/dL [facility] Albumin Level 4.3 3.5 - 5.0 g/dL [facility] Alkaline Phosphatase 77 39 - 117 U/L [facility] Blood Venous blood specimen / Unknown 03/18/2025 11:51 AM EDT 03/18/2025 1:38 PM EDT [facility] LAB BLOOD ORDERABLES Final Re sult [facility] [address] [place] [phone] * BI US Breast Limited Left (10/23/2024 11:00 AM EST) Anatomical Region Laterality Modality Breast Left Ultrasound 10/23/2024 11:0 0 AM EST Narrative 10/23/2024 12:11 PM EST [facility] [address] [place] [address] Ultrasound Report Signed Patient: Mary Kate Maya MR#: [id number] : 1950 Acct:[id number] Age/Sex: 74 / F ADM Date: 10/23/24 Loc: HO.MAMMO Attending Dr: Eugenia Sandoval [facility] Ordering Physician: Eugenia Sandoval [address] JUDGE Date of Service: 10/23/24 Procedure(s): US breast LT limited mamm only Accession Number(s): [id number] cc: Eugenia Sandoval [facility] EXAMINATION: US DIAGNOSTIC ULTRASOUND BREAST, LEFT [...] OV> 10/23/24 1209 DD/ 1100 TD/TT: 10/23/24 112 Inspector Hot Forgings: Procedure Note Donottomaszinterpreter, Image - 10/23/2024 [facility] [address] [place] [address] Ultrasound Report Signed Patient: Mary Kate Maya SMR#: [id number] : 1950cct:[id number] Age/Sex: 74 / FADM Date: 10/23/24 Loc: HO.MAMMO Attending Dr: Eugenia BOOKER Ordering Physician: Eugenia Sandoval Date of Service: 10/23/24 Procedure(s): US breast LT limited mamm only Accession Number(s): [id number] cc: Eugenia Sandoval [facility] EXAMINATION: US DIAGNOSTIC ULTRASOUND BREAST, LEFT [...] in OV> 10/23/24 1209 DD/ 1100 TD/TT: 10/23/241128 Inspector Hot Forgings: [facility] IMG US PROCEDURES Final Resul t * Thinprep TIS PAP And HPV mRNA E6/E7 With Reflex To HPV 16,18/45 (01/13/2023 2:29 PM EDT) Clinical Information: Postmenopausal [facility] LMP: NONE GIVEN [employer] [place] [employer] Prev. PAP: NONE GIVEN [employer] [place] [employer] Prev. BX: NO [facility] SOURCE: Cervix [employer] [place] [employer] Statement Of Adequacy: [facility] [place] [employer] Comment: Satisfactory for evaluation. Endocervical/transformation zone component absent. Interpretation/ Result: Negative for intraepithelial lesion or malignancy. [facility] [place] [facility] COMMENT: This Pap test has been evaluated with computer assisted technology. [facility] [place] [facility] Cytotechnologis t: [employer] [place] [facility] Comment: BAL, CT(ASCP) CT screening location: [place] [address] Review Cytotechnologis t: [employer] [place] [employer] Comment: JNA, CT(ASCP) CT screening location: [place] [address] (Always Message) [employer] [place] [employer] Comment: EXPLANATORY NOTE: The Pap is a [...] HPV nRNA E6/E7 Not Detected Not Detected [place] Comment: Methodology: Currency Counter-Mediated Amplification This assay detects E6/E7 viral messenger RNA (mRNA) from 14 high-risk HPV types (16,18,31,33,35,39,45,51,52,56,58,59,66,68). Cervical sources are required for HPV testing. If a vaginal source from a patient who has had a total hysterectomy with removal of cervix was submitted, please contact the testing laboratory for alternative testing options. For additional information, please refer to http://education.[employer]/faq/LKL946q8 (This link if provided for information/ educational purposes only.) Genital 01/13/2023 2:29 PM EDT 01/16/2023 7:42 AM EDT [facility] LAB PATHOLOGY ORDERABLES Sandie l Result Performing Organization Address [facility] Co de Phone Number [facility] [address] [facility], [place] [address] [facility] [address] [place] [address] * Hm Pap Smear (01/13/2023) Pap Negative for intraephithelial lesion or malignancy Negative for intraephithelial lesion or malignancy, Other HPV Undetected 01/13/2023 [facility] HEALTH MAINTENANCE Final Resu lt * HEPATITIS [...] a test for HCV RNA (test code 75089) is suggested. For additional information please refer to http://education.[employer]/faq/ILS77u2 (This link is being provided for informational/ educational purposes only.) 06/21/2022 10:3 3 AM EDT [facility] HISTORICAL/NON ORDERABLE LABS Final Result Performing Organization Address City/[facility]/ZIP Co de Phone Number [facility] * Hm Colonoscopy (10/29/2015 9:11 AM EST) Historical Provider MD HEALTH MAINTENANCE Final Result from Last 3 Months or Most Recently Relevant to Health Maintenance Insurance [facility] [employer] (HMO D-SNP) [place] [employer] [id number] Care Teams [employer] Relationship Specialty Start Date End Date Eugenia Sandoval FNP [address] [place] [phone] PCP - General Family Medicine 04/27/22
--- OUTSIDE RECORDS SUMMARY | 2025-06-11 18:29 | XMS_ITS | Encounter Summary ---
Author Organization [employer] Address [address] [facility] [address] [place] [address] Care Team Providers Care Cardiac Nurse Practitioner Name Role Phone [facility] Primary Care Provider [phone] Reason for Visit * Reason Onset Date Comments Med Refill [employer] 03/21/2024 I informe d the patient, that the Certification of Serious Illness from [employer], is ready to be picked up at the [facility] Dept. She verbalized understanding. Encounter Details Date Type Department Care Team (Late st Contact Info) Description 03/21/2024 Refill [facility] [address] [place], [place] [phone] [facility] [address] [place], [place] [phone] Primary osteoarthritis of both knees Social History [...] that the Certification of Serious Illness from [employer], is ready to be picked up at the [facility] Dept. She verbalized understanding. documented in this encounter Plan of Treatment Upcoming Encounters Date Type Department Care Team (Late st Contact Info) Description 06/25/2025 2:45 PM EDT Office Visit [facility] [address] [place] [phone] [facility], [facility] [address] [place] [address] 08/05/2025 9:45 AM EST Office Visit [facility] [address] [place] [phone] documented as of this encounter Visit Diagnoses Diagnosis Primary osteoarthritis of both knees documented in this encounter Additional Health Concerns Assessment Noted Time PHQ-9 Depression Total Score: 6 02/28/20 24 2:13 PM EDT documented as of this encounter Care Teams Cardiac Nurse Practitioner Relationship Specialty Start Date End Date Eugenia Sandoval FNP [address] [place] [phone] PCP - General Family Medicine 04/27/22 documented as of this encounter
--- OUTSIDE RECORDS SUMMARY | 2025-06-11 18:29 | XMS_ITS | Encounter Summary ---
Author Organization [email or web address] Address [address] [facility] 7t [place] [address] Care Team Providers Care Housekeeper Supervisor Name Role Phone [facility] Primary Care Provider [phone] Reason for Visit * Reason Onset Date Comments Results 03/04/2025 Encounter Details Date Type Department Care Team ([facility] Contact Info) Description 03/04/2025 Telephone [facility] [address] [place], [place] [phone] [place] [facility] [address] [place], [place] [phone] Results Social History Tobacco Use Types Packs/Day [...] when done: around 2 weeks ago Facility: [facility] Tc from pt stating she needs CT scan results for surgery. documented in this encounter Plan of Treatment Upcoming Encounters Date Type Department Care Team (Late st Contact Info) Description 06/25/2025 2:45 PM EDT Office Visit [facility] [address] [place] [address] [facility], [facility] [address] [place], [place] [phone] 08/05/2025 9:45 AM EST Office Visit [facility] [address] [facility] [place] [address] documented as of this encounter Visit Diagnoses Not on filedocumented in this encounter Additional Health Concerns Assessment Noted Time PHQ-9 Depression Total Score: 0 12/10/19 25 1:35 PM EDT documented as of this encounter Care Teams Housekeeper Supervisor Relationship Specialty Start Date End Date Eugenia Sandoval FNP [address] [facility] [address] PCP - General Family Medicine 04/27/22 documented as of this encounter
--- OUTSIDE RECORDS SUMMARY | 2025-06-11 18:29 | XMS_ITS | Encounter Summary ---
Author Organization [facility] Address [address] [facility] [address]t [place] [address] Care Team Providers Care Compliance Professional Name Role Phone Lori [facility] Primary Care Provider [phone] Reason for Visit * Reason Comments Med Refill Encounter Details Date Type Department Care Team ([facility] Contact Info) Description 01/09/[address] [address] Eugenia Sandoval [address] [address] Social History Tobacco Use Types Packs/Day Years [...] Upcoming Encounters Date Type Department Care Team ([facility] Contact Info) Description 06/25/2025 2:45 PM EDT Office Visit [facility] [address] [place] [phone] Eugenia Sandoval [address] [address] 08/05/2025 9:45 AM EST Office Visit [address] [address] documented as of this encounter Visit Diagnoses Not on filedocumented in this encounter Care Teams Compliance Professional Relationship Specialty Start Date End Date [place] [facility] [address] [place] [address] PCP - General Family Medicine 04/27/22 documented as of this encounter
--- OUTSIDE RECORDS SUMMARY | 2025-06-11 18:29 | XMS_ITS | Encounter Summary ---
Author Organization [employer] Address [address] [facility] 7t [place] [address] Care Team Providers Care Avian Keeper Name Role Phone Eugenia Sandoval Primary Care Provider [phone] Reason for Referral * Hospital - Outpatient (Routine) - Closed Specialty Diagnoses / Procedures Referred By Nimisha tirado Referred To Contact Diagnoses Essential hypertension Excessive daytime sleepiness Procedures Polysomnography Eugenia Sandoval FNP [address] [place] [address] Phone: tel: fax: [address] Phone: tel: fax: Referral ID Status Reason Start Date Expiration Date Visits Re quested Visits Authorized [id number] Closed 07/02/2024 07/02/2025 1 1 Encounter Details Date Type Department Care Team (Late st Contact Info) Description 07/02/2024 Orders Only [facility] MEDICINE [address] [place], [place] [phone] Eugenia Sandoval FNP [address] [place], [place] [phone] Essential hypertension (Primary Dx); Excessive daytime sleepiness [...] is your housing situation today? I have nalelly kyle 06/13/[address] you [...] Description 06/25/2025 2:45 PM EDT Office Visit [facility] [address] [place] [phone] Yeoman Eugenia, [facility] [address] [place] [address] 08/05/2025 9:45 AM EST Office Visit [address] [address] Scheduled Orders Name Type Priority Associated Diagnoses [...] documented as of this encounter Care Teams Avian Keeper Relationship Specialty Start Date End Date Eugenia Sandoval FNP [address] [place] [address] PCP - General Family Medicine 04/27/22 documented as of this encounter
--- OUTSIDE RECORDS SUMMARY | 2025-06-11 18:29 | XMS_ITS | Encounter Summary ---
Author Organization [employer] Address [address] [facility] [address] [place] [address] Care Team Providers Care Product Info Specialist Name Role Phone Lori Eugenia [employer] Primary Care Provider Encounter Details Date Type Department Care Team ([facility] st Contact Info) Description 12/06/2023 Orders Only [facility] [address] [place], [place] [phone] Provider, MD Aga Social History Tobacco Use [...] Description 06/25/2025 2:45 PM EDT Office Visit [address] [address] Eugenia Sandoval FNP [address] [place] [address] 08/05/2025 9:45 AM EST Office Visit [address] [address] documented as of this encounter Procedures Procedure [...] documented as of this encounter Care Teams Product Info Specialist Relationship Specialty Start Date End Date Eugenia Sandoval FNP [address] [place] [address] PCP - General Family Medicine 04/27/22 documented as of this encounter
--- OUTSIDE RECORDS SUMMARY | 2025-06-11 18:29 | XMS_ITS | Data Portability ---
Author Organization [facility], [facility] Address [address] [place] [address] Care Team Providers Care Neurobiologist Name Role Phone EUGENIA VERDIN Primary Care Provider [phone] Assessment Encounter Date Assessment Date Assessment LastModified [...] weeks from the most recent corticosteroid injection. [email or web address] Not available 11/17/2024 20:32:02 12/19/2024 12/19/2024 PRIMARY [...] drug use. She is . She is [place]ican speaking only. PHYSICIANS: Her primary care provider [facility]. REVIEW OF SYSTEMS: Negative with exception of [...] osteoarthritis of the right knee. There is tudx-vn-[id number] articulation, subchondral sclerosis, and osteophyte formation. There [...] CONTACTS: Her son, Ramesh, with cellphone number [phone]. [email or web address] Not available 12/20/2024 09:55:10 12/24/2024 12/24/2024 Assessment: Frances ent presents with symptoms that are consistent with knee OA. Demonstrates good understanding of home program, post-operative mechanics for gait and stairs, and expectations following surgery. Plan: Discharge patient to knee OA safe HEP. Follow up with patient post-operatively. [email or web address] Not available 12/11/2024 06:46:59 Plan of Treatment Reminders Order Date Submit Date Provider Last Modified By Organization Details Last Modified Time Details Appointments None record ed. Lab None record ed. Referral None record ed. Procedures None record ed. Surgeries None record ed. Imaging XR, knee, 4 or more view - 102 rt 4v 025 11/07/19 [email or web address] [facility], [address], [address], [place], [address], 10:00:48 Medication Orders None record ed. Patient TargetsNo targets recorded. Patient InstructionsNo instructions recorded. Reason for Referral None Reported. Results Created Date Observation Date Name Description Value Unit Range Abnormal Flag Note LastModifiedBy Organization Detail LastModifiedTime 12/05/1912/05/2024 CBC WITH DIFFE RENTI AL/PL ATELE T WBC 7.3 x10e3 /uL 3.4-10 .8 normal Not Available [facility] ([facility]) [address] [place], [address], 12/05/2024 08:13:03 12/05/19 25 12/05/2024 CBC WITH DIFFE RENTI AL/PL ATELE T RBC 4.06 x10e6 /uL 3.77-5 .28 normal Not Available [facility] ([facility]) [address] [place], [address], 12/05/2024 08:13:03 12/05/19 25 12/05/2024 CBC WITH DIFFE RENTI AL/PL ATELE T hemoglobin 12.0 g/dL 11.1-1 5.9 normal Not Available [facility] ([facility]) [address] [place], [address], 12/05/2024 08:13:03 12/05/19 25 12/05/2024 CBC WITH DIFFE RENTI AL/PL ATELE T hematocrit 37.1 % 34.0-4 6.6 normal Not Available [facility] ([facility]) [address] [facility], [place], [address], 12/05/2024 08:13:03 12/05/19 25 12/05/2024 CBC WITH DIFFE RENTI AL/PL ATELE T MCV 91 fL 79-97 normal Not Available [facility] ([facility]) [address] [facility], [place], [address], 12/05/2024 08:13:03 12/05/19 25 12/05/2024 CBC WITH DIFFE RENTI AL/PL ATELE T MCH 29.6 pg 26.6-3 3.0 normal Not Available [facility] ([facility]) [address] [place], [address], 12/05/2024 08:13:03 12/05/19 25 12/05/2024 CBC WITH DIFFE RENTI AL/PL ATELE T MCHC 32.3 g/dL 31.5-3 5.7 normal Not Available [facility] ([facility]) [address] [place], [address], 12/05/2024 08:13:03 12/05/19 25 12/05/2024 CBC WITH DIFFE RENTI AL/PL ATELE T RDW 12.8 % 11.7-1 5.4 Not Available [facility] ([facility]) [address] [place], [address], 12/05/2024 08:13:03 12/05/19 25 12/05/2024 CBC WITH DIFFE RENTI AL/PL ATELE T platelets 412 x10e3 /uL 150-45 0 normal Not Available [facility] ([facility]) [address] [facility], [place], [address], 12/05/2024 08:13:03 12/05/19 25 12/05/2024 CBC WITH DIFFE RENTI AL/PL ATELE T neutrophils 56 % not estab. normal Not Available [facility] ([facility]) [address] [facility], [place], [address], 12/05/2024 08:13:03 12/05/19 25 12/05/2024 CBC WITH DIFFE RENTI AL/PL ATELE T lymphs 31 % not estab. normal Not Available [facility] ([facility]) [address] [facility], [place], [address], 12/05/2024 08:13:03 12/05/19 25 12/05/2024 CBC WITH DIFFE RENTI AL/PL ATELE T monocytes 9 % not estab. normal Not Available [facility] ([facility]) [address] [facility], [place], [address], 12/05/2024 08:13:03 12/05/19 25 12/05/2024 CBC WITH DIFFE RENTI AL/PL ATELE T eos 3 % not estab. normal Not Available [facility] ([facility]) [address] [facility], [place], [address], 12/05/2024 08:13:03 12/05/19 25 12/05/2024 CBC WITH DIFFE RENTI AL/PL ATELE T basos 1 % not estab. 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 0 normal Not Available [facility] ([facility]) [address] [facility], [place], [address], 12/05/2024 08:13:03 12/05/19 25 12/05/2024 CBC WITH DIFFE RENTI AL/PL ATELE T lymphs (absolute) 2.2 x10e3 /uL 0.7-3. 1 normal Not Available [facility] ([facility]) [address] [place], [address], 12/05/2024 08:13:03 12/05/19 25 12/05/2024 CBC WITH DIFFE RENTI AL/PL ATELE T monocytes(ab solute) 0.7 x10e3 /uL 0.1-0. 9 normal Not Available [facility] ([facility]) [address] [place], [address], 12/05/2024 08:13:03 12/05/19 25 12/05/2024 CBC WITH DIFFE RENTI AL/PL ATELE T eos (absolute) 0.2 x10e3 /uL 0.0-0. 4 normal Not Available [facility] ([facility]) [address] [place], [address], 12/05/2024 08:13:03 12/05/19 25 12/05/2024 CBC WITH DIFFE RENTI AL/PL ATELE T baso (absolute) 0.1 x10e3 /uL 0.0-0. 2 normal Not Available [facility] ([facility]) [address] [place], [address], 12/05/2024 08:13:03 12/05/19 25 12/05/2024 CBC WITH DIFFE RENTI AL/PL ATELE T immature granulocytes 0 % not estab. Not Available [facility] ([facility]) [address] [facility], [place], [address], 12/05/2024 08:13:03 12/05/19 25 12/05/2024 CBC WITH DIFFE RENTI AL/PL ATELE T immature grans (abs) 0.0 x10e3 /uL 0.0-0. 1 Not Available [facility] ([facility]) [address] [facility], [place], [address], 12/05/2024 08:13:03 12/05/19 25 12/05/2024 CBC WITH DIFFE RENTI AL/PL ATELE T NRBC CLUB ATTENDANT Not Available [facility] ([facility]) [address] [facility], [place], [address], 12/05/2024 08:13:03 12/05/19 25 12/05/2024 CBC WITH DIFFE RENTI AL/PL ATELE T hematology comments: CLUB ATTENDANT Not Available [facility] ([facility]) [address] [facility], [place], [address], 12/05/2024 08:13:03 12/05/19 25 12/05/2024 ELECT ROLYT E PANEL sodium 139 mmol/ L 134-14 4 normal Not Available [facility] ([facility]) [address] [facility], [place], [address], 12/05/2024 08:13:03 12/05/19 25 12/05/2024 ELECT ROLYT E PANEL potassium 4.0 mmol/ L 3.5-5. 2 normal Not Available [facility] ([facility]) [address] [facility], [place], [address], 12/05/2024 08:13:03 12/05/19 25 12/05/2024 ELECT ROLYT E PANEL chloride 101 mmol/ L 96-106 normal Not Available [facility] ([facility]) [address] [facility], [place], [address], 12/05/2024 08:13:03 12/05/19 25 12/05/2024 ELECT ROLYT E PANEL carbon dioxide, total 21 mmol/ L 20-29 normal Not Available [facility] ([facility]) [address] [facility], [place], [address], 12/05/2024 08:13:03 12/05/19 25 12/05/2024 BUN+C REAT BUN 14 mg/dL 8-27 normal Not Available [facility] ([facility]) [address] [facility], [place], [address], 12/05/2024 08:13:04 12/05/19 25 12/05/2024 BUN+C REAT creatinine 0.85 mg/dL 0.57-1 .00 normal Not Available [facility] ([facility]) [address] [facility], [place], [address], 12/05/2024 08:13:04 12/05/19 25 12/05/2024 BUN+C REAT eGFR 73 mL/mi n/1.7 3 >59 normal Not Available [facility] ([facility]) [address] [facility], [place], [address], 12/05/2024 08:13:04 12/05/19 25 12/05/2024 BUN+C REAT BUN/creatini ne ratio 16 12-28 normal Not Available [facility] ([facility]) [address] [place], [address], 12/05/2024 08:13:04 12/05/1912/05/2024 PROTH ROMBI N TIME (PT) INR 1.0 [...] range 2.5 - 3.5 Not Available [facility] ([facility]) [address] [facility], [place], [address], 12/05/2024 08:13:05 12/05/1912/05/2024 PROTH ROMBI N TIME (PT) prothrombin time 10.9 sec 9.1-12 .0 normal Not Available [facility] ([facility]) [address] [facility], [place], [address], 12/05/2024 08:13:05 12/05/1912/05/2024 HEMOG LOBIN A1C hemoglobin A1C 5.9 % 4.8-5. 6 above high normal Predi abete s: 5.7 - 6.4 Diabe fide: >6.4 Glyce ezequiel contr ol for adult s with diabe fide: <7.0 Not Available [facility] ([facility]) [address] [facility], [place], [address], 12/05/2024 08:13:05 12/05/1912/05/2024 PTT, ACTIV ATED APTT [...] oring , refer to the [facility]. Not Available [facility] ([facility]) [address] [facility], [place], [address], 12/05/2024 08:13:06 12/05/1912/05/2024 GLUCO SE glucose 89 mg/dL 70-99 normal Not Available [facility] ([facility]) [address] [facility], [place], [address], 12/05/2024 08:13:06 11/07/1911/06/2024 XR, knee, 4 or more view http:/ [email or web address] ?Encry pted=s Yuo YD8dLq bEUv6g %2BXZw aYqtaq 0bqfl% 2Fg9IQ a4ajBk vP9nXo QUaueC m3YtLR FvZlgJ JJ8mAn HZtai3 5j6096 AC0KqY nyGV6u hKiQtr MwF INTERFACE [facility] Office [address] [facility] [address], [place], [address], 11/06/2024 16:55:36 11/07/19 25 11/06/2024 XR, knee, 4 or more view http:/ [email or web address] ?Encry pted=adolfo Browning YD8dLq bEUv6g %2BXZw aYqtaq 0bqfl% 2Fg9IQ a4ajBk vP9nXo QUaueC m3YtLR FvZlgJ JJ8mAn HZtai3 4z7783 AC0KqY nyGV6u hKiQtr MwF INTERFACE [facility] [address] [facility] [address], [place], [address], 11/06/2024 16:55:38 Result Notes Documentation Provider Name and Address Organization Details Recorded Time Xr, Knee, 4 Or More View : [email or web address] Encrypted=fmOtFneXT0eEhgB Uv6g%5JBHmpYxnnc2jsfl%2Fg 6WZa7cpPzmE4xJtOFitzEh9Hx GBLsUtxWUS8hJnFTeef49v682 2QF7SzXdpWL1cfDdNmtDdR Not Available [facility] 11/06/2024 16:55: 37 Xr, Knee, 4 Or More View : [email or web address] Encrypted=xgTeXycVJ4jShfW Uv6g%3VDLytBvyyh1kdpn%2Fg 7IAp6hoLcpU6oHzMVkocYg1Zw WMTwGwpDDQ0mWzGAtfv31g924 0AT8YkTasMA9jdYdXlwVeF Not Available [facility] 11/06/2024 16:55: 39 Procedures Surgical History Date Name Laterality Status Provider Name and Address Organization Details Recorded Time 5 97115 Therapeutic Exercise (1:1) completed Steve Pennington, PT [address], [place], [address], [facility] 12/11/2024 06:45:02 5 36383: Low complexity PT Eval completed Steve Pennington, PT [address], [place], [address], [facility] 12/11/2024 06:45:05 4 Sports Knee 4&1 completed Derek Hamilton PA-C [address], [place], [address], [facility] 07/17/2024 15:12:43 4 Sports Knee 4&1 completed Jace Sanford MD [address], [place], [address], [facility] 03/27/2024 06:25:25 4 06178 Therapeutic Exercise (1:1) completed Carlos Ledbetter PTA [address], [place], [address], [facility] 03/20/2024 17:50:09 4 52835 Therapeutic Exercise (1:1) completed Carlos Ledbetter PTA [address], [place], [address], [facility] 03/18/2024 17:58:22 4 51267 Therapeutic Exercise (1:1) completed Carlos Ledbetter PTA [address], [place], [address], [facility] 03/06/2024 15:32:35 4 17488 Therapeutic Exercise (1:1) completed Carlos Ledbetter PTA [address], [place], [address], [facility] 03/04/2024 15:09:05 4 42597 Therapeutic Exercise (1:1) completed Carlos Ledbetter PTA [address], [place], [address], [facility] 02/26/2024 16:04:46 4 68341 Therapeutic Exercise (1:1) completed Aye Hawk, DPT [address], [place], [address], [facility] 02/21/2024 17:23:58 4 12015 Therapeutic Exercise (1:1) completed Carlos Beckham DPLogan [address], [place], [address], [facility] 02/20/2024 15:55:57 4 65042 Therapeutic Exercise (1:1) completed Carlos Ledbetter PTA [address], [place], [address], [facility] 02/14/2024 10:45:48 4 58477 Therapeutic Exercise (1:1) completed Carlos Ledbetter PTA [address], [place], [address], [facility] 02/12/2024 16:17:53 4 36973 Therapeutic Exercise (1:1) completed Carlos Ledbetter PTA [address], [place], [address], [facility] 02/08/2024 13:58:10 4 71493 Therapeutic Exercise (1:1) completed Carlos Ledbetter PTA [address], [place], [address], [facility] 02/07/2024 15:04:34 4 96042 Therapeutic Exercise (1:1) completed Carlos Ledbetter PTA [address], [place], [address], [facility] 02/06/2024 16:03:13 4 89114 Therapeutic Exercise (1:1) completed Carlos Ledbetter PTA [address], [place], [address], [facility] 02/05/2024 14:59:26 4 71620: Manual therapy completed Carlos Ledbetter PTA [address], [place], [address], [facility] 02/05/2024 15:40:46 4 51558 Therapeutic Exercise (1:1) cancelled Carlos Ledbetter PTA [address], [place], [address], [facility] 02/01/2024 13:13:02 4 05568 Therapeutic Exercise (1:1) completed Carlos Ledbetter PTA [address], [place], [address], [facility] 01/31/2024 17:06:36 4 30797 Therapeutic Exercise (1:1) completed Carlos Ledbetter PTA [address], [place], [address], [facility] 01/30/2024 14:13:08 4 23261 Therapeutic Exercise (1:1) completed Carlos Ledbetter PTA [address], [place], [address], [facility] 01/19/2024 12:25:40 4 16221: Manual therapy completed Carlos Ledbetter BOTTLE TESTER [address], [place], [address], [facility] 01/19/2024 13:55:22 4 37787 Therapeutic Exercise (1:1) completed CASH MadisonT [address], [place], [address], [facility] 01/15/2024 21:24:44 4 94942: Manual therapy completed Carlos Beckham, DPT [address], [place], [address], [facility] 01/15/2024 21:24:50 4 37407 Therapeutic Exercise (1:1) completed Carlos Beckham DPT [address], [place], [address], [facility] 01/08/2024 14:32:44 4 38114: Low complexity PT Eval completed Carlos Beckham, DPT [address], [place], [address], [facility] 01/08/2024 14:32:46 Imaging Results None recorded. Procedure Notes None recorded. Medical Equipment None Reported. Allergies Allergen ID Allergen Name Allergen Category Reaction Reaction Severity Criticality Documentation Date Start Date Code Code System Note Provider Name and Address Organization Details Recorded Time 93741 Product containin g penicilli n (product) medicatio n Not available Not available Not available 10/30/20232008 60363 8001 SNOMED Aller gyRea ction : 'ITCH Y'; Not Available [facility] 4 11:24:33 Medications Name Sig Start Date Stop [...] Not Available Not Available No t Available clindamycin HCl 300 mg capsule TAKE 1 CAPSULE BY MOUTH EVERY 6 HOURS FOR 7 DAYS active Not Available Not Available No t Available albuterol sulfate 2.5 mg/3 mL (0.083 %) solution for nebulizatio n INHALE 1 AMPULE USING A NEBULIZER EVERY 6 HOURS NEEDED FOR WHEEZING OR SHORTNESS OF BREATH active Not Available Not Available No t [...] SEVERE PAIN FOR UP TO 28 DAYS active Not Available Not Available No [...] MOUTH 30 MINUTES BEFORE YOUR PROCEDURE (MRI), DO NOT DRIVE WHILE TAKING active Not Available Not Available No t Available phenazopyri dine 100 mg tablet TAKE 1 TABLET BY MOUTH 3 TIMES A DAY FOR 2 DAYS NEEDED FOR PAIN active Not Available Not Available No t Available cephalexin 500 mg capsule TAKE 4 TABLETS BY MOUTH 1 HOUR BEFORE DENTAL PROCEDURE active Not Available Not Available No t Available pantoprazol e 40 mg tablet,leland yed release [...] CAPSULE BY MOUTH 2 TO 4 TIMES PER DAY NEEDED FOR GAS active Not Available Not [...] PUFFS BY MOUTH EVERY 4 HOURS NEEDED FOR WHEEZING OR SHORTNESS OF BREATH active Not Available Not Available No t [...] Not Available Not Available No t Available diclofenac 1 % topical gel APPLY 2 GRAMS TOPICALLY TO AFFECTED AREA(S) THREE TIMES DAILY NEEDED active Not Available Not Available No [...] Updated DateTime 11/01/2024 142.24 cm Genoveva Coughlin [facility] 11/01/2024 14:13:30 Date Recorded Body height Body mass index (BMI) Body weight Provider Name and Address Organization Details Last Updated DateTime 11/06/2024 142.24 cm 33.4 kg/m2 15833.26 g DAREN MARCIAL [facility] 11/06/2024 16:47:17 Date Recorded Body height Body mass index (BMI) Body weight Provider Name and Address Organization Details Last Updated DateTime 12/19/2024 142.24 cm 33.9 kg/m2 02335.45 g REX IRELAND [facility] 12/19/2024 13:10:43 Date Recorded Body height Body mass index (BMI) Body weight Provider Name and Address Organization Details Last Updated DateTime 07/16/2024 142.24 cm 31.4 kg/m2 29153.93 g STEVE GAVIRIA [facility] 07/16/2024 17:09:14 Social History None recorded. Functional Status None recorded. Mental Status None recorded. Family History Nothing Reported. Medical History No medical history recorded. Gynecological HistoryNo gynecological history recorded. Obstetrics History GPAL:G 0 P 0 0 0 0 Past Encounters Encounter ID Performer Location Encounter Start Date Encounter Closed Date Diagnosis/Indication Diagnosis SNOMED-CT Code Diagnosis ICD10 Code Diagnosis IMO Codes Diagnosis Note [id number] Lesley Kelley, INFORMATICA MDM ARCHITECT [facility] [address] [place] [address] 12/14/2023 13:09:17 01/04/2024 04:04:38 Osteoarthritis of left knee joint [id number] 96515 M17.12 [id number] Derek Hamilton PA-C [facility] [address] [place] [address] 01/05/2024 12:52:16 01/17/2024 16:07:54 History of left total knee replacement [id number] 852500 Z96.823 [id number] Carlos Bcekham , DPT [facility] [address] [place] [address] 01/08/2024 12:58:22 01/08/2024 14:38:04 History of left total knee replacement 4886578278 205651 Z96.652 Z47.1 [id number] Carlos Beckham DPT [facility] [address] [place] [address] 01/15/2024 12:41:57 01/15/2024 14:37:38 History of left total knee replacement 9090068634 587200 Z96.652 Z47.1 [id number] Carlos Ledbetter, BOTTLE TESTER [facility] [address] [place] [address] 01/19/2024 13:05:55 01/19/2024 14:04:31 History of left total knee replacement 7117289226 068121 Z96.652 Z47.1 [id number] Jace Sanford MD [facility] [address] [place] [address] 01/29/2024 12:56:50 02/06/2024 16:03:27 History of left total knee replacement 7385112241 495613 Z96.104 [id number] Carlos Ledbetter, BOTTLE TESTER [facility] [address] [place] [address] 01/30/2024 13:02:12 01/30/2024 14:41:55 History of left total knee replacement 8344756613 341456 Z96.652 Z47.1 [id number] Carlos Ledbetter, BOTTLE TESTER [facility] [address] [place] [address] 01/31/2024 16:49:58 01/31/2024 17:40:43 History of left total knee replacement 2844257145 635090 Z96.652 Z47.1 [id number] Carlos Ledbetter, BOTTLE TESTER [facility] [address] [place] [address] 02/05/2024 14:57:53 02/05/2024 15:42:31 History of left total knee replacement 2340711183 761897 Z96.652 Z47.1 [id number] Carlos Ledbetter BOTTLE TESTER [facility] [address] [place] [address] 02/06/2024 15:59:39 02/06/2024 17:08:07 History of left total knee replacement 6613446532 425365 Z96.652 Z47.1 [id number] Carlos Ledbetter, BOTTLE TESTER [facility] [address] [place] [address] 02/07/2024 15:03:19 02/07/2024 16:35:35 History of left total knee replacement [id number] 447085 Z96.652 Z47.1 [id number] Carlos Ledbetter, BOTTLE TESTER [facility] [address] [place] [address] 02/08/2024 15:57:05 02/08/2024 16:59:11 History of left total knee replacement 0351791719 049083 Z96.652 Z47.1 [id number] Jace Sanford MD [facility] [address] [place] [address] 02/12/2024 11:58:35 03/04/2024 14:48:51 History of left total knee replacement 0941647991 406386 Z96.246 [id number] Carlos Ledbetter, BOTTLE TESTER [facility] [address] [place] [address] 02/12/2024 16:12:43 02/12/2024 17:16:34 History of left total knee replacement 5219986981 878092 Z96.652 Z47.1 [id number] Carlos Ledbetter, BOTTLE TESTER [facility] [address] [place] [address] 02/14/2024 16:06:56 02/14/2024 17:00:13 History of left total knee replacement 4518993283 792042 Z96.652 Z47.1 [id number] Carlos Beckham , DPT [facility] [address] [place] [address] 02/20/2024 14:52:59 02/20/2024 16:08:41 History of left total knee replacement 4652488038 540133 Z96.652 Z47.1 [id number] Aye Carine, DPT [facility] [address] [place] [address] 02/21/2024 16:47:58 02/21/2024 18:08:40 History of left total knee replacement [id number] Z96.652 Z47.1 [id number] Carlos Ledbetter, BOTTLE TESTER [facility] [address] [place] [address] 02/26/2024 16:03:23 02/26/2024 16:33:52 History of left total knee replacement [id number] [id number] Z96.652 Z47.1 [id number] Carlos Ledbetter, BOTTLE TE[employer] [facility] [address] [place] [address] 03/04/2024 15:03:36 03/04/2024 15:40:09 History of left total knee replacement [id number] 227264 Z96.652 Z47.1 [id number] Carlos Ledbetter, BOTTLE TESTER [facility] [address] [place] [address] 03/06/2024 14:59:04 03/06/2024 16:25:56 History of left total knee replacement [id number] Z96.652 Z47.1 [id number] Carlos Mayfieldos, BOTTLE TESTER [facility] [address] [place] [address] 03/18/2024 17:56:03 03/18/2024 18:02:06 History of left total knee replacement [id number] 931256 Z96.652 Z47.1 [id number] Carlos Anatoly, BOTTLE TESTER [facility] [address] [place] [address] 03/20/2024 17:45:46 03/20/2024 18:00:52 History of left total knee replacement [id number] 270316 Z96.652 Z47.1 [id number] Jace Sanford MD [facility] [address] [place] [address] 03/25/2024 12:53:47 04/12/2024 14:28:15 History of left total knee replacement [id number] 939811 Z96.652 Osteoarthr itis of right knee joint 3895744648 M17.11 [id number] Derek Hamilton PA-C [facility] [address] [place] [address] 07/16/2024 16:45:16 08/14/2024 06:58:58 Osteoarthritis of right knee joint 8891850002 M17.11 [id number] Derek Hamilton PA-C [facility] [address] [facility] [address] [place] [address] 11/01/2024 13:10:41 11/19/2024 15:55:39 Osteoarthritis of right knee joint 7730056947 M17.11 [id number] Jace Sanford MD [facility] [address] [place] [address] 11/06/2024 16:37:54 11/20/2024 10:00:48 Pain of right knee joint 9077304156 64285 M25.561 [id number] Osteoarthr itis of right knee joint 3483498326 M17.11 [id number] Steve Pennington, PT [facility] [address] [place] [address] 12/24/2024 09:49:03 12/24/2024 10:35:26 Osteoarthritis of knee 413163481 M17.11 [id number] Tee Reeder APRN [facility] [address] [place] [address] 12/19/2024 12:58:37 12/24/2024 04:05:04 Health Concerns Section Related Observation LastModified by Organization Detai ls LastModified Time None Recorded Concern Status LastModified by Organization Details LastModified Time None Recorded Advance Directives Directive None Recorded Payers Insurance Date Sequence Insurance Name Policy Number Policy Whitt Covered Member ID Whitt Member ID Guarantor Name 07/15/2024 1 [employer] - DOS ON OR AFTER 2022 - [employer] OPTIONS (MEDICARE REPLACEMENT/AD VANTAGE - HMO) Mary Kate C Colon [id number] Mary Kate C Colon 07/15/2024 1 [employer] - DOS ON OR AFTER 2022 - [employer]IONS (MEDICARE REPLACEMENT/AD VANTAGE - HMO) Mary Kate C Colon [id number] Mary Kate C Colon 07/15/2024 1 [employer] - DOS ON OR AFTER 2022 - ONE CARE (MEDICARE REPLACEMENT/AD VANTAGE - HMO) Mary Kate C Colon [id number] Mary Kate C Colon 07/15/2024 1 [employer] - DOS ON OR AFTER 2022 - ONE CARE (MEDICARE REPLACEMENT/AD VANTAGE - HMO) Mary Kate C Colon [id number] Mary Kate C Colon 07/15/2024 1 [employer] - DOS ON OR AFTER 2022 - [employer] OPTIONS (MEDICARE REPLACEMENT/AD VANTAGE - HMO) Mary Kate C Colon [id number] Mary Kate C Colon 07/15/2024 1 [employer] - DOS ON OR AFTER 2022 - ONE CARE (MEDICARE REPLACEMENT/AD VANTAGE - HMO) Mary Kate C Colon [id number] Mary Kate C Colon 04/11/2025 1 [employer] - DOS ON OR AFTER 2022 - [employer] (MEDICARE REPLACEMENT/AD VANTAGE - HMO) Mary Kate C Colon [id number] Mary Kate C Colon Notes Date Note Type Note Provider Name and Address Organization Details Recorded Time 07/16/2024 text/html ROS as noted in the HPI I am seeing the patient today under the supervision of Dr. Wall who was available but who did not see the patient. HPI:Patient presents today follow-up regarding their Right knee. They have had difficulty up and down stairs sitting standing. Previous injection approximately 4 months ago into her right knee which gave her good relief up until recently. Problems ambulating. Vdjw-ysl-zomylts medications are helping somewhat but not significantly. [...] noted. mild lateral ligamentous laxity. Negative Manan s . Calf is supple and nontender. Neurovascularly intact [...] concerns were answered today Derek Hamilton PA-C [address] [place] [address] [address], [place], [address], [facility] 07/17/2024 15:13:00 11/01/2024 text/html ROS as noted in the HPI I am seeing the patient today under [...] a daily basis especially with ambulatory activities. Hivo-jkj-mejwzhp medications have not provided her with significant [...] noted. mild medial ligamentous laxity. Negative Manan s . Calf is supple and nontender. Neurovascularly intact [...] concerns answered today. Derek Hamilton PA-C [address] [facility] [address] [facility][note 3], [place], [address], [facility] 11/01/2024 15:44:23 12/24/2024 text/html Patient is 74 year old female, with chronic history of knee [...] Pennington, PT [address], [place], [address], [facility] 12/24/2024 10:43:43 OBGyn Episode No OBEpisode recorded.
== END 2025-06-11 16:02 | disposition home or self-care (01) ==
LOC: HO.HSM 14:45
PROVIDERS: PCP Registered Nurse; Visit Provider Nurse Practitioner
DX: R42 Dizziness and giddiness (principal); R26.89 Other abnormalities of gait and mobility
CPT/HCPCS: 99203

== ENCOUNTER → 2025-06-11 14:44 | Outpatient (BNVA) | payer OTHER, SELFPAY | PROVIDERS: PCP Registered Nurse; Visit Provider Nurse Practitioner | DX: Z01.818 Encounter for other preprocedural examination (principal); R42 Dizziness and giddiness; R26.89 Other abnormalities of gait and mobility | CPT/HCPCS: 99202 ==